=== PATIENT | male | born 1940 | race Caucasian/White ===

== ENCOUNTER 2016-12-06 14:00 | Emergency (ER) | payer OTHER, MEDICARE ==
[~2016-12-06] VITALS: Ht 175.3 cm; Wt 94.3 kg
[~2016-12-06 14:00] MED LIST: CIPRO 500MG TA500 MG PO; CITALOPRAM20 MG PO; CYCLOBENZAPRINE5 M1 PO; FENOFIBRATE130 MG PO; HYDROCODON-ACETAMINO; LISINOPRIL10 MG PO; NORVASC 5MG TAB5 MG PO; PRAVASTATIN40 MG PO; PREVACID SOLUTA15 MG PO; VESICARE 10MG10 MG PO
[2016-12-06 14:46] LABS: ABSOLUTE BASOPHIL COUNT 0.1 /CUMM (0.0-0.2); ABSOLUTE EOSINOPHIL COUNT 0.1 /CUMM (0.0-0.7); ABSOLUTE GRANULOCYTE CT 6.6 /CUMM (1.4-6.5); ABSOLUTE LYMPH COUNT 1.2 /CUMM (1.2-3.4); ABSOLUTE MONOCYTE COUNT 1.2 /CUMM (0.10-0.60); BASOPHIL % 0.6 % (0.0-2.0); EOSINOPHIL % 0.8 % (0-5); GRANULOCYTE % 72.4 % (42.2-75.2); HEMATOCRIT 43.6 % (42-52); MEAN CORPUSCULAR HGB 30.5 PG (27.0-31.0); MEAN CORPUSCULAR HGB CONC 34.2 G/DL (33.0-37.0); MEAN PLATELET VOLUME 6.2 FL (7.4-10.4); PLATELET COUNT 298 /CUMM (130-400); RBC DISTRIBUTION WIDTH 13.4 % (11.5-14.5); WHITE BLOOD CELL COUNT 9.2 /CUMM (4.8-10.8)
--- NOTE | 2016-12-06 16:25 | ED GENERAL ADULT ---
History of Present Illness General Chief Complaint: Dyspnea (COPD, CHF, Other) Stated Complaint: DIFF BREATHING Source: patient, family Exam Limitations: no limitations Vital Signs & Intake/Output Vital Signs & Intake/Output Vital Signs Date Time Temp Pulse Resp B/P Pulse O2 O2 Flow FiO2 Ox Delivery Rate 12/06 1832 98.9 80 16 134/70 98 Room Air Room Air 12/06 1706 100.6 86 18 132/68 97 Room Air 12/06 1645 94 12/06 1625 96 Room Air Room Air 12/06 1411 98.6 96 18 150/75 95 Room Air ED Intake and Output 12/07 0000 12/06 1200 Intake Total Output Total Balance Patient 208 lb Weight Allergies Coded Allergies: moxifloxacin (From AVELOX) (ITCHY, RASH, SWEATING 12/06/16) Reconcile Medications Amlodipine (Norvasc 5MG Tab) 5 MG TABLET 1 TAB PO DAILY HEART HEALTH ( Reported) Amoxicillin/Clavulanate Potass (Amox-Clav 875-125 MG Tablet) 875 MG-125 MG TABLET 1 TAB PO BID ANTIBIOTIC (Reported) Atorvastatin Calcium (Lipitor) 80 MG TABLET 1 TAB PO DAILY CHOLESTEROL ( Reported) Benzonatate 200 MG CAPSULE 1 CAP PO TID PRN COUGH Cyclobenzaprine HCl 5 MG TABLET 1 TAB PO DAILY MUSCLE RELAXER (Reported) FENOFIBRATE,MICRONIZED (Fenofibrate) 130 MG CAPSULE 1 CAP PO DAILY HEART HEALTH (Reported) Folic Acid 1 MG TABLET 1 TAB PO DAILY SUPPLEMENT (Reported) Gabapentin (Unknown Strength) CAPSULE (Unknown Dose) UNKNOWN (Reported) Guaifenesin/Codeine Phosphate (Cheratussin AC Syrup) 100 MG-10 MG/5 ML LIQUID 5 ML PO Q6P PRN COUGH (Reported) Hydrocodone/Acetaminophen (Hydrocodon-Acetaminophn 10-325) 10 MG-325 MG TABLET 1 TAB PO 4XDP PRN PAIN (Reported) Lansoprazole (Prevacid) 30 MG TAB.RAP.DR 1 TAB PO DAILY GI (Reported) Lisinopril 10 MG TABLET 1 TAB PO DAILY HTN (Reported) Prednisone 10 MG TABLET 0 PO DAILY BREATHING START WITH 6 TABS PO DAILY ON DAY 1 AND DECREASE BY 10 MG A DAY X 6 DAYS Solifenacin Succinate (Vesicare) 10 MG TABLET 1 TAB PO DAILY OVERACTIVE BLADDER (Reported) Vilazodone Hydrochloride (Viibryd) 20 MG TABLET 1 TAB PO DAILY MENTAL HEALTH (Reported) Triage Note: PT STATES HE IS SOB AND COUGHING AND CHOKING "PICKING YELLOW/BROWN THICK SPUTUM". PT IS CURRENTLY TAKING AUGMENTIN THAT HE STARTED LAST TUESDAY. Triage Nurses Notes Reviewed? yes HPI: Patient is a 75 year old male presents complaining of cough, sputum production, wheezing, sinus infection. Patient reports symptoms x 1-1.[address] Baca on Tuesday and was placed on Augmentin. Patient has been taking the Augmentin but feels like his symptoms are worsening. Wheezing has been increasing, especially at night. Frontal headache and pressure sensation that that is currently moderate to severe. Patient reports associated subjective fevers and right sided chest pain. Patient did not received an influenza vaccination within the past 1 year. (LLUVIA BARNARD) Past History Travel History Traveled to [place] past 21 day No Medical History Any Pertinent Medical History? see below for history Cardiovascular: AFIB, hypertension, hyperlipidemia Respiratory: COPD Gastrointestinal: achalasia History of MRSA: No History of VRE: No History of CDIFF: No Pneumonia Vaccine: 09/08/09 Influenza Vaccine: 08/25/13 Surgical History Surgical History: non-contributory Psychosocial History Who do you live with Spouse Services at Home None What is your primary language Belgian Tobacco Use: Quit <30 days ago (quit on 11/21/16) ETOH Use: denies use Illicit Drug Use: denies illicit drug use Family History Hx Contributory? No (LLUVIA BARNARD) Review of Systems Review of Systems Constitutional: Denies: chills, fever. EENTM: Reports: nasal congestion. Respiratory: Reports: cough, short of breath, sputum production, wheezing. Cardiovascular: Reports: chest pain (right sided chest pain). GI: Denies: abdominal pain, nausea, vomiting. Musculoskeletal: Reports: no symptoms. Skin: Reports: no symptoms. Neurological/Psychological: Reports: headache. Hematologic/Endocrine: Reports: no symptoms. Immunologic/Allergic: Reports: no symptoms. (LLUVIA BARNARD) Physical Exam Physical Exam General Appearance: alert, awake Head: bilateral frontal and maxillary sinus tenderness Eyes: Bilateral: normal appearance, PERRL, EOMI. Ears, Nose, Throat: normal pharynx, normal ENT inspection, hearing grossly normal Neck: normal inspection, supple, full range of motion Respiratory: minimal congestion left lung base Cardiovascular: regular rate/rhythm (no appreciable murmur) Gastrointestinal: soft, non-tender Back: normal inspection, normal range of motion Extremities: normal inspection, normal capillary refill, normal range of motion, no edema Neurologic/Psych: no motor/sensory deficits, awake, alert, oriented x 3, normal mood/affect Skin: intact, normal color, warm/dry Lymphatic: no anterior cervical jeremiah Core Measures ACS in differential dx? No CVA/TIA Diagnosis: No Severe Sepsis Present: No Septic Shock Present: No (ANSELMO MALAVE,LLUVIA) Progress Differential Diagnoses I considered the following diagnoses in my evaluation of the patient: Influenza, pneumonia, bronchitis, sinusitis, sepsis Plan of Care: Orders Procedure Date/time Status RAPID VIRAL INFLUENZA A 12/06 1630 Complete VIRAL CULTURE 12/06 1630 Active TROPONIN LEVEL 12/06 1411 Complete COMPREHENSIVE METABOLIC PANEL 12/06 1411 Complete CBC WITHOUT DIFFERENTIAL 12/06 1411 Complete EKG 12/06 1402 Active Laboratory Tests 12/06/16 1630: Virus Culture Pending 12/06/16 1439: Anion Gap 11, Estimated GFR > 60, BUN/Creatinine Ratio 18.2, Glucose 133 H, Calcium 9.5, Total Bilirubin 0.5, AST 48, ALT 31, Alkaline Phosphatase 54, Troponin I 0.01, Total Protein 7.2, Albumin 4.4, Globulin 2.8, Albumin/Globulin Ratio 1.6, CBC w Diff NO MAN DIFF REQ, RBC 4.90, MCV 89.0, MCH 30.5, RDW 13.4, MPV 6.2 L, Gran % 72.4, Lymphocytes % 12.6 L, Monocytes % 13.6 H, Eosinophils % 0.8, Basophils % 0.6, Absolute Granulocytes 6.6 H, Absolute Lymphocytes 1.2, Absolute Monocytes 1.2 H, Absolute Eosinophils 0.1, Absolute Basophils 0.1, PUBS MCHC 34.[address] Madrigal. Results of labs and chest x-ray discussed with patient and his . Patient reports feeling improved after nebulizer treatment. Patient nontoxic appearing, tolerating oral intake. Patient is outside the 48-hour window to initiate Tamiflu. This was discussed with patient and his . Appears stable for discharge, instructed to return immediately if breathing worsens, unable stay hydrated, or worsening of symptoms. And to follow-up with his primary care provider within one week for further evaluation. (LLUVIA BARNARD) Diagnostic Imaging: Viewed by Me: Radiology Read. Discussed w/RAD: Radiology Read. Initial ED EKG: Normal sinus rhythm 95 bpm, normal axis normal intervals, change in t wave morphology in v3 compared to previous ekg Rhythm Strip: normal sinus rhythm (LLUVIA BARNARD) Departure Departure Time of Disposition: 1803 Disposition: HOME OR SELF CARE Condition: Stable Clinical Impression Primary Impression: Influenza A Secondary Impressions: Sinusitis Referrals: GM BACA MD (PCP/Family) Additional Instructions: Drink fluids and rest. Follow-up with your primary care doctor within one week for further evaluation. Use your albuterol inhaler every 4 hours as needed for wheezing. Return to the emergency department if unable to stay hydrated, breathing worsening, or worsening symptoms. Departure Forms: Customer Survey General Discharge Information Prescriptions: Current Visit Scripts Prednisone 0 PO DAILY #21 TAB START WITH 6 TABS PO DAILY ON DAY 1 AND DECREASE BY 10 MG A DAY X 6 DAYS Benzonatate 1 CAP PO TID PRN COUGH #30 CAP (LLUVIA BARNARD) PA/DATA CONTROL CLERK SUPERVISOR Co-Sign Statement Statement: ED Attending supervision documentation- [X] I saw and evaluated the patient. I have also reviewed all the pertinent lab results and diagnostic results. I agree with the findings and the plan of care as documented in the PA's/DATA CONTROL CLERK SUPERVISOR's documentation. [X] I have reviewed the ED Record and agree with the PA's/DATA CONTROL CLERK SUPERVISOR's documentation. [] Additions or exceptions (if any) to the PAs/DATA CONTROL CLERK SUPERVISOR's note and plan are summarized below: [] (TIFFANY MOODY,MAT) Critical Care Note Critical Care Note Critical Care Time: non-applicable (LLUVIA BARNARD)
[2016-12-06] MEDS ORDERED: LIPITOR80 M1 PO (16:38)
[2016-12-06] MEDS ORDERED: FOLIC ACID1 M1 PO (16:38)
[2016-12-06] MEDS ORDERED: VIIBRYD20 M1 PO (16:39)
[2016-12-06] MEDS ORDERED: PREVACID30 M2 PO (16:39)
[2016-12-06] MEDS ORDERED: CYCLOBENZAPRINE5 M2 PO (16:40)
[2016-12-06] MEDS ORDERED: HYDROCODON-ACE1 EAC1 PO (16:41)
[2016-12-06] MEDS ORDERED: AMOX-CLAV 875-1 EACH PO (16:41)
[2016-12-06] MEDS ORDERED: GABAPENTIN300 M2 (16:44)
[2016-12-06] MEDS ORDERED: CHERATUSSIN AC118 ML PO (16:45)
--- NOTE | 2016-12-06 17:46 | RADIOLOGY REPORT ---
EXAMINATION: XR CHEST CLINICAL INFORMATION: Coughing. Sputum production. Dyspnea. COMPARISON: Chest x-ray 09/08/2014 TECHNIQUE: PA and lateral views of the chest were obtained. FINDINGS: Lungs are clear. No pulmonary vascular congestion. No infiltrate or pleural effusion. The heart size is normal. The cardiac and mediastinal contours are normal. There are multilevel degenerative changes of dorsal spine. IMPRESSION: Unremarkable examination.
[2016-12-06] MEDS ORDERED: BENZONATATE200 M1 PO (18:05)
[2016-12-06] MEDS ORDERED: PREDNISONE10 M2 PO (18:05)
[2016-12-06 18:32] VITALS: BP 134/70
== END 2016-12-06 18:32 ==
LOC: ERH 14:00
PROVIDERS: Emergency Medicine
DX: J10.1 Influenza due to other identified influenza virus with other respiratory manifestations (principal); J32.9 Chronic sinusitis, unspecified; Z87.891 Personal history of nicotine dependence
CPT/HCPCS: 1263; 87804; 87804-59; 93005; 93010

== ENCOUNTER 2018-01-12 15:16 | Inpatient (IN) | payer OTHER ==
[~2018-01-12] VITALS: Ht 175.3 cm; Wt 91.6 kg
[~2018-01-12 15:16] MED LIST changes: +AMOX-CLAV 875-1 EACH PO; +AZITHROMYCIN250 M1 PO; +BENZONATATE200 M1 PO; +CARDIZEM CD180 M1 PO; +CHERATUSSIN AC118 ML PO; +CRESTOR40 M2 PO; +CYCLOBENZAPRINE10 M1 PO; +DILTIAZEM 24HR180 MG PO; +FENOFIBRATE130 M1 PO; -FENOFIBRATE130 MG PO; +FENOFIBRATE134 M1 PO; +FOLIC ACID1 M1 PO; +GABAPENTIN300 M2; +HYDROCODON-ACE1 EAC1 PO; +HYDROCODON-ACE1 EAC4 PO; +KEFLEX500 M1 PO; +LIPITOR80 M1 PO; +LISINOPRIL10 M1 PO; -LISINOPRIL10 MG PO; +METFORMIN HCL500 M3 PO; -NORVASC 5MG TAB5 MG PO; +NORVASC5 M1 PO; +PREDNISONE10 M2 PO; +PREVACID30 M1 PO; +PREVACID30 M2 PO; +PRINIVIL10 M1 PO; +SPIRIVA18 MCG INH; +SYMBICORT 16010.2 GM INH; +SYMBICORT 80-10.2 GM PO; -VESICARE 10MG10 MG PO; +VESICARE10 MG PO; +VIIBRYD10 M1 PO; +VIIBRYD20 M1 PO
[2018-01-12 16:20] LABS: ABSOLUTE BASOPHIL COUNT 0.1 /CUMM (0.0-0.2); ABSOLUTE EOSINOPHIL COUNT 0.1 /CUMM (0.0-0.7); ABSOLUTE GRANULOCYTE CT 11.4 /CUMM (1.4-6.5); ABSOLUTE LYMPH COUNT 2.4 /CUMM (1.2-3.4); BASOPHIL % 0.6 % (0.0-2.0); EOSINOPHIL % 0.3 % (0-5); GRANULOCYTE % 76.2 % (42.2-75.2); HEMATOCRIT 42.6 % (42-52); MEAN CORPUSCULAR HGB 28.5 PG (27.0-31.0); MEAN CORPUSCULAR HGB CONC 32.6 G/DL (33.0-37.0); MEAN CORPUSCULAR VOLUME 87.4 FL (80.0-94.0); PLATELET COUNT 408 /CUMM (130-400); RBC DISTRIBUTION WIDTH 13.2 % (11.5-14.5); RED BLOOD CELL CT 4.88 /CUMM (4.70-6.10); WHITE BLOOD CELL COUNT 14.9 /CUMM (4.8-10.8)
--- NOTE | 2018-01-12 17:49 | RADIOLOGY REPORT ---
EXAMINATION: XR CHEST CLINICAL INFORMATION: Cough COMPARISON: 12/10/2017 TECHNIQUE: 2 views of the chest were obtained. FINDINGS: No focal consolidation, pulmonary edema, or pleural effusion. Stable cardiomediastinal silhouette. IMPRESSION: No acute cardiopulmonary findings.
--- NOTE | 2018-01-12 20:44 | ED DYSPNEA/ASTHMA COMPLAINT ---
History of Present Illness General Chief Complaint: General Adult Stated Complaint: "DR DELFINO HERRING" Source: patient, family Exam Limitations: no limitations Vital Signs & Intake/Output Vital Signs & Intake/Output Vital Signs Date Time Temp Pulse Resp B/P B/P Pulse O2 O2 Flow FiO2 Mean Ox Delivery Rate 01/12 2220 97.4 63 16 111/57 92 Room Air 01/12 2043 98 Room Air 01/12 2039 97.4 73 22 108/57 97 Room Air 01/12 1546 98.0 86 20 110/64 97 Room Air Room Air ED Intake and Output 01/13 0000 01/12 1200 Intake Total Output Total Balance Patient 202 lb Weight Weight Reported by Patient Measurement Method Allergies Coded Allergies: moxifloxacin (From AVELOX) (ITCHY, RASH, SWEATING 01/12/18) Reconcile Medications Amlodipine Besylate (Norvasc) 5 MG TABLET 1 TAB PO DAILY HEART (Reported) Azithromycin 250 MG TABLET 1 TAB PO DAILY INFECTION . Budesonide/Formoterol Fumarate (Symbicort 80-4.5 Mcg Inhaler) 80 MCG-4.5 MCG/ ACTUATION HFA.AER.AD (Unknown Dose) PO BID COPD (Reported) Budesonide/Formoterol Fumarate (Symbicort 160-4.5 Mcg Inhaler) 160 MCG-4.5 MCG/ ACTUATION HFA.AER.AD (Unknown Dose) INH BID COPID (Reported) Cephalexin (Keflex) 500 MG CAPSULE 1 CAP PO BID INFECTION . Cyclobenzaprine HCl 10 MG TABLET 1 TAB PO DAILY MUSCLE SPASMS (Reported) Diltiazem HCl (Diltiazem 24HR ER) 180 MG CAP.ER.24H 1 CAP PO DAILY HEART ( Reported) Diltiazem HCl (Cardizem Cd) 180 MG CAP.ER.24H 180 MG PO DAILY AFIB (Reported) Fenofibrate,Micronized (Fenofibrate) 130 MG CAPSULE 1 CAP PO DAILY TRIGLYCERIDES (Reported) Fenofibrate,Micronized (Fenofibrate) 134 MG CAPSULE 130 MG PO DAIALY CHOLESTEROL (Reported) Hydrocodone/Acetaminophen (Hydrocodon-Acetaminophn 10-325) 10 MG-325 MG TABLET 1 TAB PO 4XDP PRN PAIN (Reported) Hydrocodone/Acetaminophen (Hydrocodon-Acetaminophn 10-300) 10 MG-300 MG TABLET 10-325 MG PO 4 TIMES/DAY CHRONIC DISC DISEASE (Reported) Lansoprazole (Prevacid) 30 MG TAB.RAP.DR 1 TAB PO DAILY GI (Reported) Lansoprazole (Prevacid) 30 MG CAPSULE.DR 30 MG PO DIALY ACID REFLUX (Reported ) Lisinopril (Prinivil) 10 MG TABLET 1 TAB PO DAILY HTN (Reported) Lisinopril 10 MG TABLET 10 MG PO DAILY HTN (Reported) Metformin HCl 500 MG TABLET 500 MG PO BID DIABETES (Reported) Metformin HCl 500 MG TABLET 1 TAB PO BID DIABETES . Prednisone 10 MG TABLET 1 TAB PO SEE ADMIN CRITERIA lung infection Please take 3 tabs om 07/21/17-07/22/17 Please take 2 tabs 07/23/17-07/24/17 Please take 1 tab 07/25/17-07/26/17 Then stop. Rosuvastatin Calcium (Crestor) 40 MG TABLET 1 TAB PO DAILY CHOLESTEROL ( Reported) Rosuvastatin Calcium (Crestor) 40 MG TABLET 40 MG PO DIALY CHOLESTEROL ( Reported) Solifenacin Succinate (Vesicare) 10 MG TABLET 1 TAB PO DAILY BLADDER HEALTH ( Reported) Solifenacin Succinate (Vesicare) 10 MG TABLET 10 MG PO DIALY PROSTATE ( Reported) Tiotropium [place] (Spiriva) 18 MCG CAP.W.DEV (Unknown Dose) INH DIALY COPD ( Reported) Vilazodone Hydrochloride (Viibryd) 20 MG TABLET 1 TAB PO DAILY MENTAL HEALTH (Reported) Vilazodone Hydrochloride (Viibryd) 10 MG TABLET 20 MG PO DIALY ANTI DEPRESSANT (Reported) Triage Note: PT TO ED FOR C/C OF SOB X 3 DAYS. +PRODUCTIVE YELLOW COUGH. WORSENING SOB WITH AMBULATION. PT SENT TO ED BY DR. YANCEY TO R/O PNEUMONIA. Triage Nurses Notes Reviewed? yes Onset: Gradual Duration: day(s): Timing: recent history Severity: moderate HPI: 77yo male with hx of a fib, COPD, DM, HTN presents to ED sent in by PCP for evaluation of possible PNA. Patient complaining of shortness of breath and cough productive of yellow sputum for the past 3 days. Patient reports that dyspnea is worse with exertion. Patient states that he has had dyspnea on exertion in the past however his saturation was never low enough to qualify for home oxygen. Patient reports chest pain associated with his cough. No chest pain at rest. Patient states that today at his doctor's office it was noted he had mild swelling to his ankles, he has never noticed this in the past. Patient denies fevers, chills, nausea, vomiting, diarrhea, abdominal pain. (Deb Lugo) Past History Travel History Traveled to [place] past 21 day No Medical History Any Pertinent Medical History? 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 No (Deb Lugo) Review of Systems Review of Systems Constitutional: Reports: no symptoms. EENTM: Reports: no symptoms. Respiratory: Reports: see HPI. Cardiovascular: Reports: see HPI. GI: Reports: no symptoms. Genitourinary: Reports: no symptoms. Musculoskeletal: Reports: see HPI. Skin: Reports: no symptoms. Neurological/Psychological: Reports: no symptoms. Hematologic/Endocrine: Reports: no symptoms. Immunologic/Allergic: Reports: no symptoms. All Other Systems: Reviewed and Negative (Deb Lugo) Physical Exam Physical Exam General Appearance: well developed/nourished, no apparent distress, alert, awake Head: atraumatic, normal appearance Eyes: Bilateral: normal appearance. Ears, Nose, Throat: hearing grossly normal Neck: normal inspection, supple, full range of motion Respiratory: mild inspiratory wheezes right posterior lung evangelista Cardiovascular: regular rate/rhythm Peripheral Pulses: 2+ radial (R), 2+ radial (L), 2+ dorsalis pedis (R), 2+ dorsalis pedis (L) Gastrointestinal: soft, no organomegaly, mild periumbilical tenderness Extremities: normal range of motion, mild nonpitting edema bilateral ankles Neurologic/Psych: awake, alert, oriented x 3 Skin: intact, normal color, warm/dry Core Measures ACS in differential dx? Yes CVA/TIA Diagnosis No Sepsis Present: No Sepsis Focused Exam Completed? No (Lacey MALAVE,Deb Barth) Progress Differential Diagnosis: asthma, AMI, bronchitis, CHF, COPD, musculoskeletal pain , pulmonary embolism, pneumonia, unstable angina Plan of Care: Orders Procedure Date/time Status Regular Diet 01/13 B Active Patient Data 01/12 2340 Active OXYGEN SETUP (GEN) 01/12 2255 Active Saline Lock 01/[address] in observation 01/12 2255 Active Vital Signs 01/12 2255 Active Activity/Ambulation 01/12 2255 Active Code Status 01/12 2255 Active Add-on Test (ER Only) 01/12 2053 Active EKG 01/12 2030 Active B-TYPE NATRIURETIC PEP (BNP) 01/12 161 Complete RAPID VIRAL INFLUENZA A 01/12 1549 Complete TROPONIN LEVEL 01/12 1549 Complete COMPREHENSIVE METABOLIC PANEL 01/12 154 Complete CBC WITHOUT DIFFERENTIAL 01/12 1549 Complete Laboratory Tests 01/12/18 1612: Anion Gap 10, Estimated GFR > 60, BUN/Creatinine Ratio 20.9, Glucose 139 H, Calcium 10.2, Total Bilirubin 0.5, AST 25, ALT 23, Alkaline Phosphatase 50, Troponin I < 0.01, Gql-B-Rkzkpyfztct Pept 305 H, Total Protein 6.7, Albumin 4.1 , Globulin 2.6, Albumin/Globulin Ratio 1.6, CBC w Diff NO MAN DIFF REQ, RBC 4.88 , MCV 87.4, MCH 28.5, MCHC 32.6 L, RDW 13.2, MPV 6.0 L, Gran % 76.2 H, Lymphocytes % 16.3 L, Monocytes % 6.6, Eosinophils % 0.3, Basophils % 0.6, Absolute Granulocytes 11.4 H, Absolute Lymphocytes 2.4, Absolute Monocytes 1.0 H, Absolute Eosinophils 0.1, Absolute Basophils 0.1 Microbiology 01/12 1550 NASOPHARYN: Influenza Virus A & B Rapid Smear - COMP This patient has COPD exacerbation. Chest x-ray without acute abnormality. Patient relates leukocytosis and mild hyperkalemia without EKG changes. Patient 's oxygen saturation is stable on room air. Patient ambulated with saturation 93-94%. Patient does not feel comfortable going home, reports significant dyspnea. The patient was discussed with showcase maker, patient may return to his baseline in one to 2 days following IV steroids and antibiotics. This patient with pulmonology consult while here for observation. Discussed this patient with Dr. Mccoy regarding general medicine observation for COPD exacerbation. Diagnostic Imaging: Viewed by Me: Radiology Read. Discussed w/RAD: Radiology Read. CXR Impression: PATIENT: CARLITOS EVANS PRESENT AGE : 77 PATIENT ACCOUNT NO: [id number] : 42 LOCATION: [facility] ORDERING PHYSICIAN: Harvinder Chand DO (TBS) SERVICE DATE: 01/12/18 EXAM TYPE: RAD - XRY-CHEST XRAY, TWO VIEWS EXAMINATION: XR CHEST CLINICAL INFORMATION: Cough COMPARISON: 12/10/2017 TECHNIQUE: 2 views of the chest were obtained. FINDINGS: No focal consolidation, pulmonary edema, or pleural effusion. Stable cardiomediastinal silhouette. IMPRESSION: No acute cardiopulmonary findings. DICTATED BY: Ron Monreal MD DATE/TIME DICTATED:01/12/181743 SUSTAINABILITY ANALYST:RAFAL DATE/TIME TRANSCRIBED:01/12/181743 CONFIDENTIAL, DO NOT COPY WITHOUT APPROPRIATE AUTHORIZATION. <Electronically signed in Other Vendor System> SIGNED BY: Ron Monreal MD 01/12/181748 Initial ED EKG: sinus rhythm @70bpm Prior EKG: unchanged (12/10/17) (Deb Lugo) Departure Departure Disposition: STILL A PATIENT Condition: Stable Clinical Impression Primary Impression: COPD exacerbation Referrals: Brady Watson MD (PCP/Family) Departure Forms: Customer Survey General Discharge Information Observation Note [facility]: [facility] Phys[facility] Advisor Notified: HARVINDER CHAND DO Place Patient In: Non-ED OBS Care Area Rationale for Observation: My rational for observation is as follows [COPD exacerbation with leukocytosis requiring IV steroids, IV azithromycin, pulmonology consult, possible respiratory therapy treatments, premature discharge could be medically unsafe.]. (Deb Lugo) PA/PRIMER INSERTING MACHINE ADJUSTER Co-Sign Statement Statement: ED Attending supervision documentation- x I saw and evaluated the patient. I have also reviewed all the pertinent lab results and diagnostic results. I agree with the findings and the plan of care as documented in the PA's/PRIMER INSERTING MACHINE ADJUSTER's documentation. COPD exacerbation with weakness, desaturation with ambulation [] I have reviewed the ED Record and agree with the PA's/PRIMER INSERTING MACHINE ADJUSTER's documentation. [] Additions or exceptions (if any) to the PAs/PRIMER INSERTING MACHINE ADJUSTER's note and plan are summarized below: [] (Diogo MOODY,Ld) Critical Care Note Critical Care Note Critical Care Time: non-applicable (Lacey MALAVE,Deb Barth)
--- NOTE | 2018-01-13 03:40 | History & Physical ---
Mehdi Arriaga 01/13/18 0339: General Information and HPI MD Statement: I have seen and personally examined CARLITOS EVANS and documented this H&P. The patient is a 77 year old M who presented with a patient stated chief complaint of [SOB]. Source of Information: patient, old records Exam Limitations: no limitations History of Present Illness: This is a 77 year-old man who was known to be in his usual state of health until a few days ago. He has a PMH of DJD, COPD( not on home oxygen), HLD, Afib ( remote history dx 1998, not on any AC), RODRICK ( non compliant CPAP ), DM TYPE 2, BPH, hypertension, chronic back pain, achalasia, dysphagia. Presented to the emergency department with a chief complain off shortness of breath, productive cough of yellow sputum for the past 3-4 days that is associated with some chills and night sweats. Patient stated that Patient states that he has had dyspnea on exertion in the past however his saturation was never low enough to qualify for home oxygen. Patient reports chest pain secondary to his cough. Patient stated that due to this difficulty in breathing and a cough he cannot get enough sleep in the past couple days, he you usually sleeps with his bed slightly raised and to try to catch up his breath that is associated with expiratory wheezing. Patient also reports sore throat, and he stated that he was admitted as primary care doctor yesterday was noted he had mild swelling to his ankles, he has never noticed this in the past. Currently patient denies any chest pain, heart racing , fever, abdominal pain, nausea, vomiting, diarrhea, hematuria, dysuria, headaches, change in vision or hearing. In the ED patient was giving 125 mg of IV Solu-Medrol, IV azithromycin chest x- ray did not show any acute cardiopulmonary finding. Patient informed her oxygen saturation more than 92%. Patient stated that he had some esophageal procedure done to help him with his dysphagia and difficulty swallowing at her hospital. He still complaining some difficulty with a solid food. Patient had CT angiogram of the chest abdomen and pelvis on November 2016 due to concern off aortic dissection that showed diffuse emphysema with a new pneumonitis in the right upper lobe. Last time patient was admitted to [facility] was in June 2017 due to pneumonia. 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 Cardiovascular: Reports: see HPI. Respiratory: Reports: see HPI. GI: Reports: see HPI. Genitourinary: Reports: see HPI. Exam & Diagnostic Data Last 24 Hrs of Vital Signs/I&O Vital Signs Date Time Temp Pulse Resp B/P B/P Pulse O2 O2 Flow FiO2 Mean Ox Delivery Rate 01/13 0119 98.6 71 18 98/55 93 01/13 0022 97.6 72 18 117/55 93 Room Air 01/12 2220 97.4 63 16 111/57 92 Room Air 01/12 2043 98 Room Air 01/12 2039 97.4 73 22 108/57 97 Room Air 01/12 1546 98.0 86 20 110/64 97 Room Air Room Air Intake & Output 01/13 0800 01/13 0000 01/12 1600 Intake Total Output Total Balance Patient 202 lb Weight Weight Reported by Patient Measurement Method Physical Exam General Appearance Alert, Oriented X3, Cooperative, Mild Distress Skin Temp/Moisture Exam: Warm/Dry HEENT Atraumatic, PERRLA, EOMI Neck Supple Cardiovascular Regular Rate, Normal S1, Normal S2 Lungs Normal Air Movement, decrease air entry bibasilar, mild expiratory wheezing Abdomen Normal Bowel Sounds, Soft, No Tenderness Extremities trace bilateral edema Last 24 Hrs of Labs/Mandeep: Laboratory Tests 01/12/18 1612: Anion Gap 10, Estimated GFR > 60, BUN/Creatinine Ratio 20.9, Glucose 139 H, Calcium 10.2, Total Bilirubin 0.5, AST 25, ALT 23, Alkaline Phosphatase 50, Troponin I < 0.01, Spq-L-Shuhrxasnbb Pept 305 H, Total Protein 6.7, Albumin 4.1 , Globulin 2.6, Albumin/Globulin Ratio 1.6, CBC w Diff NO MAN DIFF REQ, RBC 4.88 , MCV 87.4, MCH 28.5, MCHC 32.6 L, RDW 13.2, MPV 6.0 L, Gran % 76.2 H, Lymphocytes % 16.3 L, Monocytes % 6.6, Eosinophils % 0.3, Basophils % 0.6, Absolute Granulocytes 11.4 H, Absolute Lymphocytes 2.4, Absolute Monocytes 1.0 H, Absolute Eosinophils 0.1, Absolute Basophils 0.1 Microbiology 01/13 231 URINE ROUT: Legionella Antigen - COLB 01/13 231 URINE ROUT: Streptococcus pneumoniae Antigen (M - COLB 01/13 231 LOWER RESP: Respiratory Culture - COLB 01/13 231 LOWER RESP: Gram Stain - COLB 01/12 1550 NASOPHARYN: Influenza Virus A & B Rapid Smear - COMP Diagnostic Data EKG Results Normal sinus rhythm, heart rate 70, QTC 423, no ST segment changes. CXR Results EXAMINATION: XR CHEST CLINICAL INFORMATION: Cough COMPARISON: 12/10/2017 TECHNIQUE: 2 views of the chest were obtained. FINDINGS: No focal consolidation, pulmonary edema, or pleural effusion. Stable cardiomediastinal silhouette. IMPRESSION: No acute cardiopulmonary findings. Assessment/Plan Assessment: This is a 77 year-old man who was known to be in his usual state of health until a few days ago. He has a PMH of DJD, COPD( not on home oxygen), HLD, Afib ( remote history dx 1998, not on any AC), RODRICK ( non compliant CPAP ), DM TYPE 2, BPH, hypertension, chronic back pain, achalasia, dysphagia. Presented to the emergency department with a chief complain off shortness of breath, productive cough of yellow sputum for the past 3-4 days that is associated with some chills and night sweats. Problem list: -COPD exacerbation -Difficulty swallowing -Generalized weakness -Hyperkalemia/dehydration -Borderline blood pressure Plan: -Admit patient to general medicine floor -Vitals every shift -IV Solu-Medrol 40 mg every 8 hour -Continue IV azithromycin -TRC nebs as needed, Mucinex -Gentle IV fluid hydration of normal saline at 75 mL per hour for 1 bag -Sputum culture, strep and Legionella urine antigen -Pulmonary consultation in a.m. -Swallowing eval in a.m. -Physical therapy consultation in a.m. -Accu-Chek, carbohydrate consistent diet, insulin sliding scale -We will continue the patient Cardizem due to the history of atrial fibrillation , we'll hold off the lisinopril, amlodipine be restarted in a.m. if blood pressure improved. -Please confirm the patient home medications. -Pain pathway -DVT prophylaxis: lovenox -Full code As Ranked By This Provider Problem List: 1. COPD exacerbation Core Measures/Misc (08/07) Acute Coronary Syndrome ACS Diagnosis: No Congestive Heart Failure Congestive Heart Failure Diagnosis No Cerebrovascular Accident CVA/TIA Diagnosis: No VTE (View Protocol) VTE Risk Factors Acute Medical Illness No Mechanical VTE Prophylaxis d/t N/A MechProphylax Ordered No VTE Pharm Prophylaxis d/t NA PharmProphylax ordered Sepsis (View protocol) Sepsis Present: No Felton MOODY, [facility] 01/13/18 0722: General Information and HPI Allergies/Medications Home Med list Amlodipine Besylate (Norvasc) 5 MG TABLET 1 TAB PO DAILY HEART (Reported) Azithromycin 250 MG TABLET 1 DP PO AD COPD Start this med on 01/15/18 Be sure to finish this medicine Budesonide/Formoterol Fumarate (Symbicort 160-4.5 Mcg Inhaler) 160 MCG-4.5 MCG/ ACTUATION HFA.AER.AD (Unknown Dose) INH BID COPID (Reported) Cyclobenzaprine HCl 10 MG TABLET 1 TAB PO DAILY MUSCLE SPASMS (Reported) Diltiazem HCl (Diltiazem 24HR ER) 180 MG CAP.ER.24H 1 CAP PO DAILY HEART ( Reported) Fenofibrate,Micronized (Fenofibrate) 130 MG CAPSULE 1 CAP PO DAILY TRIGLYCERIDES (Reported) Hydrocodone/Acetaminophen (Hydrocodon-Acetaminophn 10-325) 10 MG-325 MG TABLET 1 TAB PO 4XDP PRN PAIN (Reported) Lansoprazole (Prevacid) 30 MG CAPSULE.DR 30 MG PO DIALY ACID REFLUX (Reported ) Lisinopril 10 MG TABLET 10 MG PO DAILY HTN (Reported) Metformin HCl 500 MG TABLET 500 MG PO BID DIABETES (Reported) Prednisone 10 MG TABLET 0 PO TAPER COPD DATES TABS/DAY 01/15-01/17 4 01/18-01/20 3 01/21-01/23 2 01/24-01/26 1 THEN STOP Rosuvastatin Calcium (Crestor) 40 MG TABLET 40 MG PO DIALY CHOLESTEROL ( Reported) Tiotropium [place] (Spiriva) 18 MCG CAP.W.DEV (Unknown Dose) INH DIALY COPD ( Reported) Vilazodone Hydrochloride (Viibryd) 20 MG TABLET 1 TAB PO DAILY MENTAL HEALTH (Reported) Attending MD Review Statement Attending Statement Attending MD Statement: examined this patient, discuss w/resident/PA/FLATWORK WASHER, agreed w/resident/PA/FLATWORK WASHER, reviewed images, amended to note Attending Assessment/Plan: 77 yo M with h/o COPD, paroxysmal Afib not on AC due to rectal bleeding, chronic back pain from degenerative disc disease, T2DM, HTN, achalasia/ dysphagia, last admitted for COPD/pneumonia (Jun 2017), is here for c/o exertional dyspnea, cough productive of yellow phlegm for the past 3-4 days. He is unable to sleep at night due to difficulty catching his breath. C/o cold sweats and pleuritic chest pain. He reports sore throat and h/o dysphagia for which he follows GI at [facility] and underwent EGD for ?dilatation for achalasia. Vitals stable, no hypoxia. Exam: dry mucous membranes, Chest b/l reduced air entry with expiratory wheeze, patient able to speak in full sentences, not using accessory muscles. Labs WBC 14.9, Plt 408, Na 135, K 5.5, BUN 23, glucose 139, trop neg. CXR: no acute findings. EKG: sinus rhythm. Echo (2011): EF > 55%. Assessment and plan: 1. COPD exacerbation 2. Weakness, physical deconditioning 3. Esophageal dysphagia/ achalasia with no current evidence of pneumonia. His last CT (Nov 2017) was suggestive of pneumonitis. 4. Hyperkalemia 5. Transient hypotension 6. Chronic back pain - 23 hour observation on general medicine - TR nebs - Sputum cultures - IV solumedrol and azithro for 5 days - Pulm consult (Dr. Avila) - Gentle hydration - Trend renal functions - PT eval - Swallow eval given h/o dysphagia - Diabetes management - Resume flexeril and vicodin for back arriaga - Hold lisinopril until K improves - Hold amlodipine and resume once BP improves - Resume diltiazem DVT ppx Lovenox. Full code. Observation Initial Note - I have personally examined CARLITOS EVANS on 01/13/18 at 0722. The disposition of CARLITOS EVANS is uncertain at this time and before a determination can be made, he requires a period of observation for the following reasons [COPD exacerbation, physical deconditioning]
--- NOTE | 2018-01-13 09:45 | PN-Observation ---
Tiana MOODYPanda 01/13/18 0945: Observation Note Observation Note _ I have personally examined CARLITOS EVANS. him disposition is uncertain at this time. Before a determination can be made, he requires continued observation for the following reasons: * Pulse oximetry * Pulmonology consult * Intravenous Steroids * Nebulizer treatments * Antibiotics Assessment/Plan Medical Assessment: 77 year old man with multiple medical problems significant for COPD not on home oxygen, atrial fibrillation no on anticoagulation, and achalasia with dysphagia s/p balloon dilation brought in by ambulance for evaluation Patient is saturating well without supplemental oxygen while on intravenous steroids. He appears tired, but otherwise well and in no acute respiratory distress. Patient is to have physical therapy evaluation for his weakness and deconditioning. 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 He remains in observation pending these studies. He is an anticipated discharge to home tomorrow with an oral steroid taper. Problem List -COPD exacerbation -Weakness -Achalasia/Dysphagia -Hyperkalemia -Hypotension -Chronic back pain -Hypertension -Hyperlipidemia -Atrial Fibrillation, no on Anticoagulation -BPH Plan -General Medicine observation -Accuchecks TIDAC with Novolog SSI -TRC with nebs PRN -NS @ 75 mL/hr -Solumedrol 40 mg IV Q8H -Azithromycin 500 mg IV Daily, five total day course -Guaifenesin 600 mg PO BID -Hold lisinopril -Hold amlodipine, restart as tolerated -Continue symbicort, spiriva for COPD -Continue home meds: atorvastatin, cardizem, fenofibrate, omeprazole -PT evaluation -Follow up cultures & sensitivites -Pain control with acetaminophen, vicodin -Diabetic diet -DVT PPx with lovenox -FULL CODE Problem List: 1. COPD exacerbation Subjective Follow-up For: COPD exacerbation dysphagia Subjective: Patient seen and examined. He is seen sitting upright in bed resting comfortably breathing without supplemental oxygen. He appears to be in no acute distress. He admits to cough more when eating or drinking recently and feels food "gets stuck " in his throat. He feels his breathing is mildly improved today, but not back to baseline. He denies any fever, chills, or chest pain. Review of Systems Constitutional: Reports: see HPI. Objective Last 24 Hrs of Vital Signs/I&O Vital Signs Date Time Temp Pulse Resp B/P B/P Pulse O2 O2 Flow FiO2 Mean Ox Delivery Rate 01/13 1122 Room Air 01/13 0844 97.5 78 18 128/62 93 Room Air 01/13 0642 97.7 84 18 116/79 93 01/13 0119 98.6 71 18 98/55 93 01/13 0022 97.6 72 18 117/55 93 Room Air 01/12 2220 97.4 63 16 111/57 92 Room Air 01/12 2043 98 Room Air 01/12 2039 97.4 73 22 108/57 97 Room Air 01/12 1546 98.0 86 20 110/64 97 Room Air Room Air Intake & Output 01/13 1600 01/13 0800 01/13 0000 Intake Total Output Total Balance Patient 91.626 kg Weight Physical Exam General Appearance: Alert, Oriented X3, Cooperative, No Acute Distress Other Physical Findings: GEN: well developed, overweight, elderly man in no acute distress HEENT: NCAT, PERRL, EOMI, anicteric sclera, MMM NECK: Supple, no JVD, trachea midline, no accessory respiratory muscle use CARD: Normal S1/S2 w/o m/g/r; RRR PULM: Diminished airflow in all lung evangelista without crackles or wheezing ABD: Soft, NT, ND, BS+ NEURO: Awake and alert, CN II-XII grossly intact, strength 5/5 x4, speech/ sensation/coordination intact, gait no assessed EXT: normal pulses, no cyanosis or edema Current Medications: Current Medications Sig/Efe Start time Last Medication Dose Route Stop Time Status Admin Acetaminophen 650 MG Q6P PRN 01/13 0245 AC PO Albuterol Sulfate 3 ML BID 01/13 2200 AC 01/13 INH 1130 Atorvastatin Calcium 80 MG 1700 01/13 1700 AC PO Azithromycin 500 MG Q24H 01/14 0000 AC Dextrose/Water 250 ML IV Azithromycin 500 MG ONCE ONE 01/12 2315 DC 01/13 Dextrose/Water 250 ML IV 01/13 0014 0020 Budesonide/ 2 PUF BID 01/13 1000 AC 01/13 Formoterol Fumarate INH 1033 Diltiazem HCl 180 MG DAILY 01/13 1000 AC 01/13 PO 1033 Enoxaparin Sodium 40 MG DAILY 01/13 1000 AC 01/13 SC 1033 Fenofibrate 145 MG DAILY 01/13 1000 AC 01/13 PO 1033 Guaifenesin 600 MG Q12 01/13 1000 AC 01/13 PO 1033 Heparin Sodium 5,000 UNIT Q8 01/13 0600 CAN (Porcine) SC Hydrocodone Bitart/ 1 TAB Q6P PRN 01/13 0245 AC Acetaminophen PO Insulin Aspart 0 TIDAC 01/13 0800 AC 01/13 SC 1146 Methylprednisolone 0 .STK-MED ONE 01/13 0806 DC .ROUTE Methylprednisolone 40 MG Q8 01/13 0600 AC 01/13 IV 0810 Methylprednisolone 0 .STK-MED ONE 01/13 0013 DC .ROUTE Methylprednisolone 125 MG ONCE ONE 01/12 2315 DC 01/13 IV 01/12 2316 0020 Omeprazole 40 MG DAILY AC 01/13 0700 AC PO Omeprazole 0 .STK-MED ONE 01/13 0644 DC PO Oxycodone/ 1 TAB Q8P PRN 01/13 0245 AC Acetaminophen PO Sodium Chloride 1,000 ML .[id number] 01/13 0230 AC 01/13 IV 0244 Tiotropium [place] 1 PUF DAILY 01/13 1000 AC 01/13 INH 1033 Last 24 Hrs of Labs/Mics: Laboratory Tests 01/12/18 1612: Anion Gap 10, Estimated GFR > 60, BUN/Creatinine Ratio 20.9, Glucose 139 H, Calcium 10.2, Total Bilirubin 0.5, AST 25, ALT 23, Alkaline Phosphatase 50, Troponin I < 0.01, Zaa-L-Mmblwuhsfiu Pept 305 H, Total Protein 6.7, Albumin 4.1 , Globulin 2.6, Albumin/Globulin Ratio 1.6, CBC w Diff NO MAN DIFF REQ, RBC 4.88 , MCV 87.4, MCH 28.5, MCHC 32.6 L, RDW 13.2, MPV 6.0 L, Gran % 76.2 H, Lymphocytes % 16.3 L, Monocytes % 6.6, Eosinophils % 0.3, Basophils % 0.6, Absolute Granulocytes 11.4 H, Absolute Lymphocytes 2.4, Absolute Monocytes 1.0 H, Absolute Eosinophils 0.1, Absolute Basophils 0.1 Microbiology 01/13 231 URINE ROUT: Legionella Antigen - COLB 01/13 231 URINE ROUT: Streptococcus pneumoniae Antigen (M - COLB 01/13 231 LOWER RESP: Respiratory Culture - COLB 01/13 023 LOWER RESP: Gram Stain - COLB 01/12 1550 NASOPHARYN: Influenza Virus A & B Rapid Smear - LORENZO Jon MD,Salma 01/13/18 1225: Observation Note Observation Note _ I have personally examined CARLITOS EVANS. him disposition is uncertain at this time. Before a determination can be made, he requires continued observation for the following reasons. Patient seen and examined, feeling better but not back to baseline. Still has some shortness of breath. Vital Signs Date Time Temp Pulse Resp B/P B/P Pulse O2 O2 Flow FiO2 Mean Ox Delivery Rate 01/13 1122 Room Air 01/13 0844 97.5 78 18 128/62 93 Room Air 01/13 0642 97.7 84 18 116/79 93 01/13 0119 98.6 71 18 98/55 93 01/13 0022 97.6 72 18 117/55 93 Room Air 01/12 2220 97.4 63 16 111/57 92 Room Air 01/12 2043 98 Room Air 01/12 2039 97.4 73 22 108/57 97 Room Air 01/12 1546 98.0 86 20 110/64 97 Room Air Room Air on exam; aox3, nad. cv; s1,s2, rrr resp; mild scattered wheeze abd; soft, nt, bs+ ext; no edema. Laboratory Tests 01/12 161 Chemistry Sodium (137 - 145 mmol/L) 135 L Potassium (3.5 - 5.1 mmol/L) 5.5 H Chloride (98 - 107 mmol/L) 99 Carbon Dioxide (22 - 30 mmol/L) 26 Anion Gap (5 - 16) 10 BUN (9 - 20 mg/dL) 23 H Creatinine (0.7 - 1.2 mg/dL) 1.1 Estimated GFR (>60 ml/min) > 60 BUN/Creatinine Ratio (7 - 25 %) 20.9 Glucose (65 - 99 mg/dL) 139 H Calcium (8.4 - 10.2 mg/dL) 10.2 Total Bilirubin (0.2 - 1.3 mg/dL) 0.5 AST (17 - 59 U/L) 25 ALT (21 - 72 U/L) 23 Alkaline Phosphatase (< 127 U/L) 50 Troponin I (<0.11 ng/ml) < 0.01 Zhf-C-Osyqhpqxrsf Pept (<125 pg/mL) 305 H Total Protein (6.3 - 8.2 g/dL) 6.7 Albumin (3.5 - 5.0 g/dL) 4.1 Globulin (1.9 - 4.2 gm/dL) 2.6 Albumin/Globulin Ratio (1.1 - 2.2 %) 1.6 Hematology CBC w Diff NO MAN DIFF REQ WBC (4.8 - 10.8 /CUMM) 14.9 H RBC (4.70 - 6.10 /CUMM) 4.88 Hgb (14.0 - 18.0 G/DL) 13.9 L Hct (42 - 52 %) 42.6 MCV (80.0 - 94.0 FL) 87.4 MCH (27.0 - 31.0 PG) 28.5 MCHC (33.0 - 37.0 G/DL) 32.6 L RDW (11.5 - 14.5 %) 13.2 Plt Count (130 - 400 /CUMM) 408 H MPV (7.4 - 10.4 FL) 6.0 L Gran % (42.2 - 75.2 %) 76.2 H Lymphocytes % (20.5 - 51.1 %) 16.3 L Monocytes % (1.7 - 9.3 %) 6.6 Eosinophils % (0 - 5 %) 0.3 Basophils % (0.0 - 2.0 %) 0.6 Absolute Granulocytes (1.4 - 6.5 /CUMM) 11.4 H Absolute Lymphocytes (1.2 - 3.4 /CUMM) 2.4 Absolute Monocytes (0.10 - 0.60 /CUMM) 1.0 H Absolute Eosinophils (0.0 - 0.7 /CUMM) 0.1 Absolute Basophils (0.0 - 0.2 /CUMM) 0.1 A/P; 77 y/o M with pmh sig for DJD, COPD( not on home oxygen), HLD, Afib ( remote history dx 1998, not on any AC), RODRICK ( non compliant CPAP ), DM TYPE 2, BPH, hypertension, chronic back pain, achalasia, dysphagia is placed on general medicine observation with acute COPD exacerbation and some physical deconditioning. Will continue IV steroids today and then likely switch to oral steroids tomorrow. Continue azithromycin for a total of 5 days. Continue TRC nebs. DVT prophylaxis: Lovenox Not back to baseline yet. Patient needs some ambulation and PT eval if unstable with ambulation and we should check ambulatory O2 sat. Possible discharge tomorrow.
[2018-01-13] MEDS ORDERED: PREDNISONE10 M2 PO (13:01)
[2018-01-13] MEDS ORDERED: AZITHROMYCIN250 M1 PO (13:01)
--- NOTE | 2018-01-13 13:03 | Patient Discharge Instructions ---
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 Take prednisone as directed. Be sure to finish these medications. Acute Coronary Syndrome Inclusion Criteria At DC or during hospital stay patient has or had the following: ACS DIAGNOSIS No Discharge Core Measures Meds if any: Prescribed or Continued at Discharge Meds if any: NOT Prescribed or Continued at Discharge Congestive Heart Failure Inclusion Criteria At DC or during hospital stay patient has or had the following: CHF DIAGNOSIS No Discharge Core Measures Meds if any: Prescribed or Continued at Discharge Meds if any: NOT Prescribed or Continued at Discharge Cerebrovascular accident Inclusion Criteria At DC or during hospital stay patient has or had the following: CVA/TIA Diagnosis No Discharge Core Measures Meds if any: Prescribed or Continued at Discharge Meds if any: NOT Prescribed or Continued at Discharge Venous thromboembolism Inclusion Criteria VTE Diagnosis No VTE Type NONE VTE Confirmed by (Test) NONE Discharge Core Measures - Per Current guidelines, there needs to be overlap - treatment for the first 5 days of Warfarin therapy. - If discharged on Warfarin prior to 5 days of - overlap therapy, the patient will need to be - assessed for post discharge needs including - *Post discharge parental anticoagulation - *Warfarin and/or parental anticoagulation education - *Follow up date to check INR post discharge At least 5 days overlap therapy as Inpatient No Meds if any: Prescribed or Continued at Discharge Note: Overlap Therapy is Warfarin and Anticoagulant Meds if any: NOT Prescribed or Continued at Discharge
[2018-01-13 13:19] LABS: ABSOLUTE BASOPHIL COUNT 0.1 /CUMM (0.0-0.2); ABSOLUTE EOSINOPHIL COUNT 0 /CUMM (0.0-0.7); ABSOLUTE GRANULOCYTE CT 11.7 /CUMM (1.4-6.5); ABSOLUTE LYMPH COUNT 0.8 /CUMM (1.2-3.4); ABSOLUTE MONOCYTE COUNT 0.1 /CUMM (0.10-0.60); BASOPHIL % 0.8 % (0.0-2.0); EOSINOPHIL % 0 % (0-5); HEMATOCRIT 38.7 % (42-52); MEAN CORPUSCULAR HGB CONC 33.7 G/DL (33.0-37.0); MEAN CORPUSCULAR VOLUME 85.9 FL (80.0-94.0); MEAN PLATELET VOLUME 6.1 FL (7.4-10.4); PLATELET COUNT 397 /CUMM (130-400); RBC DISTRIBUTION WIDTH 13.1 % (11.5-14.5); RED BLOOD CELL CT 4.51 /CUMM (4.70-6.10); WHITE BLOOD CELL COUNT 12.7 /CUMM (4.8-10.8)
[2018-01-13 13:31] LABS: GRANULOCYTE % 92.6 % (42.2-75.2)
[2018-01-13 22:53] VITALS: BP 138/60
--- NOTE | 2018-01-14 04:54 | PN-Observation ---
Avirl MOODY,[facility] 01/14/18 0453: Observation Note Observation Note _ I have personally examined CARLITOS ARECHIGA. him disposition is uncertain at this time. Before a determination can be made, he requires continued observation for the following reasons patient needs to be continued for intravenous steroids , pulse ox, nebulizer treatments and pulmonology consultation. Assessment/Plan Medical Assessment: 77 year old man with multiple medical problems significant for COPD not on home oxygen, atrial fibrillation no on anticoagulation, and achalasia with dysphagia s/p balloon dilation brought in by ambulance for evaluation Patient passed his swallow evaluation and can tolerate a diet of regular/thin liquids with recommendation to follow up with his automobile damage appraiser. He remains in observation pending these studies. He is an anticipated discharge to home today with an oral steroid taper. Problem List -COPD exacerbation -Weakness -Achalasia/Dysphagia -Hyperkalemia -Hypotension -Chronic back pain -Hypertension -Hyperlipidemia -Atrial Fibrillation, no on Anticoagulation -BPH Plan -General Medicine observation -Accuchecks TIDAC with Novolog SSI -TRC with nebs PRN -Solumedrol 40 mg IV Q8H--> Consider Q12 -Azithromycin 500 mg IV Daily, five total day course, May transition to PO antibiotics -Guaifenesin 600 mg PO BID -Restart Lisinopril -Restart Amlodipine. -Continue symbicort, spiriva for COPD -Continue home meds: atorvastatin, cardizem, fenofibrate, omeprazole -Follow up cultures & sensitivites -Pain control with acetaminophen, vicodin -Diabetic diet -DVT PPx with lovenox -FULL CODE Problem List: 1. COPD 2. COPD exacerbation Subjective Follow-up For: -COPD exacerbation -Weakness -Achalasia/Dysphagia -Hyperkalemia -Hypotension -Chronic back pain -Hypertension -Hyperlipidemia -Atrial Fibrillation, no on Anticoagulation -BPH Subjective: Mr Arechiga was seen and examined this morning. He is resting comfortably in bed. He was awake this morning remarkably early. He does state that his breathing has drastically improved. He is currently endorsing no dyspnea or dyspnea on exertion. He doed not endorse any wheezing. He has been tolerating by mouth intake well. He denies any fever, chills, nausea, vomiting. Review of Systems Constitutional: Reports: see HPI. Denies: chills, diaphoresis, fever, malaise, weakness. Objective Last 24 Hrs of Vital Signs/I&O Vital Signs Date Time Temp Pulse Resp B/P B/P Pulse O2 O2 Flow FiO2 Mean Ox Delivery Rate 01/14 0000 97 Room Air 01/13 2253 97.7 88 20 138/60 95 Room Air 01/13 1919 98.4 92 18 138/62 95 Room Air 01/13 1457 98.0 88 16 143/64 94 Room Air 01/13 1410 98.0 81 20 130/70 95 Room Air 01/13 1122 Room Air 01/13 0844 97.5 78 18 128/62 93 Room Air 01/13 0642 97.7 84 18 116/79 93 Intake & Output 01/14 0800 01/14 0000 01/13 1600 Intake Total 605 Output Total Balance 605 Intake, IV 125 Intake, Oral 480 Physical Exam General Appearance: Alert, Oriented X3 Lymphatic: Cervical nl Cardiovascular: Regular Rate, Normal S1, Normal S2 Lungs: Clear to Auscultation Abdomen: Normal Bowel Sounds, Soft, No Tenderness Neurological: Normal Speech, Strength at 5/5 X4 Ext Extremities: No Edema Current Medications: Current Medications Sig/Efe Start time Last Medication Dose Route Stop Time Status Admin Acetaminophen 650 MG Q6P PRN 01/13 0245 AC PO Albuterol Sulfate 3 ML BID 01/13 2200 AC 01/13 INH 1130 Amlodipine Besylate 5 MG DAILY 01/14 1000 AC PO Atorvastatin Calcium 80 MG 1700 01/13 1700 AC 01/13 PO 1856 Azithromycin 500 MG Q24H 01/14 0000 AC 01/13 Dextrose/Water 250 ML IV 2255 Budesonide/ 2 PUF BID 01/13 1000 AC 01/14 Formoterol Fumarate INH 0040 Cyclobenzaprine HCl 10 MG DAILY 01/14 0430 AC 01/14 PO 0516 Diltiazem HCl 180 MG DAILY 01/13 1000 AC 01/13 PO 1033 Enoxaparin Sodium 40 MG DAILY 01/13 1000 AC 01/13 SC 1033 Fenofibrate 145 MG DAILY 01/13 1000 AC 01/13 PO 1033 Guaifenesin 600 MG Q12 01/13 1000 AC 01/13 PO 2255 Hydrocodone Bitart/ 1 TAB Q6P PRN 01/13 0245 AC 01/14 Acetaminophen PO 0330 Insulin Aspart 0 TIDAC 01/13 0800 AC 01/13 SC 1823 Methylprednisolone 0 .STK-MED ONE 01/13 1419 DC .ROUTE Methylprednisolone 0 .STK-MED ONE 01/13 0806 DC .ROUTE Methylprednisolone 40 MG Q8 01/13 0600 AC 01/14 IV 0516 Omeprazole 40 MG DAILY AC 01/13 0700 AC PO Omeprazole 0 .STK-MED ONE 01/13 0644 DC PO Oxycodone/ 1 TAB Q8P PRN 01/13 0245 AC Acetaminophen PO Sodium Chloride 1,000 ML .[id number] 01/13 0230 DC 01/14 IV 0517 Tiotropium [place] 1 PUF DAILY 01/13 1000 AC 01/13 INH 1033 Last 24 Hrs of Labs/Mics: Laboratory Tests 01/13/18 1309: Anion Gap 15, Estimated GFR > 60, BUN/Creatinine Ratio 27.3 H, CBC w Diff NO MAN DIFF REQ, RBC 4.51 L, MCV 85.9, MCH 29.0, MCHC 33.7, RDW 13.1, MPV 6.1 L, Gran % 92.6 H, Lymphocytes % 6.1 L, Monocytes % 0.5 L, Eosinophils % 0, Basophils % 0.8, Absolute Granulocytes 11.7 H, Absolute Lymphocytes 0.8 L, Absolute Monocytes 0.1, Absolute Eosinophils 0, Absolute Basophils 0.1 Microbiology 01/13 2300 URINE ROUT: Legionella Antigen - COMP 01/13 2300 URINE ROUT: Streptococcus pneumoniae Antigen (M - COMP Melodie MOODY,Adi 01/14/18 1718: Observation Note Observation Note _ A/P; 77 y/o M with pmh sig for DJD, COPD( not on home oxygen), HLD, Afib ( remote history dx 1998, not on any AC), RODRICK ( non compliant CPAP ), DM TYPE 2, BPH, hypertension, chronic back pain, achalasia, dysphagia is placed on general medicine observation with acute COPD exacerbation. Patient is doing better overall this morning. Patient wishes to be seen by Dr. Avila. Will be seen in the morning. Very minimal wheezing on examination. Will taper down on Solu-Medrol. Continue azithromycin for a total of 5 days. Continue TRC nebs. DVT prophylaxis: Lovenox Not back to baseline yet. Patient needs some ambulation and PT eval if unstable with ambulation and we should check ambulatory O2 sat. Possible discharge tomorrow
[2018-01-14 07:29] VITALS: BP 160/72
[2018-01-14 09:28] LABS: ABSOLUTE BASOPHIL COUNT 0 /CUMM (0.0-0.2); ABSOLUTE EOSINOPHIL COUNT 0 /CUMM (0.0-0.7); ABSOLUTE GRANULOCYTE CT 14.2 /CUMM (1.4-6.5); ABSOLUTE LYMPH COUNT 1.2 /CUMM (1.2-3.4); ABSOLUTE MONOCYTE COUNT 0.4 /CUMM (0.10-0.60); BASOPHIL % 0 % (0.0-2.0); EOSINOPHIL % 0 % (0-5); GRANULOCYTE % 89.9 % (42.2-75.2); HEMATOCRIT 36.8 % (42-52); MEAN CORPUSCULAR HGB 28.9 PG (27.0-31.0); MEAN CORPUSCULAR HGB CONC 33.8 G/DL (33.0-37.0); MEAN CORPUSCULAR VOLUME 85.4 FL (80.0-94.0); MEAN PLATELET VOLUME 6.3 FL (7.4-10.4); PLATELET COUNT 416 /CUMM (130-400); RBC DISTRIBUTION WIDTH 13.6 % (11.5-14.5); WHITE BLOOD CELL COUNT 15.8 /CUMM (4.8-10.8)
[2018-01-14 14:50] VITALS: BP 100/40
[2018-01-14 23:28] VITALS: BP 130/68
[2018-01-15 07:01] VITALS: BP 108/58
--- NOTE | 2018-01-15 08:12 | PN-Observation ---
Observation Note Observation Note _ I have personally examined CARLITOS EVANS. him disposition is uncertain at this time. Before a determination can be made, he requires continued observation for the following reasons [COPD exacerbation]. Assessment/Plan Medical Assessment: 77 year old man with multiple medical problems significant for COPD not on home oxygen, atrial fibrillation no on anticoagulation, and achalasia with dysphagia s/p balloon dilation brought in by ambulance for evaluation Patient passed his swallow evaluation and can tolerate a diet of regular/thin liquids with recommendation to follow up with his international broadcast music librarian. He remains in observation pending these studies. He is an anticipated discharge to home today with an oral steroid taper. Problem List -COPD exacerbation -Weakness -Achalasia/Dysphagia -Hyperkalemia -Hypotension -Chronic back pain -Hypertension -Hyperlipidemia -Atrial Fibrillation, no on Anticoagulation -BPH -sore thoroat Plan - we will give Chloraseptic lozenges -Accuchecks TIDAC with Novolog SSI -we will ask pulm to see the patient before discharge -TRC with nebs PRN -Solumedrol 40 mg IV we roxy change to PO today -Azithromycin 500 mg IV Daily, transition to PO antibiotics for 5 days -Guaifenesin 600 mg PO BID -on Lisinopril and Amlodipine. -Continue symbicort, spiriva for COPD -Continue home meds: atorvastatin, cardizem, fenofibrate, omeprazole -Follow up cultures & sensitivites -Pain control with acetaminophen, vicodin -Diabetic diet -DVT PPx with lovenox -FULL CODE Problem List: 1. COPD Subjective Follow-up For: COPD exacerbation Subjective: I have seen and examined the patient. Patient complains of sore throat due to most likely GERD and achalasia. Breathing is much better. If patient clinical status and O2 saturation on ambulation is stable he can get discharged today Review of Systems Constitutional: Reports: see HPI. Objective Last 24 Hrs of Vital Signs/I&O Vital Signs Date Time Temp Pulse Resp B/P B/P Pulse O2 O2 Flow FiO2 Mean Ox Delivery Rate 01/15 0859 80 20 128/68 95 Room Air 01/15 0809 95 Room Air 01/15 0701 97.8 68 18 108/58 95 Room Air 01/15 0000 92 Room Air 01/14 2328 97.4 86 20 130/68 92 Room Air 01/14 1850 93 Room Air 01/14 1450 97.5 79 20 100/40 91 Room Air 01/14 1214 76 128/60 01/14 1124 94 Room Air 01/14 1038 80 150/86 Intake & Output 01/15 1600 01/15 0800 01/15 0000 Intake Total 210 810 Output Total 900 Balance 210 -90 Intake, IV 10 10 Intake, Oral 200 800 Number 0 Bowel Movements Output, Urine 900 Physical Exam General Appearance: Alert, Oriented X3, Cooperative, No Acute Distress Cardiovascular: Regular Rate, Normal S1, Normal S2 Lungs: Clear to Auscultation, Normal Air Movement Abdomen: Normal Bowel Sounds, Soft, No Tenderness Extremities: No Clubbing, No Cyanosis
[2018-01-15 08:19] LABS: ABSOLUTE BASOPHIL COUNT 0 /CUMM (0.0-0.2); ABSOLUTE EOSINOPHIL COUNT 0 /CUMM (0.0-0.7); ABSOLUTE GRANULOCYTE CT 12.1 /CUMM (1.4-6.5); ABSOLUTE LYMPH COUNT 1.2 /CUMM (1.2-3.4); ABSOLUTE MONOCYTE COUNT 0.8 /CUMM (0.10-0.60); BASOPHIL % 0 % (0.0-2.0); EOSINOPHIL % 0 % (0-5); GRANULOCYTE % 86.2 % (42.2-75.2); HEMATOCRIT 37.1 % (42-52); MEAN CORPUSCULAR HGB 28.9 PG (27.0-31.0); MEAN CORPUSCULAR HGB CONC 33.3 G/DL (33.0-37.0); MEAN CORPUSCULAR VOLUME 86.7 FL (80.0-94.0); MEAN PLATELET VOLUME 6.4 FL (7.4-10.4); PLATELET COUNT 428 /CUMM (130-400); RBC DISTRIBUTION WIDTH 13.7 % (11.5-14.5); RED BLOOD CELL CT 4.28 /CUMM (4.70-6.10); WHITE BLOOD CELL COUNT 14.1 /CUMM (4.8-10.8)
[2018-01-15 08:59] VITALS: BP 128/68
[2018-01-15] MEDS ORDERED: AZITHROMYCIN250 M1 PO (10:54)
[2018-01-15] MEDS ORDERED: PREDNISONE10 M2 PO (10:54)
[2018-01-15 11:25] VITALS: BP 128/80
--- NOTE | 2018-01-15 12:48 | Cons- Pulmonary ---
General Information and HPI Consulting Request Date of Consult: 01/15/18 Requested By: Medical team Reason for Consult: COPD Exac Source of Information: patient Exam Limitations: no limitations History of Present Illness: 76 year old man. Hx of a.fib, copd, diverticulosis/itis with sigmoid resection, htn. Patient presented with fatigue and dyspnea. Brownish sputum, coughing spells. PMD recently tx the patient for a sinus infection with antibiotics and prednisone. +chills, no fevers, fatigue, no diarrhea or constipation. No sick contacts or travel hx. Quit smoking last year. Afebrile, lowest o2 sat 91% on room air. CXR without acute abnormalities. Mild leukocytosis. Conversational dyspnea, per some confusion. No obvious sick contacts or travel hx. No n/v/d/c. No cp. Allergies/Medications Allergies: Coded Allergies: moxifloxacin (From AVELOX) (ITCHY, RASH, SWEATING 01/12/18) Home Med List: Amlodipine Besylate (Norvasc) 5 MG TABLET 1 TAB PO DAILY HEART (Reported) Azithromycin 250 MG TABLET 1 DP PO AD COPD Start this med on 01/16/18 Be sure to finish this medicine Budesonide/Formoterol Fumarate (Symbicort 160-4.5 Mcg Inhaler) 160 MCG-4.5 MCG/ ACTUATION HFA.AER.AD (Unknown Dose) INH BID COPID (Reported) Cyclobenzaprine HCl 10 MG TABLET 1 TAB PO DAILY MUSCLE SPASMS (Reported) Diltiazem HCl (Diltiazem 24HR ER) 180 MG CAP.ER.24H 1 CAP PO DAILY HEART ( Reported) Fenofibrate,Micronized (Fenofibrate) 130 MG CAPSULE 1 CAP PO DAILY TRIGLYCERIDES (Reported) Hydrocodone/Acetaminophen (Hydrocodon-Acetaminophn 10-325) 10 MG-325 MG TABLET 1 TAB PO 4XDP PRN PAIN (Reported) Lansoprazole (Prevacid) 30 MG CAPSULE.DR 30 MG PO DIALY ACID REFLUX (Reported ) Lisinopril 10 MG TABLET 10 MG PO DAILY HTN (Reported) Metformin HCl 500 MG TABLET 500 MG PO BID DIABETES (Reported) Prednisone 10 MG TABLET 0 PO TAPER COPD DATES TABS/DAY 01/16-01/18 4 3-33 3 3-01/24 2 01/25-01/27 1 THEN STOP Rosuvastatin Calcium (Crestor) 40 MG TABLET 40 MG PO DIALY CHOLESTEROL ( Reported) Tiotropium [place] (Spiriva) 18 MCG CAP.W.DEV 1 PUF INH DIALY COPD (Reported) Vilazodone Hydrochloride (Viibryd) 20 MG TABLET 1 TAB PO DAILY MENTAL HEALTH (Reported) Current Medications: Current Medications Sig/Efe Start time Last Medication Dose Route Stop Time Status Admin Acetaminophen 650 MG Q6P PRN 01/13 0245 AC PO Albuterol Sulfate 3 ML BID 01/13 2200 AC 01/15 INH 1038 Amlodipine Besylate 5 MG DAILY 01/14 1000 AC 01/15 PO 0900 Atorvastatin Calcium 80 MG 1700 01/13 1700 AC 01/14 PO 1619 Azithromycin 250 MG DAILY 01/15 1100 AC PO Azithromycin 500 MG Q24H 01/14 0000 DC 01/14 Dextrose/Water 250 ML IV 2351 Benzocaine/Menthol 1 MARY Q2P PRN 01/15 1015 AC PO Budesonide/ 2 PUF BID 01/13 1000 AC 01/15 Formoterol Fumarate INH 0900 Cyclobenzaprine HCl 10 MG DAILY 01/14 0430 AC 01/15 PO 0859 Diltiazem HCl 180 MG DAILY 01/13 1000 AC 01/15 PO 0900 Enoxaparin Sodium 40 MG DAILY 01/13 1000 AC 01/15 SC 0900 Fenofibrate 145 MG DAILY 01/13 1000 AC 01/15 PO 0900 Guaifenesin 600 MG Q12 01/13 1000 AC 01/15 PO 0859 Hydrocodone Bitart/ 2 TAB Q6P PRN 01/14 1030 AC 01/15 Acetaminophen PO 0900 Insulin Aspart 0 TIDAC 01/13 0800 AC 01/15 SC 0859 Lisinopril 10 MG DAILY 01/14 1000 AC 01/15 PO 0900 Melatonin 5 MG AT BEDTIME 01/15 2200 AC PO Methylprednisolone 40 MG Q12H 01/15 2200 AC IV Methylprednisolone 40 MG Q12 01/14 2200 DC IV Methylprednisolone 40 MG Q12H 01/14 1800 DC 01/15 IV 0606 Methylprednisolone 40 MG Q8 01/13 0600 DC 01/14 IV 0516 Omeprazole 40 MG DAILY AC 01/13 0700 AC 01/15 PO 0605 Oxycodone/ 1 TAB Q8P PRN 01/13 0245 AC Acetaminophen PO Tiotropium [place] 1 PUF DAILY 01/13 1000 AC 01/15 INH 0900 Review of Systems Comments 18 point review of systems was performed and reviewed. Please see pertinent positives and pertinent negatives in the HPI. Otherwise ROS is negative. Past History Travel History Traveled to [place] past 21 day No Medical History Cardiovascular: AFIB, hypertension, hyperlipidemia Respiratory: COPD Gastrointestinal: achalasia Hepatic: NONE Renal: NONE Musculoskeletal: degenerative disk disease Psychiatric: NONE Endocrine: diabetes Blood Disorders: NONE Cancer(s): NONE MASK INSPECTOR/Reproductive: NONE Surgical History Surgical History: colon resection Family History Relations & Conditions If Any: Relation not specified for: *No pertinent family history Psychosocial History Services at Home: None Smoking Status: Unknown If Ever Smoked ETOH Use: denies use Illicit Drug Use: denies illicit drug use Exam & Diagnostic Data Last 24 Hrs of Vital Signs/I&O Vital Signs Date Time Temp Pulse Resp B/P B/P Pulse O2 O2 Flow FiO2 Mean Ox Delivery Rate 01/15 1125 97.9 90 22 128/80 94 Room Air 01/15 1041 93 Room Air Room Air 01/15 0859 80 20 128/68 95 Room Air 01/15 0809 95 Room Air 01/15 0701 97.8 68 18 108/58 95 Room Air 01/15 0000 92 Room Air 01/14 2328 97.4 86 20 130/68 92 Room Air 01/14 1850 93 Room Air 01/14 1450 97.5 79 20 100/40 91 Room Air Intake & Output 01/15 1600 01/15 0800 01/15 0000 Intake Total 210 810 Output Total 900 Balance 210 -90 Intake, IV 10 10 Intake, Oral 200 800 Number 0 Bowel Movements Output, Urine 900 Physical Exam Other Physical Findings: Generally - Awake, alert, mild distress Head and neck - normocephalic, atraumatic, EOMI grossly intact Cardiovascular - S1, S2 Lungs - prolonged end expiratory phase, diminished bs Abdomen - Bowel sounds positive, soft, non-tender Extremities - without edema Last 48 Hrs of Labs/Mandeep: Laboratory Tests 01/15/18 1140: pH 7.49 H, pCO2 27 L, pO2 70 L, HCO3 20 L, ABG O2 Sat (Measured) 94.0 L, P- 50 (Temp Corrected) YES, Carboxyhemoglobin 0.5 L, O2 Concentration % RA, Temperature 97.9, O2 Delivery Method RA, Phlebotomy Draw Site RIGHT RADIAL 01/15/18 0625: Anion Gap 14, Estimated GFR > 60, BUN/Creatinine Ratio 37.0 H, CBC w Diff NO MAN DIFF REQ, RBC 4.28 L, MCV 86.7, MCH 28.9, MCHC 33.3, RDW 13.7, MPV 6.4 L, Gran % 86.2 H, Lymphocytes % 8.3 L, Monocytes % 5.5, Eosinophils % 0, Basophils % 0, Absolute Granulocytes 12.1 H, Absolute Lymphocytes 1.2, Absolute Monocytes 0.8 H, Absolute Eosinophils 0, Absolute Basophils 0 01/14/18 0750: Anion Gap 13, Estimated GFR > 60, BUN/Creatinine Ratio 28.2 H, Magnesium 2.1, CBC w Diff NO MAN DIFF REQ, RBC 4.30 L, MCV 85.4, MCH 28.9, MCHC 33.8, RDW 13.6 , MPV 6.3 L, Gran % 89.9 H, Lymphocytes % 7.5 L, Monocytes % 2.6, Eosinophils % 0, Basophils % 0, Absolute Granulocytes 14.2 H, Absolute Lymphocytes 1.2, Absolute Monocytes 0.4, Absolute Eosinophils 0, Absolute Basophils 0 01/13/18 1309: Anion Gap 15, Estimated GFR > 60, BUN/Creatinine Ratio 27.3 H, CBC w Diff NO MAN DIFF REQ, RBC 4.51 L, MCV 85.9, MCH 29.0, MCHC 33.7, RDW 13.1, MPV 6.1 L, Gran % 92.6 H, Lymphocytes % 6.1 L, Monocytes % 0.5 L, Eosinophils % 0, Basophils % 0.8, Absolute Granulocytes 11.7 H, Absolute Lymphocytes 0.8 L, Absolute Monocytes 0.1, Absolute Eosinophils 0, Absolute Basophils 0.1 Microbiology 01/13 2300 URINE ROUT: Legionella Antigen - COMP 01/13 2300 URINE ROUT: Streptococcus pneumoniae Antigen (M - COMP Assessment/Plan Impression/Plan: Impressoin 76 year old man. Hx of a.fib, copd, diverticulosis/itis with sigmoid resection, htn. Patient presented with fatigue and dyspnea. Brownish sputum, coughing spells. PMD recently tx the patient for a sinus infection with antibiotics and prednisone. +chills, no fevers, fatigue, no diarrhea or constipation. No sick contacts or travel hx. Quit smoking last year. Afebrile, lowest o2 sat 91% on room air. CXR without acute abnormalities. Mild leukocytosis. Conversational dyspnea, per some confusion. No obvious sick contacts or travel hx. No n/v/d/c. No cp. * acute excarbation of COPD Plan -obtain abg -trc/nebs -solumedrol 40mg iv q12h -cont inhalers -consider outpt sleep test which will be d/w pt -zpak for 5 days -given hx of achalasia - aspiration precautions DVT prophylaxis at all times Consult Acknowledgment - Thank you for your consult request.
--- NOTE | 2018-01-15 15:25 | PN- Att Addend ---
Attending Addendum Attending Brief Note A/P; 77 y/o M with pmh sig for DJD, COPD( not on home oxygen), HLD, Afib ( remote history dx 1998, not on any AC), RODRICK ( non compliant CPAP ), DM TYPE 2, BPH, hypertension, chronic back pain, achalasia, dysphagia is placed on general medicine observation with acute COPD exacerbation. Patient is doing better overall this morning. Patient appears minimally confused, which is acknowledged by the . Possibly related to narcotics, although he does take this at home. Seen by Dr. Avila in the morning. Very minimal wheezing on examination. Will continue with Solu-Medrol Q 12hrly. Vital signs are stable. Due to minimal confusion, obtained an arterial blood gas which does not show evidence of hypercapnia, although does have some evidence of hypoxia. Continue azithromycin for a total of 5 days. Continue TRC nebs. DVT prophylaxis: Lovenox Not back to baseline yet. Patient needs ambulation and PT eval if unstable with ambulation and we should check ambulatory O2 sat. Possible discharge in 1- 2 days.
[2018-01-15 15:31] VITALS: BP 126/62
[2018-01-15 22:35] VITALS: BP 118/62
[2018-01-16 07:04] VITALS: BP 116/64
--- NOTE | 2018-01-16 07:31 | PN- Housestaff ---
Panda Montiel MD 01/16/18 0730: Subjective Follow-up For: COPD Exacerbation Weakness Subjective: Patient seen and examined. He is seen standing upright in his room walking around. He appears to be in no acute distress. He admits that his breathing is much improved but not back to baseline. He feels that he is still wheezing. He states that he feels tired but otherwise denies any new issues. Review of Systems Constitutional: Reports: see HPI. Objective Last 24 Hrs of Vital Signs/I&O Vital Signs Date Time Temp Pulse Resp B/P B/P Pulse O2 O2 Flow FiO2 Mean Ox Delivery Rate 01/16 1037 98 Room Air 01/16 0920 74 136/72 01/16 0920 75 136/72 01/16 0704 97.5 65 20 116/64 93 01/16 0000 92 Room Air 01/15 2235 97.8 76 20 118/62 92 Room Air 01/15 1930 94 Room Air 01/15 1531 97.9 83 20 126/62 94 Room Air 01/15 1253 95 Room Air Intake & Output 01/16 1600 01/16 0800 01/16 0000 Intake Total 240 1021 Output Total 900 Balance 240 121 Intake, IV 21 Intake, Oral 240 1000 Number 0 Bowel Movements Output, Urine 900 Physical Exam General Appearance: Alert, Oriented X3, Cooperative, No Acute Distress Other Physical Findings: GEN: well developed, overweight, elderly man in no acute distress HEENT: NCAT, PERRL, EOMI, anicteric sclera, MMM NECK: Supple, no JVD, trachea midline, no accessory respiratory muscle use CARD: Normal S1/S2 w/o m/g/r; RRR PULM: Diminished airflow in all lung evangelista without crackles or wheezing ABD: Soft, NT, ND, BS+ NEURO: Awake and alert, CN II-XII grossly intact, strength 5/5 x4, speech/ sensation/coordination intact, gait no assessed EXT: normal pulses, no cyanosis or edema Current Medications: Current Medications Sig/Efe Start time Last Medication Dose Route Stop Time Status Admin Acetaminophen 650 MG Q6P PRN 01/13 0245 AC PO Albuterol Sulfate 3 ML BID 01/13 2200 AC 01/16 INH 1031 Amlodipine Besylate 5 MG DAILY 01/14 1000 AC 01/16 PO 0920 Atorvastatin Calcium 80 MG 1700 01/13 1700 AC 01/15 PO 1652 Azithromycin 250 MG DAILY 01/15 1100 AC 01/16 PO 0920 Benzocaine/Menthol 1 MARY Q2P PRN 01/15 1015 AC PO Budesonide/ 2 PUF BID 01/13 1000 AC 01/16 Formoterol Fumarate INH 0921 Cyclobenzaprine HCl 10 MG DAILY 01/14 0430 AC 01/16 PO 0920 Diltiazem HCl 180 MG DAILY 01/13 1000 AC 01/16 PO 0920 Enoxaparin Sodium 40 MG DAILY 01/13 1000 AC 01/16 SC 0920 Fenofibrate 145 MG DAILY 01/13 1000 AC 01/16 PO 0920 Guaifenesin 600 MG Q12 01/13 1000 AC 01/16 PO 0920 Hydrocodone Bitart/ 2 TAB Q6P PRN 01/14 1030 AC 01/16 Acetaminophen PO 0925 Insulin Aspart 0 TIDAC 01/13 0800 AC 01/16 SC 0816 Lisinopril 10 MG DAILY 01/14 1000 AC 01/16 PO 0920 Melatonin 5 MG AT BEDTIME 01/15 2200 AC 01/15 PO 2100 Methylprednisolone 40 MG Q12H 01/15 2200 AC 01/16 IV 0920 Omeprazole 40 MG DAILY AC 01/13 0700 AC 01/16 PO 0528 Oxycodone/ 1 TAB Q8P PRN 01/13 0245 AC Acetaminophen PO Tiotropium [place] 1 PUF DAILY 01/13 1000 AC 01/16 INH 0921 Last 24 Hrs of Lab/Mandeep Results Last 24 Hrs of Labs/Mics: Laboratory Tests 01/16/18 0759: Anion Gap 14, Estimated GFR > 60, BUN/Creatinine Ratio 36.4 H, CBC w Diff NO MAN DIFF REQ, RBC 4.67 L, MCV 86.5, MCH 28.8, MCHC 33.3, RDW 13.8, MPV 6.4 L, Gran % 84.1 H, Lymphocytes % 9.6 L, Monocytes % 6.2, Eosinophils % 0, Basophils % 0.1, Absolute Granulocytes 11.0 H, Absolute Lymphocytes 1.3, Absolute Monocytes 0.8 H, Absolute Eosinophils 0, Absolute Basophils 0 Microbiology 01/15 1930 LOWER RESP: Respiratory Culture - RES 01/15 1930 LOWER RESP: Gram Stain - RES Assessment/Plan Assessment: 77 year old man with multiple medical problems significant for COPD not on home oxygen, atrial fibrillation no on anticoagulation, and achalasia with dysphagia s/p balloon dilation brought in by ambulance for evaluation Patient is saturating well on room air but admits to mild shortness of breath. On exam he is still diffusely wheezing. He is continued on solumedrol 40 mg every 12 hours. He is to be transitioned to oral steroids tomorrow and is anticipated to be discharged. Azithromycin day 4/. Problem List -COPD exacerbation, on solumedrol -Weakness -Achalasia/Dysphagia -Hyperkalemia -Hypotension -Chronic back pain -Hypertension -Hyperlipidemia -Atrial Fibrillation, no on Anticoagulation -BPH Plan -General Medicine -Accuchecks TIDAC with Novolog SSI -TRC with nebs PRN -Solumedrol 40 mg IV Q12H -Azithromycin 250 mg PO Daily, five total day course -Guaifenesin 600 mg PO BID -Continue symbicort, spiriva for COPD -Continue home meds: atorvastatin, cardizem, fenofibrate, omeprazole, amlodipine , lisinopril -Follow up cultures & sensitivites -Pain control with acetaminophen, vicodin -Diabetic diet -DVT PPx with lovenox -FULL CODE Problem List: 1. COPD Pain Ratin Pain Location: None Pain Goal: Remain pain free Pain Plan: See assessment Tomorrow's Labs & Rationales: None Salma Jon MD 01/16/18 1216: Attending MD Review Statement Attending Statement Attending MD Statement: examined this patient, discuss w/resident/PA/MESSENGER OFFICE, agreed w/resident/PA/MESSENGER OFFICE, reviewed EMR data (avail), discussed with nursing, discussed with case mgmt, reviewed images, amended to note Attending Assessment/Plan: Patient seen and examined, feeling better than before but still short of breath. Not requiring any O2. Vital Signs Date Time Temp Pulse Resp B/P B/P Pulse O2 O2 Flow FiO2 Mean Ox Delivery Rate 01/16 1037 98 Room Air 01/16 0920 74 136/72 01/16 0920 75 136/72 01/16 0704 97.5 65 20 116/64 93 01/16 0000 92 Room Air 01/15 2235 97.8 76 20 118/62 92 Room Air 01/15 1930 94 Room Air 01/15 1531 97.9 83 20 126/62 94 Room Air 01/15 1253 95 Room Air on exam; aox3, nad. cv; s1,s2, rrr resp; + exp wheeze. abd; soft, nt, bs+ ext; no edema Laboratory Tests 01/16 0759 Chemistry Sodium (137 - 145 mmol/L) 135 L Potassium (3.5 - 5.1 mmol/L) 4.8 Chloride (98 - 107 mmol/L) 100 Carbon Dioxide (22 - 30 mmol/L) 21 L Anion Gap (5 - 16) 14 BUN (9 - 20 mg/dL) 40 H Creatinine (0.7 - 1.2 mg/dL) 1.1 Estimated GFR (>60 ml/min) > 60 BUN/Creatinine Ratio (7 - 25 %) 36.4 H Hematology CBC w Diff NO MAN DIFF REQ WBC (4.8 - 10.8 /CUMM) 13.1 H RBC (4.70 - 6.10 /CUMM) 4.67 L Hgb (14.0 - 18.0 G/DL) 13.4 L Hct (42 - 52 %) 40.3 L MCV (80.0 - 94.0 FL) 86.5 MCH (27.0 - 31.0 PG) 28.8 MCHC (33.0 - 37.0 G/DL) 33.3 RDW (11.5 - 14.5 %) 13.8 Plt Count (130 - 400 /CUMM) 529 H MPV (7.4 - 10.4 FL) 6.4 L Gran % (42.2 - 75.2 %) 84.1 H Lymphocytes % (20.5 - 51.1 %) 9.6 L Monocytes % (1.7 - 9.3 %) 6.2 Eosinophils % (0 - 5 %) 0 Basophils % (0.0 - 2.0 %) 0.1 Absolute Granulocytes (1.4 - 6.5 /CUMM) 11.0 H Absolute Lymphocytes (1.2 - 3.4 /CUMM) 1.3 Absolute Monocytes (0.10 - 0.60 /CUMM) 0.8 H Absolute Eosinophils (0.0 - 0.7 /CUMM) 0 Absolute Basophils (0.0 - 0.2 /CUMM) 0 A/P; 77 y/o M with pmh sig for DJD, COPD( not on home oxygen), HLD, Afib ( remote history dx 1998, not on any AC), RODRICK ( non compliant CPAP ), DM TYPE 2, BPH, hypertension, chronic back pain, achalasia, dysphagia is admitted with acute COPD exacerbation and some physical deconditioning. Will continue IV steroids today and then likely switch to oral steroids tomorrow. Continue azithromycin for a total of 5 days. Continue TRC nebs. DVT prophylaxis: Lovenox. Encourage ambulation. Possible DC in am.
[2018-01-16] MEDS ORDERED: AZITHROMYCIN250 M1 PO (08:04)
[2018-01-16] MEDS ORDERED: PREDNISONE10 M2 PO (08:04)
[2018-01-16 09:00] LABS: ABSOLUTE BASOPHIL COUNT 0 /CUMM (0.0-0.2); ABSOLUTE EOSINOPHIL COUNT 0 /CUMM (0.0-0.7); ABSOLUTE LYMPH COUNT 1.3 /CUMM (1.2-3.4); ABSOLUTE MONOCYTE COUNT 0.8 /CUMM (0.10-0.60); BASOPHIL % 0.1 % (0.0-2.0); EOSINOPHIL % 0 % (0-5); HEMATOCRIT 40.3 % (42-52); MEAN CORPUSCULAR HGB 28.8 PG (27.0-31.0); MEAN CORPUSCULAR HGB CONC 33.3 G/DL (33.0-37.0); MEAN CORPUSCULAR VOLUME 86.5 FL (80.0-94.0); MEAN PLATELET VOLUME 6.4 FL (7.4-10.4); PLATELET COUNT 529 /CUMM (130-400); RBC DISTRIBUTION WIDTH 13.8 % (11.5-14.5); RED BLOOD CELL CT 4.67 /CUMM (4.70-6.10); WHITE BLOOD CELL COUNT 13.1 /CUMM (4.8-10.8)
[2018-01-16] MEDS ORDERED: PROVENTIL HFA6.7 GM INH (09:37)
[2018-01-16 10:02] LABS: GRANULOCYTE % 84.1 % (42.2-75.2)
--- NOTE | 2018-01-16 12:10 | PN- Pulmonary ---
Subjective HPI/Critical Care Issues: Patient seen and examined this morning. He appears to be improved. He still has however significant conversational and exertional dyspnea but returning to baseline slowly. Objective Current Medications: Current Medications Sig/Efe Start time Last Medication Dose Route Stop Time Status Admin Acetaminophen 650 MG Q6P PRN 01/13 0245 AC PO Albuterol Sulfate 3 ML BID 01/13 2200 AC 01/16 INH 1031 Amlodipine Besylate 5 MG DAILY 01/14 1000 AC 01/16 PO 0920 Atorvastatin Calcium 80 MG 1700 01/13 1700 AC 01/15 PO 1652 Azithromycin 250 MG DAILY 01/15 1100 AC 01/16 PO 0920 Benzocaine/Menthol 1 MARY Q2P PRN 01/15 1015 AC PO Budesonide/ 2 PUF BID 01/13 1000 AC 01/16 Formoterol Fumarate INH 0921 Cyclobenzaprine HCl 10 MG DAILY 01/14 0430 AC 01/16 PO 0920 Diltiazem HCl 180 MG DAILY 01/13 1000 AC 01/16 PO 0920 Enoxaparin Sodium 40 MG DAILY 01/13 1000 AC 01/16 SC 0920 Fenofibrate 145 MG DAILY 01/13 1000 AC 01/16 PO 0920 Guaifenesin 600 MG Q12 01/13 1000 AC 01/16 PO 0920 Hydrocodone Bitart/ 2 TAB Q6P PRN 01/14 1030 AC 01/16 Acetaminophen PO 0925 Insulin Aspart 0 TIDAC 01/13 0800 AC 01/16 SC 0816 Lisinopril 10 MG DAILY 01/14 1000 AC 01/16 PO 0920 Melatonin 5 MG AT BEDTIME 01/15 2200 AC 01/15 PO 2100 Methylprednisolone 40 MG Q12H 01/15 2200 AC 01/16 IV 0920 Omeprazole 40 MG DAILY AC 01/13 0700 AC 01/16 PO 0528 Oxycodone/ 1 TAB Q8P PRN 01/13 0245 AC Acetaminophen PO Tiotropium [place] 1 PUF DAILY 01/13 1000 AC 01/16 INH 0921 Vital Signs & I&O Last 24 Hrs of Vitals and I&O: Vital Signs Date Time Temp Pulse Resp B/P B/P Pulse O2 O2 Flow FiO2 Mean Ox Delivery Rate 01/16 1037 98 Room Air 01/16 0920 74 136/72 01/16 0920 75 136/72 01/16 0704 97.5 65 20 116/64 93 01/16 0000 92 Room Air 01/15 2235 97.8 76 20 118/62 92 Room Air 01/15 1930 94 Room Air 01/15 1531 97.9 83 20 126/62 94 Room Air 01/15 1253 95 Room Air Intake & Output 01/16 1600 01/16 0800 01/16 0000 Intake Total 240 1021 Output Total 900 Balance 240 121 Intake, IV 21 Intake, Oral 240 1000 Number 0 Bowel Movements Output, Urine 900 Exam Other Physical Findings: Generally - Awake, alert, mild distress Head and neck - normocephalic, atraumatic, EOMI grossly intact Cardiovascular - S1, S2 Lungs - prolonged end expiratory phase, diminished bs Abdomen - Bowel sounds positive, soft, non-tender Extremities - without edema Results Last 24 Hrs of Lab Results: Laboratory Tests 01/16/18 0759: Anion Gap 14, Estimated GFR > 60, BUN/Creatinine Ratio 36.4 H, CBC w Diff NO MAN DIFF REQ, RBC 4.67 L, MCV 86.5, MCH 28.8, MCHC 33.3, RDW 13.8, MPV 6.4 L, Gran % 84.1 H, Lymphocytes % 9.6 L, Monocytes % 6.2, Eosinophils % 0, Basophils % 0.1, Absolute Granulocytes 11.0 H, Absolute Lymphocytes 1.3, Absolute Monocytes 0.8 H, Absolute Eosinophils 0, Absolute Basophils 0 Impression/Plan Impression/Plan Impression/Plan: Impressoin 76 year old man * acute excarbation of COPD Plan -obtain abg -trc/nebs -solumedrol 40mg iv q12h today, reduce to po prednisone tomorrow with anticipation of discharge (60mg) -cont inhalers -consider outpt sleep test which will be d/w pt -zpak for 5 days -given hx of achalasia - aspiration precautions DVT prophylaxis at all times
[2018-01-16 15:01] VITALS: BP 136/60
[2018-01-16 22:37] VITALS: BP 126/60
[2018-01-17 06:24] VITALS: BP 134/60
--- NOTE | 2018-01-17 07:11 | PN- Housestaff ---
Panda Montiel MD 01/17/18 0710: Subjective Follow-up For: OPD Exacerbation Weakness Subjective: Patient seen and examined. He is seen sitting upright in bed resting comfortably breathing room air. He appears to be in no acute distress. He reports feeling and and has no new complaints. He is eager to be discharged to home today. Review of Systems Constitutional: Reports: see HPI. Objective Last 24 Hrs of Vital Signs/I&O Vital Signs Date Time Temp Pulse Resp B/P B/P Pulse O2 O2 Flow FiO2 Mean Ox Delivery Rate 01/17 0808 96 Room Air 01/17 0624 97.8 66 20 134/60 93 Room Air 01/17 0000 Room Air 01/16 2237 97.4 88 18 126/60 93 01/16 1836 93 Room Air Room Air 01/16 1501 98.5 83 20 136/60 96 Room Air 01/16 1037 98 Room Air Intake & Output 01/17 1600 01/17 0800 01/17 0000 Intake Total 240 480 Output Total Balance 240 480 Intake, Oral 240 480 Patient 91.626 kg Weight Physical Exam General Appearance: Alert, Oriented X3, Cooperative, No Acute Distress Other Physical Findings: GEN: well developed, overweight, elderly man in no acute distress HEENT: NCAT, PERRL, EOMI, anicteric sclera, MMM NECK: Supple, no JVD, trachea midline, no accessory respiratory muscle use CARD: Normal S1/S2 w/o m/g/r; RRR PULM: Clear to auscultation bilaterally ABD: Soft, NT, ND, BS+ NEURO: Awake and alert, CN II-XII grossly intact, strength 5/5 x4, speech/ sensation/coordination intact, gait no assessed EXT: normal pulses, no cyanosis or edema Current Medications: Current Medications Sig/Efe Start time Last Medication Dose Route Stop Time Status Admin Acetaminophen 650 MG Q6P PRN 01/13 0245 AC PO Albuterol Sulfate 3 ML BID 01/13 2200 AC 01/16 INH 1836 Amlodipine Besylate 5 MG DAILY 01/14 1000 AC 01/17 PO 0839 Atorvastatin Calcium 80 MG 1700 01/13 1700 AC 01/16 PO 1629 Azithromycin 250 MG DAILY 01/15 1100 AC 01/17 PO 0839 Benzocaine/Menthol 1 MARY Q2P PRN 01/15 1015 AC PO Budesonide/ 2 PUF BID 01/13 1000 AC 01/17 Formoterol Fumarate INH 0840 Cyclobenzaprine HCl 10 MG DAILY 01/14 0430 AC 01/17 PO 0839 Diltiazem HCl 180 MG DAILY 01/13 1000 AC 01/17 PO 0839 Enoxaparin Sodium 40 MG DAILY 01/13 1000 AC 01/17 SC 0839 Fenofibrate 145 MG DAILY 01/13 1000 AC 01/17 PO 0840 Guaifenesin 600 MG Q12 01/13 1000 AC 01/17 PO 0839 Hydrocodone Bitart/ 2 TAB Q6P PRN 01/14 1030 AC 01/17 Acetaminophen PO 0521 Insulin Aspart 0 TIDAC 01/13 0800 AC 01/17 SC 0838 Lisinopril 10 MG DAILY 01/14 1000 AC 01/17 PO 0839 Melatonin 5 MG AT BEDTIME 01/15 2200 AC 01/16 PO 2201 Methylprednisolone 40 MG Q12H 01/15 2200 DC 01/16 IV 01/17 0000 2201 Omeprazole 40 MG DAILY AC 01/13 0700 AC 01/17 PO 0521 Oxycodone/ 1 TAB Q8P PRN 01/13 0245 AC Acetaminophen PO Prednisone 60 MG DAILY 01/17 1000 AC 01/17 PO 0839 Tiotropium [place] 1 PUF DAILY 01/13 1000 AC 01/17 INH 0840 Assessment/Plan Assessment: 77 year old man with multiple medical problems significant for COPD not on home oxygen, atrial fibrillation no on anticoagulation, and achalasia with dysphagia s/p balloon dilation brought in by ambulance for evaluation shortness of breath and productive cough found to clinically have a COPD exacerbation for which he was placed in observation on the general medicine floor. Patient continues to saturate well on room air without any respiratory distress. Lungs are clear bilaterally. He is started on oral prednisone today and is to finish his last dose of azithromycin. He is discharged to home with an oral steroid taper and instruction to follow up with his health care attorney after discharge. Problem List -COPD exacerbation, on prednisone -Weakness -Achalasia/Dysphagia -Hyperkalemia -Hypotension -Chronic back pain -Hypertension -Hyperlipidemia -Atrial Fibrillation, no on Anticoagulation -BPH Plan -General Medicine -Accuchecks TIDAC with Novolog SSI -TRC with nebs PRN -Solumedrol changed to Prednisone 60 mg PO daily -Azithromycin 250 mg PO Daily, day #5/5 -Guaifenesin 600 mg PO BID -Continue symbicort, spiriva for COPD -Continue home meds: atorvastatin, cardizem, fenofibrate, omeprazole, amlodipine , lisinopril -Follow up cultures & sensitivites -Pain control with acetaminophen, vicodin -Diabetic diet -DVT PPx with lovenox -FULL CODE Problem List: 1. COPD exacerbation Pain Ratin Pain Location: None Pain Goal: Pain 4 or less Pain Plan: see assessment Tomorrow's Labs & Rationales: None Salma Jon MD 01/17/18 1228: Attending MD Review Statement Attending Statement Attending MD Statement: examined this patient, discuss w/resident/PA/LEAD MANUFACTURING ENGINEERING TECH, agreed w/resident/PA/LEAD MANUFACTURING ENGINEERING TECH, reviewed EMR data (avail), discussed with nursing, discussed with case mgmt, reviewed images, amended to note Attending Assessment/Plan: Patient seen and examined, overall doing well. Offers no complaints. Breathing has improved and patient not requiring any oxygen. He has been switched on oral prednisone. Seen by pulmonology. Medically stable for discharge home today. Patient will follow-up with his PCP, health care attorney and COPD clinic.
[2018-01-17] MEDS ORDERED: PREDNISONE10 M2 PO ×2 (07:15→11:51)
--- NOTE | 2018-01-17 11:40 | PN- Pulmonary ---
Subjective HPI/Critical Care Issues: Patient seen and examined this morning. He appears to be ready for discharge. Objective Current Medications: Current Medications Sig/Efe Start time Last Medication Dose Route Stop Time Status Admin Acetaminophen 650 MG Q6P PRN 01/13 0245 AC PO Albuterol Sulfate 3 ML BID 01/13 2200 AC 01/17 INH 1047 Amlodipine Besylate 5 MG DAILY 01/14 1000 AC 01/17 PO 0839 Atorvastatin Calcium 80 MG 1700 01/13 1700 AC 01/16 PO 1629 Azithromycin 250 MG DAILY 01/15 1100 AC 01/17 PO 0839 Benzocaine/Menthol 1 MARY Q2P PRN 01/15 1015 AC PO Budesonide/ 2 PUF BID 01/13 1000 AC 01/17 Formoterol Fumarate INH 0840 Cyclobenzaprine HCl 10 MG DAILY 01/14 0430 AC 01/17 PO 0839 Diltiazem HCl 180 MG DAILY 01/13 1000 AC 01/17 PO 0839 Enoxaparin Sodium 40 MG DAILY 01/13 1000 AC 01/17 SC 0839 Fenofibrate 145 MG DAILY 01/13 1000 AC 01/17 PO 0840 Guaifenesin 600 MG Q12 01/13 1000 AC 01/17 PO 0839 Hydrocodone Bitart/ 2 TAB Q6P PRN 01/14 1030 AC 01/17 Acetaminophen PO 0521 Insulin Aspart 0 TIDAC 01/13 0800 AC 01/17 SC 0838 Lisinopril 10 MG DAILY 01/14 1000 AC 01/17 PO 0839 Melatonin 5 MG AT BEDTIME 01/15 2200 AC 01/16 PO 2201 Methylprednisolone 40 MG Q12H 01/15 2200 DC 01/16 IV 01/17 0000 2201 Omeprazole 40 MG DAILY AC 01/13 0700 AC 01/17 PO 0521 Oxycodone/ 1 TAB Q8P PRN 01/13 0245 AC Acetaminophen PO Prednisone 60 MG DAILY 01/17 1000 AC 01/17 PO 0839 Tiotropium [place] 1 PUF DAILY 01/13 1000 AC 01/17 INH 0840 Vital Signs & I&O Last 24 Hrs of Vitals and I&O: Vital Signs Date Time Temp Pulse Resp B/P B/P Pulse O2 O2 Flow FiO2 Mean Ox Delivery Rate 01/17 1050 95 Room Air Room Air 01/17 0808 96 Room Air 01/17 0624 97.8 66 20 134/60 93 Room Air 01/17 0000 Room Air 01/16 2237 97.4 88 18 126/60 93 01/16 1836 93 Room Air Room Air 01/16 1501 98.5 83 20 136/60 96 Room Air Intake & Output 01/17 1600 01/17 0800 01/17 0000 Intake Total 240 480 Output Total Balance 240 480 Intake, Oral 240 480 Patient 202 lb Weight Exam Other Physical Findings: Generally - Awake, alert, mild distress Head and neck - normocephalic, atraumatic, EOMI grossly intact Cardiovascular - S1, S2 Lungs - prolonged end expiratory phase, diminished bs Abdomen - Bowel sounds positive, soft, non-tender Extremities - without edema Impression/Plan Impression/Plan Impression/Plan: Impressoin 76 year old man * acute excarbation of COPD Plan -trc/nebs -prednisone taper 10mg every 3 days, ready for dc -cont inhalers -consider outpt sleep test which will be d/w pt -zpak for 5 days -given hx of achalasia - aspiration precautions DVT prophylaxis at all times
[2018-01-17] MEDS ORDERED: PROVENTIL HFA6.7 GM INH (11:51)
--- NOTE | 2018-01-17 15:23 | Discharge Summary ---
Visit Information Visit Dates Admission Date: 01/15/18 Hospital Course Course Attending Physician: Salma Jon MD Primary Care Physician: Brady Watson MD Consulting Request: Consulting Specialty: Pulmonary Disease Hospital Course: 77 year old man with past medical histoyr Allergies: Coded Allergies: moxifloxacin (From AVELOX) (ITCHY, RASH, SWEATING 01/12/18) Discharge Instructions Medications at Discharge Discharge Medications: Continue taking these medications: Fenofibrate,Micronized (Fenofibrate) 130 MG CAPSULE 1 Capsule ORAL DAILY Comments: Last Taken: 01/17/18 Time: 0900 AM Amlodipine Besylate (Norvasc) 5 MG TABLET 1 Tablet ORAL DAILY Comments: Last Taken: 01/17/18 Time: 0900AM Vilazodone Hydrochloride (Viibryd) 20 MG TABLET 1 Tablet ORAL DAILY Comments: NOT GIVEN IN HOSPITAL Cyclobenzaprine HCl (Cyclobenzaprine HCl) 10 MG TABLET 1 Tablet ORAL DAILY Comments: Last Taken: 01/17/18 Time: 0900AM Hydrocodone/Acetaminophen (Hydrocodon-Acetaminophn 10-325) 10 MG-325 MG TABLET 1 Tablet ORAL 4 times daily as needed as needed for PAIN Comments: Last Taken: 01/17/18 Time: 0530AM Diltiazem HCl (Diltiazem 24HR ER) 180 MG CAP.ER.24H 1 Capsule ORAL DAILY Qty = 60 Comments: Last Taken: 01/17/18 Time: 0900AM Lansoprazole (Prevacid) 30 MG CAPSULE.DR 30 Milligram ORAL DIALY Comments: NOT GIVEN IN HOSPITAL Lisinopril (Lisinopril) 10 MG TABLET 10 Milligram ORAL DAILY Comments: Last Taken: 01/17/18 Time: 0900AM Rosuvastatin Calcium (Crestor) 40 MG TABLET 40 Milligram ORAL DIALY Comments: NOT GIVEN IN HOSPITAL Metformin HCl (Metformin HCl) 500 MG TABLET 500 Milligram ORAL TWICE DAILY Comments: NOT GIVEN Tiotropium [place] (Spiriva) 18 MCG CAP.W.DEV 1 Puff Inhale through mouth DIALY Comments: Last Taken: 01/17/18 Time: 0900AM Budesonide/Formoterol Fumarate (Symbicort 160-4.5 Mcg Inhaler) 160 MCG-4.5 MCG/ ACTUATION HFA.AER.AD 2 PUFF Inhale through mouth TWICE DAILY Comments: Last Taken: 01/17/18 Time: 0900AM Start taking the following new medications: Prednisone (Prednisone) 10 MG TABLET 0 ORAL TAPER Qty = 47 No Refills Instructions: DATES: TABS/DAY 01/18-01/19 6 01/20-01/22 5 01/23-01/25 4 01/26-01/28 3 01/29-01/31 2 02/01-02/03 1 THEN STOP Comments: 60MG PO GIVEN 01/17/18 @0900AM Albuterol Sulfate (Proventil Hfa) 90 MCG HFA.AER.AD 2 Puff Inhale through mouth Every 4 hours as needed for SOB Qty = 1 No Refills Instructions: TAKE DIRECTED Comments: NOT GIVEN IN HOSPITAL
== END 2018-01-17 12:28 | DRG 192 ==
LOC: ERH 15:16 → ERHI 22:55 → ENRESERV 01-13 17:52 → ENTRNSPT 01-13 19:41 → EDTRNSPT 01-13 19:53 → EDTRNSPTSTS 01-13 19:53 → 2NB 01-13 20:01 → CMPTRNSPT 01-13 20:15 → 2NB 01-15 12:53
PROVIDERS: Emergency Medicine; Internal Medicine; Internal Medicine Hematology & Oncology; Internal Medicine Interventional Cardiology; Student in an Organized Health Care Education/Training Program
DX: J44.1 Chronic obstructive pulmonary disease with (acute) exacerbation (principal); I95.89 Other hypotension; E11.8 Type 2 diabetes mellitus with unspecified complications; E87.5 Hyperkalemia; I48.0 Paroxysmal atrial fibrillation; K22.0 Achalasia of cardia; R13.10 Dysphagia, unspecified; Z79.84 Long term (current) use of oral hypoglycemic drugs; I10 Essential (primary) hypertension; M19.90 Unspecified osteoarthritis, unspecified site; E78.5 Hyperlipidemia, unspecified; G47.33 Obstructive sleep apnea (adult) (pediatric); Z91.19 Patient's noncompliance with other medical treatment and regimen; N40.0 Benign prostatic hyperplasia without lower urinary tract symptoms; M54.9 Dorsalgia, unspecified; Z88.1 Allergy status to other antibiotic agents; Z90.49 Acquired absence of other specified parts of digestive tract; K57.90 Diverticulosis of intestine, part unspecified, without perforation or abscess without bleeding
CPT/HCPCS: 2NBSP; 36415; 36592; 71046; 82436; 87070; 87449; 87450; 87804; 87804-59; 92610-GN; 93005; 93010; 96365; 96375; G8996-GN; G8997-GN; J0456; J1644; J1650; J2920; J2930; J3490; J7060

== ENCOUNTER 2018-02-24 15:42 | Emergency (ER) | payer OTHER ==
[~2018-02-24] VITALS: Ht 175.3 cm; Wt 94.8 kg
[~2018-02-24 15:42] MED LIST changes: +PROVENTIL HFA6.7 GM INH
--- NOTE | 2018-02-24 15:55 | ED DYSPNEA/ASTHMA COMPLAINT ---
History of Present Illness General Chief Complaint: Dyspnea (COPD, CHF, Other) Stated Complaint: BIBA WITH SOB Source: patient Exam Limitations: no limitations Vital Signs & Intake/Output Vital Signs & Intake/Output Vital Signs Date Time Temp Pulse Resp B/P B/P Pulse O2 O2 Flow FiO2 Mean Ox Delivery Rate 02/24 1933 70 18 131/62 99 Nasal 2.0L Cannula 02/24 1727 97.8 79 18 128/59 99 Nasal 2.0L Cannula 02/24 1619 86 18 98 Nasal 2.0L Cannula 02/24 1606 100 Room Air 02/24 1558 98.0 82 24 125/56 100 Room Air Allergies Coded Allergies: moxifloxacin (From AVELOX) (ITCHY, RASH, SWEATING 01/12/18) Reconcile Medications Albuterol Sulfate (Proventil Hfa) 90 MCG HFA.AER.AD 2 PUF INH Q4 PRN SOB TAKE DIRECTED Amlodipine Besylate (Norvasc) 5 MG TABLET 1 TAB PO DAILY HEART (Reported) Apixaban (Eliquis) 5 MG TABLET 1 TAB PO BID AFIB (Reported) Azithromycin 250 MG TABLET 1 DP PO AD copd 2 the first day followed by 1 for days 2-5 Budesonide/Formoterol Fumarate (Symbicort 160-4.5 Mcg Inhaler) 160 MCG-4.5 MCG/ ACTUATION HFA.AER.AD 2 PUFF INH BID COPID (Reported) Cyclobenzaprine HCl 10 MG TABLET 1 TAB PO DAILY MUSCLE SPASMS (Reported) Diltiazem HCl (Diltiazem 24HR ER) 180 MG CAP.ER.24H 1 CAP PO DAILY HEART ( Reported) Fenofibrate,Micronized (Fenofibrate) 130 MG CAPSULE 1 CAP PO DAILY TRIGLYCERIDES (Reported) Furosemide 20 MG TABLET 1 TAB PO DAILY FLUID RETENTION (Reported) Hydrocodone/Acetaminophen (Hydrocodon-Acetaminophn 10-325) 10 MG-325 MG TABLET 1 TAB PO 4XDP PRN PAIN (Reported) Lansoprazole (Prevacid) 30 MG CAPSULE.DR 30 MG PO DIALY ACID REFLUX (Reported ) Lisinopril 10 MG TABLET 10 MG PO DAILY HTN (Reported) Metformin HCl 500 MG TABLET 500 MG PO BID DIABETES (Reported) Prednisone 50 MG TABLET 1 TAB PO DAILY copd Prednisone 10 MG TABLET 0 PO TAPER COPD DATES: TABS/DAY 01/18-01/19 6 3/2-3/ 5 3/-01/25 4 01/26-01/28 3 01/29-01/31 2 02/01-02/03 1 THEN STOP Roflumilast (Daliresp) 500 MCG TABLET 1 TAB PO DAILY U (Reported) Rosuvastatin Calcium (Crestor) 40 MG TABLET 40 MG PO DIALY CHOLESTEROL ( Reported) Tiotropium [place] (Spiriva) 18 MCG CAP.W.DEV 1 PUF INH DIALY COPD (Reported) Vilazodone Hydrochloride (Viibryd) 20 MG TABLET 1 TAB PO DAILY MENTAL HEALTH (Reported) Triage Nurses Notes Reviewed? yes Onset: Abrupt Duration: day(s): (1), changing over time, continues in ED Timing: recent history Severity: moderate, severe Activities at Onset: activity Prior Episodes/Possible Cause: frequent episodes Modifying Factors: Improves With: rest. Associated Symptoms: anxiety, cough HPI: 77-year-old male past medical history of a fib, COPD, htn presents for evaluation of shortness of breath. Patient states symptoms started today when he woke up. He reports shortness of breath that is worse on exertion and improves with rest. No chest pain hemoptysis. He states that it feels similar to previous COPD exacerbations. He's been using inhalers at home with minimal improvement. He is on a prednisone taper currently. No lower extremity edema. He was hospitalized here last month for similar symptoms. No nausea vomiting diarrhea. No back pain. He is able to walk without difficulty. (Gamaliel Goodwin) Past History Travel History Traveled to [place] past 21 day No Medical History Any Pertinent Medical History? see below for history Neurological: NONE Cardiovascular: AFIB, hypertension, hyperlipidemia Respiratory: COPD Gastrointestinal: achalasia Hepatic: NONE Renal: NONE Musculoskeletal: degenerative disk disease Psychiatric: NONE Endocrine: diabetes Blood Disorders: NONE Cancer(s): NONE REGISTRY NP/Reproductive: NONE History of MRSA: No History of VRE: No History of CDIFF: No Influenza Vaccine: 12/05/17 Surgical History Surgical History: colon resection Psychosocial History Who do you live with Spouse Services at Home None What is your primary language Irish Family History Family History, If Any: Relation not specified for: *No pertinent family history Hx Contributory? No (Gamaliel Goodwin) Review of Systems Review of Systems Constitutional: Reports: no symptoms. EENTM: Reports: no symptoms. Respiratory: Reports: see HPI, cough, short of breath, wheezing. Cardiovascular: Reports: no symptoms. GI: Reports: no symptoms. Genitourinary: Reports: no symptoms. Musculoskeletal: Reports: no symptoms. Skin: Reports: no symptoms. Neurological/Psychological: Reports: no symptoms. Hematologic/Endocrine: Reports: no symptoms. Immunologic/Allergic: Reports: no symptoms. All Other Systems: Reviewed and Negative (Gamaliel Goodwin) Physical Exam Physical Exam General Appearance: well developed/nourished, alert, awake, anxious, mild distress Head: atraumatic, normal appearance Eyes: Bilateral: normal appearance, PERRL, EOMI. Ears, Nose, Throat: normal pharynx, normal ENT inspection, hearing grossly normal Neck: normal inspection, supple, full range of motion, no jvd Respiratory: chest non-tender, no respiratory distress, quiet respiration, decreased breath sounds Cardiovascular: regular rate/rhythm, normal peripheral pulses Peripheral Pulses: 2+ radial (R), 2+ radial (L) Gastrointestinal: soft, non-tender Extremities: normal inspection, normal capillary refill, normal range of motion, no edema Neurologic/Psych: no motor/sensory deficits, awake, alert, oriented x 3, normal gait, normal mood/affect Skin: intact, normal color, warm/dry Lymphatic: no anterior cervical jeremiah Core Measures ACS in differential dx? No CVA/TIA Diagnosis No Sepsis Present: No Sepsis Focused Exam Completed? No (Gamaliel Goodwin) Progress Differential Diagnosis: asthma, AMI, bronchitis, CHF, COPD, musculoskeletal pain , pulmonary embolism, pneumonia, pneumothorax, rib fracture, unstable angina Plan of Care: Orders Procedure Date/time Status TROPONIN LEVEL 02/24 2015 Complete EKG 02/24 2015 Active LACTIC ACID 02/24 1855 Complete LACTIC ACID 02/24 1555 Complete URINALYSIS 02/24 1554 Complete TROPONIN LEVEL 02/24 1554 Complete MAGNESIUM 02/24 1554 Complete D-DIMER 02/24 1554 Complete COMPREHENSIVE METABOLIC PANEL 02/24 1554 Complete CBC WITHOUT DIFFERENTIAL 02/24 1554 Complete B-TYPE NATRIURETIC PEP (BNP) 02/24 1554 Complete EKG 02/24 1543 Active Laboratory Tests 02/24/18 2020: Troponin I < 0.01 02/24/18 1936: Urinalysis HEAVY H, Urine Color YEL, Urine Clarity CLDY H, Urine pH 8.0, Ur Specific [place] 1.010, Urine Protein NEG, Urine Ketones NEG, Urine Nitrite NEG, Urine Bilirubin NEG, Urine Urobilinogen 0.2, Ur Leukocyte Esterase NEG, Ur Microscopic SEDIMENT EXAMINED, Urine RBC RARE, Urine WBC RARE, Ur Epithelial Cells RARE, Granular Casts RARE H, Urine Hemoglobin NEG, Urine Glucose 250 H 02/24/18 1930: Lactic Acid 1.3 02/24/18 1600: Lactic Acid 4.6 H 02/24/18 1600: Anion Gap 14, Estimated GFR > 60, BUN/Creatinine Ratio 33.3 H, Glucose 195 H, Calcium 10.0, Magnesium 1.5 L, Total Bilirubin 0.6, AST 32, ALT 27, Alkaline Phosphatase 38, Troponin I < 0.01, [id number]-M-Oajyflgegdg Pept 114, Total Protein 6.6 , Albumin 4.0, Globulin 2.6, Albumin/Globulin Ratio 1.5, D-Dimer High Sensitivty < 200, CBC w Diff MAN DIFF ORDERED, RBC 4.95, MCV 87.4, MCH 28.7, MCHC 32.9 L, RDW 15.4 H, MPV 6.2 L, Gran % 85.3 H, Lymphocytes % 10.5 L, Monocytes % 3.8, Eosinophils % 0.2, Basophils % 0.2, Absolute Granulocytes 14.9 H, Segmented Neutrophils 81 H, Band Neutrophils 3, Absolute Lymphocytes 1.8, Lymphocytes 11 L, Monocytes 4, Absolute Monocytes 0.7 H, Absolute Eosinophils 0, Basophils 1, Absolute Basophils 0, Platelet Estimate VERIFIED BY SMEAR, Normocytic RBCs VERIFIED, Normochromic RBCs VERIFIED, Fld Total RBCs Counted 100 Patient seen and evaluated. He presented with shortness of breath that started today feels a previous COPD exacerbations. On initial evaluation his vital signs are stable however patient does appear tachypnic using accessory muscles. No hypoxia or cyanosis. Patient denies chest pain. He received a DuoNeb in route with some improvement. He is currently on 10 mg prednisone. We'll check basic labs chest x-ray and EKG. Basic blood work is within normal limits other than a white blood cell count of 17.5 and elevated lactic acid. Patient was given fluids. A CTA of the chest, pelvis was obtained for further evaluation. CTA does not show any acute findings. There is no signs of infection on exam. Patient is afebrile urine is clean no pneumonia or intra-abdominal infection. Repeat EKG troponin and lactic acid negative and unchanged EKG. Patient was ablated in the emergency department has steady gait he did not desaturate. He states he is feeling better. His lungs remained clear but slightly diminished. No chest pain. Patient was instructed to rest and continue inhalers. Prednisone will be increased. Follow-up with primary care doctor and pulmonology. Discussed return precautions case discussed with Maria Alejandra he agrees. Diagnostic Imaging: Viewed by Me: Radiology Read, CT Scan. Discussed w/RAD: Radiology Read, CT Scan. Radiology Impression: PATIENT: CARLITOS EVANS PRESENT AGE: 77 PATIENT ACCOUNT NO: [id number] : 42 LOCATION: [facility] ORDERING PHYSICIAN: Gamaliel MALAVE SERVICE DATE: 02/24/18 EXAM TYPE: CAT - CT ABD & PELVIS ANGIOGRAM; CTA CHEST-AORTIC DISSECTION STUDY PERFORMED: CTA OF THE CHEST, ABDOMEN AND PELVIS WITH AND WITHOUT CONTRAST CLINICAL INFORMATION: Shortness of breath. Abdominal pain and distention. DESCRIPTION: Initial noncontrast CT of the chest was performed. Contrast timing was performed at the level of the distal descending thoracic aorta. Subsequently, arterial phase multidetector volumetric imaging was performed through the chest, abdomen and pelvis following the administration of 95 mL Optiray 320 intravenous contrast. No contrast reaction reported Sagittal and coronal reformatted images were obtained on the technologist workstation. Three-dimensional MIP reformatted imaging was performed and reviewed. Total exam dose-length product 1598 mGy-cm COMPARISON: 12/10/2017 FINDINGS: Vascular: 1. 3 cusped aortic valve. Normal origins of the main coronary arteries which are calcified. The ascending thoracic aorta is normal in course and caliber without dissection. 2. The aortic arch is normal in course and caliber without dissection. Normal 3 vessel branching configuration. 3. The descending thoracic aorta is normal in course and caliber without dissection. Mild atherosclerotic calcifications. 4. The abdominal aorta is normal in course and caliber without dissection. Moderate atherosclerotic calcifications. The visualized iliac and femoral vasculature also demonstrates no evidence of dissection with atherosclerotic calcification. 5. 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 The superior mesenteric artery origin is widely patent. The inferior mesenteric artery origin is widely patent. Single bilateral renal arteries are patent. 6. No evidence of central pulmonary embolism. Nonvascular: CHEST: The central airways are patent. There is moderate centrilobular and paraseptal emphysema dependent atelectasis bilaterally. No dense consolidation. No pneumothorax or pleural effusion. The heart is of normal size. No pericardial effusion. There is no mediastinal, hilar or axillary lymphadenopathy. There are no chest wall masses. There is wall thickening of the esophagus noted. ABDOMEN AND PELVIS: LIVER, GALLBLADDER, AND BILIARY TREE: The liver is normal in size, shape, and attenuation. No focal hepatic lesion or biliary ductal dilatation is present. The gallbladder is unremarkable with no evidence of radiopaque gallstones, gallbladder wall thickening, or obvious pericholecystic inflammatory changes. PANCREAS: Mild fatty infiltration of the pancreatic parenchyma with no focal abnormality. SPLEEN: Unremarkable. ADRENAL GLANDS: Unremarkable. KIDNEYS AND URETERS: The kidneys are normal in size, shape, and attenuation. No hydronephrosis, hydroureter, or calculi seen. Bilateral perinephric stranding. Right renal cysts are noted. BLADDER: Unremarkable. GASTROINTESTINAL TRACT: Small hiatal hernia. The stomach is decompressed with no gross abnormality. The small bowel is normal in caliber without obstruction. No colonic wall thickening or inflammatory change. Normal appendix. Distal colonic anastomosis noted. No free air or free fluid. ABDOMINAL WALL: Small umbilical hernia containing a portion of small bowel which is not obstructed. LYMPH NODES: Normal. PELVIC VISCERA: The prostate is mildly enlarged measuring 5.2 cm transverse. The seminal vesicles are unremarkable. OSSEOUS STRUCTURES: No acute or suspicious osseous abnormality. Degenerative changes throughout the spine. Degenerative changes of both hips. IMPRESSION: 1. No evidence of aortic dissection. A few secretory calcifications with mild stenosis at the origin of the celiac axis, similar to prior. 2. Moderate emphysema. 3. Wall thickening of the esophagus. Correlate for esophagitis. Small hiatal hernia also present. DICTATED BY: Tracie MOODY,Fredi DATE/TIME DICTATED:02/24/181925 SIDE HEMMER:RAFAL DATE/TIME TRANSCRIBED:02/24/181925 CXR Impression: PATIENT: CARLITOS EVANS PRESENT AGE : 77 PATIENT ACCOUNT NO: [id number] : 42 LOCATION: [facility] ORDERING PHYSICIAN: Gamaliel MALAVE SERVICE DATE: 02/24/18 EXAM TYPE: RAD - XRY- PORTABLE CHEST XRAY EXAMINATION: XR PORTABLE CHEST CLINICAL INFORMATION: Shortness of breath COMPARISON: 01/12/2018 TECHNIQUE: Portable frontal view of the chest was obtained. FINDINGS: The lungs are clear with no focal consolidation. No evidence of pneumothorax, pulmonary edema, or pleural effusions. The cardiomediastinal silhouette is unremarkable. No acute osseous findings. IMPRESSION: No acute cardiopulmonary findings. DICTATED BY: Amarjit Hunter MD DATE/TIME DICTATED:02/24/181705 SIDE HEMMER:RAFAL DATE/TIME TRANSCRIBED:02/24/181705 CONFIDENTIAL, DO NOT COPY WITHOUT APPROPRIATE AUTHORIZATION. Initial ED EKG: normal sinus rhythm, no ST T wave changes Repeat EKG: unchanged (Gamaliel Goodwin) Departure Departure Disposition: HOME OR SELF CARE Condition: Stable Clinical Impression Primary Impression: COPD exacerbation Referrals: Margarita MOODY,Eduardo Watson MD,Brady Espinoza (PCP/Family) Additional Instructions: Take prednisone and Zithromax as directed for full course. Continue to use inhalers as directed. Make a follow-up with Dr. Avila for this coming week. Monitor symptoms return with any concerns. Departure Forms: Customer Survey General Discharge Information Prescriptions: Current Visit Scripts Prednisone 1 TAB PO DAILY #5 TAB Azithromycin 1 DP PO AD #6 TAB 2 the first day followed by 1 for days 2-5 (Gamaliel Goodwin) PA/PULP MIXER Co-Sign Statement Statement: ED Attending supervision documentation- [] I saw and evaluated the patient. I have also reviewed all the pertinent lab results and diagnostic results. I agree with the findings and the plan of care as documented in the PA's/PULP MIXER's documentation. [x] I have reviewed the ED Record and agree with the PA's/PULP MIXER's documentation. [] Additions or exceptions (if any) to the PAs/PULP MIXER's note and plan are summarized below: [] (Maria Alejandra MOODY,Sergio Marroquin) Critical Care Note Critical Care Note Critical Care Time: non-applicable (Gamaliel Goodwin)
[2018-02-24] MEDS ORDERED: FUROSEMIDE20 M1 PO (16:23)
[2018-02-24 16:26] LABS: ABSOLUTE BASOPHIL COUNT 0 /CUMM (0.0-0.2); ABSOLUTE EOSINOPHIL COUNT 0 /CUMM (0.0-0.7); ABSOLUTE GRANULOCYTE CT 14.9 /CUMM (1.4-6.5); ABSOLUTE LYMPH COUNT 1.8 /CUMM (1.2-3.4); ABSOLUTE MONOCYTE COUNT 0.7 /CUMM (0.10-0.60); BASOPHIL % 0.2 % (0.0-2.0); EOSINOPHIL % 0.2 % (0-5); HEMATOCRIT 43.2 % (42-52); MEAN CORPUSCULAR HGB 28.7 PG (27.0-31.0); MEAN CORPUSCULAR HGB CONC 32.9 G/DL (33.0-37.0); MEAN CORPUSCULAR VOLUME 87.4 FL (80.0-94.0); MEAN PLATELET VOLUME 6.2 FL (7.4-10.4); PLATELET COUNT 339 /CUMM (130-400); RBC DISTRIBUTION WIDTH 15.4 % (11.5-14.5); RED BLOOD CELL CT 4.95 /CUMM (4.70-6.10); WHITE BLOOD CELL COUNT 17.5 /CUMM (4.8-10.8)
[2018-02-24] MEDS ORDERED: ELIQUIS5 M1 PO (16:26)
[2018-02-24] MEDS ORDERED: DALIRESP500 MC1 PO (16:26)
[2018-02-24 16:27] LABS: GRANULOCYTE % 85.3 % (42.2-75.2)
--- NOTE | 2018-02-24 17:10 | RADIOLOGY REPORT ---
EXAMINATION: XR PORTABLE CHEST CLINICAL INFORMATION: Shortness of breath COMPARISON: 01/12/2018 TECHNIQUE: Portable frontal view of the chest was obtained. FINDINGS: The lungs are clear with no focal consolidation. No evidence of pneumothorax, pulmonary edema, or pleural effusions. The cardiomediastinal silhouette is unremarkable. No acute osseous findings. IMPRESSION: No acute cardiopulmonary findings.
--- NOTE | 2018-02-24 19:40 | CT SCAN REPORT ---
STUDY PERFORMED: CTA OF THE CHEST, ABDOMEN AND PELVIS WITH AND WITHOUT CONTRAST CLINICAL INFORMATION: Shortness of breath. Abdominal pain and distention. DESCRIPTION: Initial noncontrast CT of the chest was performed. Contrast timing was performed at the level of the distal descending thoracic aorta. Subsequently, arterial phase multidetector volumetric imaging was performed through the chest, abdomen and pelvis following the administration of 95 mL Optiray 320 intravenous contrast. No contrast reaction reported Sagittal and coronal reformatted images were obtained on the technologist workstation. Three-dimensional MIP reformatted imaging was performed and reviewed. Total exam dose-length product 1598 mGy-cm COMPARISON: 12/10/2017 FINDINGS: Vascular: 1. 3 cusped aortic valve. Normal origins of the main coronary arteries which are calcified. The ascending thoracic aorta is normal in course and caliber without dissection. 2. The aortic arch is normal in course and caliber without dissection. Normal 3 vessel branching configuration. 3. The descending thoracic aorta is normal in course and caliber without dissection. Mild atherosclerotic calcifications. 4. The abdominal aorta is normal in course and caliber without dissection. Moderate atherosclerotic calcifications. The visualized iliac and femoral vasculature also demonstrates no evidence of dissection with atherosclerotic calcification. 5. 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 The superior mesenteric artery origin is widely patent. The inferior mesenteric artery origin is widely patent. Single bilateral renal arteries are patent. 6. No evidence of central pulmonary embolism. Nonvascular: CHEST: The central airways are patent. There is moderate centrilobular and paraseptal emphysema dependent atelectasis bilaterally. No dense consolidation. No pneumothorax or pleural effusion. The heart is of normal size. No pericardial effusion. There is no mediastinal, hilar or axillary lymphadenopathy. There are no chest wall masses. There is wall thickening of the esophagus noted. ABDOMEN AND PELVIS: LIVER, GALLBLADDER, AND BILIARY TREE: The liver is normal in size, shape, and attenuation. No focal hepatic lesion or biliary ductal dilatation is present. The gallbladder is unremarkable with no evidence of radiopaque gallstones, gallbladder wall thickening, or obvious pericholecystic inflammatory changes. PANCREAS: Mild fatty infiltration of the pancreatic parenchyma with no focal abnormality. SPLEEN: Unremarkable. ADRENAL GLANDS: Unremarkable. KIDNEYS AND URETERS: The kidneys are normal in size, shape, and attenuation. No hydronephrosis, hydroureter, or calculi seen. Bilateral perinephric stranding. Right renal cysts are noted. BLADDER: Unremarkable. GASTROINTESTINAL TRACT: Small hiatal hernia. The stomach is decompressed with no gross abnormality. The small bowel is normal in caliber without obstruction. No colonic wall thickening or inflammatory change. Normal appendix. Distal colonic anastomosis noted. No free air or free fluid. ABDOMINAL WALL: Small umbilical hernia containing a portion of small bowel which is not obstructed. LYMPH NODES: Normal. PELVIC VISCERA: The prostate is mildly enlarged measuring 5.2 cm transverse. The seminal vesicles are unremarkable. OSSEOUS STRUCTURES: No acute or suspicious osseous abnormality. Degenerative changes throughout the spine. Degenerative changes of both hips. IMPRESSION: 1. No evidence of aortic dissection. A few secretory calcifications with mild stenosis at the origin of the celiac axis, similar to prior. 2. Moderate emphysema. 3. Wall thickening of the esophagus. Correlate for esophagitis. Small hiatal hernia also present.
[2018-02-24 21:30] VITALS: BP 138/70
[2018-02-24] MEDS ORDERED: AZITHROMYCIN250 M1 PO (22:02)
[2018-02-24] MEDS ORDERED: PREDNISONE50 M1 PO (22:02)
== END 2018-02-24 22:13 ==
LOC: ERH 15:42
PROVIDERS: Physician Assistant Medical
DX: J44.1 Chronic obstructive pulmonary disease with (acute) exacerbation (principal)
CPT/HCPCS: 71045; 74174; 81001; 93005; 93010

== ENCOUNTER 2018-03-27 10:51 | Inpatient (IN) | payer OTHER ==
[~2018-03-27] VITALS: Ht 175.3 cm; Wt 98.6 kg
[~2018-03-27 10:51] MED LIST changes: +DALIRESP500 MC1 PO; +ELIQUIS5 M1 PO; +FUROSEMIDE20 M1 PO; +PREDNISONE50 M1 PO
[2018-03-27 14:48] LABS: ABSOLUTE BASOPHIL COUNT 0.1 /CUMM (0.0-0.2); ABSOLUTE EOSINOPHIL COUNT 0 /CUMM (0.0-0.7); ABSOLUTE GRANULOCYTE CT 14.2 /CUMM (1.4-6.5); ABSOLUTE LYMPH COUNT 1.6 /CUMM (1.2-3.4); BASOPHIL % 0.4 % (0.0-2.0); EOSINOPHIL % 0.2 % (0-5); GRANULOCYTE % 84.3 % (42.2-75.2); HEMATOCRIT 42.2 % (42-52); MEAN CORPUSCULAR HGB 29.1 PG (27.0-31.0); MEAN CORPUSCULAR HGB CONC 33.2 G/DL (33.0-37.0); MEAN CORPUSCULAR VOLUME 87.8 FL (80.0-94.0); MEAN PLATELET VOLUME 6.1 FL (7.4-10.4); PLATELET COUNT 359 /CUMM (130-400); RBC DISTRIBUTION WIDTH 16.3 % (11.5-14.5); WHITE BLOOD CELL COUNT 16.8 /CUMM (4.8-10.8)
--- NOTE | 2018-03-27 16:19 | ED DYSPNEA/ASTHMA COMPLAINT ---
History of Present Illness General Chief Complaint: General Adult Stated Complaint: SENT IN BY MD STEPHENSON FOR SOB/CHEST TIGHTNESS Source: patient Exam Limitations: no limitations Vital Signs & Intake/Output Vital Signs & Intake/Output Vital Signs Date Time Temp Pulse Resp B/P B/P Pulse O2 O2 Flow FiO2 Mean Ox Delivery Rate 03/27 2209 97.6 83 20 120/54 94 Nasal 2.0L Cannula 03/27 2055 Nasal 2.0L Cannula 03/27 2041 97.9 87 17 144/61 96 Nasal 2.0L Cannula 03/27 2025 92 Room Air 03/27 2009 97 03/27 1938 97.9 77 18 108/58 96 Room Air 03/27 1720 98 03/27 1437 98.3 91 18 111/68 94 Room Air 03/27 1106 97.8 88 18 123/68 95 Room Air Allergies Coded Allergies: moxifloxacin (From AVELOX) (ITCHY, RASH, SWEATING 01/12/18) Triage Note: 77 YO MALE SENT TO TRIAGE FOR DR CORONA OFFICE FOR EVAL OF SOB. PT DENIES CHEST PAIN AT THIS TIME. EKG COMPLETED ON ARRIVAL AND SHOWN TO . Triage Nurses Notes Reviewed? yes Onset: Gradual Duration: getting worse Timing: recent history Severity: moderate HPI: Patient is a 77-year-old male with a past medical history of COPD non home O2 ATRIAL fibrillation on ELIQUIS, obstructive sleep apnea noncompliant with CPAP, hyperlipidemia who presents emergency room for concerns of a three-day four-day history of shortness of breath dyspnea on exertion and nonproductive cough Patient is on 10 mg of prednisone Patient has no relief with home nebulizers Denies any arm pain jaw pain nausea vomiting hemoptysis Patient is complaining of chills and tactile fevers (Myles Tilley) Reconcile Medications Albuterol Sulfate (Proventil Hfa) 90 MCG HFA.AER.AD 2 PUF INH Q4 PRN SOB TAKE DIRECTED Amlodipine Besylate (Norvasc) 5 MG TABLET 1 TAB PO DAILY HEART (Reported) Apixaban (Eliquis) 5 MG TABLET 1 TAB PO BID AFIB (Reported) Azithromycin 250 MG TABLET 1 DP PO AD copd 2 the first day followed by 1 for days 2-5 Budesonide/Formoterol Fumarate (Symbicort 160-4.5 Mcg Inhaler) 160 MCG-4.5 MCG/ ACTUATION HFA.AER.AD 2 PUFF INH BID COPID (Reported) Cyclobenzaprine HCl 10 MG TABLET 1 TAB PO DAILY MUSCLE SPASMS (Reported) Diltiazem HCl (Diltiazem 24HR ER) 180 MG CAP.ER.24H 1 CAP PO DAILY HEART ( Reported) Fenofibrate,Micronized (Fenofibrate) 130 MG CAPSULE 1 CAP PO DAILY TRIGLYCERIDES (Reported) Finasteride 5 MG TABLET 1 TAB PO DAILY PROSTRATE (Reported) Furosemide 20 MG TABLET 1 TAB PO DAILY FLUID RETENTION (Reported) Hydrocodone/Acetaminophen (Hydrocodon-Acetaminophn 10-325) 10 MG-325 MG TABLET 1 TAB PO 4XDP PRN PAIN (Reported) Lansoprazole (Prevacid) 30 MG CAPSULE.DR 30 MG PO DIALY ACID REFLUX (Reported ) Lisinopril 10 MG TABLET 10 MG PO DAILY HTN (Reported) Metformin HCl 500 MG TABLET 500 MG PO BID DIABETES (Reported) Prednisone 50 MG TABLET 1 TAB PO DAILY copd Prednisone 10 MG TABLET 0 PO TAPER COPD DATES: TABS/DAY 01/18-01/19 6 01/20-01/22 5 01/23-01/25 4 01/26-01/28 3 01/29-01/31 2 02/01-02/03 1 THEN STOP Roflumilast (Daliresp) 500 MCG TABLET 1 TAB PO DAILY U (Reported) Rosuvastatin Calcium (Crestor) 40 MG TABLET 40 MG PO DIALY CHOLESTEROL ( Reported) Tiotropium Hollis (Spiriva) 18 MCG CAP.W.DEV 1 PUF INH DIALY COPD (Reported) Vilazodone Hydrochloride (Viibryd) 20 MG TABLET 1 TAB PO DAILY MENTAL HEALTH (Reported) (Bairon MOODY,Kyler Marte) Past History Travel History Traveled to [place] past 21 day No Medical History Any Pertinent Medical History? see below for history Neurological: NONE Cardiovascular: AFIB, hypertension, hyperlipidemia Respiratory: COPD Gastrointestinal: achalasia Hepatic: NONE Renal: NONE Musculoskeletal: degenerative disk disease Psychiatric: NONE Endocrine: diabetes Blood Disorders: NONE Cancer(s): NONE EVALUATION MANAGER/Reproductive: NONE History of MRSA: No History of VRE: No History of CDIFF: No Surgical History Surgical History: colon resection Psychosocial History Who do you live with Spouse Services at Home None What is your primary language Luxembourgish Tobacco Use: Never used Family History Family History, If Any: Relation not specified for: *No pertinent family history Hx Contributory? No (Myles iTlley) Review of Systems Review of Systems Constitutional: Reports: see HPI. EENTM: Reports: no symptoms. Respiratory: Reports: see HPI, cough, short of breath. Cardiovascular: Reports: no symptoms. GI: Reports: no symptoms. Genitourinary: Reports: no symptoms. Musculoskeletal: Reports: no symptoms. Skin: Reports: no symptoms. Neurological/Psychological: Reports: no symptoms. Hematologic/Endocrine: Reports: no symptoms. Immunologic/Allergic: Reports: no symptoms. All Other Systems: Reviewed and Negative (Myles Tilley) Physical Exam Physical Exam General Appearance: no apparent distress, alert, comfortable Head: atraumatic Eyes: Bilateral: normal appearance. Ears, Nose, Throat: normal pharynx, hearing grossly normal Respiratory: chest non-tender, no respiratory distress, wheezing Cardiovascular: regular rate/rhythm Peripheral Pulses: 2+ radial (R) Gastrointestinal: normal bowel sounds, soft Extremities: trace lower extremity pitting edema Neurologic/Psych: no motor/sensory deficits Skin: intact, normal color Lymphatic: no anterior cervical jeremiah Core Measures ACS in differential dx? Yes CVA/TIA Diagnosis No Sepsis Present: No Sepsis Focused Exam Completed? No (Myles Tilley) Progress Differential Diagnosis: asthma, AMI, bronchitis, costochondritis, CHF, COPD, musculoskeletal pain, pericarditis, pulmonary embolism, pneumonia, pneumothorax, unstable angina Plan of Care: Orders Procedure Date/time Status Heart Healthy Diet 03/28 B Active Weight 03/27 2054 Active Vital Signs 03/27 2054 Active Teach/Educate 03/27 2054 Active Pain Treatment and Response 03/27 2054 Active Nutritional Intake, Monitor 03/27 2054 Active Isolation 03/27 2054 Active Intake & Output 03/27 2054 Active Patient Care Conference 03/27 2054 Active Activity/Ambulation 03/27 2054 Active Pathway - chart 03/27 2033 Active House Staff 03/27 2033 Active Patient Data 03/27 2033 Active Code Status 03/27 2033 Active ED Holding Orders 03/27 1930 Active Admit to inpatient 03/27 1930 Active Vital Signs 03/27 1930 Active Code Status 03/27 1930 Complete Add-on Test (ER Only) 03/27 165 Active Patient Data 03/27 1644 Active Intake & Output 03/27 1636 Active Add-on Test (ER Only) 03/27 1619 Active TROPONIN LEVEL 03/27 1619 Complete EKG 03/27 1619 Active MIXED VENOUS BLOOD GAS (GEN) 03/27 1547 Active D-DIMER 03/27 1437 Complete B-TYPE NATRIURETIC PEP (BNP) 03/27 1437 Complete TROPONIN LEVEL 03/27 1111 Complete COMPREHENSIVE METABOLIC PANEL 03/27 1111 Complete CBC WITHOUT DIFFERENTIAL 03/27 1111 Complete EKG 03/27 1052 Active VTE Mechanical Prophylaxis 03/27 UNK Active Current Medications Sig/Efe Start time Last Medication Dose Stop Time Status Admin Atorvastatin Calcium 40 MG 1700 03/28 1700 AC (Lipitor) Budesonide/ 2 PUF BID 03/28 900 AC Formoterol Fumarate (Symbicort) Cyclobenzaprine HCl 10 MG DAILY 03/28 900 AC (Flexeril 10MG Tab) Diltiazem HCl 180 MG DAILY 03/28 900 AC (Cardizem CD) Fenofibrate 145 MG DAILY 03/28 900 AC (Tricor) Furosemide 20 MG DAILY 03/28 900 AC (Lasix) Lisinopril 10 MG DAILY 03/28 900 AC (Prinivil) Albuterol Sulfate 2 PUF Q4 PRN 03/27 220 AC (Ventolin) Oxycodone/ 1 TAB Q4P PRN 03/27 220 AC Acetaminophen (Percocet) Tiotropium Hollis 1 PUF DAILY 03/27 220 AC (Spiriva) Apixaban 5 MG BID 03/27 2146 AC (Eliquis) Acetaminophen 325 MG Q6P PRN 03/27 2045 AC (Tylenol) Laboratory Tests 03/27/18 1628: Troponin I < 0.01 03/27/18 1619: D-Dimer High Sensitivty Cancelled 03/27/18 1437: Anion Gap 13, Estimated GFR > 60, BUN/Creatinine Ratio 21.1, Glucose 211 H, Calcium 9.8, Total Bilirubin 0.8, AST 20, ALT 25, Alkaline Phosphatase 53, Troponin I < 0.01, Ail-A-Vtgpfpjecbn Pept 171 H, Total Protein 6.6, Albumin 4.1 , Globulin 2.5, Albumin/Globulin Ratio 1.6, D-Dimer High Sensitivty < 200, CBC w Diff MAN DIFF ORDERED, RBC 4.80, MCV 87.8, MCH 29.1, MCHC 33.2, RDW 16.3 H, MPV 6.1 L, Gran % 84.3 H, Lymphocytes % 9.3 L, Monocytes % 5.8, Eosinophils % 0.2 , Basophils % 0.4, Absolute Granulocytes 14.2 H, Segmented Neutrophils 80 H, Absolute Lymphocytes 1.6, Lymphocytes 15 L, Monocytes 5, Absolute Monocytes 1.0 H, Absolute Eosinophils 0, Absolute Basophils 0.1, Platelet Estimate VERIFIED BY SMEAR, Normocytic RBCs VERIFIED, Normochromic RBCs VERIFIED Patient upon initial presentation was speaking in clear sentences no respiratory distress patient does have bilateral auditory wheezing and decreased aeration. Patient was given nebulizer treatment and IV steroids with mild improvement of symptoms however upon ambulation patient noted to have worsening symptoms of shortness of breath however oxygen saturation 95%. Initial troponin and d-dimer were unremarkable as well as EKG and chest x-ray. Patient does state that he does not feel comfortable to return home due to his presentation of symptoms and feeling minimally improved Diagnostic Imaging: Viewed by Me: Radiology Read. Radiology Impression: no acute abnormality Initial ED EKG: normal p-waves, normal QRS complex, normal sinus rhythm, 89 BPM, NSR Prior EKG: unchanged Comments: PATIENT: CARLITOS EVANS PRESENT AGE: 77 PATIENT ACCOUNT NO: [id number] : 42 LOCATION: [facility] ORDERING PHYSICIAN: Shae MALAVE SERVICE DATE: 03/27/182777 EXAM TYPE: RAD - XRY-CHEST XRAY, TWO VIEWS EXAMINATION: XR CHEST CLINICAL INFORMATION: Shortness of breath and chest tightness. COMPARISON: 02/24/2018 chest x-ray and chest CT. TECHNIQUE: 2 views of the chest were obtained. FINDINGS: The cardiomediastinal silhouette is normal. The lungs are clear. The right hemithorax remains slightly smaller in caliber than the left, unchanged. No consolidation, pulmonary edema, pleural effusion, pneumothorax. Mild biapical pleural-parenchymal scarring is visualized. There are multilevel degenerative changes of the spine. Anterior cervical discectomy and fusion hardware is partially visualized. No acute osseous abnormality. IMPRESSION: Stable appearance of the chest relative to 02/24/2018. No acute abnormality is evident. DICTATED BY: Edward Wharton MD DATE/TIME DICTATED:03/27/181636 MUD JACK NOZZLE WORKER:RAFAL DATE/TIME TRANSCRIBED:03/27/181636 (Myles Tilley) Departure Departure Disposition: STILL A PATIENT Condition: Stable Clinical Impression Primary Impression: COPD exacerbation Referrals: Walter MOODY,Brady Espinoza (PCP/Family) Departure Forms: Customer Survey General Discharge Information Admission Note Spoke With: Fran Truong MD Documentation of Exam: Documentation of any treatments & extenuating circumstances including Concerns Regarding Discharge (functional status, medication knowledge or non-compliance, living conditions, etc.) that warrant an admission rather than observation: [ Patient requires IV steroids, antibiotics, repeat nebulizer treatments pulmonary consultation case management consultation repeat labs] (Myles Tilley) PA/HEAD OF HOUSEKEEPING Co-Sign Statement Statement: ED Attending supervision documentation- [X] I saw and evaluated the patient. I have also reviewed all the pertinent lab results and diagnostic results. I agree with the findings and the plan of care as documented in the PA's/HEAD OF HOUSEKEEPING's documentation. [X] I have reviewed the ED Record and agree with the PA's/HEAD OF HOUSEKEEPING's documentation. [] Additions or exceptions (if any) to the PAs/HEAD OF HOUSEKEEPING's note and plan are summarized below: [PT TO BE ADMITTED FOR COPD EXACERBATION, NEBS, IV STEROIDS, PULM CONSULTATION.] (Bairon MOODY,Kyler Marte) Critical Care Note Critical Care Note Critical Care Time: non-applicable (Myles Tilley)
--- NOTE | 2018-03-27 16:45 | RADIOLOGY REPORT ---
EXAMINATION: XR CHEST CLINICAL INFORMATION: Shortness of breath and chest tightness. COMPARISON: 02/24/2018 chest x-ray and chest CT. TECHNIQUE: 2 views of the chest were obtained. FINDINGS: The cardiomediastinal silhouette is normal. The lungs are clear. The right hemithorax remains slightly smaller in caliber than the left, unchanged. No consolidation, pulmonary edema, pleural effusion, pneumothorax. Mild biapical pleural-parenchymal scarring is visualized. There are multilevel degenerative changes of the spine. Anterior cervical discectomy and fusion hardware is partially visualized. No acute osseous abnormality. IMPRESSION: Stable appearance of the chest relative to 02/24/2018. No acute abnormality is evident.
--- NOTE | 2018-03-27 19:48 | History & Physical ---
FahadCathryn 03/27/181945: General Information and HPI MD Statement: I have seen and personally examined CARLITOS ARECHIGA and documented this H&P. The patient is a 77 year old M who presented with a patient stated chief complaint of [SOB]. Source of Information: patient, old records Exam Limitations: no limitations History of Present Illness: Mr. Arechiga is a 77yo M w/ PMH of COPD not on home oxygen but on 10 mg chronic prednisone, RODRICK noncompliant with CPAP, A. fib on Eliquis currently rate controlled, diabetes, hypertension, hyperlipidemia, degenerative disc disease presented to ER with S OB with nonproductive cough 3-4 days. He was last admitted to [place] in 11/2017 with COPD exacerbation and was sent home on chronic prednisone and was managed by [facility]/Dr. Avila, that he was last seen in Dr. Avila's office about 3 weeks ago, and adjusted his prednisone to 10mg daily, with zithromax prescribed. Patient never got home oxygen arranged because he was not eligible based on his O2 sats. 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 Patient was diagnosed with diastolic CHF from 2011 (last EF 55%) and was managed by Dr. Pinedo on Lasix 20mg daily. He sleeps in an incliner bed with one pillow and leg elevation, however he was not on CPAP for his RODRICK as the CPAP made him confused. Otherwise, he had been compliant with his medications. During our clinical interaction, patient endorsed some right-sided chest pain/ tightness from last night, but denied fever/night sweat/cough/SOB/Chest Pain/ Palpitation/exercise intolerance/Abdominal pain/bowel movement/urinary abnormality, or other skin/musculoskeletal/neurological disorders/mood change/ insomnia/dietary/appetite change. -Smoking: quitted 2 yrs ago, former 2-3PPD -Alcohol: quitted 3.5 yrs ago -Rec Drugs: remote use, no recent use Allergies/Medications Allergies: Coded Allergies: moxifloxacin (From AVELOX) (ITCHY, RASH, SWEATING 01/12/18) Home Med list Albuterol Sulfate (Proventil Hfa) 90 MCG HFA.AER.AD 2 PUF INH Q4 PRN SOB TAKE DIRECTED Amlodipine Besylate (Norvasc) 5 MG TABLET 1 TAB PO DAILY HEART (Reported) Apixaban (Eliquis) 5 MG TABLET 1 TAB PO BID AFIB (Reported) Azithromycin 250 MG TABLET 1 DP PO AD copd 2 the first day followed by 1 for days 2-5 Budesonide/Formoterol Fumarate (Symbicort 160-4.5 Mcg Inhaler) 160 MCG-4.5 MCG/ ACTUATION HFA.AER.AD 2 PUFF INH BID COPID (Reported) Cyclobenzaprine HCl 10 MG TABLET 1 TAB PO DAILY MUSCLE SPASMS (Reported) Diltiazem HCl (Diltiazem 24HR ER) 180 MG CAP.ER.24H 1 CAP PO DAILY HEART ( Reported) Fenofibrate,Micronized (Fenofibrate) 130 MG CAPSULE 1 CAP PO DAILY TRIGLYCERIDES (Reported) Finasteride 5 MG TABLET 1 TAB PO DAILY PROSTRATE (Reported) Furosemide 20 MG TABLET 1 TAB PO DAILY FLUID RETENTION (Reported) Hydrocodone/Acetaminophen (Hydrocodon-Acetaminophn 10-325) 10 MG-325 MG TABLET 1 TAB PO 4XDP PRN PAIN (Reported) Lansoprazole (Prevacid) 30 MG CAPSULE.DR 30 MG PO DIALY ACID REFLUX (Reported ) Lisinopril 10 MG TABLET 10 MG PO DAILY HTN (Reported) Metformin HCl 500 MG TABLET 500 MG PO BID DIABETES (Reported) Prednisone 50 MG TABLET 1 TAB PO DAILY copd Prednisone 10 MG TABLET 0 PO TAPER COPD DATES: TABS/DAY 01/18-01/19 6 01/20-01/22 5 01/23-01/25 4 01/26-01/28 3 01/29-01/31 2 02/01-02/03 1 THEN STOP Roflumilast (Daliresp) 500 MCG TABLET 1 TAB PO DAILY U (Reported) Rosuvastatin Calcium (Crestor) 40 MG TABLET 40 MG PO DIALY CHOLESTEROL ( Reported) Tiotropium Russell (Spiriva) 18 MCG CAP.W.DEV 1 PUF INH DIALY COPD (Reported) Vilazodone Hydrochloride (Viibryd) 20 MG TABLET 1 TAB PO DAILY MENTAL HEALTH (Reported) Past History Travel History Traveled to [place] past 21 day No Medical History Neurological: NONE Cardiovascular: AFIB, hypertension, hyperlipidemia Respiratory: COPD Gastrointestinal: achalasia Hepatic: NONE Renal: NONE Musculoskeletal: degenerative disk disease Psychiatric: NONE Endocrine: diabetes Blood Disorders: NONE Cancer(s): NONE 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 Exam & Diagnostic Data Last 24 Hrs of Vital Signs/I&O Vital Signs Date Time Temp Pulse Resp B/P B/P Pulse O2 O2 Flow FiO2 Mean Ox Delivery Rate 03/27 2209 97.6 83 20 120/54 94 Nasal 2.0L Cannula 03/27 2055 Nasal 2.0L Cannula 03/27 2041 97.9 87 17 144/61 96 Nasal 2.0L Cannula 03/27 2025 92 Room Air 03/27 2009 97 03/27 1938 97.9 77 18 108/58 96 Room Air 03/27 1720 98 03/27 1437 98.3 91 18 111/68 94 Room Air 03/27 1106 97.8 88 18 123/68 95 Room Air Intake & Output 03/27 1600 03/27 0800 03/27 0000 Intake Total Output Total Balance Patient 98.43 kg Weight Weight Reported by Patient Measurement Method Physical Exam General Appearance Alert, Oriented X3, Cooperative, No Acute Distress Skin No Rashes, No Breakdown, No Significant Lesion Skin Temp/Moisture Exam: Warm/Dry Sepsis Skin Exam (color): Normal for Ethnicity HEENT Atraumatic, PERRLA Neck Supple, No JVD Cardiovascular Regular Rate Lungs Normal Air Movement, bilateral wheezing Abdomen Soft, No Hepatospenomegaly, No Masses, Left inguinal tenderness on palpation Neurological Normal Speech Extremities Normal Pulses, trace edema BLE Last 24 Hrs of Labs/Mandeep: Laboratory Tests 03/27/18 1628: Troponin I < 0.01 03/27/18 1619: D-Dimer High Sensitivty Cancelled 03/27/18 1437: Anion Gap 13, Estimated GFR > 60, BUN/Creatinine Ratio 21.1, Glucose 211 H, Calcium 9.8, Total Bilirubin 0.8, AST 20, ALT 25, Alkaline Phosphatase 53, Troponin I < 0.01, [id number] Pept 171 H, Total Protein 6.6, Albumin 4.1 , Globulin 2.5, Albumin/Globulin Ratio 1.6, D-Dimer High Sensitivty < 200, CBC w Diff MAN DIFF ORDERED, RBC 4.80, MCV 87.8, MCH 29.1, MCHC 33.2, RDW 16.3 H, MPV 6.1 L, Gran % 84.3 H, Lymphocytes % 9.3 L, Monocytes % 5.8, Eosinophils % 0.2 , Basophils % 0.4, Absolute Granulocytes 14.2 H, Segmented Neutrophils 80 H, Absolute Lymphocytes 1.6, Lymphocytes 15 L, Monocytes 5, Absolute Monocytes 1.0 H, Absolute Eosinophils 0, Absolute Basophils 0.1, Platelet Estimate VERIFIED BY SMEAR, Normocytic RBCs VERIFIED, Normochromic RBCs VERIFIED Assessment/Plan Assessment: On admission, Vitals: Stable afebrile, pulse 91, BP 111/68, 94% on room air -CBC: Leukocytosis 16.8, otherwise unremarkable, d-dimer negative -BMP: NA 142, glucose 211, proBNP 171 baseline 114, otherwise unremarkable -CXR: Stable appearance of the chest relative to 02/24/2018. No acute abnormality is evident. -Last echo in 2011 >55% EF, now needs recliner bed with 1 pillow + feet elevation at night to sleep. not on CPAP. -Interventions in ER: Nebulizer, IV bolus, supplemental 1251, azithromycin. Problem list & Assessment: Patient presented with septic clinical picture of COPD extubation, however likely stable CHF with last known ejection fraction greater than 55% currently compliant to use of Lasix 20 mg daily. Per physical examination/CXR, patient had no acute extubation of pulmonary congestion at this point, and we will treat for COPD exacerbation. Patient's past medical history as below have been stable and will continue on the home medication treatment. #COPD exacerbation #CHF, stable w/ last known EF >55% #PMH of RODRICK noncompliant with CPAP, A. fib on Eliquis currently rate controlled, diabetes, hypertension, hyperlipidemia, degenerative disc disease Hospital Course: - Admit to general medicine DVT prophylaxis Eliquis + ALPS Heart Healthy Diet FUll Code As Ranked By This Provider Problem List: 1. COPD exacerbation 2. Chest pain Core Measures/Misc (08/07) Acute Coronary Syndrome ACS Diagnosis: No Congestive Heart Failure Congestive Heart Failure Diagnosis No Cerebrovascular Accident CVA/TIA Diagnosis: No VTE (View Protocol) VTE Risk Factors Age>40 No Mechanical VTE Prophylaxis d/t N/A MechProphylax Ordered No VTE Pharm Prophylaxis d/t NA PharmProphylax ordered Sepsis (View protocol) Sepsis Present: No Osvaldo Boyce 03/27/18 2326: Resident Review Statement Resident Statement: examined this patient, discussed with collector of internal revenue Other Findings: Patient is a 77-year-old male with past medical history of COPD(never qualified for home oxygen), RODRICK noncompliant with CPAP, A. fib on Eliquis, diabetes, hypertension, hyperlipidemia, degenerative disc disease presented to the ED with a chief complaint of worsening shortness of breath and nonproductive cough for the past few days. Patient reports that he has been having shortness of breath with some productive whitish sputum for the past 1 month. His symptoms got really bad last night that he found himself gasping for air in the middle of the night. He called Dr. Avila(his company controller) who recommended coming to the hospital for evaluation. He has been having shortness of breath for the past 1 month and has been on 2 courses of antibiotic and prednisone. He has RODRICK but is noncompliant with the CPAP. He admits to having some atypical chest pain on in the center of his chest worsening with inspiration and coughing. He denies any palpitations, nausea, vomiting, urinary or bowel symptoms, no recent sick contacts or travel history. He is an ex-smoker quit 2 years ago, smoked 2-3 PPD. Quit alcohol 3.5 years ago, denies drug use.He has never been to a pulmonary rehabilitation in the past. Vitals at admission temperature 97.8, pulse 88, respiration 18, blood pressure 123/68, saturating 95% on room air Labs significant for a white count of 16.8(patient has been on steroids), no left shift, sodium 132, troponin 0.01, proBNP 171, d-dimer less than 200. Chest x-ray showed no acute anomaly EKG: A. fib, no acute changes Physical exam General: Awake, alert, oriented, mild distress HEENT: PERRLA, EOMI, 2 L nasal cannula Chest: Bilateral expiratory wheezes, rhonchi CVS: Irregularly irregular heart rate, no murmurs Abdomen: Mild tenderness in the left inguinal region. Extremities trace pedal edema: Assessment Acute hypoxic respiratory failure secondary to COPD exacerbation RODRICK, noncompliant with sleep Leukocytosis on steroids A. fib on Eliquis currently rate controlled Hyponatremia Diabetes Hypertension Heart failure with preserved ejection fraction Plan * Admit to [facility] * Vitals per protocol * Maintain oxygen saturation above 92% * TRC nebs [id number] * Solu-Medrol 40 mg every 8 hours * Azithromycin IV daily for anti-inflammatory effects * Blood and sputum cultures * 3 times a day Accu-Cheks, insulin sliding scale * Pulmonology consult in a.m. with Dr. Avila * Nocturnal CPAP * Continue all other home medications * Check BEP in a.m. for hypernatremia * DVT prophylaxis Eliquis * Full code Fran Truong 03/28/18 0449: Attending MD Review Statement Attending Statement Attending MD Statement: examined this patient, discuss w/resident/PA/HOME THEATER EXPERIENCE EXPERT, agreed w/resident/PA/HOME THEATER EXPERIENCE EXPERT, reviewed EMR data (avail), reviewed images, amended to note Attending Assessment/Plan: CC: Shortness of breath PMH: COPD, A. fib, DM, HTN, achalasia /dysphagia, RODRICK, questionable history of heart failure Patient came to ER for acute worsening of shortness of breath since yesterday associated with productive cough with yellowish-green sputum, associated chills, no fever, endorses chest tightness. He denies any pedal edema, chest pain, palpitations or sick contacts. He was unable to sleep whole night yesterday so he came to ER. Since last 1 week he has been noticing dyspnea on exertion which progressively worsened. Patient was treated with antibiotics 2 times in the month of February, most recently on March 14, 500 mg azithromycin every alternate day and he is currently on that medication. Even with this treatment he was not getting better so patient's called company controller who suggested to go to ER. Vitals: Temperature 97.8, pulse 88, RR 18, blood pressure 123/68, saturating 95% on 2 L nasal cannula On exam: A O 3, cooperative, no acute distress, neck supple, JVD normal, no lymphadenopathy, mucosa moist, no focal neurological deficit, no dependent edema , no obvious skin rashes or inflammation CVS: S1-S2, RRR. RS: Decreased air entry bilaterally but no obvious crackles or wheezing noted. Abdomen: Soft, NT, ND, bowel sounds present. CXR: Stable appearance of the chest relative to 02/24/2018. No acute abnormality is evident. Assessment and plan 77-year-old male with multiple comorbidities as mentioned above presented in ER for acute worsening of shortness of breath and cough with yellowish sputum production since yesterday, could not sleep overnight, mild chest tightness but no chest pain or palpitation denies any fever but he had chills. Over last 1 week he noticed progressive dyspnea on exertion. He appears to have mild COPD exacerbation, a component of RODRICK cannot be denied, patient is noncompliant with CPAP secondary to mask fitting problem. Seasonal allergies could also be precipitating his bronchospasms. ProBNP 171, d-dimer less than 200 ruling out heart failure or pulmonary embolism. Chest x-ray does not show any pneumonia. Patient has leukocytosis probably secondary to chronic steroid use, no fever. + COPD exacerbation + History of A. fib, DM, HTN, achalasia /dysphagia, RODRICK, questionable history of heart failure - Admit to general medicine - Try to wean off oxygen - IV methylprednisolone 40 mg every 12 hours - IV azithromycin 500 mg daily - TRC nebulization with albuterol and ipratropium scheduled and when necessary - Mucinex scheduled twice a day - Continue rest of the home medications, change metformin to sliding scale insulin, continue 20 mg Lasix by mouth daily - Adequate pain control - DVT prophylaxis: Continue Eliquis - Nighttime CPAP - Pulmonology consult: Upon patient's request
[2018-03-27] MEDS ORDERED: FINASTERIDE5 M1 PO (21:51)
[2018-03-27 22:09] VITALS: BP 120/54
--- NOTE | 2018-03-28 04:51 | Admission Certification ---
Admission Certification Certification Statement - As attending physician, I certify that at the time of - admission, based on clinical presentation, severity of - symptoms, need for further diagnostic testing and - therapeutic interventions, and risk of adverse outcomes - without in-hospital treatment, in my clinical assessment, - this patient requires an acute hospital stay for a minimum - of two nights or longer. I have also considered psychsocial - factors such as support system, advanced age, financial - issues, cognitive issues, and failed out-patient treatments, - past re-admission history, safety of patient, and lack of - compliance as applicable. Specific rationale supporting this admission is: COPD exacerbation
[2018-03-28 06:17] VITALS: BP 100/64
--- NOTE | 2018-03-28 07:44 | PN- Housestaff ---
Ramiro MOODY,Hetal 03/28/18 0743: Subjective Follow-up For: #COPD exacerbation #CHF, stable w/ last known EF >55% #PMH of RODRICK noncompliant with CPAP, A. fib on Eliquis currently rate controlled, diabetes, hypertension, hyperlipidemia, degenerative disc disease Subjective: Patient seen and examined this morning. He states that he feels better. Patient vitals are stable but he is requiring 2L of oxygen. Of note patient was switched to room air successfully later in the day. Patient notes he still has a dry cough. Notes no chest pain. Continues to have mild wheezing. Review of Systems Constitutional: Reports: no symptoms. EENTM: Reports: no symptoms. Cardiovascular: Reports: no symptoms. Respiratory: Reports: cough, short of breath, wheezing. Gastrointestinal: Reports: no symptoms. Genitourinary: Reports: no symptoms. Musculoskeletal: Reports: no symptoms. Skin: Reports: no symptoms. Neurological/Psychological: Reports: no symptoms. Objective Last 24 Hrs of Vital Signs/I&O Vital Signs Date Time Temp Pulse Resp B/P B/P Pulse O2 O2 Flow FiO2 Mean Ox Delivery Rate 03/28 1607 96 Room Air 03/28 1551 Room Air 03/28 1351 97.8 62 20 118/80 97 Room Air 03/28 1114 18 97 Nasal 2.0L Cannula 03/28 0814 100/64 /08 0617 98.5 80 20 100/64 95 Nasal 2.0L Cannula / 0000 Nasal 2.0L Cannula 03/27 2209 97.6 83 20 120/54 94 Nasal 2.0L Cannula Intake & Output 03/28 1600 /08 0800 05/08 0000 Intake Total 400 480 500 Output Total 300 Balance 400 480 200 Intake, Oral 400 480 500 Output, Urine 300 Patient 218 lb Weight Weight Reported by Patient Measurement Method Physical Exam General Appearance: Alert, Oriented X3, Cooperative, No Acute Distress Skin: No Rashes HEENT: Atraumatic, PERRLA Cardiovascular: Normal S1, Normal S2 Lungs: mild wheezing throughout. no crackles appreciated. Abdomen: Normal Bowel Sounds, Soft Neurological: Normal Speech Current Medications: Current Medications Sig/Efe Start time Last Medication Dose Route Stop Time Status Admin Acetaminophen 325 MG Q6P PRN 03/27 2045 AC PO Albuterol Sulfate 2 PUF Q4 PRN 03/27 2200 AC INH Apixaban 5 MG BID 03/27 2146 AC 03/28 PO 2032 Atorvastatin Calcium 40 MG 1700 03/28 1700 AC 03/28 PO 1609 Azithromycin 250 MG MoWeFr 03/29 1000 AC PO Azithromycin 500 MG DAILY 03/28 900 DC 03/28 Sodium Chloride 250 ML IV 0814 Budesonide/ 2 PUF BID 03/28 09 AC 03/28 Formoterol Fumarate INH 203 Calcium Carbonate 500 MG DAILY 03/28 2045 AC 03/28 PO 205 Cyclobenzaprine HCl 10 MG DAILY 03/28 900 DC PO Cyclobenzaprine HCl 10 MG TID 03/28 900 AC 03/28 PO 203 Diltiazem HCl 180 MG DAILY 03/28 900 AC 03/28 PO 0814 Fenofibrate 145 MG DAILY 03/28 900 AC 03/28 PO 0814 Furosemide 20 MG DAILY 03/28 900 AC 03/28 PO 0814 Guaifenesin 600 MG Q12 03/28 900 AC 03/28 PO 203 Hydrocodone Bitart/ 1 TAB Q6P PRN 03/27 2315 AC 03/28 Acetaminophen PO 1844 Insulin Aspart 0 AT BEDTIME 03/28 2100 AC 03/28 SC 2047 Insulin Aspart 0 TIDAC 03/28 800 AC 03/28 SC 1642 Lisinopril 10 MG DAILY 03/28 900 AC 03/28 PO 0814 Melatonin 3 MG AT BEDTIME 03/28 2100 AC 03/28 PO 2054 Methylprednisolone 40 MG Q8H 03/28 1700 AC 03/28 IV 1609 Methylprednisolone 40 MG Q12 03/28 900 DC IV Methylprednisolone 40 MG Q8 03/28 06 DC 03/28 IV 0531 Oxycodone/ 1 TAB Q4P PRN 03/27 2200 DC 03/27 Acetaminophen PO 2310 Patient Medication 1 ED ONE ONE 03/28 1815 DC 03/28 Teaching ED 03/28 1816 1837 Tiotropium Victor 1 PUF DAILY 03/27 2200 AC 03/28 INH 0809 Last 24 Hrs of Lab/Mandeep Results Last 24 Hrs of Labs/Mics: Laboratory Tests 03/28/18 0630: Anion Gap 13, Estimated GFR > 60, BUN/Creatinine Ratio 30.0 H, CBC w Diff NO MAN DIFF REQ, RBC 4.60 L, MCV 87.2, MCH 29.4, MCHC 33.7, RDW 16.0 H, MPV 6.3 L, Gran % 90.3 H, Lymphocytes % 8.0 L, Monocytes % 1.7, Eosinophils % 0, Basophils % 0, Absolute Granulocytes 11.4 H, Absolute Lymphocytes 1.0 L, Absolute Monocytes 0.2, Absolute Eosinophils 0, Absolute Basophils 0 Microbiology 03/28 130 BLOOD: Blood Culture - RECD 03/28 130 BLOOD: Blood Culture - RECD Assessment/Plan Assessment: Patient is a 77yo M w/ PMH of COPD not on home oxygen but on 10 mg chronic prednisone, RODRICK noncompliant with CPAP, A. fib on Eliquis currently rate controlled, diabetes, hypertension, hyperlipidemia, degenerative disc disease presented to ER with SOB with nonproductive cough 3-4 days. He was last admitted to [place] in 11/2017 with COPD exacerbation and was sent home on chronic prednisone and was managed by wellness clinic/Dr. Avila, last seen in Dr. Avila's office about 3 weeks ago, who adjusted his prednisone to 10mg daily , with zithromax prescribed. Patient reportedly never got home oxygen arranged because he was not eligible based on his O2 sats. However, over the previous months, he was still have on/off difficulty breathing and over the past week it had been getting worse and he felt R sided chest pain/tightness along with the SOB. Patient was diagnosed with diastolic CHF in 2011 (last EF 55%) and was managed by Dr. Pinedo on Lasix 20mg daily. He sleeps in an incliner bed with one pillow and leg elevation, however he was not on CPAP for his RODRICK as the CPAP made him "confused". Patient compliant with all other meds. Patient states he quit smoking 2 yrs ago, former 2-3PPD. On admission, vitals afebrile, pulse 91, BP 111/68, 94% on room air, leukocytosis 16.8, otherwise unremarkable, d-dimer negative, BMP: NA 142, glucose 211, proBNP 171 baseline 114, otherwise unremarkable. CXR: Stable appearance of the chest relative to 02/24/2018. No acute abnormality is evident. In the ER: Nebulizer, IV bolus, supplemental 125 1, azithromycin. Plan #Respiratory distress, wheezing, dry cough likely secondary to COPD exacerbation -CHF, stable w/ last known EF >55%, patient compliant with lasix -Offer supplemental O2 and nebs -Appreciate pulmonary recs, change solumedrol to 40mg iv q8h -Obtain CPAP for patient's RODRICK -Change long time zithromax to 250mg MWF -Patient has history of achalasia, aspiration precautions -As per Dr. Avila obtain most recent echo #PMH of RODRICK noncompliant with CPAP, A. fib on Eliquis currently rate controlled, diabetes, hypertension, hyperlipidemia, degenerative disc disease -Continue home medications DVT prophylaxis Eliquis + ALPS Heart Healthy Diet FUll Code Problem List: 1. COPD exacerbation Pain Ratin Pain Location: na Pain Goal: Remain pain free Pain Plan: as needed Tomorrow's Labs & Rationales: cbc bep Mando MOODY,Syeda 03/28/18 6115: Attending MD Review Statement Attending Statement Attending MD Statement: examined this patient, discuss w/resident/PA/MIDDLE STITCHER, agreed w/resident/PA/MIDDLE STITCHER, discussed with family, reviewed EMR data (avail), discussed with nursing, discussed with case mgmt, amended to note Attending Assessment/Plan: Patient seen and examined. Reports feeling better. Now maintaing godd saturation on room air. Pulmonary consult appreciated. Will follow up with his second vp hr assessment and monitor response to treatment.
[2018-03-28 09:02] LABS: ABSOLUTE BASOPHIL COUNT 0 /CUMM (0.0-0.2); ABSOLUTE EOSINOPHIL COUNT 0 /CUMM (0.0-0.7); ABSOLUTE GRANULOCYTE CT 11.4 /CUMM (1.4-6.5); ABSOLUTE MONOCYTE COUNT 0.2 /CUMM (0.10-0.60); BASOPHIL % 0 % (0.0-2.0); EOSINOPHIL % 0 % (0-5); GRANULOCYTE % 90.3 % (42.2-75.2); HEMATOCRIT 40.1 % (42-52); MEAN CORPUSCULAR HGB 29.4 PG (27.0-31.0); MEAN CORPUSCULAR HGB CONC 33.7 G/DL (33.0-37.0); MEAN CORPUSCULAR VOLUME 87.2 FL (80.0-94.0); MEAN PLATELET VOLUME 6.3 FL (7.4-10.4); PLATELET COUNT 388 /CUMM (130-400)
[2018-03-28 10:26] LABS: WHITE BLOOD CELL COUNT 12.6 /CUMM (4.8-10.8)
[2018-03-28 13:51] VITALS: BP 118/80
--- NOTE | 2018-03-28 16:53 | Cons- Pulmonary ---
General Information and HPI Consulting Request Date of Consult: 03/28/18 Requested By: Dr. Gilmore Reason for Consult: COPD exacerbation Source of Information: patient Exam Limitations: no limitations History of Present Illness: 76 year old man. Consultation for COPD exacerbation. Called the office 03/27 that he was going to ER for dyspnea. Has a.fib, COPD (not on O2), diverticuluar disease with hx of sigmoid resection, ht. Dyspnea on exertion and rest, cough that is mostly dry. Has been recently trialed on daliresp without relief. Started on Zithromax MWF for anti-inflammatory effects, wellness clinic visits and prednisone at baseline. No n/v/d/c. No CP, no travel hx, no sick contacts. Afebrile, some relief with IV solumedrol. Follows with Dr. Pinedo. No records of recent ECHO that was performed. CXR without infiltrates. Allergies/Medications Allergies: Coded Allergies: moxifloxacin (From AVELOX) (ITCHY, RASH, SWEATING 01/12/18) Home Med List: Albuterol Sulfate (Proventil Hfa) 90 MCG HFA.AER.AD 2 PUF INH Q4 PRN SOB TAKE DIRECTED Amlodipine Besylate (Norvasc) 5 MG TABLET 1 TAB PO DAILY HEART (Reported) Apixaban (Eliquis) 5 MG TABLET 1 TAB PO BID AFIB (Reported) Azithromycin 250 MG TABLET 1 DP PO AD copd 2 the first day followed by 1 for days 2-5 Budesonide/Formoterol Fumarate (Symbicort 160-4.5 Mcg Inhaler) 160 MCG-4.5 MCG/ ACTUATION HFA.AER.AD 2 PUFF INH BID COPID (Reported) Cyclobenzaprine HCl 10 MG TABLET 1 TAB PO DAILY MUSCLE SPASMS (Reported) Diltiazem HCl (Diltiazem 24HR ER) 180 MG CAP.ER.24H 1 CAP PO DAILY HEART ( Reported) Fenofibrate,Micronized (Fenofibrate) 130 MG CAPSULE 1 CAP PO DAILY TRIGLYCERIDES (Reported) Finasteride 5 MG TABLET 1 TAB PO DAILY PROSTRATE (Reported) Furosemide 20 MG TABLET 1 TAB PO DAILY FLUID RETENTION (Reported) Hydrocodone/Acetaminophen (Hydrocodon-Acetaminophn 10-325) 10 MG-325 MG TABLET 1 TAB PO 4XDP PRN PAIN (Reported) Lansoprazole (Prevacid) 30 MG CAPSULE.DR 30 MG PO DIALY ACID REFLUX (Reported ) Lisinopril 10 MG TABLET 10 MG PO DAILY HTN (Reported) Metformin HCl 500 MG TABLET 500 MG PO BID DIABETES (Reported) Prednisone 50 MG TABLET 1 TAB PO DAILY copd Prednisone 10 MG TABLET 0 PO TAPER COPD DATES: TABS/DAY 01/18-01/19 6 3/2-3/4 5 3-01/25 4 01/26-01/28 3 01/29-01/31 2 02/01-02/03 1 THEN STOP Roflumilast (Daliresp) 500 MCG TABLET 1 TAB PO DAILY U (Reported) Rosuvastatin Calcium (Crestor) 40 MG TABLET 40 MG PO DIALY CHOLESTEROL ( Reported) Tiotropium [place] (Spiriva) 18 MCG CAP.W.DEV 1 PUF INH DIALY COPD (Reported) Vilazodone Hydrochloride (Viibryd) 20 MG TABLET 1 TAB PO DAILY MENTAL HEALTH (Reported) Current Medications: Current Medications Sig/Efe Start time Last Medication Dose Route Stop Time Status Admin Acetaminophen 325 MG Q6P PRN 03/27 2045 AC PO Albuterol Sulfate 2 PUF Q4 PRN 03/27 2200 AC INH Albuterol Sulfate 3 ML ONCE ONE 03/27 1900 DC 03/27 INH 03/27 1901 1914 Albuterol Sulfate 3 ML ONCE ONE 03/27 1700 DC 03/27 INH 03/27 1701 1711 Apixaban 5 MG BID 03/27 2146 AC 03/28 PO 0814 Atorvastatin Calcium 40 MG 1700 03/28 1700 AC 03/28 PO 1609 Azithromycin 250 MG MoWeFr 03/29 1000 AC PO Azithromycin 500 MG DAILY 03/28 900 DC 03/28 Sodium Chloride 250 ML IV 0814 Azithromycin 500 MG ONCE ONE 03/27 1715 DC 03/27 Sodium Chloride 250 ML IV 03/27 1814 1731 Budesonide/ 2 PUF BID 03/28 900 AC 03/28 Formoterol Fumarate INH 0809 Cyclobenzaprine HCl 10 MG DAILY 03/28 900 DC PO Cyclobenzaprine HCl 10 MG TID 03/28 900 AC 03/28 PO 1337 Diltiazem HCl 180 MG DAILY 03/28 900 AC 03/28 PO 0814 Fenofibrate 145 MG DAILY 03/28 900 AC 03/28 PO 0814 Furosemide 20 MG DAILY 03/28 900 AC 03/28 PO 0814 Guaifenesin 600 MG Q12 03/28 0900 AC 03/28 PO 0814 Hydrocodone Bitart/ 1 TAB Q6P PRN 03/27 2315 AC 03/28 Acetaminophen PO 1243 Insulin Aspart 0 AT BEDTIME 03/28 2100 AC SC Insulin Aspart 0 TIDAC 03/28 08 AC 03/28 SC 1642 Ipratropium [place] 2.5 ML ONCE ONE 03/27 1700 DC 03/27 INH 03/27 1701 1711 Lisinopril 10 MG DAILY 03/28 900 AC 03/28 PO 0814 Methylprednisolone 40 MG Q8H 03/28 1700 AC 03/28 IV 1609 Methylprednisolone 40 MG Q12 03/28 900 DC IV Methylprednisolone 40 MG Q8 03/28 600 DC 03/28 IV 0531 Methylprednisolone 0 .STK-MED ONE 03/27 1712 DC .ROUTE Methylprednisolone 125 MG ONCE ONE 03/27 1700 DC 03/27 IV 03/27 1701 1709 Oxycodone/ 1 TAB Q4P PRN 03/27 220 DC 03/27 Acetaminophen PO 2310 Tiotropium [place] 1 PUF DAILY 03/27 2200 AC 03/28 INH 0809 Review of Systems Comments 18 point review of systems was performed and reviewed. Please see pertinent positives and pertinent negatives in the HPI. Otherwise ROS is negative. 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 Home Services at Home: None Smoking Status: Former Smoker Exam & Diagnostic Data Last 24 Hrs of Vital Signs/I&O Vital Signs Date Time Temp Pulse Resp B/P B/P Pulse O2 O2 Flow FiO2 Mean Ox Delivery Rate 03/28 1607 96 Room Air 03/28 1551 Room Air 03/28 1351 97.8 62 20 118/80 97 Room Air 03/28 1114 18 97 Nasal 2.0L Cannula 03/28 0814 100/64 03/28 0617 98.5 80 20 100/64 95 Nasal 2.0L Cannula 03/28 0000 Nasal 2.0L Cannula 03/27 2209 97.6 83 20 120/54 94 Nasal 2.0L Cannula 03/27 2055 Nasal 2.0L Cannula 03/27 2041 97.9 87 17 144/61 96 Nasal 2.0L Cannula 03/27 2025 92 Room Air 03/27 2009 97 03/27 1938 97.9 77 18 108/58 96 Room Air 03/27 1720 98 Intake & Output 03/28 1600 03/28 0800 03/28 0000 Intake Total 400 480 500 Output Total 300 Balance 400 480 200 Intake, Oral 400 480 500 Output, Urine 300 Patient 218 lb Weight Weight Reported by Patient Measurement Method Physical Exam Other Physical Findings: Generally - Awake, alert, mild distress Head and neck - normocephalic, atraumatic, EOMI grossly intact Cardiovascular - S1, S2 Lungs - prolonged end expiratory phase, diminished bs Abdomen - Bowel sounds positive, soft, non-tender Extremities - without edema Last 48 Hrs of Labs/Mandeep: Laboratory Tests 03/28/18 0630: Anion Gap 13, Estimated GFR > 60, BUN/Creatinine Ratio 30.0 H, CBC w Diff NO MAN DIFF REQ, RBC 4.60 L, MCV 87.2, MCH 29.4, MCHC 33.7, RDW 16.0 H, MPV 6.3 L, Gran % 90.3 H, Lymphocytes % 8.0 L, Monocytes % 1.7, Eosinophils % 0, Basophils % 0, Absolute Granulocytes 11.4 H, Absolute Lymphocytes 1.0 L, Absolute Monocytes 0.2, Absolute Eosinophils 0, Absolute Basophils 0 03/27/18 1628: Troponin I < 0.01 03/27/18 1619: D-Dimer High Sensitivty Cancelled 03/27/18 1437: Anion Gap 13, Estimated GFR > 60, BUN/Creatinine Ratio 21.1, Glucose 211 H, Calcium 9.8, Total Bilirubin 0.8, AST 20, ALT 25, Alkaline Phosphatase 53, Troponin I < 0.01, [id number] Pept 171 H, Total Protein 6.6, Albumin 4.1 , Globulin 2.5, Albumin/Globulin Ratio 1.6, D-Dimer High Sensitivty < 200, CBC w Diff MAN DIFF ORDERED, RBC 4.80, MCV 87.8, MCH 29.1, MCHC 33.2, RDW 16.3 H, MPV 6.1 L, Gran % 84.3 H, Lymphocytes % 9.3 L, Monocytes % 5.8, Eosinophils % 0.2 , Basophils % 0.4, Absolute Granulocytes 14.2 H, Segmented Neutrophils 80 H, Absolute Lymphocytes 1.6, Lymphocytes 15 L, Monocytes 5, Absolute Monocytes 1.0 H, Absolute Eosinophils 0, Absolute Basophils 0.1, Platelet Estimate VERIFIED BY SMEAR, Normocytic RBCs VERIFIED, Normochromic RBCs VERIFIED Assessment/Plan Impression/Plan: Impression 77 year old man * acute excarbation of COPD Plan -change solumedrol to 40mg iv q8h -awaiting to arrange CPAP equipment for dx of RODRICK -trc/nebs -cont inhalers -zithromax change to PO 250mg MWF -given hx of achalasia - aspiration precautions -please obtain latest ECHO from Dr. Pinedo and consider a cardiac consultation DVT prophylaxis at all times Dr. Velasquez will be covering me as of tomorrow Consult Acknowledgment - Thank you for your consult request.
[2018-03-28 21:58] VITALS: BP 124/60
[2018-03-29 06:00] VITALS: BP 120/54
--- NOTE | 2018-03-29 07:36 | PN- Housestaff ---
Ramiro MOODY,Hetal 03/29/18 0735: Subjective Follow-up For: #COPD exacerbation #CHF, stable w/ last known EF >55% #PMH of RODRICK noncompliant with CPAP, A. fib on Eliquis currently rate controlled, diabetes, hypertension, hyperlipidemia, degenerative disc disease Subjective: Patient seen and examined. He states that he is breathing better. He has been walking around the floors. good o2 sat on room air today. of note patient BG levels running high overnight and into today up to 462. Review of Systems Constitutional: Reports: no symptoms. Cardiovascular: Reports: edema. Respiratory: Reports: no symptoms. Gastrointestinal: Reports: no symptoms. Genitourinary: Reports: no symptoms. Musculoskeletal: Reports: no symptoms. Objective Last 24 Hrs of Vital Signs/I&O Vital Signs Date Time Temp Pulse Resp B/P B/P Pulse O2 O2 Flow FiO2 Mean Ox Delivery Rate 03/29 1600 Room Air 03/29 1528 97.9 88 20 136/74 94 03/29 0805 81 120/58 03/29 0800 Room Air 03/29 0600 97.7 81 20 120/54 92 Room Air / 0000 94 Room Air 03/28 2158 98.4 84 20 124/60 93 Intake & Output 03/29 1600 03/29 0800 03/29 0000 Intake Total 600 600 800 Output Total 300 Balance 600 300 800 Intake, Oral 600 600 800 Output, Urine 300 Physical Exam General Appearance: Alert, Oriented X3, Cooperative, No Acute Distress Skin Temp/Moisture Exam: Warm/Dry Sepsis Skin Exam (color): Normal for Ethnicity Cardiovascular: Regular Rate, Normal S1, Normal S2, No Murmurs Lungs: Clear to Auscultation, Normal Air Movement Abdomen: Normal Bowel Sounds, Soft, No Tenderness Extremities: No Clubbing, No Cyanosis, 1+ non pitting edema bilaterally Vascular: Normal Pulses, Pulses Symmetrical Current Medications: Current Medications Sig/Efe Start time Last Medication Dose Route Stop Time Status Admin Acetaminophen 325 MG Q6P PRN 03/27 2045 AC PO Albuterol Sulfate 2 PUF Q4 PRN 03/27 2200 AC INH Apixaban 5 MG BID 03/27 2146 AC 03/29 PO 0805 Atorvastatin Calcium 40 MG 1700 03/28 1700 AC 03/28 PO 1609 Azithromycin 250 MG MoWeFr 05/09 1000 AC 03/29 PO 0903 Budesonide/ 2 PUF BID 03/28 900 AC 03/29 Formoterol Fumarate INH 0804 Calcium Carbonate 500 MG DAILY 03/28 2045 AC 03/29 PO 0903 Cyclobenzaprine HCl 10 MG TID 03/28 900 AC 03/29 PO 1410 Diltiazem HCl 180 MG DAILY 03/28 900 AC 03/29 PO 0805 Fenofibrate 145 MG DAILY 03/28 900 AC 03/29 PO 0805 Furosemide 20 MG DAILY 03/28 900 AC 03/29 PO 0805 Guaifenesin 600 MG Q12 03/28 900 AC 03/29 PO 0805 Hydrocodone Bitart/ 1 TAB Q6P PRN 03/27 2315 AC 03/29 Acetaminophen PO 1413 Insulin Aspart 0 TIDAC 03/29 1200 AC 03/29 SC 1202 Insulin Aspart 12 UNITS ONCE ONE 03/29 1030 DC 03/29 SC 03/29 1031 1024 Insulin Aspart 0 AT BEDTIME 03/28 2100 AC 03/28 SC 2047 Insulin Aspart 0 TIDAC 03/28 0800 DC 03/29 SC 0806 Insulin Detemir 8 UNITS BID 03/29 2100 AC SC Insulin Detemir 5 UNITS BID 03/29 0900 DC 03/29 SC 0915 Lisinopril 10 MG DAILY 03/28 900 AC 03/29 PO 0805 Melatonin 3 MG AT BEDTIME 03/28 2100 AC 03/28 PO 2054 Melatonin 5 MG .STK-MED ONE 03/28 2045 DC PO 03/28 204 Methylprednisolone 40 MG Q8H 03/28 1700 AC 03/29 IV 0805 Patient Medication 1 ED ONE ONE 03/28 1815 DC 03/28 Teaching ED 03/28 1816 1837 Tiotropium [place] 1 PUF DAILY 03/27 2200 AC 03/29 INH 0804 Assessment/Plan Assessment: Patient is a 77yo M w/ PMH of COPD not on home oxygen but on 10 mg chronic prednisone, RODRICK noncompliant with CPAP, A. fib on Eliquis currently rate controlled, diabetes, hypertension, hyperlipidemia, degenerative disc disease presented to ER with SOB with nonproductive cough 3-4 days. He was last admitted to [facility] in 11/2017 with COPD exacerbation and was sent home on chronic prednisone and was managed by wellness clinic/Dr. Avila, last seen in Dr. Avila's office about 3 weeks ago, who adjusted his prednisone to 10mg daily , with zithromax prescribed. Patient reportedly never got home oxygen arranged because he was not eligible based on his O2 sats. However, over the previous months, he was still have on/off difficulty breathing and over the past week it had been getting worse and he felt R sided chest pain/tightness along with the SOB. Patient was diagnosed with diastolic CHF in 2012 (last EF 55%) and was managed by Dr. Pinedo on Lasix 20mg daily. He sleeps in an incliner bed with one pillow and leg elevation, however he was not on CPAP for his RODRICK as the CPAP made him "confused". Patient compliant with all other meds. Patient states he quit smoking 2 yrs ago, former 2-3PPD. On admission, vitals afebrile, pulse 91, BP 111/68, 94% on room air, leukocytosis 16.8, otherwise unremarkable, d-dimer negative, BMP: NA 142, glucose 211, proBNP 171 baseline 114, otherwise unremarkable. CXR: Stable appearance of the chest relative to 02/24/2018. No acute abnormality is evident. In the ER: Nebulizer, IV bolus, supplemental 125 1, azithromycin. Plan #Respiratory distress, wheezing, dry cough likely secondary to COPD exacerbation -CHF, stable w/ last known EF >55%, patient compliant with lasix -Offer supplemental O2 and nebs -Appreciate pulmonary recs, continue solumedrol to 40mg iv q8h -Obtain CPAP for patient's RODRICK, patient will see his office inspector Dr. Avila for follow-up in this -Change long time zithromax to 250mg MWF -Patient has history of achalasia, aspiration precautions -As per Dr. Avila obtain most recent echo was obtained which was normal with an ejection fraction of 69% and no change since previous echo in 2011. #Uncontrolled blood sugar levels: Today patient's blood sugar levels have peaked at 462 even after the addition of medium sliding scale glucose. We increased coverage to high dose insulin and started him on 5 units of Levemir twice a day but it only decreased his blood sugar to low 400s. He gave an extra 12 units and that only decreased it to high 300s. -We have increased Levemir to 8 units twice a day -Endocrinology consult tomorrow -Hemoglobin A1c is 8.9 and patient is on only metformin at home. #PMH of RODRICK noncompliant with CPAP, A. fib on Eliquis currently rate controlled, diabetes, hypertension, hyperlipidemia, degenerative disc disease -Continue home medications DVT prophylaxis Eliquis + ALPS Heart Healthy Diet FUll Code Problem List: 1. COPD exacerbation Pain Ratin Pain Location: na Pain Goal: Remain pain free Pain Plan: na Tomorrow's Labs & Rationales: tao Gilmore MD,Syeda 03/29/18 1221: Attending MD Review Statement Attending Statement Attending MD Statement: examined this patient, discuss w/resident/PA/OUTSIDE CUTTER HAND, agreed w/resident/PA/OUTSIDE CUTTER HAND, reviewed EMR data (avail), discussed with nursing, discussed with case mgmt, amended to note Attending Assessment/Plan: Patient seen and examined. No new complaints this morning. Reports feeling better. Continues to maintain saturation on room air. On examination, he has adequate air-entry bilaterally with no significant rhonchi. Will continue bronchodilator therapy and taper down his steroid therapy mtoday. Anticipate discharge in am if he continues to improve. Repeat CBC and Chem in am if there is a change in his clinical status.
--- NOTE | 2018-03-29 08:25 | PN- Pulmonary ---
Subjective HPI/Critical Care Issues: Patient shortness of breath appears improved and is comfortable on room air Objective Current Medications: Current Medications Sig/Efe Start time Last Medication Dose Route Stop Time Status Admin Acetaminophen 325 MG Q6P PRN 03/27 2045 AC PO Albuterol Sulfate 2 PUF Q4 PRN 03/27 2200 AC INH Apixaban 5 MG BID 03/27 2146 AC 03/29 PO 0805 Atorvastatin Calcium 40 MG 1700 03/28 1700 AC 03/28 PO 1609 Azithromycin 250 MG MoWeFr 03/29 1000 AC PO Azithromycin 500 MG DAILY 03/28 900 DC 03/28 Sodium Chloride 250 ML IV 0814 Budesonide/ 2 PUF BID 03/28 900 AC 03/29 Formoterol Fumarate INH 0804 Calcium Carbonate 500 MG DAILY 03/28 2045 AC 03/28 PO 205 Cyclobenzaprine HCl 10 MG TID 03/28 900 AC 03/29 PO 0805 Diltiazem HCl 180 MG DAILY 03/28 900 AC 03/29 PO 0805 Fenofibrate 145 MG DAILY 03/28 900 AC 03/29 PO 0805 Furosemide 20 MG DAILY 03/28 900 AC 03/29 PO 0805 Guaifenesin 600 MG Q12 03/28 900 AC 03/29 PO 0805 Hydrocodone Bitart/ 1 TAB Q6P PRN 03/27 2315 AC 03/29 Acetaminophen PO 0702 Insulin Aspart 0 AT BEDTIME 03/28 2100 AC 03/28 SC 204 Insulin Aspart 0 TIDAC 03/28 800 AC 03/29 SC 0806 Lisinopril 10 MG DAILY 03/28 900 AC 03/29 PO 0805 Melatonin 3 MG AT BEDTIME 03/28 2100 AC 03/28 PO 205 Melatonin 5 MG .STK-MED ONE 03/28 2045 DC PO 03/28 2046 Methylprednisolone 40 MG Q8H 03/28 1700 AC 03/29 IV 0805 Methylprednisolone 40 MG Q12 03/28 900 DC IV Patient Medication 1 ED ONE ONE 03/28 1815 DC 03/28 Teaching ED 03/28 1816 1837 Tiotropium [place] 1 PUF DAILY 03/27 2200 AC 03/29 INH 0804 Vital Signs & I&O Last 24 Hrs of Vitals and I&O: Vital Signs Date Time Temp Pulse Resp B/P B/P Pulse O2 O2 Flow FiO2 Mean Ox Delivery Rate 03/29 805 81 120/58 03/29 0600 97.7 81 20 120/54 92 Room Air 03/29 0000 94 Room Air 03/28 2158 98.4 84 20 124/60 93 03/28 1607 96 Room Air 03/28 1551 Room Air 03/28 1351 97.8 62 20 118/80 97 Room Air 03/28 1114 18 97 Nasal 2.0L Cannula Intake & Output 03/29 1600 03/29 0800 03/29 0000 Intake Total 600 800 Output Total 300 Balance 300 800 Intake, Oral 600 800 Output, Urine 300 Her oxygen saturation 92% exam of his chest shows somewhat diminished breath sounds there are no wheezes or crackles cardiac exam shows a regular S1 and S2 without murmurs Impression/Plan Impression/Plan Impression/Plan: 77-year-old gentleman with COPD admitted with exacerbation shortness of breath appears improved Recommendations: Continue IV Solu-Medrol. Assess oxygen saturation with ambulation. Follow-up on recommendations by Dr. Avila regarding cardiology evaluation and CPAP
--- NOTE | 2018-03-29 12:56 | Cons- Cardiology ---
General Information and HPI Consulting Request Date of Consult: 03/29/18 Requested By: Mando MOODY,Syeda Reason for Consult: Worsening exertional dyspnea/edema Source of Information: patient, old records Exam Limitations: no limitations History of Present Illness: The patient is a 77-year-old male who is followed by Dr. 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 His past medical history is markable for COPD, not on supplemental oxygen at home. Obstructive sleep apnea, atrial fibrillation on anticoagulant therapy, diabetes, hypertension, hyperlipidemia, etc. The patient reports that he has had a cardiac evaluation with Dr. Pinedo including a nuclear stress test and echocardiogram within the last several months due to the fact that he was being considered for hernia repair surgery. The patient is now admitted to the hospital with worsening exertional dyspnea despite reported bleeding reasonable oxygen saturations. His prednisone was recently increased by Dr. Avila as an outpatient. The patient notes that he is only able to walk less than 50 feet without becoming significantly dyspneic. He denies any significant exertional chest pressure, however, he does note random episodes of chest discomfort. Allergies/Medications Allergies: Coded Allergies: moxifloxacin (From AVELOX) (ITCHY, RASH, SWEATING 01/12/18) Home Med List: Albuterol Sulfate (Proventil Hfa) 90 MCG HFA.AER.AD 2 PUF INH Q4 PRN SOB TAKE DIRECTED Amlodipine Besylate (Norvasc) 5 MG TABLET 1 TAB PO DAILY HEART (Reported) Apixaban (Eliquis) 5 MG TABLET 1 TAB PO BID AFIB (Reported) Azithromycin 250 MG TABLET 1 DP PO AD copd 2 the first day followed by 1 for days 2-5 Budesonide/Formoterol Fumarate (Symbicort 160-4.5 Mcg Inhaler) 160 MCG-4.5 MCG/ ACTUATION HFA.AER.AD 2 PUFF INH BID COPID (Reported) Cyclobenzaprine HCl 10 MG TABLET 1 TAB PO DAILY MUSCLE SPASMS (Reported) Diltiazem HCl (Diltiazem 24HR ER) 180 MG CAP.ER.24H 1 CAP PO DAILY HEART ( Reported) Fenofibrate,Micronized (Fenofibrate) 130 MG CAPSULE 1 CAP PO DAILY TRIGLYCERIDES (Reported) Finasteride 5 MG TABLET 1 TAB PO DAILY PROSTRATE (Reported) Furosemide 20 MG TABLET 1 TAB PO DAILY FLUID RETENTION (Reported) Hydrocodone/Acetaminophen (Hydrocodon-Acetaminophn 10-325) 10 MG-325 MG TABLET 1 TAB PO 4XDP PRN PAIN (Reported) Lansoprazole (Prevacid) 30 MG CAPSULE.DR 30 MG PO DIALY ACID REFLUX (Reported ) Lisinopril 10 MG TABLET 10 MG PO DAILY HTN (Reported) Metformin HCl 500 MG TABLET 500 MG PO BID DIABETES (Reported) Prednisone 50 MG TABLET 1 TAB PO DAILY copd Prednisone 10 MG TABLET 0 PO TAPER COPD DATES: TABS/DAY 01/18-01/19 6 01/20-01/22 5 01/23-01/25 4 01/26-01/28 3 01/29-01/31 2 02/01-02/03 1 THEN STOP Roflumilast (Daliresp) 500 MCG TABLET 1 TAB PO DAILY U (Reported) Rosuvastatin Calcium (Crestor) 40 MG TABLET 40 MG PO DIALY CHOLESTEROL ( Reported) Tiotropium [place] (Spiriva) 18 MCG CAP.W.DEV 1 PUF INH DIALY COPD (Reported) Vilazodone Hydrochloride (Viibryd) 20 MG TABLET 1 TAB PO DAILY MENTAL HEALTH (Reported) Current Medications: Current Medications Sig/Efe Start time Last Medication Dose Route Stop Time Status Admin Acetaminophen 325 MG Q6P PRN 03/27 2045 AC PO Albuterol Sulfate 2 PUF Q4 PRN 03/27 2200 AC INH Apixaban 5 MG BID 03/27 2146 AC 03/29 PO 0805 Atorvastatin Calcium 40 MG 1700 03/28 1700 AC 03/28 PO 1609 Azithromycin 250 MG MoWeFr 03/29 1000 AC 03/29 PO 0903 Budesonide/ 2 PUF BID 03/28 900 AC 03/29 Formoterol Fumarate INH 0804 Calcium Carbonate 500 MG DAILY 03/28 2045 AC 03/29 PO 0903 Cyclobenzaprine HCl 10 MG TID 03/28 900 AC 03/29 PO 0805 Diltiazem HCl 180 MG DAILY 03/28 900 AC 03/29 PO 0805 Fenofibrate 145 MG DAILY 03/28 900 AC 03/29 PO 0805 Furosemide 20 MG DAILY 03/28 900 AC 03/29 PO 0805 Guaifenesin 600 MG Q12 03/28 900 AC 03/29 PO 0805 Hydrocodone Bitart/ 1 TAB Q6P PRN 03/27 2315 AC 03/29 Acetaminophen PO 0702 Insulin Aspart 0 TIDAC 03/29 1200 AC 03/29 SC 1202 Insulin Aspart 12 UNITS ONCE ONE 03/29 1030 DC 03/29 SC 03/29 1031 1024 Insulin Aspart 0 AT BEDTIME 03/28 2100 AC 03/28 SC 2047 Insulin Aspart 0 TIDAC 03/28 0800 DC 03/29 SC 0806 Insulin Detemir 5 UNITS BID 03/29 900 AC 03/29 SC 0915 Lisinopril 10 MG DAILY 03/28 09 AC 03/29 PO 0805 Melatonin 3 MG AT BEDTIME 03/28 2100 AC 03/28 PO 205 Melatonin 5 MG .STK-MED ONE 03/28 2045 DC PO 03/28 204 Methylprednisolone 40 MG Q8H 03/28 1700 AC 03/29 IV 0805 Patient Medication 1 ED ONE ONE 03/28 1815 DC 03/28 Teaching ED 03/28 1816 1837 Tiotropium [place] 1 PUF DAILY 03/27 2200 AC 03/29 INH 0804 Past History Travel History Traveled to [place] past 21 day No Medical History Blood Transfusion Hx: No Neurological: NONE EENT: NONE Cardiovascular: AFIB, hypertension, hyperlipidemia Respiratory: COPD Gastrointestinal: achalasia Hepatic: NONE Renal: NONE Musculoskeletal: degenerative disk disease Psychiatric: NONE Endocrine: diabetes Blood Disorders: NONE Cancer(s): NONE 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 Home Services at Home: None Smoking Status: Former Smoker Exam & Diagnostic Data Vital Signs and I&O Vital Signs Date Time Temp Pulse Resp B/P B/P Pulse O2 O2 Flow FiO2 Mean Ox Delivery Rate 03/29 805 81 120/58 03/29 08 Room Air 03/29 06 97.7 81 20 120/54 92 Room Air 03/29 0000 94 Room Air 03/28 2158 98.4 84 20 124/60 93 03/28 1607 96 Room Air 03/28 1551 Room Air 03/28 1351 97.8 62 20 118/80 97 Room Air Intake & Output 03/29 1600 03/29 0800 / 0000 03/28 1600 03/28 0800 03/28 0000 Intake Total 600 800 400 480 500 Output Total 300 300 Balance 300 800 400 480 200 Intake, Oral 600 800 400 480 500 Output, Urine 300 300 Patient 218 lb Weight Weight Reported by Patient Measurement Method Physical Exam: General Appearance: well developed, elderly, white male, alert, awake, oriented Head: normal HEENT: Normal Neck: supple, JVP normal, carotid upstrokes normal bilaterally, no masses or thyromegaly Respiratory: chest non-tender, bilateral rhonchi with decreased breath Cardiovascular: regular rate/rhythm, normal S1, S2, 1/6 systolic murmur Abdomen: normal bowel sounds, soft, non-tender Extremities: normal inspection, trace to 1+ lower extremity edema Vascular: Pulses are 2+ and equal bilaterally Neurologic: Grossly normal/nonfocal Labs/Mandeep Results: Laboratory Tests 03/28 03/28 03/27 0630 0628 1628 Chemistry Sodium (137 - 145 mmol/L) 133 L Potassium (3.5 - 5.1 mmol/L) 4.7 Chloride (98 - 107 mmol/L) 96 L Carbon Dioxide (22 - 30 mmol/L) 24 Anion Gap (5 - 16) 13 BUN (9 - 20 mg/dL) 24 H Creatinine (0.7 - 1.2 mg/dL) 0.8 Estimated GFR (>60 ml/min) > 60 BUN/Creatinine Ratio (7 - 25 %) 30.0 H Hemoglobin A1c (4.2 - 5.8 %) 8.9 H Troponin I (<0.11 ng/ml) < 0.01 Hematology CBC w Diff NO MAN DIFF REQ WBC (4.8 - 10.8 /CUMM) 12.6 H RBC (4.70 - 6.10 /CUMM) 4.60 L Hgb (14.0 - 18.0 G/DL) 13.5 L Hct (42 - 52 %) 40.1 L MCV (80.0 - 94.0 FL) 87.2 MCH (27.0 - 31.0 PG) 29.4 MCHC (33.0 - 37.0 G/DL) 33.7 RDW (11.5 - 14.5 %) 16.0 H Plt Count (130 - 400 /CUMM) 388 MPV (7.4 - 10.4 FL) 6.3 L Gran % (42.2 - 75.2 %) 90.3 H Lymphocytes % (20.5 - 51.1 %) 8.0 L Monocytes % (1.7 - 9.3 %) 1.7 Eosinophils % (0 - 5 %) 0 Basophils % (0.0 - 2.0 %) 0 Absolute Granulocytes (1.4 - 6.5 /CUMM) 11.4 H Absolute Lymphocytes (1.2 - 3.4 /CUMM) 1.0 L Absolute Monocytes (0.10 - 0.60 /CUMM) 0.2 Absolute Eosinophils (0.0 - 0.7 /CUMM) 0 Absolute Basophils (0.0 - 0.2 /CUMM) 0 03/27 03/27 1619 1437 Chemistry Sodium (137 - 145 mmol/L) 132 L Potassium (3.5 - 5.1 mmol/L) 4.8 Chloride (98 - 107 mmol/L) 96 L Carbon Dioxide (22 - 30 mmol/L) 24 Anion Gap (5 - 16) 13 BUN (9 - 20 mg/dL) 19 Creatinine (0.7 - 1.2 mg/dL) 0.9 Estimated GFR (>60 ml/min) > 60 BUN/Creatinine Ratio (7 - 25 %) 21.1 Glucose (65 - 99 mg/dL) 211 H Calcium (8.4 - 10.2 mg/dL) 9.8 Total Bilirubin (0.2 - 1.3 mg/dL) 0.8 AST (17 - 59 U/L) 20 ALT (21 - 72 U/L) 25 Alkaline Phosphatase (< 127 U/L) 53 Troponin I (<0.11 ng/ml) < 0.01 [id number] Pept (<125 pg/mL) 171 H Total Protein (6.3 - 8.2 g/dL) 6.6 Albumin (3.5 - 5.0 g/dL) 4.1 Globulin (1.9 - 4.2 gm/dL) 2.5 Albumin/Globulin Ratio (1.1 - 2.2 %) 1.6 Coagulation D-Dimer High Sensitivty (0 - 243 ng/ml) Cancelled < 200 Hematology CBC w Diff MAN DIFF ORDERED WBC (4.8 - 10.8 /CUMM) 16.8 H RBC (4.70 - 6.10 /CUMM) 4.80 Hgb (14.0 - 18.0 G/DL) 14.0 Hct (42 - 52 %) 42.2 MCV (80.0 - 94.0 FL) 87.8 MCH (27.0 - 31.0 PG) 29.1 MCHC (33.0 - 37.0 G/DL) 33.2 RDW (11.5 - 14.5 %) 16.3 H Plt Count (130 - 400 /CUMM) 359 MPV (7.4 - 10.4 FL) 6.1 L Gran % (42.2 - 75.2 %) 84.3 H Lymphocytes % (20.5 - 51.1 %) 9.3 L Monocytes % (1.7 - 9.3 %) 5.8 Eosinophils % (0 - 5 %) 0.2 Basophils % (0.0 - 2.0 %) 0.4 Absolute Granulocytes (1.4 - 6.5 /CUMM) 14.2 H Segmented Neutrophils (42.2 - 75.2 %) 80 H Absolute Lymphocytes (1.2 - 3.4 /CUMM) 1.6 Lymphocytes (20.5 - 51.1 %) 15 L Monocytes (1.7 - 9.3 %) 5 Absolute Monocytes (0.10 - 0.60 /CUMM) 1.0 H Absolute Eosinophils (0.0 - 0.7 /CUMM) 0 Absolute Basophils (0.0 - 0.2 /CUMM) 0.1 Platelet Estimate (ADEQUATE) VERIFIED BY SMEAR Normocytic RBCs VERIFIED Normochromic RBCs VERIFIED Assessment/Plan Assessment/Plan Assessment: 1. Worsening exertional shortness of breath, possible COPD exacerbation 2. Chronic HFpEF 3. Obstructive sleep apnea, noncompliant with CPAP 4. History of atrial fibrillation on Eliquis 5. Hypertension 6. Hyper lipidemia 7. Diabetes-hyperglycemia aggravated by steroid use Recommendations: -Continue current medication regimen for now -Continue as per pulmonary -I will try to obtain copies of last nuclear stress test and echocardiogram from Dr. Pinedo's office later today. -Further plans after the above Consult Acknowledgment - Thank you for your consult request.
[2018-03-29 15:28] VITALS: BP 136/74
--- NOTE | 2018-03-29 17:42 | Cons- Endocrinology ---
General Information and HPI Consulting Request Date of Consult: 03/29/18 Requested By: medical team Reason for Consult: Uncontrolled diabetes Source of Information: patient, old records Exam Limitations: no limitations History of Present Illness: This 77-year-old male states he was told he had diabetes a few months ago and was started on metformin by his primary care doctor who is Dr. Lao. Has a past history of COPD and atrial fibrillation as well as obstructive sleep apnea. He is also been treated for hypertension and hyperlipidemia. The patient was admitted to the hospital because of shortness of breath. He has been placed on high-dose steroid therapy and is on methylprednisolone 40 mg every 8 hours. He feels somewhat improved but his blood sugars have become very high. Fingerstick blood sugars today were 416 before breakfast for 386 before lunch and 249 before dinner. He is presently on 8 units of Levemir twice a day along along with sliding scale NovoLog. Allergies/Medications Allergies: Coded Allergies: moxifloxacin (From AVELOX) (ITCHY, RASH, SWEATING 01/12/18) Home Med List: Albuterol Sulfate (Proventil Hfa) 90 MCG HFA.AER.AD 2 PUF INH Q4 PRN SOB TAKE DIRECTED Amlodipine Besylate (Norvasc) 5 MG TABLET 1 TAB PO DAILY HEART (Reported) Apixaban (Eliquis) 5 MG TABLET 1 TAB PO BID AFIB (Reported) Azithromycin 250 MG TABLET 1 DP PO AD copd 2 the first day followed by 1 for days 2-5 Budesonide/Formoterol Fumarate (Symbicort 160-4.5 Mcg Inhaler) 160 MCG-4.5 MCG/ ACTUATION HFA.AER.AD 2 PUFF INH BID COPID (Reported) Cyclobenzaprine HCl 10 MG TABLET 1 TAB PO DAILY MUSCLE SPASMS (Reported) Diltiazem HCl (Diltiazem 24HR ER) 180 MG CAP.ER.24H 1 CAP PO DAILY HEART ( Reported) Fenofibrate,Micronized (Fenofibrate) 130 MG CAPSULE 1 CAP PO DAILY TRIGLYCERIDES (Reported) Finasteride 5 MG TABLET 1 TAB PO DAILY PROSTRATE (Reported) Furosemide 20 MG TABLET 1 TAB PO DAILY FLUID RETENTION (Reported) Hydrocodone/Acetaminophen (Hydrocodon-Acetaminophn 10-325) 10 MG-325 MG TABLET 1 TAB PO 4XDP PRN PAIN (Reported) Lansoprazole (Prevacid) 30 MG CAPSULE.DR 30 MG PO DIALY ACID REFLUX (Reported ) Lisinopril 10 MG TABLET 10 MG PO DAILY HTN (Reported) Metformin HCl 500 MG TABLET 500 MG PO BID DIABETES (Reported) Prednisone 50 MG TABLET 1 TAB PO DAILY copd Prednisone 10 MG TABLET 0 PO TAPER COPD DATES: TABS/DAY 01/18-01/19 6 3/2-3/4 5 3-01/25 4 01/26-01/28 3 01/29-01/31 2 02/01-02/03 1 THEN STOP Roflumilast (Daliresp) 500 MCG TABLET 1 TAB PO DAILY U (Reported) Rosuvastatin Calcium (Crestor) 40 MG TABLET 40 MG PO DIALY CHOLESTEROL ( Reported) Tiotropium [place] (Spiriva) 18 MCG CAP.W.DEV 1 PUF INH DIALY COPD (Reported) Vilazodone Hydrochloride (Viibryd) 20 MG TABLET 1 TAB PO DAILY MENTAL HEALTH (Reported) Review of Systems Review of Systems Constitutional: Denies: chills, fever. Cardiovascular: Denies: chest pain. Respiratory: Reports: cough, short of breath. GI: Denies: nausea, vomiting. Skin: Reports: no symptoms. 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 Home Services at Home: None Smoking Status: Former Smoker Exam & Diagnostic Data Last 24 Hrs of Vital Signs/I&O Vital Signs Date Time Temp Pulse Resp B/P B/P Pulse O2 O2 Flow FiO2 Mean Ox Delivery Rate 03/29 1600 Room Air 03/29 1528 97.9 88 20 136/74 94 03/29 0805 81 120/58 03/29 0800 Room Air 03/29 0600 97.7 81 20 120/54 92 Room Air 03/29 0000 94 Room Air 03/28 2158 98.4 84 20 124/60 93 Intake & Output 03/29 08 05 0000 Intake Total 600 600 800 Output Total 300 Balance 600 300 800 Intake, Oral 600 600 800 Output, Urine 300 Vital Signs Date Time Temp Pulse Resp B/P B/P Pulse O2 O2 Flow FiO2 Mean Ox Delivery Rate 03/29 1600 Room Air 03/29 1528 97.9 88 20 136/74 94 03/29 0805 81 120/58 03/29 0800 Room Air 03/29 06 97.7 81 20 120/54 92 Room Air 03/29 0000 94 Room Air 03/28 2158 98.4 84 20 124/60 93 Intake & Output 03/29 0800 05 0000 Intake Total 600 600 800 Output Total 300 Balance 600 300 800 Intake, Oral 600 600 800 Output, Urine 300 Physical Exam General Appearance: alert, awake, comfortable Head: normal appearance Eyes: Bilateral: normal appearance. Neck: normal inspection Respiratory: decreased breath sounds Cardiovascular: regular rate/rhythm Gastrointestinal: normal bowel sounds Extremities: normal inspection Labs/Mandeep Results: Laboratory Tests 03/28 03/28 0630 0628 Chemistry Sodium (137 - 145 mmol/L) 133 L Potassium (3.5 - 5.1 mmol/L) 4.7 Chloride (98 - 107 mmol/L) 96 L Carbon Dioxide (22 - 30 mmol/L) 24 Anion Gap (5 - 16) 13 BUN (9 - 20 mg/dL) 24 H Creatinine (0.7 - 1.2 mg/dL) 0.8 Estimated GFR (>60 ml/min) > 60 BUN/Creatinine Ratio (7 - 25 %) 30.0 H Hemoglobin A1c (4.2 - 5.8 %) 8.9 H Hematology CBC w Diff NO MAN DIFF REQ WBC (4.8 - 10.8 /CUMM) 12.6 H RBC (4.70 - 6.10 /CUMM) 4.60 L Hgb (14.0 - 18.0 G/DL) 13.5 L Hct (42 - 52 %) 40.1 L MCV (80.0 - 94.0 FL) 87.2 MCH (27.0 - 31.0 PG) 29.4 MCHC (33.0 - 37.0 G/DL) 33.7 RDW (11.5 - 14.5 %) 16.0 H Plt Count (130 - 400 /CUMM) 388 MPV (7.4 - 10.4 FL) 6.3 L Gran % (42.2 - 75.2 %) 90.3 H Lymphocytes % (20.5 - 51.1 %) 8.0 L Monocytes % (1.7 - 9.3 %) 1.7 Eosinophils % (0 - 5 %) 0 Basophils % (0.0 - 2.0 %) 0 Absolute Granulocytes (1.4 - 6.5 /CUMM) 11.4 H Absolute Lymphocytes (1.2 - 3.4 /CUMM) 1.0 L Absolute Monocytes (0.10 - 0.60 /CUMM) 0.2 Absolute Eosinophils (0.0 - 0.7 /CUMM) 0 Absolute Basophils (0.0 - 0.2 /CUMM) 0 Assessment/Plan Assessment/Plan This 77-year-old male has a previous history of diabetes. He has been placed on high-dose steroid therapy and his blood sugars have become markedly elevated. He has been placed on an insulin regimen including 8 of Levemir twice a day along with sliding scale NovoLog. His sugar before dinner tonight came down to 249. Other sugars have been as high as over 400. I would recommend increasing Levemir to 10 units twice a day. We should also adjust his sliding scale NovoLog before meals. Sliding scale NovoLog before meals should be 80-150 give 6 units NovoLog, 151-200 give 8 units NovoLog, 201- 250 give 10 units NovoLog, 251-300 give 12 units NovoLog, 301-350 give 14 units NovoLog, 351-400 give 16 units NovoLog. A separate bedtime sliding scale NovoLog should be written. Sliding scale NovoLog at bedtime should be less than 250 give no insulin, 251-300 give 2 units NovoLog, 301-350 give 3 units NovoLog, 351-400 give 4 units NovoLog. If the patient's prednisone is tapered we will need to readjust his insulin regimen. The patient should be on vitamin D3 1000 units daily to help counteract the effects of the prednisone on his bones. Eventually should also have a bone density study done. Consult Acknowledgment - Thank you for your consult request.
[2018-03-29 22:49] VITALS: BP 130/54
[2018-03-30 06:20] VITALS: BP 124/68
--- NOTE | 2018-03-30 07:38 | PN- Pulmonary ---
Subjective HPI/Critical Care Issues: Patient still has minor shortness of breath on exertion but is comfortable on room air Objective Current Medications: Current Medications Sig/Efe Start time Last Medication Dose Route Stop Time Status Admin Acetaminophen 325 MG Q6P PRN 03/27 204 AC PO Albuterol Sulfate 2 PUF Q4 PRN 03/27 2200 AC INH Apixaban 5 MG BID 03/27 2146 AC 03/29 PO 2021 Atorvastatin Calcium 40 MG 1700 03/28 1700 AC 03/29 PO 1646 Azithromycin 250 MG MoWeFr 03/29 1000 AC 03/29 PO 0903 Budesonide/ 2 PUF BID 03/28 900 AC 03/29 Formoterol Fumarate INH 2020 Calcium Carbonate 500 MG DAILY 03/28 204 AC 03/29 PO 0903 Cholecalciferol 1,000 IU DAILY 03/29 1803 AC 03/29 PO 2020 Cyclobenzaprine HCl 10 MG TID 03/28 900 AC 03/29 PO 2020 Diltiazem HCl 180 MG DAILY 03/28 900 AC 03/29 PO 0805 Fenofibrate 145 MG DAILY 03/28 900 AC 03/29 PO 0805 Furosemide 20 MG DAILY 03/28 900 AC 03/29 PO 0805 Guaifenesin 600 MG Q12 03/28 900 AC 03/29 PO 2020 Hydrocodone Bitart/ 1 TAB Q6P PRN 03/27 2315 AC 03/30 Acetaminophen PO 0141 Insulin Aspart 0 AT BEDTIME 03/29 2100 AC 03/29 [place] 2027 Insulin Aspart 0 TIDAC 03/29 1800 AC SC Insulin Aspart 0 TIDAC 03/29 1800 DC SC Insulin Aspart 0 TIDAC 03/29 1200 DC 03/29 SC 1646 Insulin Aspart 12 UNITS ONCE ONE 03/29 1030 DC 03/29 SC 03/29 1031 1024 Insulin Aspart 0 AT BEDTIME 03/28 2100 DC 03/28 [place] 204 Insulin Aspart 0 TIDAC 03/28 0800 DC 03/29 SC 0806 Insulin Detemir 8 UNITS BID 03/29 2100 DC SC Insulin Detemir 10 UNITS BID 03/29 2100 AC 03/29 SC 202 Insulin Detemir 5 UNITS BID 03/29 0900 DC 03/29 SC 0915 Lisinopril 10 MG DAILY 03/28 900 AC 03/29 PO 0805 Magnesium Hydroxide 30 ML ONE ONE 03/29 2230 DC 03/29 PO 03/29 2231 2230 Melatonin 3 MG AT BEDTIME 03/28 2100 AC 03/29 PO 2020 Methylprednisolone 40 MG Q8H 03/28 1700 AC 03/30 IV 0049 Tiotropium [place] 1 PUF DAILY 03/27 2200 AC 03/29 INH 0804 Vital Signs & I&O Last 24 Hrs of Vitals and I&O: Vital Signs Date Time Temp Pulse Resp B/P B/P Pulse O2 O2 Flow FiO2 Mean Ox Delivery Rate 03/30 620 97.9 64 20 124/68 95 Room Air 03/30 0000 Room Air 03/29 2249 97.8 76 20 130/54 94 Room Air 03/29 1600 Room Air 03/29 1528 97.9 88 20 136/74 94 03/29 0805 81 120/58 03/29 0800 Room Air Intake & Output 03/30 0800 03/30 0000 03/29 1600 Intake Total 900 600 Output Total Balance 900 600 Intake, Oral 900 600 Murmur oxygen saturation 95% exam of his chest shows diminished breath sounds there are no wheezes cardiac exam shows a regular S1 and S2 without murmurs Impression/Plan Impression/Plan Impression/Plan: 77-year-old with COPD admitted with exacerbation slowly improving. Recommendations: DC IV Solu-Medrol begin oral prednisone. Encouraged adherence with nasal CPAP for sleep apnea. Follow-up with Dr. Avila post discharge
[2018-03-30 07:53] LABS: ABSOLUTE BASOPHIL COUNT 0 /CUMM (0.0-0.2); ABSOLUTE EOSINOPHIL COUNT 0 /CUMM (0.0-0.7); ABSOLUTE GRANULOCYTE CT 14.7 /CUMM (1.4-6.5); ABSOLUTE LYMPH COUNT 0.8 /CUMM (1.2-3.4); ABSOLUTE MONOCYTE COUNT 0.5 /CUMM (0.10-0.60); BASOPHIL % 0 % (0.0-2.0); EOSINOPHIL % 0 % (0-5); GRANULOCYTE % 92.2 % (42.2-75.2); HEMATOCRIT 35.9 % (42-52); MEAN CORPUSCULAR HGB 29.4 PG (27.0-31.0); MEAN CORPUSCULAR HGB CONC 33.6 G/DL (33.0-37.0); MEAN CORPUSCULAR VOLUME 87.5 FL (80.0-94.0); MEAN PLATELET VOLUME 6.1 FL (7.4-10.4); PLATELET COUNT 367 /CUMM (130-400); RBC DISTRIBUTION WIDTH 16.4 % (11.5-14.5)
--- NOTE | 2018-03-30 08:16 | Patient Discharge Instructions ---
Discharge Instructions General Discharge Information You were seen/treated for: copd diabetes Special Instructions: 1. please follow up with your pcp in one week 2. please follow up with pigs feet finisher in one week Margarita 3. please follow up with wound treatment rn in 1-2 weeks Florentin 4. follow up with your Survey Workers Supervisor at [facility] for the achalasia 5. follow up with die inspector for diabetes Diet Continue normal diet: No (continue chopped diet) Recommended Diet: Low Fat Additional DIET Information: CHOPPED DIET Activity Full Activity/No Limits: Yes Acute Coronary Syndrome Inclusion Criteria At DC or during hospital stay patient has or had the following: ACS DIAGNOSIS No Discharge Core Measures Meds if any: Prescribed or Continued at Discharge Meds if any: NOT Prescribed or Continued at Discharge Congestive Heart Failure Inclusion Criteria At DC or during hospital stay patient has or had the following: CHF DIAGNOSIS No Discharge Core Measures Meds if any: Prescribed or Continued at Discharge Meds if any: NOT Prescribed or Continued at Discharge Cerebrovascular accident Inclusion Criteria At DC or during hospital stay patient has or had the following: CVA/TIA Diagnosis No Discharge Core Measures Meds if any: Prescribed or Continued at Discharge Meds if any: NOT Prescribed or Continued at Discharge Venous thromboembolism Inclusion Criteria VTE Diagnosis No VTE Type NONE VTE Confirmed by (Test) NONE Discharge Core Measures - Per Current guidelines, there needs to be overlap - treatment for the first 5 days of Warfarin therapy. - If discharged on Warfarin prior to 5 days of - overlap therapy, the patient will need to be - assessed for post discharge needs including - *Post discharge parental anticoagulation - *Warfarin and/or parental anticoagulation education - *Follow up date to check INR post discharge At least 5 days overlap therapy as Inpatient No Meds if any: Prescribed or Continued at Discharge Note: Overlap Therapy is Warfarin and Anticoagulant Meds if any: NOT Prescribed or Continued at Discharge
--- NOTE | 2018-03-30 08:30 | PN- Diabetes ---
Assessment/Plan Diabetes Assessment: Patient feels okay. His sugars still high this morning at 285. His insulin was changed late last night so that we are just going to be able to observe today the effects of the changes in his insulin regimen. Plan: Suggest continue the present insulin. Hopefully we will be able to begin to taper his steroids today which will also help with better control of his blood sugars. Continue to check his sugar 4 times a day before each meal and bedtime. Subjective Subjective: Still somewhat short of breath when eating Review of Systems Constitutional: Denies: chills, fever. Cardiovascular: Denies: chest pain. Gastrointestinal: Denies: nausea, vomiting. Skin: Reports: no symptoms. Objective Last 24 Hrs of Vital Signs/I&O Vital Signs Date Time Temp Pulse Resp B/P B/P Pulse O2 O2 Flow FiO2 Mean Ox Delivery Rate 03/30 620 97.9 64 20 124/68 95 Room Air 05/ 0000 Room Air 03/29 2249 97.8 76 20 130/54 94 Room Air 03/29 1600 Room Air 03/29 1528 97.9 88 20 136/74 94 Intake & Output 03/30 1600 03/30 800 05 0000 Intake Total 60 900 Output Total Balance 60 900 Intake, Oral 60 900 Vital Signs Date Time Temp Pulse Resp B/P B/P Pulse O2 O2 Flow FiO2 Mean Ox Delivery Rate 03/30 620 97.9 64 20 124/68 95 Room Air 05/ 0000 Room Air 03/29 2249 97.8 76 20 130/54 94 Room Air 03/29 1600 Room Air 03/29 1528 97.9 88 20 136/74 94 Intake & Output 03/30 05 0000 Intake Total 60 900 Output Total Balance 60 900 Intake, Oral 60 900 Physical Exam General Appearance: alert, awake, comfortable Head: normal appearance Neck: normal inspection Respiratory: decreased breath sounds Cardiovascular: regular rate/rhythm Extremities: normal inspection Current Medications: Current Medications Sig/Efe Start time Last Medication Dose Route Stop Time Status Admin Acetaminophen 325 MG Q6P PRN 03/27 2045 AC PO Albuterol Sulfate 2 PUF Q4 PRN 03/27 2200 AC INH Apixaban 5 MG BID 03/27 2146 AC 03/30 PO 0826 Atorvastatin Calcium 40 MG 1700 03/28 1700 AC 03/29 PO 1646 Azithromycin 250 MG MoWeFr 03/29 1000 AC 03/29 PO 0903 Budesonide/ 2 PUF BID 03/28 900 AC 03/30 Formoterol Fumarate INH 0824 Calcium Carbonate 500 MG DAILY 03/28 2045 AC 03/30 PO 0825 Cholecalciferol 1,000 IU DAILY 03/29 1803 AC 03/30 PO 0825 Cyclobenzaprine HCl 10 MG TID 03/28 900 AC 03/30 PO 0825 Diltiazem HCl 180 MG DAILY 03/28 900 AC 03/30 PO 0826 Fenofibrate 145 MG DAILY 03/28 900 AC 03/30 PO 0826 Furosemide 20 MG DAILY 03/28 900 AC 03/30 PO 0825 Guaifenesin 600 MG Q12 03/28 900 AC 03/30 PO 0825 Hydrocodone Bitart/ 1 TAB Q6P PRN 03/27 2315 AC 03/30 Acetaminophen PO 0141 Insulin Aspart 0 AT BEDTIME 03/29 2100 AC 03/29 NM 202 Insulin Aspart 0 TIDAC 03/29 1800 AC 03/30 SC 0821 Insulin Aspart 0 TIDAC 03/29 1800 DC NM Insulin Aspart 0 TIDAC 03/29 1200 DC 03/29 NM 1646 Insulin Aspart 12 UNITS ONCE ONE 03/29 1030 DC 03/29 NM 03/29 1031 1024 Insulin Aspart 0 AT BEDTIME 03/28 2100 DC 03/28 NM 204 Insulin Aspart 0 TIDAC 03/28 0800 NC 03/29 NM 0806 Insulin Detemir 8 UNITS BID 03/29 2100 DC NM Insulin Detemir 10 UNITS BID 03/29 2100 AC 03/30 NM 0822 Insulin Detemir 5 UNITS BID 03/29 0900 NC 03/29 NM 0915 Lisinopril 10 MG DAILY 03/28 900 03/30 PO 0825 Magnesium Hydroxide 30 ML ONE ONE 03/29 2230 DC 03/29 PO 03/29 223 2230 Melatonin 3 MG AT BEDTIME 03/28 2100 AC 03/29 PO 202 Methylprednisolone 40 MG Q8H 03/28 1700 AC 03/30 IV 0825 Tiotropium [place] 1 PUF DAILY 03/27 2200 AC 03/30 INH 0824 Current Medications Sig/Efe Start time Last Medication Dose Route Stop Time Status Admin Acetaminophen 325 MG Q6P PRN 03/27 2045 AC PO Albuterol Sulfate 2 PUF Q4 PRN 03/27 2200 AC INH Apixaban 5 MG BID 03/27 2146 AC 03/30 PO 0826 Atorvastatin Calcium 40 MG 1700 03/28 1700 AC 03/29 PO 1646 Azithromycin 250 MG MoWeFr 03/29 1000 AC 03/29 PO 0903 Budesonide/ 2 PUF BID 03/28 0900 AC 05 Formoterol Fumarate INH 0824 Calcium Carbonate 500 MG DAILY 03/28 2045 AC 03/30 PO 0825 Cholecalciferol 1,000 IU DAILY 03/29 1803 AC 03/30 PO 0825 Cyclobenzaprine HCl 10 MG TID 03/28 900 AC 03/30 PO 0825 Diltiazem HCl 180 MG DAILY 03/28 900 AC 03/30 PO 0826 Fenofibrate 145 MG DAILY 03/28 900 AC 03/30 PO 0826 Furosemide 20 MG DAILY 03/28 900 AC 03/30 PO 0825 Guaifenesin 600 MG Q12 03/28 900 AC 03/30 PO 0825 Hydrocodone Bitart/ 1 TAB Q6P PRN 03/27 2315 AC 03/30 Acetaminophen PO 0141 Insulin Aspart 0 AT BEDTIME 03/29 2100 AC 03/29 SC 2028 Insulin Aspart 0 TIDAC 03/29 1800 AC 03/30 SC 0821 Insulin Aspart 0 TIDAC 03/29 1800 DC SC Insulin Aspart 0 TIDAC 03/29 1200 DC 03/29 SC 1646 Insulin Aspart 12 UNITS ONCE ONE 03/29 1030 DC 03/29 SC 03/29 1031 1024 Insulin Aspart 0 AT BEDTIME 03/28 2100 DC 03/28 NM 2047 Insulin Aspart 0 TIDAC 03/28 0800 DC 03/29 SC 0806 Insulin Detemir 8 UNITS BID 03/29 2100 DC SC Insulin Detemir 10 UNITS BID 03/29 2100 AC 03/30 SC 0822 Insulin Detemir 5 UNITS BID 03/29 0900 DC 03/29 SC 0915 Lisinopril 10 MG DAILY 03/28 900 AC 03/30 PO 0825 Magnesium Hydroxide 30 ML ONE ONE 03/29 2230 DC 05 PO 03/29 2231 2230 Melatonin 3 MG AT BEDTIME 0508 2100 AC 03/29 PO 2021 Methylprednisolone 40 MG Q8H 0508 1700 AC 05 IV 0825 Tiotropium [place] 1 PUF DAILY 03/27 2200 AC 03/30 INH 0824 Findings Pertinent Lab/Mandeep Results: Laboratory Tests 03/30 0645 Chemistry Sodium Pending Potassium Pending Chloride Pending Carbon Dioxide Pending Anion Gap Pending BUN Pending Creatinine Pending BUN/Creatinine Ratio Pending Hematology CBC w Diff Pending WBC Pending RBC Pending Hgb Pending Hct Pending MCV Pending MCH Pending MCHC Pending RDW Pending Plt Count Pending MPV Pending Gran % Pending Lymphocytes % Pending Monocytes % Pending Eosinophils % Pending Basophils % Pending Absolute Granulocytes Pending Absolute Lymphocytes Pending Absolute Monocytes Pending Absolute Eosinophils Pending Absolute Basophils Pending
--- NOTE | 2018-03-30 10:12 | PN- Housestaff ---
Ramiro MOODY,Hetal 03/30/18 1012: Subjective Follow-up For: #COPD exacerbation #CHF, stable w/ last known EF >55% #PMH of RODRICK noncompliant with CPAP, A. fib on Eliquis currently rate controlled, diabetes, hypertension, hyperlipidemia, degenerative disc disease Complaints: no complaints Subjective: Patient seen and examined. He states that his breathing is better today. He denies any chest pain. He states that he is constipated and has not had a bowel movement since Tuesday. Patient continues to have a mild productive cough. He is eating and moving about his room. Patient's blood sugars have continued to run high albeit less high than yesterday. Review of Systems Constitutional: Reports: no symptoms. EENTM: Reports: no symptoms. Cardiovascular: Reports: no symptoms. Respiratory: Reports: cough. Gastrointestinal: Reports: constipation. Genitourinary: Reports: no symptoms. Musculoskeletal: Reports: no symptoms. Skin: Reports: no symptoms. Neurological/Psychological: Reports: no symptoms. Hematologic/Endocrine: Reports: no symptoms. Objective Last 24 Hrs of Vital Signs/I&O Vital Signs Date Time Temp Pulse Resp B/P B/P Pulse O2 O2 Flow FiO2 Mean Ox Delivery Rate 03/30 1406 97.6 68 20 120/60 96 Room Air 03/30 0825 64 124/68 03/30 0620 97.9 64 20 124/68 95 Room Air 03/30 0000 Room Air 03/29 2249 97.8 76 20 130/54 94 Room Air 03/29 1600 Room Air Intake & Output 03/30 1600 03/30 0800 03/30 0000 Intake Total 480 60 900 Output Total Balance 480 60 900 Intake, Oral 480 60 900 Physical Exam General Appearance: Alert, Oriented X3, Cooperative, No Acute Distress Skin: No Rashes, No Breakdown, No Significant Lesion Skin Temp/Moisture Exam: Warm/Dry Sepsis Skin Exam (color): Normal for Ethnicity HEENT: Atraumatic, EOMI, Mucous Membr. moist/pink Cardiovascular: Regular Rate, Normal S1, Normal S2, No Murmurs Lungs: Clear to Auscultation, Normal Air Movement Abdomen: Normal Bowel Sounds, Soft, No Tenderness Neurological: Normal Speech Extremities: No Clubbing, No Cyanosis, No Edema Current Medications: Current Medications Sig/Efe Start time Last Medication Dose Route Stop Time Status Admin Acetaminophen 325 MG Q6P PRN 03/27 204 AC PO Albuterol Sulfate 2 PUF Q4 PRN 03/27 2200 AC INH Apixaban 5 MG BID 03/27 2146 AC 03/30 PO 0826 Atorvastatin Calcium 40 MG 1700 03/28 1700 AC 03/29 PO 1646 Azithromycin 250 MG MoWeFr 03/29 1000 AC 03/29 PO 0903 Budesonide/ 2 PUF BID 03/28 0900 AC 03/30 Formoterol Fumarate INH 0824 Calcium Carbonate 500 MG DAILY 03/28 204 AC 03/30 PO 0825 Cholecalciferol 1,000 IU DAILY 03/29 1803 AC 03/30 PO 0825 Cyclobenzaprine HCl 10 MG TID 03/28 900 AC 03/30 PO 1328 Diltiazem HCl 180 MG DAILY 03/28 900 AC 03/30 PO 0826 Fenofibrate 145 MG DAILY 03/28 900 AC 03/30 PO 0826 Furosemide 20 MG DAILY 03/28 900 AC 03/30 PO 0825 Guaifenesin 600 MG Q12 03/28 900 AC 03/30 PO 0825 Hydrocodone Bitart/ 1 TAB Q6P PRN 03/27 2315 AC 03/30 Acetaminophen PO 1511 Insulin Aspart 0 AT BEDTIME 03/29 2100 AC 03/29 SC 2028 Insulin Aspart 0 TIDAC 03/29 1800 AC 03/30 SC 1204 Insulin Aspart 0 TIDAC 03/29 1800 DC SC Insulin Aspart 0 TIDAC 03/29 1200 DC 03/29 SC 1646 Insulin Aspart 0 AT BEDTIME 08 2100 DC 08 SC 2047 Insulin Detemir 8 UNITS BID 03/29 2100 DC SC Insulin Detemir 10 UNITS BID 03/29 2100 AC 03/30 SC 0822 Lansoprazole 30 MG BID 03/30 1415 AC 03/30 PO 1505 Lisinopril 10 MG DAILY 03/28 900 AC 03/30 PO 0825 Magnesium Hydroxide 30 ML ONE ONE 03/29 2230 DC 03/29 PO 03/29 223 2230 Melatonin 3 MG AT BEDTIME 03/28 2100 AC 03/29 PO 202 Methylprednisolone 40 MG Q8H 08 1700 DC 05/10 IV 0825 Polyethylene Glycol 17 GM DAILY 03/30 1433 AC 03/30 PO 1506 Prednisone 40 MG DAILY 03/31 900 CAN PO Prednisone 40 MG DAILY 05/11 0900 AC PO Senna/Docusate Sodium 1 TAB BID PRN 03/30 1445 AC PO Tiotropium [place] 1 PUF DAILY 03/27 2200 AC 03/30 INH 0824 Last 24 Hrs of Lab/Mandeep Results Last 24 Hrs of Labs/Mics: Laboratory Tests 03/30/18 0645: Anion Gap 11, Estimated GFR > 60, BUN/Creatinine Ratio 50.0 H, CBC w Diff NO MAN DIFF REQ, RBC 4.10 L, MCV 87.5, MCH 29.4, MCHC 33.6, RDW 16.4 H, MPV 6.1 L, Gran % 92.2 H, Lymphocytes % 4.8 L, Monocytes % 3.0, Eosinophils % 0, Basophils % 0, Absolute Granulocytes 14.7 H, Absolute Lymphocytes 0.8 L, Absolute Monocytes 0.5, Absolute Eosinophils 0, Absolute Basophils 0 Assessment/Plan Assessment: Patient is a 77yo M w/ PMH of COPD not on home oxygen but on 10 mg chronic prednisone, RODRICK noncompliant with CPAP, A. fib on Eliquis currently rate controlled, diabetes, hypertension, hyperlipidemia, degenerative disc disease presented to ER with SOB with nonproductive cough 3-4 days. He was last admitted to [facility] [place] in 11/2017 with COPD exacerbation and was sent home on chronic prednisone and was managed by [facility]/Dr. Avila, last seen in Dr. Avila's office about 3 weeks ago, who adjusted his prednisone to 10mg daily , with zithromax prescribed. Patient reportedly never got home oxygen arranged because he was not eligible based on his O2 sats. However, over the previous months, he was still have on/off difficulty breathing and over the past week it had been getting worse and he felt R sided chest pain/tightness along with the SOB. Patient was diagnosed with diastolic CHF in 2011 (last EF 55%) and was managed by Dr. Pinedo on Lasix 20mg daily. He sleeps in an incliner bed with one pillow and leg elevation, however he was not on CPAP for his RODRICK as the CPAP made him "confused". Patient compliant with all other meds. Patient states he quit smoking 2 yrs ago, former 2-3PPD. On admission, vitals afebrile, pulse 91, BP 111/68, 94% on room air, leukocytosis 16.8, otherwise unremarkable, d-dimer negative, BMP: NA 142, glucose 211, proBNP 171 baseline 114, otherwise unremarkable. CXR: Stable appearance of the chest relative to 02/24/2018. No acute abnormality is evident. In the ER: Nebulizer, IV bolus, supplemental 125 1, azithromycin. Plan #Respiratory distress, wheezing, dry cough likely secondary to COPD exacerbation -CHF, stable w/ last known EF >55%, patient compliant with lasix -Offer supplemental O2 and nebs -Appreciate pulmonary recs, start prednisone three day taper starting at 40mg tomorrow -Obtain CPAP for patient's RODRICK, patient will see his clearance diver Dr. Avila for follow-up in this -Change long time zithromax to 250mg MWF -Patient has history of achalasia, aspiration precautions -As per Dr. Avila obtain most recent echo was obtained which was normal with an ejection fraction of 69% and no change since previous echo in 2011. #Uncontrolled blood sugar levels: Yesterday patient's blood sugar levels have peaked at 462 even after the addition of medium sliding scale glucose. We increased coverage to high dose insulin and started him on 5 units of Levemir twice a day but it only decreased his blood sugar to low 400s. He gave an extra 12 units and that only decreased it to high 300s. Today blood sugar is 285 this morning. -We have increased Levemir to 10 units twice a day as per endocrinology consult -Hemoglobin A1c is 8.9 and patient is on only metformin at home. -New sliding scale and bedtime scale added #Constipation: no bowel movement in 4 days -Started bowel regimen #PMH of RODRICK noncompliant with CPAP, A. fib on Eliquis currently rate controlled, diabetes, hypertension, hyperlipidemia, degenerative disc disease -Continue home medications DVT prophylaxis Eliquis + ALPS Heart Healthy Diet FUll Code Problem List: 1. COPD exacerbation 2. Diabetes Pain Ratin Pain Location: na Pain Goal: Remain pain free Pain Plan: na Tomorrow's Labs & Rationales: cbc bep Mando MOODY,Syeda 03/30/18 1107: Attending Review Statement Attending Statement Attending MD Statement: examined this patient, discuss w/resident/PA/P[facility], agreed w/resident/PA/P[facility]NER, reviewed EMR data (avail), discussed with nursing, discussed with case mgmt, amended to note Attending Assessment/Plan: Patient seen and examined. Resting comfortably not in any acute distress. No issues overnight reported by nursing staff. Alert oriented 3. Ambulating freely. Not requiring oxygen supplementation. On examination he has adequate entry bilaterally with mild diffuse rhonchi. Blood glucose levels remain elevated. Glucose levels are ranging in the 300s last night and high 200s this morning. Endocrinology follow-up appreciated. Plan: -Discontinue intravenous steroids. He has received 2 doses so far today. Begin patient on oral prednisone starting tomorrow. -Follow recommendations of the endocrinology service. -His hemoglobin A1c is 8.1. At the time of discharge we will reevaluate his home diabetes regimen with endocrinology service prior to discharge. He will be discharged home once we have improved control of his glucose levels. -Repeat CBC and serum chemistry in a.m. if there is a change in his clinical status. His leukocytosis is likely secondary to steroid use. He has no clinical evidence of an infection.
[2018-03-30 14:06] VITALS: BP 120/60
--- NOTE | 2018-03-30 15:43 | PN- Cardiology ---
Subjective Subjective: The patient is slightly better today. He ambulated to the kitchen at and back without major issues. He remains concerned about his overall status. He notes that he has not been able to eat well since he has not been able to take his home Prevacid preparation. Objective Vital Signs and I&Os Vital Signs Date Time Temp Pulse Resp B/P B/P Pulse O2 O2 Flow FiO2 Mean Ox Delivery Rate 03/30 1406 97.6 68 20 120/60 96 Room Air 03/30 0825 64 124/68 03/30 0620 97.9 64 20 124/68 95 Room Air 03/30 0000 Room Air 03/29 2249 97.8 76 20 130/54 94 Room Air 03/29 1600 Room Air Intake & Output 03/30 0000 03/29 1600 03/29 0000 Intake Total 480 60 900 600 600 800 Output Total 300 Balance 480 60 900 600 300 800 Intake, Oral 480 60 900 600 600 800 Output, Urine 300 Current Medications: Current Medications Sig/Efe Start time Last Medication Dose Route Stop Time Status Admin Acetaminophen 325 MG Q6P PRN 03/27 2045 AC PO Albuterol Sulfate 2 PUF Q4 PRN 03/27 2200 AC INH Apixaban 5 MG BID 03/27 2146 AC 03/30 PO 0826 Atorvastatin Calcium 40 MG 1700 03/28 1700 AC 03/29 PO 1646 Azithromycin 250 MG MoWeFr 03/29 1000 AC 03/29 PO 0903 Budesonide/ 2 PUF BID 03/28 900 AC 03/30 Formoterol Fumarate INH 0824 Calcium Carbonate 500 MG DAILY 03/28 2045 AC 03/30 PO 0825 Cholecalciferol 1,000 IU DAILY 03/29 1803 AC 03/30 PO 0825 Cyclobenzaprine HCl 10 MG TID 03/28 900 AC 03/30 PO 1328 Diltiazem HCl 180 MG DAILY 03/28 900 AC 03/30 PO 0826 Fenofibrate 145 MG DAILY 03/28 900 AC 03/30 PO 0826 Furosemide 20 MG DAILY 03/28 900 AC 03/30 PO 0825 Guaifenesin 600 MG Q12 03/28 900 AC 03/30 PO 0825 Hydrocodone Bitart/ 1 TAB Q6P PRN 03/27 2315 AC 03/30 Acetaminophen PO 1511 Insulin Aspart 0 AT BEDTIME 03/29 2100 AC 03/29 SC 2027 Insulin Aspart 0 TIDAC 03/29 1800 AC 03/30 SC 1204 Insulin Aspart 0 TIDAC 03/29 1800 DC SC Insulin Aspart 0 TIDAC 03/29 1200 DC 03/29 SC 1646 Insulin Aspart 0 AT BEDTIME 03/28 2100 DC 03/28 SC 2047 Insulin Detemir 8 UNITS BID 03/29 2100 DC SC Insulin Detemir 10 UNITS BID 03/29 2100 AC 03/30 SC 0822 Lansoprazole 30 MG BID 03/30 1415 AC 03/30 PO 1505 Lisinopril 10 MG DAILY 03/28 09 AC 03/30 PO 0825 Magnesium Hydroxide 30 ML ONE ONE 03/29 2230 DC 03/29 PO 03/29 2231 223 Melatonin 3 MG AT BEDTIME 03/28 2100 AC 03/29 PO 2020 Methylprednisolone 40 MG Q8H 03/28 1700 DC 03/30 IV 0825 Polyethylene Glycol 17 GM DAILY 03/30 1433 AC 03/30 PO 1506 Prednisone 40 MG DAILY 03/31 900 CAN PO Prednisone 40 MG DAILY 03/31 900 AC PO Senna/Docusate Sodium 1 TAB BID PRN 03/30 1445 AC PO Tiotropium [place] 1 PUF DAILY 03/27 220 AC 03/30 INH 0824 Results Last 48 Hrs of Labs/Mics: Laboratory Tests 03/30/18 0645: Anion Gap 11, Estimated GFR > 60, BUN/Creatinine Ratio 50.0 H, CBC w Diff NO MAN DIFF REQ, RBC 4.10 L, MCV 87.5, MCH 29.4, MCHC 33.6, RDW 16.4 H, MPV 6.1 L, Gran % 92.2 H, Lymphocytes % 4.8 L, Monocytes % 3.0, Eosinophils % 0, Basophils % 0, Absolute Granulocytes 14.7 H, Absolute Lymphocytes 0.8 L, Absolute Monocytes 0.5, Absolute Eosinophils 0, Absolute Basophils 0 Assessment/Plan Assessment/Plan Assessment: 1. Worsening exertional shortness of breath, possible COPD exacerbation 2. Chronic HFpEF 3. Obstructive sleep apnea, noncompliant with CPAP 4. History of atrial fibrillation on Eliquis 5. Hypertension 6. Hyper lipidemia 7. Diabetes-hyperglycemia aggravated by steroid use Recommendations: -Continue current medication regimen for now -Continue as per pulmonary -The patient's last echocardiogram from Dr. Pinedo's office performed on 01/18 showed normal left ventricular function with no significant valvular disease and no significant pulmonary hypertension. -Please see if the patient can start his home Prevacid preparation. Continue telemetry? No
[2018-03-30 22:30] VITALS: BP 124/62
[2018-03-31 06:45] VITALS: BP 128/70
--- NOTE | 2018-03-31 07:57 | PN- Pulmonary ---
Subjective HPI/Critical Care Issues: Shortness of breath is improved patient is ambulating on room air Objective Current Medications: Current Medications Sig/Efe Start time Last Medication Dose Route Stop Time Status Admin Acetaminophen 325 MG Q6P PRN 03/27 204 AC PO Albuterol Sulfate 2 PUF Q4 PRN 03/27 2200 AC INH Apixaban 5 MG BID 03/27 2146 AC 03/30 PO 2055 Atorvastatin Calcium 40 MG 1700 03/28 1700 AC 03/30 PO 1627 Azithromycin 250 MG MoWeFr 03/29 1000 AC 03/29 PO 0903 Budesonide/ 2 PUF BID 03/28 09 AC 03/30 Formoterol Fumarate INH 205 Calcium Carbonate 500 MG DAILY 03/28 204 AC 03/30 PO 0825 Cholecalciferol 1,000 IU DAILY 03/29 1803 AC 03/30 PO 0825 Cyclobenzaprine HCl 10 MG TID 03/28 900 AC 03/30 PO 2055 Diltiazem HCl 180 MG DAILY 03/28 900 AC 03/30 PO 0826 Fenofibrate 145 MG DAILY 03/28 900 AC 03/30 PO 0826 Furosemide 20 MG DAILY 03/28 09 AC 03/30 PO 0825 Guaifenesin 600 MG Q12 03/28 09 AC 03/30 PO 205 Hydrocodone Bitart/ 1 TAB Q6P PRN 03/27 2315 AC 03/31 [place]amin[place] PO 0320 Insulin Aspart 0 AT BEDTIME 03/29 2100 AC 03/30 SC 2056 Insulin Aspart 0 TIDAC 03/29 1800 AC 03/30 SC 1700 Insulin Detemir 10 UNITS BID 03/29 2100 AC 03/30 SC 2055 Lansoprazole 30 MG BID 03/30 1415 AC 03/30 PO 2055 Lisinopril 10 MG DAILY 03/28 900 AC 03/30 PO 0825 Melatonin 3 MG AT BEDTIME 03/28 2100 AC 03/30 PO 205 Methylprednisolone 40 MG Q8H 03/28 1700 DC 03/30 IV 0825 Patient Medication 1 ED ONE ONE 03/30 1645 DC 03/30 Teaching ED 03/30 [id number] Polyethylene Glycol 17 GM DAILY 03/30 1433 AC 03/30 PO 1506 Prednisone 40 MG DAILY 03/31 09 CAN PO Prednisone 40 MG DAILY 03/31 09 AC PO Senna/Docusate Sodium 1 TAB BID PRN 03/30 1445 AC PO Tiotropium [place] 1 PUF DAILY 03/27 2200 AC 03/30 INH 0824 Vital Signs & I&O Last 24 Hrs of Vitals and I&O: Vital Signs Date Time Temp Pulse Resp B/P B/P Pulse O2 O2 Flow FiO2 Mean Ox Delivery Rate 03/31 0645 97.9 80 18 128/70 98 Room Air 03/31 0000 Room Air 03/30 2230 97.8 78 18 124/62 97 Room Air 03/30 1406 97.6 68 20 120/60 96 Room Air 03/30 0825 64 124/68 03/30 0800 Room Air Intake & Output 03/31 0800 03/31 0000 03/30 1600 Intake Total 480 480 Output Total Balance 480 480 Intake, Oral 480 480 Number 0 Bowel Movements Impression/Plan Impression/Plan Impression/Plan: 77-year-old gentleman admitted with exacerbation of COPD he is clinically improved ambulating on room air Recommendations: DC IV Solu-Medrol begin oral prednisone. Encouraged adherence with nasal CPAP for sleep apnea. Follow-up with Dr. Avila post discharge patient appears stable for discharge from pulmonary standpoint once constipation has been addressed
--- NOTE | 2018-03-31 08:09 | PN- Diabetes ---
Assessment/Plan Diabetes Assessment: The patient feels somewhat better this morning. However he is still short of breath when he lies down and complains of trouble breathing. The patient's prednisone has been changed to 40 mg once a day in the morning. His fingerstick blood sugar this morning is 174. Plan: Suggest that we should try to taper the patient's insulin. I would reduce the Levemir to 10 units once a day in the morning. For now I would also adjust the patient's sliding scale NovoLog before meals. Sliding scale NovoLog before meals should be 80-150 give 4 units NovoLog, 151- 200 give 6 units NovoLog, 201-250 give 8 units NovoLog, 251-300 give 10 units NovoLog, 301-350 give 12 units NovoLog, 351-400 give 14 units NovoLog. Bedtime sliding scale NovoLog should stay the same. Patient should stay in the hospital while we adjust his insulin further. He has never taken insulin before. Subjective Subjective: Still feel short of breath Review of Systems Constitutional: Denies: chills, fever. Cardiovascular: Denies: chest pain. Respiratory: Reports: cough, short of breath. Gastrointestinal: Denies: nausea, vomiting. Skin: Reports: no symptoms. Objective Last 24 Hrs of Vital Signs/I&O Vital Signs Date Time Temp Pulse Resp B/P B/P Pulse O2 O2 Flow FiO2 Mean Ox Delivery Rate 03/31 0645 97.9 80 18 128/70 98 Room Air 03/31 0000 Room Air 03/30 2230 97.8 78 18 124/62 97 Room Air 03/30 1406 97.6 68 20 120/60 96 Room Air 03/30 0825 64 124/68 Intake & Output 03/31 1600 03/31 0800 03/31 0000 Intake Total 480 Output Total Balance 480 Intake, Oral 480 Number 0 Bowel Movements Vital Signs Date Time Temp Pulse Resp B/P B/P Pulse O2 O2 Flow FiO2 Mean Ox Delivery Rate 03/31 0645 97.9 80 18 128/70 98 Room Air 03/31 0000 Room Air 03/30 2230 97.8 78 18 124/62 97 Room Air 03/30 1406 97.6 68 20 120/60 96 Room Air 03/30 0825 64 124/68 Intake & Output 03/31 1600 03/31 0800 05 0000 Intake Total 480 Output Total Balance 480 Intake, Oral 480 Number 0 Bowel Movements Physical Exam General Appearance: alert, awake Head: normal appearance Neck: normal inspection Respiratory: decreased breath sounds Abdomen: normal bowel sounds, soft Extremities: normal inspection Current Medications: Current Medications Sig/Efe Start time Last Medication Dose Route Stop Time Status Admin Acetaminophen 325 MG Q6P PRN 03/27 204 AC PO Albuterol Sulfate 2 PUF Q4 PRN 03/27 2200 AC INH Apixaban 5 MG BID 03/27 2146 AC 03/30 PO 2055 Atorvastatin Calcium 40 MG 1700 03/28 1700 AC 03/30 PO 1627 Azithromycin 250 MG MoWeFr 03/29 1000 AC 03/29 PO 0903 Budesonide/ 2 PUF BID 03/28 09 AC 03/30 Formoterol Fumarate INH 2055 Calcium Carbonate 500 MG DAILY 03/28 2045 AC 03/30 PO 0825 Cholecalciferol 1,000 IU DAILY 03/29 1803 AC 03/30 PO 0825 Cyclobenzaprine HCl 10 MG TID 03/28 900 AC 03/30 PO 2055 Diltiazem HCl 180 MG DAILY 03/28 900 AC 03/30 PO 0826 Fenofibrate 145 MG DAILY 03/28 900 AC 03/30 PO 0826 Furosemide 20 MG DAILY 03/28 09 AC 03/30 PO 0825 Guaifenesin 600 MG Q12 03/28 900 AC 03/30 PO 2055 Hydrocodone Bitart/ 1 TAB Q6P PRN 03/27 2315 AC 03/31 Acetaminophen PO 0320 Insulin Aspart 0 AT BEDTIME 03/29 2100 AC 03/30 SC 2056 Insulin Aspart 0 TIDAC 03/29 1800 AC 03/30 SC 170 Insulin Detemir 10 UNITS BID 03/29 2100 AC 03/30 SC 2055 Lansoprazole 30 MG BID 03/30 1415 AC 03/30 PO 2055 Lisinopril 10 MG DAILY 03/28 09 AC 03/30 PO 0825 Melatonin 3 MG AT BEDTIME 03/28 2100 AC 03/30 PO 2055 Methylprednisolone 40 MG Q8H 03/28 1700 DC 05 IV 0825 Patient Medication 1 ED ONE ONE 03/30 1645 DC 03/30 Teaching ED 03/30 164 2057 Polyethylene Glycol 17 GM DAILY 03/30 1433 AC 03/30 PO 1506 Prednisone 40 MG DAILY 03/31 0900 CAN PO Prednisone 40 MG DAILY 03/31 0900 AC PO Senna/Docusate Sodium 1 TAB BID PRN 03/30 1445 AC PO Tiotropium [place] 1 PUF DAILY 03/27 2200 AC 03/30 INH 0824 Findings Pertinent Lab/Mandeep Results: Laboratory Tests 03/31 0715 Chemistry Sodium Pending Potassium Pending Chloride Pending Carbon Dioxide Pending Anion Gap Pending BUN Pending Creatinine Pending BUN/Creatinine Ratio Pending Hematology CBC w Diff Pending WBC Pending RBC Pending Hgb Pending Hct Pending MCV Pending MCH Pending MCHC Pending RDW Pending Plt Count Pending MPV Pending
[2018-03-31 08:53] LABS: ABSOLUTE EOSINOPHIL COUNT 0 /CUMM (0.0-0.7); RED BLOOD CELL CT 4.88 /CUMM (4.70-6.10)
[2018-03-31 09:05] LABS: ABSOLUTE BASOPHIL COUNT 0.1 /CUMM (0.0-0.2); ABSOLUTE GRANULOCYTE CT 13.7 /CUMM (1.4-6.5); ABSOLUTE LYMPH COUNT 2.4 /CUMM (1.2-3.4); ABSOLUTE MONOCYTE COUNT 1.1 /CUMM (0.10-0.60); BASOPHIL % 0.3 % (0.0-2.0); EOSINOPHIL % 0.1 % (0-5); GRANULOCYTE % 79.2 % (42.2-75.2); MEAN CORPUSCULAR HGB 28.9 PG (27.0-31.0); MEAN CORPUSCULAR HGB CONC 32.5 G/DL (33.0-37.0); MEAN CORPUSCULAR VOLUME 88.8 FL (80.0-94.0); MEAN PLATELET VOLUME 6.1 FL (7.4-10.4); PLATELET COUNT 457 /CUMM (130-400); RBC DISTRIBUTION WIDTH 16.4 % (11.5-14.5); WHITE BLOOD CELL COUNT 17.3 /CUMM (4.8-10.8)
[2018-03-31 09:08] LABS: HEMATOCRIT 43.3 % (42-52)
--- NOTE | 2018-03-31 10:35 | PN- Housestaff ---
Ramiro MOODY,Hetal 03/31/18 1035: Subjective Follow-up For: #COPD exacerbation #CHF, stable w/ last known EF >55% #aflutter - patient had been rate controlled entire admission before episode of chest tightness on inspiration #PMH of RODRICK noncompliant with CPAP,diabetes, hypertension, hyperlipidemia, degenerative disc disease Subjective: Patient states this morning that his breathing is "ok", good saturations. We spoke a little more about what brought him in and he elaborated on his shortness of breath as episodic and talking a bit about anxiety. However, for the first time in this admission, the patient had an episode of chest tightness this afternoon. Patient had been stable to be discharged from a pulmonary standpoint and had been started on PO prednisone, clinically he looked much better. The reason we were keeping him today was that his sugars were not controlled overnight. We did EKG and trop. Trop negative but EKG showed aflutter for the first time in this admission. We ordered breathing treatment and decided to start patient on CPAP since we had instructed him to start that on discharge. Patient denied any chest pain or palpitations during the episode, lung and heart exam normal. Satting 96% at the time of chest tightness episode, 90 heart rate. Review of Systems Constitutional: Reports: no symptoms. EENTM: Reports: no symptoms. Cardiovascular: Reports: see HPI. Respiratory: Reports: short of breath. Gastrointestinal: Reports: no symptoms. Genitourinary: Reports: no symptoms. Musculoskeletal: Reports: no symptoms. Skin: Reports: no symptoms. Neurological/Psychological: Reports: anxiety. Hematologic/Endocrine: Reports: no symptoms. Objective Last 24 Hrs of Vital Signs/I&O Vital Signs Date Time Temp Pulse Resp B/P B/P Pulse O2 O2 Flow FiO2 Mean Ox Delivery Rate 04/01 0000 97 Room Air 03/31 2148 98.0 70 20 104/60 97 03/31 1933 96 Room Air 03/31 1600 96 Room Air 03/31 1539 Room Air Room Air 03/31 1335 96.0 95 20 100/70 96 Room Air 03/31 0812 80 120/70 03/31 0800 Room Air 03/31 0645 97.9 80 18 128/70 98 Room Air Intake & Output 04/01 0800 04/01 0000 03/31 1600 Intake Total 360 720 Output Total Balance 360 720 Intake, Oral 360 720 Patient 218 lb Weight Physical Exam General Appearance: Alert, Oriented X3, Cooperative, Mild Distress Skin: No Rashes, No Breakdown, No Significant Lesion Skin Temp/Moisture Exam: Warm/Dry Sepsis Skin Exam (color): Normal for Ethnicity HEENT: Atraumatic, EOMI, Mucous Membr. moist/pink Neck: Supple Cardiovascular: Normal S1, Normal S2, No Murmurs Lungs: Clear to Auscultation, Normal Air Movement Abdomen: Normal Bowel Sounds, Soft, No Tenderness, No Hepatospenomegaly, No Masses Neurological: Normal Gait, Normal Speech Extremities: No Clubbing, No Cyanosis, No Edema, Normal Pulses, No Tenderness/ Swelling Vascular: Normal Pulses, Pulses Symmetrical Current Medications: Current Medications Sig/Efe Start time Last Medication Dose Route Stop Time Status Admin Acetaminophen 325 MG Q6P PRN 03/27 2045 AC PO Albuterol Sulfate 3 ML EVERY 4 HRS/AWAKE 03/31 1600 AC 03/31 INH 1930 Albuterol Sulfate 2 PUF Q4 PRN 03/27 2200 AC INH Alprazolam 0.25 MG DAILY 03/31 959 AC 03/31 PO 04/07 0958 1124 Apixaban 5 MG BID 03/27 2146 AC 03/31 PO 211 Atorvastatin Calcium 40 MG 1700 03/28 1700 AC 03/31 PO 1644 Azithromycin 250 MG MoWeFr 03/29 1000 AC 03/31 PO 0913 Budesonide/ 2 PUF BID 03/28 900 AC 03/31 Formoterol Fumarate INH 2111 Calcium Carbonate 500 MG DAILY 03/28 204 AC 03/31 PO 0812 Cholecalciferol 1,000 IU DAILY 03/29 1803 AC 03/31 PO 08 Cyclobenzaprine HCl 10 MG TID 03/28 900 AC 03/31 PO 211 Diltiazem HCl 180 MG DAILY 03/28 900 AC 03/31 PO 08 Fenofibrate 145 MG DAILY 03/28 900 AC 03/31 PO 08 Furosemide 20 MG DAILY 03/28 900 AC 03/31 PO 08 Guaifenesin 600 MG Q12 03/28 900 AC 03/31 PO 211 Hydrocodone Bitart/ 1 TAB Q6P PRN 03/27 2315 AC 03/31 Acetaminophen PO 211 Insulin Aspart 0 AT BEDTIME 03/29 2100 AC 03/31 SC 211 Insulin Aspart 0 TIDAC 03/29 1800 AC 03/31 SC 1644 Insulin Detemir 10 UNITS QAM 04/01 900 AC SC Insulin Detemir 10 UNITS BID 03/29 2100 DC 03/31 SC 08 Lansoprazole 30 MG BID 03/30 1415 AC 03/31 PO 2113 Lisinopril 10 MG DAILY 03/28 0900 AC 03/31 PO 811 Melatonin 5 MG AT BEDTIME 03/31 2100 AC 03/31 PO 2109 Melatonin 3 MG AT BEDTIME 03/28 2100 DC 03/30 PO 2055 Polyethylene Glycol 17 GM DAILY 03/30 1433 AC 03/31 PO 0810 Prednisone 30 MG ONCE ONE 04/01 900 AC PO 04/01 901 Prednisone 40 MG DAILY 03/31 900 DC 03/31 PO 810 Senna/Docusate Sodium 1 TAB BID PRN 03/30 1445 AC PO Tiotropium [place] 1 PUF DAILY 03/27 2200 AC 03/31 INH 0809 Last 24 Hrs of Lab/Mandeep Results Last 24 Hrs of Labs/Mics: Laboratory Tests 03/31/181999: Troponin I 0.02 03/31/18 144: Troponin I 0.03 03/31/18 0715: Anion Gap 13, Estimated GFR > 60, BUN/Creatinine Ratio 52.2 H, CBC w Diff NO MAN DIFF REQ, RBC 4.88, MCV 88.8, MCH 28.9, MCHC 32.5 L, RDW 16.4 H, MPV 6.1 L, Gran % 79.2 H, Lymphocytes % 13.9 L, Monocytes % 6.5, Eosinophils % 0.1, Basophils % 0.3, Absolute Granulocytes 13.7 H, Absolute Lymphocytes 2.4, Absolute Monocytes 1.1 H, Absolute Eosinophils 0, Absolute Basophils 0.1 Assessment/Plan Assessment: Patient is a 77yo M w/ PMH of COPD not on home oxygen but on 10 mg chronic prednisone, RODRICK noncompliant with CPAP, A. fib on Eliquis currently rate controlled, diabetes, hypertension, hyperlipidemia, degenerative disc disease presented to ER with SOB with nonproductive cough 3-4 days. He was last admitted to [facility] in 11/2017 with COPD exacerbation and was sent home on chronic prednisone and was managed by [facility]/Dr. Avila, last seen in Dr. Avila's office about 3 weeks ago, who adjusted his prednisone to 10mg daily , with zithromax prescribed. Patient reportedly never got home oxygen arranged because he was not eligible based on his O2 sats. However, over the previous months, he was still have on/off difficulty breathing and over the past week it had been getting worse and he felt R sided chest pain/tightness along with the SOB. Patient was diagnosed with diastolic CHF in 2012 (last EF 55%) and was managed by Dr. Pinedo on Lasix 20mg daily. He sleeps in an incliner bed with one pillow and leg elevation, however he was not on CPAP for his RODRICK as the CPAP made him "confused". Patient compliant with all other meds. Patient states he quit smoking 2 yrs ago, former 2-3PPD. On admission, vitals afebrile, pulse 91, BP 111/68, 94% on room air, leukocytosis 16.8, otherwise unremarkable, d-dimer negative, BMP: NA 142, glucose 211, proBNP 171 baseline 114, otherwise unremarkable. CXR: Stable appearance of the chest relative to 02/24/2018. No acute abnormality is evident. In the ER: Nebulizer, IV bolus, supplemental 125 1, azithromycin. Plan #Respiratory distress, wheezing, dry cough likely secondary to COPD exacerbation : clinically symptoms have resolved but chest tightness returned today -For chest tightness add another EKG and trop. If EKG shows continued aflutter and patient continues to have chest tightness consider sending to telemetry. As per patient, the last time he knows that he was in afib/flutter was 4 months ago. -CHF, stable w/ last known EF >55%, patient compliant with lasix -Offer supplemental O2 and nebs -Appreciate pulmonary recs, started quick taper today with 40mg prednisone and 30mg tomorrow -As patient is to stay for another day to control his blood glucose levels, we will start CPAP here because of his dyspneic episode. Settings are autopap 4-18 as per respiratory. -Changed long time zithromax to 250mg MWF -Patient has history of achalasia, aspiration precautions -As per Dr. Avila most recent echo was obtained which was normal with an ejection fraction of 69%, no signficant valvular disease, no pulmonary HTN, and no change since previous echo in 2011. -Give patient low dose Xanax .25 mg for anxiety component that may be contributing to shortness of breath and chest tightness. #Uncontrolled blood sugar levels: Patient is currently on high dose insulin sliding scale and Levemir 10 units twice a day as per endocrinology consult. This morning glucose was 174. -As per Dr. Dunbar, in an effort to taper the patient's insulin we will reduce levemir to 10 units once per morning. We will watch what sugars do today for anticipated dc tomorrow. Sliding scale adjustment to qac scale, bedtime scale the same. -Hemoglobin A1c is 8.9 and patient is on only metformin at home. #Constipation: no bowel movement in 4 days -Started bowel regimen #PMH of RODRICK noncompliant with CPAP, A. fib on Eliquis currently rate controlled, diabetes, hypertension, hyperlipidemia, degenerative disc disease -Continue home medications DVT prophylaxis Eliquis + ALPS Heart Healthy Diet FUll Code Problem List: 1. COPD exacerbation 2. Paroxysmal atrial fibrillation 3. Diabetes Pain Ratin Pain Location: na Pain Goal: Remain pain free Pain Plan: na Tomorrow's Labs & Rationales: tao Gilmore MD,Syeda 03/31/18 1048: Attending MD Review Statement Attending Statement Attending MD Statement: examined this patient, discuss w/resident/PA/SENIOR WEB ANALYST, agreed w/resident/PA/SENIOR WEB ANALYST, reviewed EMR data (avail), discussed with nursing, discussed with case mgmt, reviewed images, amended to note Attending Assessment/Plan: Patient seen and examined. Lying in bed. Reports shortness of breath that comes on spontaneously occasionally at rest sometimes with exertion. He feels that oxygen supplementation will help with his shortness of breath however he is not hypoxic and does not require oxygen supplementation. He does admit to similar episodes on occasion in the past. On examination he does not appear to be in any acute respiratory distress. He has adequate entry bilaterally with no added sounds. He has no jugular venous distention. He has no significant peripheral edema. Blood glucose levels are improving. Endocrinology follow-up appreciated. Plan: -Patient will remain in the hospital as we adjust his glucose control further per recommendations of the endocrinology service. Hopefully he will be discharged home on an oral regimen rather than insulin therapy. Please follow- up with endocrinology service today. The patient will be discharged home on insulin therapy we will need to begin insulin teaching in the hospital. -Patient shows no evidence of bronchospasm. He has adequate entry bilaterally with no added rhonchi. Decreased dose of prednisone to 30 mg daily tomorrow. -His reports of sudden onset shortness of breath that will cause at rest or sometimes with exertion appears to be more related to anxiety than worsening of his pulmonary or cardiac pathology. Recommend starting patient on low-dose anxiolytic therapy with Xanax 0.25 mg daily and monitor for improvement. Increase dose of his melatonin at bedtime to help with sleep. -Nursing staff encouraged to mobilize patient as tolerated.-
[2018-03-31 13:35] VITALS: BP 100/70
--- NOTE | 2018-03-31 15:28 | PN- Cardiology ---
Subjective Subjective: Clinically, the patient appears to be more short of breath today. Currently receiving nebulizer treatment Objective Vital Signs and I&Os Vital Signs Date Time Temp Pulse Resp B/P B/P Pulse O2 O2 Flow FiO2 Mean Ox Delivery Rate 03/31 1335 96.0 95 20 100/70 96 Room Air 03/31 0812 80 120/70 03/31 0645 97.9 80 18 128/70 98 Room Air 03/31 0000 Room Air 03/30 2230 97.8 78 18 124/62 97 Room Air Intake & Output 03/31 1600 03/31 0803/31 0000 03/30 1600 03/30 0803/30 0000 Intake Total 480 480 60 900 Output Total Balance 480 480 60 900 Intake, Oral 480 480 60 900 Number 0 Bowel Movements Patient 218 lb Weight Physical Exam: General Appearance: well developed, elderly, white male, alert, awake, oriented Head: normal HEENT: Normal Neck: supple, JVP normal, carotid upstrokes normal bilaterally, no masses or thyromegaly Respiratory: chest non-tender, bilateral rhonchi with decreased breath sounds Cardiovascular: regular rate/rhythm, normal S1, S2, 1/6 systolic murmur Abdomen: normal bowel sounds, soft, non-tender Extremities: normal inspection, trace to 1+ lower extremity edema Vascular: Pulses are 2+ and equal bilaterally Neurologic: Grossly normal/nonfocal Current Medications: Current Medications Sig/Efe Start time Last Medication Dose Route Stop Time Status Admin Acetaminophen 325 MG Q6P PRN 03/27 2045 AC PO Albuterol Sulfate 2 PUF Q4 PRN 03/27 2200 AC INH Alprazolam 0.25 MG DAILY 03/31 959 AC 03/31 PO 04/07 0958 1124 Apixaban 5 MG BID 03/27 2146 AC 03/31 PO 0812 Atorvastatin Calcium 40 MG 1700 03/28 1700 AC 03/30 PO 1627 Azithromycin 250 MG MoWeFr 03/29 1000 AC 03/31 PO 0913 Budesonide/ 2 PUF BID 03/28 09 AC 03/31 Formoterol Fumarate INH 0808 Calcium Carbonate 500 MG DAILY 03/28 204 AC 03/31 PO 0812 Cholecalciferol 1,000 IU DAILY 03/29 1803 AC 03/31 PO 0811 Cyclobenzaprine HCl 10 MG TID 03/28 900 AC 03/31 PO 0812 Diltiazem HCl 180 MG DAILY 03/28 900 AC 03/31 PO 0812 Fenofibrate 145 MG DAILY 03/28 900 AC 03/31 PO 0811 Furosemide 20 MG DAILY 03/28 900 AC 03/31 PO 0812 Guaifenesin 600 MG Q12 03/28 900 AC 03/31 PO 0812 Hydrocodone Bitart/ 1 TAB Q6P PRN 03/27 2315 AC 03/31 Acetaminophen PO 911 Insulin Aspart 0 AT BEDTIME 03/29 2100 AC 03/30 SC 2056 Insulin Aspart 0 TIDAC 03/29 1800 AC 03/31 SC 121 Insulin Detemir 10 UNITS QAM 04/01 900 AC SC Insulin Detemir 10 UNITS BID 03/29 2100 DC 03/31 SC 08 Lansoprazole 30 MG BID 03/30 1415 AC 03/31 PO 08 Lisinopril 10 MG DAILY 03/28 900 AC 03/31 PO 0812 Melatonin 5 MG AT BEDTIME 03/31 2100 AC PO Melatonin 3 MG AT BEDTIME 03/28 2100 DC 03/30 PO 2055 Patient Medication 1 ED ONE ONE 03/30 1645 VT 03/30 Teaching ED 03/30 1646 2057 Polyethylene Glycol 17 GM DAILY 03/30 1433 AC 03/31 PO 0810 Prednisone 40 MG DAILY 03/31 09 AC 03/31 PO 0811 Senna/Docusate Sodium 1 TAB BID PRN 03/30 1445 AC PO Tiotropium [place] 1 PUF DAILY 03/27 2200 AC 03/31 INH 0809 Results Last 48 Hrs of Labs/Mics: Laboratory Tests 03/31/18 0715: Anion Gap 13, Estimated GFR > 60, BUN/Creatinine Ratio 52.2 H, CBC w Diff NO MAN DIFF REQ, RBC 4.88, MCV 88.8, MCH 28.9, MCHC 32.5 L, RDW 16.4 H, MPV 6.1 L, Gran % 79.2 H, Lymphocytes % 13.9 L, Monocytes % 6.5, Eosinophils % 0.1, Basophils % 0.3, Absolute Granulocytes 13.7 H, Absolute Lymphocytes 2.4, Absolute Monocytes 1.1 H, Absolute Eosinophils 0, Absolute Basophils 0.1 03/30/18 0645: Anion Gap 11, Estimated GFR > 60, BUN/Creatinine Ratio 50.0 H, CBC w Diff NO MAN DIFF REQ, RBC 4.10 L, MCV 87.5, MCH 29.4, MCHC 33.6, RDW 16.4 H, MPV 6.1 L, Gran % 92.2 H, Lymphocytes % 4.8 L, Monocytes % 3.0, Eosinophils % 0, Basophils % 0, Absolute Granulocytes 14.7 H, Absolute Lymphocytes 0.8 L, Absolute Monocytes 0.5, Absolute Eosinophils 0, Absolute Basophils 0 Assessment/Plan Assessment/Plan Assessment: 1. Worsening exertional shortness of breath, possible COPD exacerbation 2. Chronic HFpEF 3. Obstructive sleep apnea, noncompliant with CPAP 4. History of atrial fibrillation on Eliquis 5. Hypertension 6. Hyper lipidemia 7. Diabetes-hyperglycemia aggravated by steroid use Recommendations: -Continue current medication regimen for now; apparently the patient has not been receiving nebulizer treatments. They are just being started at the moment. Hopefully the patient will improve further over the next 24 hours. -Continue as per pulmonary -The patient's last echocardiogram from Dr. Pinedo's office performed on 01/18 showed normal left ventricular function with no significant valvular disease and no significant pulmonary hypertension. -Please see if the patient can start his home Prevacid preparation. Continue telemetry? No
[2018-03-31 21:48] VITALS: BP 104/60
[2018-04-01 06:01] VITALS: BP 90/54
--- NOTE | 2018-04-01 07:46 | PN- Housestaff ---
Subjective Follow-up For: #COPD exacerbation #CHF, stable w/ last known EF >55% #aflutter - patient had been rate controlled entire admission before episode of chest tightness on inspiration #PMH of RODRICK noncompliant with CPAP,diabetes, hypertension, hyperlipidemia, degenerative disc disease Subjective: Patient seen and examined. He states that he continues to have some mild chest tightness but denies any active shortness of breath. The patient had 2 EKGs done yesterday both were in A. fib/atrial flutter. The patient has no other concerns or complaints. Review of Systems Constitutional: Reports: no symptoms. EENTM: Reports: no symptoms. Cardiovascular: Reports: see HPI. Respiratory: Reports: see HPI. Gastrointestinal: Reports: no symptoms. Genitourinary: Reports: no symptoms. Musculoskeletal: Reports: no symptoms. Skin: Reports: no symptoms. Neurological/Psychological: Reports: no symptoms, see HPI. Hematologic/Endocrine: Reports: no symptoms. Objective Last 24 Hrs of Vital Signs/I&O Vital Signs Date Time Temp Pulse Resp B/P B/P Pulse O2 O2 Flow FiO2 Mean Ox Delivery Rate 04/01 1002 74 108/50 04/01 0724 95 Room Air 04/01 0601 97.7 70 20 90/54 98 Room Air 04/01 0000 97 Room Air 03/31 2148 98.0 70 20 104/60 97 03/31 1933 96 Room Air 03/31 1600 96 Room Air 03/31 1539 Room Air Room Air 03/31 1335 96.0 95 20 100/70 96 Room Air Intake & Output 04/01 1600 04/01 0800 04/01 0000 Intake Total 480 360 Output Total Balance 480 360 Intake, Oral 480 360 Physical Exam General Appearance: Alert, Oriented X3, Cooperative, No Acute Distress Skin: No Rashes, No Breakdown, No Significant Lesion Skin Temp/Moisture Exam: Warm/Dry Sepsis Skin Exam (color): Normal for Ethnicity HEENT: Atraumatic, EOMI, Mucous Membr. moist/pink Neck: Supple, No JVD Cardiovascular: Normal S1, Normal S2, No Murmurs Lungs: Clear to Auscultation, Normal Air Movement Abdomen: Normal Bowel Sounds, Soft, No Tenderness Neurological: Normal Gait, Normal Speech Extremities: No Cyanosis, No Edema, Normal Pulses Vascular: Normal Pulses, Pulses Symmetrical Sepsis Peripheral Pulse Location: Radial Current Medications: Current Medications Sig/Efe Start time Last Medication Dose Route Stop Time Status Admin Acetaminophen 325 MG Q6P PRN 03/27 2045 AC PO Albuterol Sulfate 3 ML EVERY 4 HRS/AWAKE 03/31 1600 AC 04/01 INH 0724 Albuterol Sulfate 2 PUF Q4 PRN 03/27 2200 AC INH Alprazolam 0.25 MG DAILY 03/31 0959 AC 04/01 PO 04/07 0958 1019 Apixaban 5 MG BID 03/27 2146 AC 04/01 PO 1005 Atorvastatin Calcium 40 MG 1700 03/28 1700 AC 03/31 PO 1644 Azithromycin 250 MG MoWeFr 03/29 1000 AC 03/31 PO 0913 Bisacodyl 10 MG ONCE PRN 04/01 0800 AC 04/01 VT 1009 Budesonide/ 2 PUF BID 03/28 0900 AC 04/01 Formoterol Fumarate INH 1007 Calcium Carbonate 500 MG DAILY 03/28 204 AC 03/31 PO 0812 Cholecalciferol 1,000 IU DAILY 03/29 1803 AC 04/01 PO 1001 Cyclobenzaprine HCl 10 MG TID 03/28 900 AC 04/01 PO 1005 Diltiazem HCl 180 MG DAILY 03/28 0900 AC 04/01 PO 1006 Fenofibrate 145 MG DAILY 03/28 09 AC 04/01 PO 1001 Furosemide 20 MG DAILY 03/28 900 AC 04/01 PO 1005 Guaifenesin 600 MG Q12 03/28 0900 AC 04/01 PO 1003 Hydrocodone Bitart/ 1 TAB Q6P PRN 03/27 2315 AC 04/01 Acetaminophen PO 0514 Insulin Aspart 0 AT BEDTIME 03/29 2100 AC 03/31 SC 211 Insulin Aspart 0 TIDAC 03/29 1800 AC 04/01 SC 0752 Insulin Detemir 10 UNITS QAM 04/01 0900 AC SC Lansoprazole 30 MG BID 03/30 1415 AC 04/01 PO 1003 Lisinopril 10 MG DAILY 03/28 900 AC 04/01 PO 1002 Melatonin 5 MG AT BEDTIME 03/31 2100 AC 03/31 PO 2110 Polyethylene Glycol 17 GM DAILY 03/30 1433 AC 04/01 PO 1004 Prednisone 30 MG ONCE ONE 04/01 900 DC 04/01 PO 04/01 0901 1003 Prednisone 40 MG DAILY 05/11 0900 DC 03/31 PO 0811 Senna/Docusate Sodium 1 TAB BID PRN 03/30 1445 AC PO Tiotropium [place] 1 PUF DAILY 03/27 2200 AC 04/01 INH 1006 Last 24 Hrs of Lab/Mandeep Results Last 24 Hrs of Labs/Mics: Laboratory Tests 03/31/18 2000: Troponin I 0.02 03/31/18 1440: Troponin I 0.03 Assessment/Plan Assessment: Patient is a 77yo M w/ PMH of COPD not on home oxygen but on 10 mg chronic prednisone, RODRICK noncompliant with CPAP, A. fib on Eliquis currently rate controlled, diabetes, hypertension, hyperlipidemia, degenerative disc disease presented to ER with SOB with nonproductive cough 3-4 days. He was last admitted to [facility] in 11/2017 with COPD exacerbation and was sent home on chronic prednisone and was managed by [facility]/Dr. Avila, last seen in Dr. Avila's office about 3 weeks ago, who adjusted his prednisone to 10mg daily , with zithromax prescribed. Patient reportedly never got home oxygen arranged because he was not eligible based on his O2 sats. However, over the previous months, he was still have on/off difficulty breathing and over the past week it had been getting worse and he felt R sided chest pain/tightness along with the SOB. Patient was diagnosed with diastolic CHF in 2011 (last EF 55%) and was managed by Dr. Pinedo on Lasix 20mg daily. He sleeps in an incliner bed with one pillow and leg elevation, however he was not on CPAP for his RODRICK as the CPAP made him "confused". Patient compliant with all other meds. Patient states he quit smoking 2 yrs ago, former 2-3PPD. On admission, vitals afebrile, pulse 91, BP 111/68, 94% on room air, leukocytosis 16.8, otherwise unremarkable, d-dimer negative, BMP: NA 142, glucose 211, proBNP 171 baseline 114, otherwise unremarkable. CXR: Stable appearance of the chest relative to 02/24/2018. No acute abnormality is evident. In the ER: Nebulizer, IV bolus, supplemental 125 1, azithromycin. Plan #Respiratory distress, wheezing, dry cough likely secondary to COPD exacerbation : clinically symptoms have resolved and today chest tightness is minimal -For chest tightness we did another EKG and trop. EKG showed persistent A. fib/ A flutter, if patient has a return of chest tightness consider sending to telemetry. As per patient, the last time he knows that he was in afib/flutter was 4 months ago. The patient is already on Eliquis 5 mg twice daily and Cardizem. -CHF, stable w/ last known EF >55%, patient compliant with lasix -Offer supplemental O2 and nebs -Appreciate pulmonary recs, continue quick taper today with 30mg prednisone today -As patient is to stay for another day to control his blood glucose levels, we started CPAP here because of his dyspneic episode. Settings are autopap 4-18 as per respiratory. -Changed long time zithromax to 250mg MWF -Patient has history of achalasia, aspiration precautions -As per Dr. Avila most recent echo was obtained which was normal with an ejection fraction of 69%, no signficant valvular disease, no pulmonary HTN, and no change since previous echo in 2011. -Give patient low dose Xanax .25 mg for anxiety component that may be contributing to shortness of breath and chest tightness. Patient is as of yet unsure it is helping. #Uncontrolled blood sugar levels: Patient is currently on high dose insulin sliding scale and Levemir 10 units every morning switched from twice daily as per endocrinology consult. This morning glucose was 149. -As per Dr. Dunbar, we will watch what sugars do today for anticipated dc. Sliding scale adjustment to qac scale, bedtime scale the same. -Hemoglobin A1c is 8.9 and patient is on only metformin at home. #Constipation: no bowel movement in 4 days -Started bowel regimen and added Dulcolax suppository as patient still had not gone as of this morning #PMH of RODRICK noncompliant with CPAP, A. fib on Eliquis currently rate controlled, diabetes, hypertension, hyperlipidemia, degenerative disc disease -Continue home medications DVT prophylaxis Eliquis + ALPS Heart Healthy Diet FUll Code Problem List: 1. Diabetes 2. COPD exacerbation Pain Ratin Pain Location: na Pain Goal: Remain pain free Pain Plan: na Tomorrow's Labs & Rationales: na
--- NOTE | 2018-04-01 09:19 | PN- Diabetes ---
Assessment/Plan Diabetes Assessment: Patient feels worse this morning. He is off prednisone completely. He states he is very short of breath. He could not eat much breakfast because he feels that when he eats too much and makes his breathing worse. The patient has a history of atrial fibrillation. Plan: Suggest that if the patient stays off prednisone we can stop his insulin. We could place him on metformin 500 mg twice a day with breakfast and with dinner as well as Januvia 100 mg daily. The patient needs to be reevaluated from the cardiac point of view. He needs an EKG this morning. He could be in atrial fibrillation. Patient needs to be seen again by pulmonary and cardiology. He may need to be moved to telemetry. If steroids are restarted then I would resume his insulin regimen. He could stay on Levemir 10 units once a day in the morning and resume his sliding scale NovoLog before meals with a separate sliding scale at bedtime. Subjective Subjective: Feels worse Review of Systems Constitutional: Denies: chills, fever. Cardiovascular: Denies: chest pain. Respiratory: Reports: cough, short of breath. Gastrointestinal: Denies: abdominal pain. Skin: Reports: no symptoms. Objective Last 24 Hrs of Vital Signs/I&O Vital Signs Date Time Temp Pulse Resp B/P B/P Pulse O2 O2 Flow FiO2 Mean Ox Delivery Rate 04/01 0724 95 Room Air 04/01 0601 97.7 70 20 90/54 98 Room Air 04/01 0000 97 Room Air 03/318 98.0 70 20 104/60 97 03/31 1933 96 Room Air 03/31 1600 96 Room Air 03/31 1539 Room Air Room Air 03/31 1335 96.0 95 20 100/70 96 Room Air Intake & Output 04/01 1600 04/01 0800 04/01 0000 Intake Total 480 360 Output Total Balance 480 360 Intake, Oral 480 360 Vital Signs Date Time Temp Pulse Resp B/P B/P Pulse O2 O2 Flow FiO2 Mean Ox Delivery Rate 04/01 0724 95 Room Air 04/01 0601 97.7 70 20 90/54 98 Room Air 05 0000 97 Room Air 03/31 2148 98.0 70 20 104/60 97 03/31 1933 96 Room Air 03/31 1600 96 Room Air 03/31 1539 Room Air Room Air 05/11 1335 96.0 95 20 100/70 96 Room Air Intake & Output 04/01 1600 04/01 0800 05/ 0000 Intake Total 480 360 Output Total Balance 480 360 Intake, Oral 480 360 Physical Exam General Appearance: alert, awake, moderate distress Head: normal appearance Neck: normal inspection Respiratory: decreased breath sounds, increased respiratory rate Cardiovascular: tachycardia Abdomen: normal bowel sounds Extremities: normal inspection Current Medications: Current Medications Sig/Efe Start time Last Medication Dose Route Stop Time Status Admin Acetaminophen 325 MG Q6P PRN 03/27 2045 AC PO Albuterol Sulfate 3 ML EVERY 4 HRS/AWAKE 03/31 1600 AC 04/01 INH 0724 Albuterol Sulfate 2 PUF Q4 PRN 03/27 2200 AC INH Alprazolam 0.25 MG DAILY 03/31 0959 AC 03/31 PO 04/07 0958 1124 Apixaban 5 MG BID 03/27 2146 AC 03/31 PO 2110 Atorvastatin Calcium 40 MG 1700 03/28 1700 AC 03/31 PO 1644 Azithromycin 250 MG MoWeFr 03/29 1000 AC 03/31 PO 0913 Bisacodyl 10 MG ONCE PRN 04/01 0800 AC SD Budesonide/ 2 PUF BID 03/28 0900 AC 03/31 Formoterol Fumarate INH 2111 Calcium Carbonate 500 MG DAILY 03/28 204 AC 03/31 PO 0812 Cholecalciferol 1,000 IU DAILY 03/29 1803 AC 03/31 PO 0811 Cyclobenzaprine HCl 10 MG TID 03/28 0900 AC 03/31 PO 211 Diltiazem HCl 180 MG DAILY 03/28 09 AC 03/31 PO 0812 Fenofibrate 145 MG DAILY 03/28 900 AC 03/31 PO 0811 Furosemide 20 MG DAILY 03/28 0900 AC 03/31 PO 0812 Guaifenesin 600 MG Q12 03/28 0900 AC 03/31 PO 2110 Hydrocodone Bitart/ 1 TAB Q6P PRN 03/27 2315 AC 04/01 Acetaminophen PO 0514 Insulin Aspart 0 AT BEDTIME 03/29 2100 AC 03/31 SC 211 Insulin Aspart 0 TIDAC 03/29 1800 AC 04/01 SC 0752 Insulin Detemir 10 UNITS QAM 04/01 0900 AC SC Insulin Detemir 10 UNITS BID 03/29 2100 DC 03/31 SC 0813 Lansoprazole 30 MG BID 03/30 1415 AC 03/31 PO 2113 Lisinopril 10 MG DAILY 03/28 900 AC 03/31 PO 811 Melatonin 5 MG AT BEDTIME 03/31 2100 AC 03/31 PO 2109 Melatonin 3 MG AT BEDTIME 03/28 2100 DC 03/30 PO 2055 Polyethylene Glycol 17 GM DAILY 03/30 1433 AC 03/31 PO 0810 Prednisone 30 MG ONCE ONE 04/01 900 DC PO 04/01 09 Prednisone 40 MG DAILY 03/31 900 DC 03/31 PO 08 Senna/Docusate Sodium 1 TAB BID PRN 03/30 1445 AC PO Tiotropium [place] 1 PUF DAILY 03/27 220 AC 03/31 INH 0809 Findings Pertinent Lab/Mandeep Results: Laboratory Tests 03/31 1440 0715 Chemistry Sodium (137 - 145 mmol/L) 136 L Potassium (3.5 - 5.1 mmol/L) 5.1 Chloride (98 - 107 mmol/L) 95 L Carbon Dioxide (22 - 30 mmol/L) 27 Anion Gap (5 - 16) 13 BUN (9 - 20 mg/dL) 47 H Creatinine (0.7 - 1.2 mg/dL) 0.9 Estimated GFR (>60 ml/min) > 60 BUN/Creatinine Ratio (7 - 25 %) 52.2 H Troponin I (<0.11 ng/ml) 0.02 0.03 Hematology CBC w Diff NO MAN DIFF REQ WBC (4.8 - 10.8 /CUMM) 17.3 H RBC (4.70 - 6.10 /CUMM) 4.88 Hgb (14.0 - 18.0 G/DL) 14.1 Hct (42 - 52 %) 43.3 MCV (80.0 - 94.0 FL) 88.8 MCH (27.0 - 31.0 PG) 28.9 MCHC (33.0 - 37.0 G/DL) 32.5 L RDW (11.5 - 14.5 %) 16.4 H Plt Count (130 - 400 /CUMM) 457 H MPV (7.4 - 10.4 FL) 6.1 L Gran % (42.2 - 75.2 %) 79.2 H Lymphocytes % (20.5 - 51.1 %) 13.9 L Monocytes % (1.7 - 9.3 %) 6.5 Eosinophils % (0 - 5 %) 0.1 Basophils % (0.0 - 2.0 %) 0.3 Absolute Granulocytes (1.4 - 6.5 /CUMM) 13.7 H Absolute Lymphocytes (1.2 - 3.4 /CUMM) 2.4 Absolute Monocytes (0.10 - 0.60 /CUMM) 1.1 H Absolute Eosinophils (0.0 - 0.7 /CUMM) 0 Absolute Basophils (0.0 - 0.2 /CUMM) 0.1
--- NOTE | 2018-04-01 09:44 | PN- Att Addend ---
Attending Addendum Attending Brief Note Patient seen and examined. This morning he is sitting up in bed appears uncomfortable. He is reporting difficulty breathing. Symptoms are worse compared to presentation and even yesterday. He reports retrosternal discomfort but denies any overt pain. Yesterday cardiac enzymes were checked and were negative 2. Troponin was 0.03 and 0.02. EKG yesterday shows atrial fibrillation with controlled ventricular response. He continues to maintain saturation on room air. He also reports constipation for several days. He has MiraLAX and Senokot ordered. He has been receiving the MiraLAX however nursing has not administered the Senokot. Vital Signs Date Time Temp Pulse Resp B/P B/P Pulse O2 O2 Flow FiO2 Mean Ox Delivery Rate 04/01 0724 95 Room Air 04/01 0601 97.7 70 20 90/54 98 Room Air 04/01 0000 97 Room Air 03/31 2148 98.0 70 20 104/60 97 03/31 1933 96 Room Air 03/31 1600 96 Room Air 03/31 1539 Room Air Room Air 03/31 1335 96.0 95 20 100/70 96 Room Air General appearance: Well-developed appears uncomfortable HEENT: Anicteric, no pallor, pupils equal and reactive. Neck: Supple with no jugular venous distention. Heart: S1-S2 irregular with no audible murmurs. Not tachycardic Lungs: Adequate and symmetric air entry bilaterally with no added sounds. Abdomen: Mildly distended with normal bowel sounds. Soft, nontender with no palpable masses. Extremities: No pedal edema. No cyanosis. Skin: Intact Laboratory Tests 03/31/18 2000: Troponin I 0.02 03/31/18 1440: Troponin I 0.03 Problems: 1. Dyspnea 2. COPD 3. Chronic heart failure with preserved ejection fraction. 4. Atrial fibrillation with controlled ventricular response on anticoagulation with Eliquis 5. Enm-[id number] diabetes mellitus with steroid-induced hyperglycemia. Plan: -Dyspnea does not appear to be secondary to exacerbation of his COPD. He is not in bronchospasm at present. He has no wheezing or rhonchi on examination. Reportedly echocardiogram done earlier this year showed normal ejection fraction and no significant valvular abnormality. He is not in volume overload at present. There may be a component of anxiety associated with these symptoms. This anxiety may be aggravated by steroid use. -Patient has been receiving his long-acting bronchodilator therapy in the form of Spiriva and Symbicort. He has not been receiving his short acting bronchodilator, albuterol, as he has not had any significant wheezing recently. -Recommend reevaluation by the cardiology and pulmonology service. Obtain chest x-ray. Pulmonary embolism appears less likely given the absence of hypoxia in the presence of his significant dyspnea. He is also on anticoagulation therapy. -Continue Xanax for anxiety. -He was weaned off intravenous steroids. He received 40 mg orally of prednisone yesterday and 30 mg orally of prednisone today. Given his hyperglycemia and anxiety as well as the absence of any evidence of exacerbation of the COPD are present, would recommend holding further steroid therapy. Please follow-up with the pulmonology service if they are in agreement with this plan. -Would recommend more aggressive management of his constipation. Patient should receive a Fleet enema this morning. Will obtain an abdominal x-ray as well to rule out obstruction. -Endocrinology follow-up this morning appreciated. Continue the current insulin regimen for now while he is in the hospital. We will place the patient on the oral regimen recommended at the time of discharge
--- NOTE | 2018-04-01 13:20 | PN- Pulmonary ---
Subjective HPI/Critical Care Issues: Doing about the same On room air Still complains of shortness of breath on exertion Afebrile Objective Current Medications: Current Medications Sig/Efe Start time Last Medication Dose Route Stop Time Status Admin Acetaminophen 325 MG Q6P PRN 03/27 204 AC PO Albuterol Sulfate 3 ML EVERY 4 HRS/AWAKE 03/31 1600 AC 04/01 INH 1137 Albuterol Sulfate 2 PUF Q4 PRN 03/27 2200 AC INH Alprazolam 0.25 MG DAILY 03/31 0959 AC 04/01 PO 04/07 0958 1019 Apixaban 5 MG BID 03/27 2146 AC 04/01 PO 1005 Atorvastatin Calcium 40 MG 1700 03/28 1700 AC 03/31 PO 1644 Azithromycin 250 MG MoWeFr 03/29 1000 AC 03/31 PO 0913 Bisacodyl 10 MG ONCE PRN 04/01 0800 AC 04/01 NV 1009 Budesonide/ 2 PUF BID 03/28 0900 AC 04/01 Formoterol Fumarate INH 1007 Calcium Carbonate 500 MG DAILY 03/28 204 AC 03/31 PO 0812 Cholecalciferol 1,000 IU DAILY 03/29 1803 AC 04/01 PO 1001 Cyclobenzaprine HCl 10 MG TID 03/28 900 AC 04/01 PO 1005 Diltiazem HCl 180 MG DAILY 03/28 900 AC 04/01 PO 1006 Fenofibrate 145 MG DAILY 03/28 0900 AC 04/01 PO 1001 Furosemide 20 MG DAILY 03/28 0900 AC 04/01 PO 1005 Guaifenesin 600 MG Q12 03/28 0900 AC 04/01 PO 1003 Hydrocodone Bitart/ 1 TAB Q6P PRN 03/27 2315 AC 04/01 Acetaminophen PO 1152 Insulin Aspart 0 AT BEDTIME 03/29 2100 AC 03/31 SC 2111 Insulin Aspart 0 TIDAC 03/29 1800 AC 04/01 SC 0752 Insulin Detemir 10 UNITS QAM 04/01 0900 AC SC Lansoprazole 30 MG BID 03/30 1415 AC 04/01 PO 1003 Lisinopril 10 MG DAILY 03/28 09 AC 04/01 PO 1002 Melatonin 5 MG AT BEDTIME 03/31 2100 AC 03/31 PO 2110 Polyethylene Glycol 17 GM DAILY 03/30 1433 AC 04/01 PO 1004 Prednisone 30 MG ONCE ONE 04/01 0900 DC 04/01 PO 04/01 0901 1003 Prednisone 40 MG DAILY 03/31 0900 DC 03/31 PO 0811 Senna/Docusate Sodium 1 TAB BID PRN 03/30 1445 AC PO Sodium Phosphate 1 UNIT ONCE ONE 04/01 1200 DC NV 04/01 1201 Tiotropium [place] 1 PUF DAILY 03/27 2200 AC 04/01 INH 1006 Laboratory Tests 03/31 03/31 03/31 2000 1440 0715 Chemistry Sodium (137 - 145 mmol/L) 136 L Potassium (3.5 - 5.1 mmol/L) 5.1 Chloride (98 - 107 mmol/L) 95 L Carbon Dioxide (22 - 30 mmol/L) 27 Anion Gap (5 - 16) 13 BUN (9 - 20 mg/dL) 47 H Creatinine (0.7 - 1.2 mg/dL) 0.9 Estimated GFR (>60 ml/min) > 60 BUN/Creatinine Ratio (7 - 25 %) 52.2 H Troponin I (<0.11 ng/ml) 0.02 0.03 Hematology CBC w Diff NO MAN DIFF REQ WBC (4.8 - 10.8 /CUMM) 17.3 H RBC (4.70 - 6.10 /CUMM) 4.88 Hgb (14.0 - 18.0 G/DL) 14.1 Hct (42 - 52 %) 43.3 MCV (80.0 - 94.0 FL) 88.8 MCH (27.0 - 31.0 PG) 28.9 MCHC (33.0 - 37.0 G/DL) 32.5 L RDW (11.5 - 14.5 %) 16.4 H Plt Count (130 - 400 /CUMM) 457 H MPV (7.4 - 10.4 FL) 6.1 L Gran % (42.2 - 75.2 %) 79.2 H Lymphocytes % (20.5 - 51.1 %) 13.9 L Monocytes % (1.7 - 9.3 %) 6.5 Eosinophils % (0 - 5 %) 0.1 Basophils % (0.0 - 2.0 %) 0.3 Absolute Granulocytes (1.4 - 6.5 /CUMM) 13.7 H Absolute Lymphocytes (1.2 - 3.4 /CUMM) 2.4 Absolute Monocytes (0.10 - 0.60 /CUMM) 1.1 H Absolute Eosinophils (0.0 - 0.7 /CUMM) 0 Absolute Basophils (0.0 - 0.2 /CUMM) 0.1 Vital Signs & I&O Last 24 Hrs of Vitals and I&O: Vital Signs Date Time Temp Pulse Resp B/P B/P Pulse O2 O2 Flow FiO2 Mean Ox Delivery Rate 04/01 1148 96 Room Air 04/01 1002 74 108/50 04/01 0724 95 Room Air 04/01 0601 97.7 70 20 90/54 98 Room Air 04/01 0000 97 Room Air 03/31 2148 98.0 70 20 104/60 97 03/31 1933 96 Room Air 03/31 1600 96 Room Air 03/31 1539 Room Air Room Air 03/31 1335 96.0 95 20 100/70 96 Room Air Intake & Output 04/01 1600 04/01 0800 04/01 0000 Intake Total 480 360 Output Total Balance 480 360 Intake, Oral 480 360 Impression/Plan Impression/Plan Impression/Plan: SIGNIFICANT DATA CT scan of the chest done in the February reviewed patient has had moderate centrilobular emphysema with bilateral basal atelectasis no consolidation no lung nodules, some peripheral vascular disease noted, wall thickening of the esophagus with small hiatal hernia noted. Full pulmonary function test done on 14 of September showed very mild obstructive small airway disease and reduced diffusion capacity associated with mild resting desaturation Previous echocardiogram done many years ago was normal with no pulmonary hypertension IMPRESSION This is a 77-year-old gentleman with previous history of very mild obstructive lung disease by spirometry and full pulmonary function tests, moderate emphysema noted in the CAT scan, CT evidence suggestive of small airway disease. At this time he does have dyspnea which is much worse than his overall pulmonary function tests etc. No clinical evidence suggestive of significant COPD at this time as he is not wheezing. He probably has significant small airway disease with reduced DLCO etc. and this needs to be treated with bronchodilators, long- term azithromycin. We should minimize systemic steroids. Other issues include Morbid obesity with obstructive sleep apnea Rule out significant pulmonary hypertension. Patient would benefit from an echocardiogram first to see whether he has any pulmonary hypertension On and off cough could be related to BEBA inhibitor this may need to be changed Rule out chronic venous thromboembolism but this seems less likely as he is already on anticoagulation. Probably would require VQ scan in the future to rule out peripheral pruning to rule out chronic venous thrombi embolism. Patient did have previous history suggestive of superficial vein thrombophlebitis in his upper arm may have been related to an IV line. Paroxysmal atrial fibrillation rule out recurrent tachycardia episode He has what appears to be esophagitis with hiatal hernia with previous history suggestive of achalasia which may be causing some of his issues with recurrent regurgitation RECOMMENDATION Continue current therapy Continue his azithromycin Discontinue lisinopril and strange him to losartan Reduce or discontinue systemic corticosteroids Start him on Flovent 2 puffs twice a day Keep his head of bed elevated Proton pump inhibitor Outpatient evaluation for his esophageal issues Would benefit from an echocardiogram to rule out pulmonary hypertension Ambulate and check O2 sat We'll follow
[2018-04-01 14:02] VITALS: BP 112/80
--- NOTE | 2018-04-01 19:11 | RADIOLOGY REPORT ---
EXAMINATION: XR PORTABLE CHEST CLINICAL INFORMATION: COPD. Chest tightness. COMPARISON: Chest radiograph 03/27/2018. TECHNIQUE: Portable frontal view of the chest was obtained. FINDINGS: There is unchanged elevation of the right hemidiaphragm. The lungs are clear without consolidation, edema, or effusion. No pneumothorax. The cardiomediastinal silhouette is normal. There are postoperative findings related to anterior cervical discectomy and fusion of the lower cervical spine. IMPRESSION: No active disease in the chest.
--- NOTE | 2018-04-01 19:12 | RADIOLOGY REPORT ---
EXAMINATION: XR PORTABLE ABDOMEN CLINICAL INFORMATION: Rule out obstruction. COMPARISON: CT of the abdomen and pelvis 01/30/2016. TECHNIQUE: 2 portable supine views of the abdomen. FINDINGS: There is a nonobstructed bowel gas pattern. No disproportionately dilated loops of bowel are seen. There is moderate amount of stool in the right colon. The lung bases are clear. There are degenerative changes in the thoracic spine. IMPRESSION: Nonobstructed bowel gas pattern.
[2018-04-01 22:04] VITALS: BP 100/60
[2018-04-02 06:27] VITALS: BP 104/56
--- NOTE | 2018-04-02 09:24 | PN- Housestaff ---
Subjective Follow-up For: COPD exacerbation Uncontrolled diabetes due to steroids use Subjective: No overnight events. Patient remained afebrile overnight. Seen and examined this morning. He denied any chest pain, nausea, vomiting, abdominal pain, chills, fever and dysuria. Patient having exertional dyspnea that's his baseline. He is on room air and maintaining saturation 98%. He is using CPAP at nighttime. Review of Systems Constitutional: Denies: chills, fever. EENTM: Reports: no symptoms. Cardiovascular: Denies: chest pain, orthopena, palpitations. Respiratory: Reports: short of breath. Denies: cough, sputum production. Gastrointestinal: Denies: abdominal pain, constipation, diarrhea, nausea, vomiting. Genitourinary: Reports: no symptoms. Neurological/Psychological: Reports: no symptoms. Objective Last 24 Hrs of Vital Signs/I&O Vital Signs Date Time Temp Pulse Resp B/P B/P Pulse O2 O2 Flow FiO2 Mean Ox Delivery Rate 04/02 0901 98 Room Air Room Air 04/02 0627 97.7 71 20 104/56 95 Room Air 04/02 0000 Room Air 04/01 2245 90 95 04/01 2204 97.4 90 20 100/60 96 04/01 1642 96 Room Air 04/01 1600 Room Air 04/01 1402 97.8 78 20 112/80 97 Room Air 04/01 1148 96 Room Air Intake & Output 04/02 1600 04/02 0800 04/02 0000 Intake Total 50 290 Output Total Balance 50 290 Intake, IV 10 Intake, Oral 50 280 Number 1 Bowel Movements Physical Exam General Appearance: Alert, Oriented X3, Cooperative Skin Temp/Moisture Exam: Warm/Dry Sepsis Skin Exam (color): Normal for Ethnicity HEENT: Atraumatic, PERRLA, EOMI Neck: Supple Cardiovascular: Normal S1, Normal S2 Lungs: b/l decreased breath sounds Abdomen: Soft, No Tenderness Neurological: Normal Speech, Strength at 5/5 X4 Ext, Normal Tone Extremities: No Edema Assessment/Plan Assessment: 77yo M with PMH of COPD not on home oxygen but on 10 mg chronic prednisone, RODRICK noncompliant with CPAP, A. fib on Eliquis currently rate controlled, diabetes, hypertension, hyperlipidemia, degenerative disc disease presented to ER with SOB with nonproductive cough 3-4 days. He was last admitted to [facility] in 11/2017 with COPD exacerbation and was sent home on chronic prednisone and was managed by wellness clinic/Dr. Avila, last seen in Dr. Avila's office about 3 weeks ago, who adjusted his prednisone to 10mg daily, with zithromax prescribed. We are following the patient following problems: COPD exacerbation: -Patient was weaned off from oxygen right now he is on room air and maintaining saturation 98%. Although patient is complaining of exertional dyspnea but that' s his baseline. -TRC nebulization as needed -He is off the steroids -Continue long-term azithromycin 250 mg on Tuesday -Follow-up pulmonology recommendations. Uncontrolled diabetes: -Probably due to steroid use -Patient was changed to his oral antidiabetic medications. He will continue metformin and sitagliptin -We will follow his blood sugar levels. He is off steroids now hopefully his blood sugar levels will remain under control. Patient may need medication dose adjustment. -Today his fasting blood sugar level is 167. History of hypertension hyperlipidemia: -Continue lisinopril -Continue Lipitor History of A. fib: -Continue Eliquis 5 mg -Continue diltiazem for rate control History of obstructive sleep apnea: -Continue nighttime CPAP DVT prophylaxis: Mechanical and patient is already on Eliquis CODE STATUS: Full code Problem List: 1. COPD exacerbation Pain Ratin Pain Location: none Pain Goal: Remain pain free Pain Plan: pain pathway Tomorrow's Labs & Rationales: none
--- NOTE | 2018-04-02 09:49 | PN- Diabetes ---
Assessment/Plan Diabetes Assessment: The patient feels a little better today. He slept about 4 hours last night. The patient did receive 30 mg of prednisone yesterday and his sugars got high late in the day. Today however he is off prednisone completely. He is being treated with inhalers and Zithromax. His lisinopril was changed to losartan. The patient is now on metformin 500 mg twice a day along with Januvia 100 mg daily. Plan: Suggest now that the patient is off steroids his blood sugars should be easier to control. We will see the effects of the Metformin and sitagliptin today. His medications may need further adjustment depending on today's readings. Subjective Subjective: Feels a little better Review of Systems Constitutional: Denies: chills, fever. Cardiovascular: Denies: chest pain. Respiratory: Reports: cough, short of breath. Gastrointestinal: Denies: abdominal pain, nausea, vomiting. Skin: Reports: no symptoms. Objective Last 24 Hrs of Vital Signs/I&O Vital Signs Date Time Temp Pulse Resp B/P B/P Pulse O2 O2 Flow FiO2 Mean Ox Delivery Rate 04/02 0901 98 Room Air Room Air 04/02 0627 97.7 71 20 104/56 95 Room Air 04/02 0000 Room Air 04/01 2245 90 95 05/ 2204 97.4 90 20 100/60 96 04/01 1642 96 Room Air 04/01 1600 Room Air 04/01 1402 97.8 78 20 112/80 97 Room Air 04/01 1148 96 Room Air 04/01 1002 74 108/50 Intake & Output 04/02 1600 04/02 0800 04/02 0000 Intake Total 50 290 Output Total Balance 50 290 Intake, IV 10 Intake, Oral 50 280 Vital Signs Date Time Temp Pulse Resp B/P B/P Pulse O2 O2 Flow FiO2 Mean Ox Delivery Rate 04/02 0901 98 Room Air Room Air 04/02 0627 97.7 71 20 104/56 95 Room Air 05 0000 Room Air 05 2245 90 95 05/ 2204 97.4 90 20 100/60 96 05/ 1642 96 Room Air 05 1600 Room Air 04/01 1402 97.8 78 20 112/80 97 Room Air 05 1148 96 Room Air 04/01 1002 74 108/50 Intake & Output 04/02 1600 04/02 0800 05 0000 Intake Total 50 290 Output Total Balance 50 290 Intake, IV 10 Intake, Oral 50 280 Physical Exam General Appearance: alert, awake, comfortable Head: normal appearance Neck: normal inspection Respiratory: decreased breath sounds Cardiovascular: regular rate/rhythm Abdomen: normal bowel sounds Extremities: normal inspection Current Medications: Current Medications Sig/Efe Start time Last Medication Dose Route Stop Time Status Admin Acetaminophen 325 MG Q6P PRN 03/27 2045 AC PO Albuterol Sulfate 3 ML EVERY 4 HRS/AWAKE 03/31 1600 AC 04/02 INH 0859 Albuterol Sulfate 2 PUF Q4 PRN 03/27 2200 AC INH Alprazolam 0.25 MG DAILY 03/31 0959 AC 04/02 PO 04/07 0958 0928 Apixaban 5 MG BID 03/27 2146 AC 04/02 PO 0920 Atorvastatin Calcium 40 MG 1700 03/28 1700 AC 04/01 PO 1707 Azithromycin 250 MG MoWeFr 03/29 1000 AC 03/31 PO 0913 Bisacodyl 10 MG ONCE PRN 04/01 0800 AC 04/01 OR 1009 Budesonide/ 2 PUF BID 03/28 0900 DC 04/01 Formoterol Fumarate INH 1007 Calcium Carbonate 500 MG DAILY 03/28 204 AC 03/31 PO 0812 Cholecalciferol 1,000 IU DAILY 03/29 1803 AC 04/02 PO 0920 Cyclobenzaprine HCl 10 MG TID 03/28 0900 AC 04/02 PO 0920 Diltiazem HCl 180 MG DAILY 03/28 0900 AC 04/02 PO 0920 Fenofibrate 145 MG DAILY 03/28 0900 AC 04/02 PO 0920 Fluticasone 2 PUF BID 04/01 1456 AC 04/02 Propionate INH 0921 Furosemide 20 MG DAILY 03/28 09 AC 04/02 PO 0920 Guaifenesin 600 MG Q12 03/28 0900 AC 04/02 PO 0920 Hydrocodone Bitart/ 1 TAB Q6P PRN 03/27 2315 AC 04/02 Acetaminophen PO 0803 Insulin Aspart 0 AT BEDTIME 03/29 2100 DC 03/31 SC 2111 Insulin Aspart 0 TIDAC 03/29 1800 DC 04/01 SC 0752 Insulin Detemir 10 UNITS QAM 04/01 0900 DC SC Lansoprazole 30 MG BID 03/30 1415 AC 05/13 PO 0923 Lisinopril 10 MG DAILY 03/28 0900 DC 04/01 PO 1002 Losartan Potassium 50 MG DAILY 04/02 0900 AC 04/02 PO 0920 Magnesium Citrate 300 ML ONE ONE 04/01 2230 DC 04/02 PO 04/01 2231 0145 Melatonin 5 MG AT BEDTIME 03/31 2100 AC 04/01 PO 2115 Metformin HCl 500 MG 0800,1700 04/01 1700 AC 04/02 PO 0803 Polyethylene Glycol 17 GM DAILY 03/30 1433 AC 04/01 PO 1004 Senna/Docusate Sodium 1 TAB BID PRN 03/30 1445 AC PO Sitagliptin Phosphate 100 MG DAILY 04/02 0900 AC 04/02 PO 0920 Sodium Phosphate 1 UNIT ONCE ONE 04/01 1200 DC OR 04/01 1201 Tiotropium [place] 1 PUF DAILY 03/270 AC 04/02 INH 0923
--- NOTE | 2018-04-02 10:00 | PN- Att Addend ---
Attending Addendum Attending Brief Note Patient seen and examined. Resting comfortably this morning. He does as dyspneic as he was compared to yesterday morning. He however continues to complain of periods of anxiety he follows closely with his cone tender in the outpatient setting and states that he gets frequent referral to the COPD clinic for steroid injections. Reports that at night he awakes gasping for air on occasion. He is noncompliant with his CPAP therapy at night he is stating that he feels like he cannot read when the mask is on. We started him on low-dose Xanax 2 days ago he does not reports noticing any changes with use of this medication. He is very happy that he had a bowel movement earlier on today. With regard to his blood glucose they seem to be better controlled. He still had glucose levels in the 400s last night. He did acknowledge eating [place] ice on different occasions. He reports that this is his habit when he gets an anxiety bout. He also received a dose of prednisone yesterday morning. Vital Signs Date Time Temp Pulse Resp B/P B/P Pulse O2 O2 Flow FiO2 Mean Ox Delivery Rate 04/02 0901 98 Room Air Room Air 04/02 0627 97.7 71 20 104/56 95 Room Air 04/02 0000 Room Air 04/01 2245 90 95 05/ 2204 97.4 90 20 100/60 96 04/01 1642 96 Room Air 04/01 1600 Room Air 04/01 1402 97.8 78 20 112/80 97 Room Air 04/01 1148 96 Room Air 04/01 1002 74 108/50 General appearance: Well-developed and not in any acute distress. HEENT: Anicteric, no pallor, pupils equal and reactive. Neck: Supple with no jugular venous distention. Heart: S1-S2 regular Lungs: Adequate and symmetric air entry bilaterally with no added sounds. Abdomen: Nondistended with normal bowel sounds. Soft, nontender with no palpable masses. Extremities: No pedal edema. No cyanosis. Problems: 1. Dyspnea 2. COPD 3. Chronic heart failure with preserved ejection fraction. 4. Atrial fibrillation with controlled ventricular response on anticoagulation with Eliquis 5. [id number] diabetes mellitus with steroid-induced hyperglycemia. Plan: -Continue bronchodilator therapy. No further systemic steroid therapy for now. -Pulmonology follow-up yesterday acknowledged. Patient has been started on Flovent. -Continue anxiolytic therapy with low-dose benzodiazepine. -Endocrinology recommendations appreciated. He has been started on Januvia and metformin. Levemir has been discontinued. -Mobilize patient. -He remains very reluctant to be discharged home. He would like to follow-up with his regular cone tender Eduardo Avila MD before making the decision to go home.
--- NOTE | 2018-04-02 12:23 | PN- Pulmonary ---
Subjective HPI/Critical Care Issues: Stable no new issues No overnight events. Patient remained afebrile overnight. He denied any chest pain, nausea, vomiting, abdominal pain, chills, fever and dysuria. Patient having exertional dyspnea that's his baseline. He is on room air and maintaining saturation 98%. He is using CPAP at nighttime. Objective Current Medications: Current Medications Sig/Efe Start time Last Medication Dose Route Stop Time Status Admin Acetaminophen 325 MG Q6P PRN 03/27 2045 AC PO Albuterol Sulfate 3 ML EVERY 4 HRS/AWAKE 03/31 1600 AC 04/02 INH 0859 Albuterol Sulfate 2 PUF Q4 PRN 03/27 2200 AC INH Alprazolam 0.25 MG DAILY 03/31 0959 AC 04/02 PO 04/07 0958 0928 Apixaban 5 MG BID 03/27 2146 AC 04/02 PO 0920 Atorvastatin Calcium 40 MG 1700 / 1700 AC 04/01 PO 1707 Azithromycin 250 MG MoWeFr 03/29 1000 AC 03/31 PO 0913 Bisacodyl 10 MG ONCE PRN 04/01 0800 AC 04/01 NV 1009 Budesonide/ 2 PUF BID 03/28 0900 DC 04/01 Formoterol Fumarate INH 1007 Calcium Carbonate 500 MG DAILY 03/28 2045 AC 03/31 PO 0812 Cholecalciferol 1,000 IU DAILY 03/29 1803 AC 04/02 PO 0920 Cyclobenzaprine HCl 10 MG TID 03/28 0900 AC 04/02 PO 0920 Diltiazem HCl 180 MG DAILY 03/28 0900 AC 04/02 PO 0920 Fenofibrate 145 MG DAILY 03/28 0900 AC 04/02 PO 0920 Fluticasone 2 PUF BID 04/01 1456 AC 04/02 Propionate INH 0921 Furosemide 20 MG DAILY 03/28 0900 AC 04/02 PO 0920 Guaifenesin 600 MG Q12 03/28 0900 AC 04/02 PO 0920 Hydrocodone Bitart/ 1 TAB Q6P PRN 03/27 2315 AC 04/02 Acetaminophen PO 0803 Insulin Aspart 0 AT BEDTIME 03/29 2100 DC 03/31 SC 2111 Insulin Aspart 0 TIDAC 03/29 1800 DC 04/01 SC 0752 Insulin Detemir 10 UNITS QAM 04/01 0900 DC SC Lansoprazole 30 MG BID 03/30 1415 AC 04/02 PO 0923 Lisinopril 10 MG DAILY 03/28 0900 DC 04/01 PO 1002 Losartan Potassium 50 MG DAILY 04/02 0900 AC 04/02 PO 0920 Magnesium Citrate 300 ML ONE ONE 04/01 2230 DC 04/02 PO 04/01 2231 0145 Melatonin 5 MG AT BEDTIME 03/31 2100 AC 04/01 PO 2115 Metformin HCl 500 MG 0800,1700 04/01 1700 AC 04/02 PO 0803 Polyethylene Glycol 17 GM DAILY 03/30 1433 AC 04/01 PO 1004 Senna/Docusate Sodium 1 TAB BID PRN 03/30 1445 AC PO Sitagliptin Phosphate 100 MG DAILY 04/02 0900 AC 04/02 PO 0920 Tiotropium [place] 1 PUF DAILY 03/27 2200 AC 04/02 INH 0923 Vital Signs & I&O Last 24 Hrs of Vitals and I&O: Vital Signs Date Time Temp Pulse Resp B/P B/P Pulse O2 O2 Flow FiO2 Mean Ox Delivery Rate 04/02 0901 98 Room Air Room Air 04/02 0627 97.7 71 20 104/56 95 Room Air 04/02 0000 Room Air 04/01 2245 90 95 04/01 2204 97.4 90 20 100/60 96 04/01 1642 96 Room Air 04/01 1600 Room Air 04/01 1402 97.8 78 20 112/80 97 Room Air Intake & Output 04/02 1600 04/02 0800 04/02 0000 Intake Total 50 290 Output Total Balance 50 290 Intake, IV 10 Intake, Oral 50 280 Number 1 Bowel Movements Impression/Plan Impression/Plan Impression/Plan: General Appearance: Alert, Oriented X3, Cooperative Skin Temp/Moisture Exam: Warm/Dry Sepsis Skin Exam (color): Normal for Ethnicity HEENT: Atraumatic, PERRLA, EOMI Neck: Supple Cardiovascular: Normal S1, Normal S2 Lungs: b/l decreased breath sounds Abdomen: Soft, No Tenderness Neurological: Normal Speech, Strength at 5/5 X4 Ext, Normal Tone Extremities: No Edema SIGNIFICANT DATA CT scan of the chest done in the February reviewed patient has had moderate centrilobular emphysema with bilateral basal atelectasis no consolidation no lung nodules, some peripheral vascular disease noted, wall thickening of the esophagus with small hiatal hernia noted. Full pulmonary function test done on 14 of September showed very mild obstructive small airway disease and reduced diffusion capacity associated with mild resting desaturation Previous echocardiogram done many years ago was normal with no pulmonary hypertension IMPRESSION This is a 77-year-old gentleman with previous history of very mild obstructive lung disease by spirometry and full pulmonary function tests, moderate emphysema noted in the CAT scan, CT evidence suggestive of small airway disease. At this time he does have dyspnea which is much worse than his overall pulmonary function tests etc. No clinical evidence suggestive of significant COPD exacerbation at this time as he is not wheezing. He probably has significant small airway disease with reduced DLCO. This needs to be treated with bronchodilators, long-term azithromycin. We should minimize systemic steroids. Other issues include Morbid obesity with obstructive sleep apnea Rule out significant pulmonary hypertension. Patient would benefit from an echocardiogram to see whether he has any sig pulmonary hypertension On and off cough could be related to BEBA inhibitor this this has been changed Rule out chronic venous thromboembolism but this seems less likely as he is already on anticoagulation. Probably would require VQ scan in the future to rule out peripheral pruning to rule out chronic venous thrombi embolism. Patient did have previous history suggestive of superficial vein thrombophlebitis in his upper arm may have been related to an IV line. Paroxysmal atrial fibrillation rule out recurrent tachycardia episode He has what appears to be esophagitis with hiatal hernia with previous history suggestive of achalasia which may be causing some of his issues with recurrent regurgitation RECOMMENDATION Continue current therapy Continue his azithromycin Flovent 2 puffs twice a day Keep his head of bed elevated Proton pump inhibitor Outpatient evaluation for his esophageal issues Would benefit from an echocardiogram to rule out pulmonary hypertension Will follow
[2018-04-02 14:19] VITALS: BP 118/60
[2018-04-02 22:03] VITALS: BP 100/60
[2018-04-03 05:59] VITALS: BP 100/58
--- NOTE | 2018-04-03 07:46 | PN- Housestaff ---
Subjective Follow-up For: #COPD exacerbation #orthostatic hypotension #CHF, stable w/ last known EF >55% #uncontrolled diabetes #aflutter - patient had been rate controlled entire admission before episode of chest tightness on inspiration #PMH of RODRCIK noncompliant with CPAP, hypertension, hyperlipidemia, degenerative disc disease Subjective: Patient continueds to have labored breathing. He is off steroids but is still on nebs and azithro, lasix. He reports he did not use CPAP last night as he finds it to be uncomfortable. The patient's states that he is cognitively slow today. The patient notes that he is dizzy on standing up. Overnight sugars were between 124 and 218. His oxygen is 95% on room air but he was noted to desat to 89% on ambulation. Review of Systems Constitutional: Reports: no symptoms. EENTM: Reports: no symptoms. Cardiovascular: Reports: no symptoms. Respiratory: Reports: short of breath. Gastrointestinal: Reports: no symptoms. Genitourinary: Reports: no symptoms. Musculoskeletal: Reports: no symptoms. Skin: Reports: no symptoms. Neurological/Psychological: Reports: confusion. Objective Last 24 Hrs of Vital Signs/I&O Vital Signs Date Time Temp Pulse Resp B/P B/P Pulse O2 O2 Flow FiO2 Mean Ox Delivery Rate 04/03 1041 82 108/52 04/03 0850 95 Room Air 04/03 0745 100/58 04/03 0559 97.8 69 20 100/58 95 Room Air 04/02 2203 97.9 85 20 100/60 96 04/02 1818 96 Room Air 04/02 1600 96 Room Air 04/02 1419 97.7 90 20 118/60 96 Room Air Intake & Output 04/03 1600 04/03 0800 04/03 0000 Intake Total 400 600 Output Total 351 Balance 400 249 Intake, Oral 400 600 Output, Stool 1 Output, Urine 350 Physical Exam General Appearance: Alert, Oriented X3, Cooperative, No Acute Distress Skin: No Rashes, No Breakdown, No Significant Lesion Skin Temp/Moisture Exam: Warm/Dry HEENT: Atraumatic, PERRLA, EOMI, Mucous Membr. moist/pink Neck: Supple, No JVD Cardiovascular: Normal S1, Normal S2, No Murmurs Lungs: Clear to Auscultation, Normal Air Movement Abdomen: Normal Bowel Sounds, Soft, No Tenderness Neurological: Normal Gait, Normal Speech Extremities: No Clubbing, No Cyanosis, No Edema, Normal Pulses, No Tenderness/ Swelling Vascular: Normal Pulses, Pulses Symmetrical Current Medications: Current Medications Sig/Efe Start time Last Medication Dose Route Stop Time Status Admin Acetaminophen 325 MG Q6P PRN 03/27 2045 AC PO Albuterol Sulfate 3 ML EVERY 4 HRS/AWAKE 03/31 1600 AC 04/03 INH 0851 Albuterol Sulfate 2 PUF Q4 PRN 03/27 2200 AC INH Alprazolam 0.25 MG DAILY 03/31 0959 AC 04/03 PO 04/07 0958 0741 Apixaban 5 MG BID 03/27 2146 AC 04/03 PO 0745 Atorvastatin Calcium 40 MG 1700 03/28 1700 AC 04/02 PO 1648 Azithromycin 250 MG MoWeFr 03/29 1000 AC 04/03 PO 0745 Bisacodyl 10 MG ONCE PRN 04/01 0800 AC 04/01 OR 1009 Calcium Carbonate 500 MG DAILY 03/28 2045 AC 03/31 PO 0812 Cholecalciferol 1,000 IU DAILY 03/29 1803 AC 04/03 PO 0745 Cyclobenzaprine HCl 10 MG TID 03/28 0900 AC 04/03 PO 0745 Diltiazem HCl 180 MG DAILY 03/28 0900 AC 04/03 PO 0745 Fenofibrate 145 MG DAILY 03/28 0900 AC 04/03 PO 0745 Fluticasone 2 PUF BID 04/01 1456 AC 04/03 Propionate INH 0751 Furosemide 20 MG DAILY 03/28 0900 AC 04/03 PO 0745 Guaifenesin 600 MG Q12 03/28 0900 AC 04/03 PO 0745 Hydrocodone Bitart/ 1 TAB Q6P PRN 03/27 2315 AC 04/03 Acetaminophen PO 0741 Lansoprazole 30 MG BID 03/30 1415 AC 04/03 PO 0746 Losartan Potassium 50 MG DAILY 04/02 0900 AC 04/03 PO 0745 Melatonin 5 MG AT BEDTIME 03/31 2100 AC 04/02 PO 2016 Metformin HCl 850 MG 0800,1700 05 1700 AC PO Metformin HCl 500 MG 0800,1700 0512 1700 DC 04/03 PO 0745 Polyethylene Glycol 17 GM DAILY 03/30 1433 AC 04/01 PO 1004 Prednisone 10 MG DAILY 04/03 1027 AC PO Senna/Docusate Sodium 1 TAB BID PRN 03/30 1445 AC PO Sitagliptin Phosphate 100 MG DAILY 04/02 0900 AC 04/03 PO 0745 Sodium Chloride 2 SPRAY Q4P PRN 04/03 1030 AC MICHELLE Tiotropium [place] 1 PUF DAILY 03/27 2200 AC 04/03 INH 0746 Assessment/Plan Assessment: 77yo M with PMH of COPD not on home oxygen but on 10 mg chronic prednisone, RODRICK noncompliant with CPAP, A. fib on Eliquis currently rate controlled, diabetes, hypertension, hyperlipidemia, degenerative disc disease presented to ER with SOB with nonproductive cough 3-4 days. He was last admitted to [facility] in 11/2017 with COPD exacerbation and was sent home on chronic prednisone and was managed by wellness clinic/Dr. Avila, last seen in Dr. Avila's office about 3 weeks ago, who adjusted his prednisone to 10mg daily, with zithromax prescribed. We are following the patient following problems: COPD exacerbation mostly resolved but patient has emphysema/small airway disease : -Patient was weaned off from oxygen right now he is on room air and maintaining saturation 95% however was found to desaturate to 89% on ambulation. Patient has been experiencing exertional dyspnea for most of his admission. Appreciate pulmonary recommendations. -Patient got echocardiogram to assess for pulmonary hypertension yesterday and we are awaiting results. Chronic venous thromboembolism is less likely as patient is on chronic anticoagulation. As per Praneeth Mehta MD patient would probably require VQ scan the future if this continues. -TRC nebulization as needed -We have stressed the importance of the patient uses CPAP at night. He states that his machine that he has at home is more comfortable and vows to use it more regularly. -He is off the steroids but as he is on chronic 10 mg prednisone outpatient, we will restart and continue him on this dose. -Continue long-term azithromycin 250 mg on Tuesday -We have dosed patient a small amount of Xanax 0.25 mg scheduled for anxiety component that may be contributing to his shortness of breath. -Patient also has history of achalasia and GERD that may be contributing to his chest tightness. Continue lansoprazole 30 mg twice a day. -He has an appointment with Dr. Avila on April 11 already for follow-up Dizziness and mild confusion as per : Patient states that sometimes he has this dizziness at home but this is the first time he has complained of a here. -We did orthostatics and patient was found to have blood pressure 122/60 with a heart rate of 75 on lying down, blood pressure 108/52 with a heart rate of 82 on sitting, blood pressure 82/50 and 76/48 on second reading with a heart rate of 92 on standing. -We will consult on this with Kyler Dunbar MD and do an a.m. cortisol level with a BEP now -Patient is on diet and we will encourage fluid intake. Uncontrolled diabetes: Overnight sugars ranged from 124-281. -Probably compounded by steroid use -Patient was changed to his oral antidiabetic medications. He will continue metformin and sitagliptin as per Kyler Dunbar MD, however with an increased dose of metformin from 500 twice a day to 850 twice a day. History of hypertension hyperlipidemia: -We have switched lisinopril to losartan as patient is having chronic cough and BEBA inhibitor could be the cause. -Continue Lipitor History of A. fib: -Continue Eliquis 5 mg -Continue diltiazem for rate control DVT prophylaxis: Mechanical and patient is already on Eliquis CODE STATUS: Full code Problem List: 1. Diabetes 2. COPD exacerbation Pain Ratin Pain Location: na Pain Goal: Remain pain free Pain Plan: na Tomorrow's Labs & Rationales: am cortisol
--- NOTE | 2018-04-03 08:17 | PN- Diabetes ---
Assessment/Plan Diabetes Assessment: The patient feels improved. He actually slept last night. He has some congestion in his chest when he first wakes up in the morning but overall is doing better. He is off steroids. He is on metformin and Januvia. Fingerstick blood sugars yesterday were 167 before breakfast, 244 before lunch, 281 before dinner, and 216 at bedtime. Plan: Suggest increase metformin to 850 mg twice a day and continue Januvia. Continue to monitor the patient's blood sugars. Subjective Subjective: Feels improved Review of Systems Constitutional: Denies: chills, fever. Respiratory: Denies: cough, short of breath. Gastrointestinal: Denies: abdominal pain, nausea, vomiting. Skin: Reports: no symptoms. Objective Last 24 Hrs of Vital Signs/I&O Vital Signs Date Time Temp Pulse Resp B/P B/P Pulse O2 O2 Flow FiO2 Mean Ox Delivery Rate 04/03 0745 100/58 04/03 0559 97.8 69 20 100/58 95 Room Air 04/02 2203 97.9 85 20 100/60 96 04/02 1818 96 Room Air 04/02 1600 96 Room Air 04/02 1419 97.7 90 20 118/60 96 Room Air 04/02 0901 98 Room Air Room Air Intake & Output 04/03 1600 04/03 0800 04/03 0000 Intake Total 400 600 Output Total 351 Balance 400 249 Intake, Oral 400 600 Output, Stool 1 Output, Urine 350 Vital Signs Date Time Temp Pulse Resp B/P B/P Pulse O2 O2 Flow FiO2 Mean Ox Delivery Rate 04/03 0745 100/58 04/03 0559 97.8 69 20 100/58 95 Room Air 04/02 2203 97.9 85 20 100/60 96 04/02 1818 96 Room Air 04/02 1600 96 Room Air 04/02 1419 97.7 90 20 118/60 96 Room Air 04/02 0901 98 Room Air Room Air Intake & Output 04/03 1600 04/03 0800 04/03 0000 Intake Total 400 600 Output Total 351 Balance 400 249 Intake, Oral 400 600 Output, Stool 1 Output, Urine 350 Physical Exam General Appearance: alert, awake, comfortable Head: normal appearance Neck: normal inspection Respiratory: decreased breath sounds Cardiovascular: regular rate/rhythm Abdomen: normal bowel sounds Extremities: normal inspection Current Medications: Current Medications Sig/Efe Start time Last Medication Dose Route Stop Time Status Admin Acetaminophen 325 MG Q6P PRN 03/27 2045 AC PO Albuterol Sulfate 3 ML EVERY 4 HRS/AWAKE 03/31 1600 AC 04/02 INH 1818 Albuterol Sulfate 2 PUF Q4 PRN 03/27 2200 AC INH Alprazolam 0.25 MG DAILY 03/31 0959 AC 04/03 PO 05 0958 0741 Apixaban 5 MG BID 03/27 2146 AC 04/03 PO 0745 Atorvastatin Calcium 40 MG 1700 03/28 1700 AC 04/02 PO 1648 Azithromycin 250 MG MoWeFr 03/29 1000 AC 04/03 PO 0745 Bisacodyl 10 MG ONCE PRN 04/01 0800 AC 04/01 HI 1009 Calcium Carbonate 500 MG DAILY 03/28 2045 AC 03/31 PO 0812 Cholecalciferol 1,000 IU DAILY 03/29 1803 AC 04/03 PO 0745 Cyclobenzaprine HCl 10 MG TID 03/28 09 AC 04/03 PO 0745 Diltiazem HCl 180 MG DAILY 03/28 0900 AC 04/03 PO 0745 Fenofibrate 145 MG DAILY 03/28 0900 AC 04/03 PO 0745 Fluticasone 2 PUF BID 04/01 1456 AC 04/03 Propionate INH 0751 Furosemide 20 MG DAILY 03/28 0900 AC 04/03 PO 0745 Guaifenesin 600 MG Q12 03/28 0900 AC 04/03 PO 0745 Hydrocodone Bitart/ 1 TAB Q6P PRN 03/27 2315 AC 04/03 Acetaminophen PO 0741 Lansoprazole 30 MG BID 03/30 1415 AC 04/03 PO 0746 Losartan Potassium 50 MG DAILY 04/02 0900 AC 04/03 PO 0745 Melatonin 5 MG AT BEDTIME 03/31 2100 AC 04/02 PO 2016 Metformin HCl 500 MG 0800,1700 05 1700 AC 04/03 PO 0745 Polyethylene Glycol 17 GM DAILY 03/30 1433 AC 04/01 PO 1004 Senna/Docusate Sodium 1 TAB BID PRN 03/30 1445 AC PO Sitagliptin Phosphate 100 MG DAILY 04/02 0900 AC 04/03 PO 0745 Tiotropium [place] 1 PUF DAILY 03/27 2200 AC 04/03 INH 0746
--- NOTE | 2018-04-03 08:47 | PN- Pulmonary ---
Subjective HPI/Critical Care Issues: he remains comfortable on room air nonadherent with nasal CPAP last night. Shortness of breath appears improved Objective Current Medications: Current Medications Sig/Efe Start time Last Medication Dose Route Stop Time Status Admin Acetaminophen 325 MG Q6P PRN 03/27 2045 AC PO Albuterol Sulfate 3 ML EVERY 4 HRS/AWAKE 03/31 1600 AC 04/02 INH 1818 Albuterol Sulfate 2 PUF Q4 PRN 03/27 2200 AC INH Alprazolam 0.25 MG DAILY 03/31 0959 AC 04/03 PO 04/07 0958 0741 Apixaban 5 MG BID 03/27 2146 AC 04/03 PO 0745 Atorvastatin Calcium 40 MG 1700 03/28 1700 AC 04/02 PO 1648 Azithromycin 250 MG MoWeFr 03/29 1000 AC 04/03 PO 0745 Bisacodyl 10 MG ONCE PRN 04/01 0800 AC 04/01 [place] 1009 Calcium Carbonate 500 MG DAILY 03/28 2045 AC 03/31 PO 0812 Cholecalciferol 1,000 IU DAILY 03/29 1803 AC 04/03 PO 0745 Cyclobenzaprine HCl 10 MG TID 03/28 0900 AC 04/03 PO 0745 Diltiazem HCl 180 MG DAILY 03/28 0900 AC 04/03 PO 0745 Fenofibrate 145 MG DAILY 03/28 0900 AC 04/03 PO 0745 Fluticasone 2 PUF BID 04/01 1456 AC 04/03 Propionate INH 0751 Furosemide 20 MG DAILY 03/28 0900 AC 04/03 PO 0745 Guaifenesin 600 MG Q12 03/28 0900 AC 04/03 PO 0745 Hydrocodone Bitart/ 1 TAB Q6P PRN 03/27 2315 AC 04/03 Acetaminophen PO 0741 Lansoprazole 30 MG BID 03/30 1415 AC 04/03 PO 0746 Losartan Potassium 50 MG DAILY 04/02 0900 AC 04/03 PO 0745 Melatonin 5 MG AT BEDTIME 03/31 2100 AC 04/02 PO 2016 Metformin HCl 500 MG 0800,1700 04/01 1700 AC 04/03 PO 0745 Polyethylene Glycol 17 GM DAILY 03/30 1433 AC 04/01 PO 1004 Senna/Docusate Sodium 1 TAB BID PRN 03/30 1445 AC PO Sitagliptin Phosphate 100 MG DAILY 04/02 0900 AC 04/03 PO 0745 Tiotropium Shell 1 PUF DAILY 03/27 2200 AC 04/03 INH 0746 Vital Signs & I&O Last 24 Hrs of Vitals and I&O: Vital Signs Date Time Temp Pulse Resp B/P B/P Pulse O2 O2 Flow FiO2 Mean Ox Delivery Rate 04/03 0745 100/58 04/03 0559 97.8 69 20 100/58 95 Room Air 04/02 2203 97.9 85 20 100/60 96 04/02 1818 96 Room Air 04/02 1600 96 Room Air 04/02 1419 97.7 90 20 118/60 96 Room Air 04/02 0901 98 Room Air Room Air Intake & Output 04/03 1600 04/03 0800 04/03 0000 Intake Total 400 600 Output Total 351 Balance 400 249 Intake, Oral 400 600 Output, Stool 1 Output, Urine 350 Room air oxygen saturation 95% exam of his chest shows clear lung evangelista are no wheezes heard cardiac exam shows regular S1 and S2 without murmurs Impression/Plan Impression/Plan Impression/Plan: 77-year-old gentleman COPD poorly adherent with nasal CPAP is clinically improved. Recommendations: Again stressed need for adherence with nasal CPAP. He will follow-up with Dr. Avila regarding mask fitting. Cardiac ultrasound can be scheduled as outpatient
[2018-04-03] MEDS ORDERED: AZITHROMYCIN250 M1 PO (09:47)
[2018-04-03] MEDS ORDERED: LOSARTAN POTASS50 M1 PO (10:04)
[2018-04-03] MEDS ORDERED: METFORMIN HCL850 M1 PO (10:04)
[2018-04-03] MEDS ORDERED: PREDNISONE10 M2 PO (10:04)
[2018-04-03] MEDS ORDERED: JANUVIA100 M1 PO (10:04)
[2018-04-03] MEDS ORDERED: XANAX0.25 M1 PO (10:09)
[2018-04-03 10:41] VITALS: BP 108/52
--- NOTE | 2018-04-03 11:30 | PN- Att Addend ---
Attending Addendum Attending Brief Note Patient seen and examined. Plan of care discussed with the medical team and the patient. Available lab work and radiology test reports were reviewed. Patient has several complaints this morning. He feels intermittently short of breath and complains of nasal congestion. He also continues to have intermittent coughing. He also states that he feels dizzy on getting up from bed. Exam: General: Patient awake alert oriented without any distress; able to complete sentences CVS: S1 plus S2 without any murmur or gallops Chest: Few scattered crepitation without any wheeze. There is no respiratory distress. Abdomen: Soft non-tender, bowel sound present, no guarding or rebound DOOR CLOSER: Awake alert oriented without any focal neuro deficit and follows commands appropriately Extremities: No edema; no clubbing or cyanosis noted Assessment * COPD exacerbation * orthostatic hypotension * CHF, stable w/ last known EF >55% * uncontrolled diabetes * aflutter - patient had been rate controlled entire admission before episode of chest tightness on inspiration * PMH of RODRICK noncompliant with CPAP, * hypertension, * hyperlipidemia, * degenerative disc disease Plan * Agree with endocrinology to increase Glucophage does * Reduce Cozaar dose to 25 mg daily given the patient is feeling lightheaded on getting up and pressure is borderline * Echocardiogram * Increase ambulation * Monitor by mouth intake * Plan for possible discharge tomorrow * Check manual differential given elevated WBC count and monocytosis ? Myeloproliferative disorder
[2018-04-03 13:49] VITALS: BP 112/60
--- NOTE | 2018-04-03 14:03 | PN- Cardiology ---
Subjective Subjective: The patient continues to complain of shortness of breath. No chest pain. No lightheadedness or dizziness. No nausea or vomiting. He was noted to be in atrial flutter on March 31, rate under control Objective Vital Signs and I&Os Vital Signs Date Time Temp Pulse Resp B/P B/P Pulse O2 O2 Flow FiO2 Mean Ox Delivery Rate 04/03 1349 97.7 84 20 112/60 94 Room Air 04/03 1041 82 108/52 04/03 0850 95 Room Air 04/03 0745 100/58 04/03 0559 97.8 69 20 100/58 95 Room Air 04/02 2203 97.9 85 20 100/60 96 04/02 1818 96 Room Air 04/02 1600 96 Room Air 04/02 1419 97.7 90 20 118/60 96 Room Air Intake & Output 04/03 1600 04/03 0800 04/03 0000 04/02 1600 04/02 0800 04/02 0000 Intake Total 400 600 560 50 290 Output Total 351 Balance 400 249 560 50 290 Intake, IV 10 Intake, Oral 400 600 560 50 280 Number 3 Bowel Movements Output, Stool 1 Output, Urine 350 Physical Exam: Gen: The patient is in no acute distress HEENT: Normal nose, ears, and oropharynx. Pupils equal bilaterally. Conjunctiva normal. Neck: Supple with no JVD, no masses, and no thyromegaly Lungs: bilateral rhonci with normal respiratory effort Heart: S1, S2, 1/6 systolic murmur. No peripheral edema, 2+ pulses in the lower extremities bilaterally Abdomen: Soft, nontender, no masses. No hepatomegaly. No splenomegaly Extremities: No clubbing or cyanosis. Normal muscle strength in the upper and lower extremities Skin: Normal skin turgor with no skin ulcers or lesions noted. Current Medications: Current Medications Sig/Efe Start time Last Medication Dose Route Stop Time Status Admin Acetaminophen 325 MG Q6P PRN 03/27 2045 AC PO Albuterol Sulfate 3 ML EVERY 4 HRS/AWAKE 03/31 1600 AC 04/03 INH 1134 Albuterol Sulfate 2 PUF Q4 PRN 03/27 2200 AC INH Alprazolam 0.25 MG DAILY 03/31 0959 AC 04/03 PO 04/07 0958 0741 Apixaban 5 MG BID 03/27 2146 AC 04/03 PO 0745 Atorvastatin Calcium 40 MG 1700 05/08 1700 AC 04/02 PO 1648 Azithromycin 250 MG MoWeFr 03/29 1000 AC 04/03 PO 0745 Bisacodyl 10 MG ONCE PRN 04/01 0800 AC 04/01 [place] 1009 Calcium Carbonate 500 MG DAILY 03/28 2045 AC 03/31 PO 0812 Cholecalciferol 1,000 IU DAILY 03/29 1803 AC 04/03 PO 0745 Cyclobenzaprine HCl 10 MG TID 03/28 09 AC 04/03 PO 0745 Diltiazem HCl 180 MG DAILY 03/28 0900 AC 04/03 PO 0745 Fenofibrate 145 MG DAILY 03/28 0900 AC 04/03 PO 0745 Fluticasone 2 PUF BID 04/01 1456 AC 04/03 Propionate INH 0751 Furosemide 20 MG DAILY 03/28 0900 AC 04/03 PO 0745 Guaifenesin 600 MG Q12 03/28 0900 AC 04/03 PO 0745 Hydrocodone Bitart/ 1 TAB Q6P PRN 03/27 2315 AC 04/03 Acetaminophen PO 0741 Lansoprazole 30 MG BID 03/30 1415 AC 04/03 PO 0746 Losartan Potassium 50 MG DAILY 04/02 0900 AC 04/03 PO 0745 Melatonin 5 MG AT BEDTIME 03/31 2100 AC 04/02 PO 2016 Metformin HCl 850 MG 0800,1700 04/03 1700 AC PO Metformin HCl 500 MG 0800,1700 04/01 1700 DC 04/03 PO 0745 Polyethylene Glycol 17 GM DAILY 03/30 1433 AC 04/01 PO 1004 Prednisone 10 MG DAILY 04/03 1027 AC 04/03 PO 1203 Senna/Docusate Sodium 1 TAB BID PRN 03/30 1445 AC PO Sitagliptin Phosphate 100 MG DAILY 04/02 0900 AC 04/03 PO 0745 Sodium Chloride 2 SPRAY Q4P PRN 04/03 1030 AC MICHELLE Tiotropium [place] 1 PUF DAILY 03/27 2200 AC 04/03 INH 0746 Results Last 48 Hrs of Labs/Mics: Laboratory Tests 04/03/18 1210: Anion Gap 10, Estimated GFR > 60, BUN/Creatinine Ratio 33.6 H Assessment/Plan Assessment/Plan Assessment: 1. Hypertension 2. Nonobstructive CAD 3. History of paroxysmal atrial fibrillation 4. history of TIA 5. New onset atrial flutter, rate under control. Anticoagulated on Eliquis. 6. COPD exacerbation plan: * Echocardiogram pending * Repeat EKG today. if he remains in atrial flutter or atrial fibrillation, would place on telemetry for further monitoring. * If he remains in atrial flutter or atrial fibrillation, would keep NPO after midnight for possible cardioversion Continue telemetry? Not applicable
--- NOTE | 2018-04-03 14:15 | ECHOCARDIOGRAM REPORT ---
CARLITOS EVANS Age: 77 : 1940 Gender: M Exam Date: 04/02/2018 13:10 Exam Location: [place] Ht (in): 69 Wt (lb): 217 BSA: 2.22 BP: 104 / 56 Ordering Physician: Donna Santo MD Referring Physician: Mago Lerma MD Technologist: Katja Costa [facility] Room Number: [id number] Indications: PULMONARY HYPERTENSION Rhythm: likely A-Fib Technical Quality: Technically difficult study FINDINGS Left Ventricle Normal size left ventricle. Normal left ventricular wall thickness. Normal left ventricular ejection fraction visually estimated at > 60%. No obvious regional wall motion abnormalities. Right Ventricle Normal right ventricular size and function. Right Atrium Normal right atrial size. Left Atrium Normal left atrial size. Mitral Valve Mild mitral annular calcification. Trace mitral regurgitation. Aortic Valve No aortic stenosis. Trace aortic regurgitation. Tricuspid Valve Tricuspid valve not well visualized, grossly normal. Trace tricuspid regurgitation. No evidence of pulmonary hypertension. Pulmonic Valve Pulmonic valve not well visualized, grossly normal. Pericardium No pericardial effusion. Great Vessels Normal size aortic root. CONCLUSIONS Normal size left ventricle. Normal left ventricular ejection fraction visually estimated at > 60%. Trace tricuspid regurgitation. No evidence of pulmonary hypertension. Joseph Pinedo M.D. (Electronically Signed) Final Date: 03 Apr 2018 14:14 MEASUREMENTS (Male / Female) Normal Values 2D ECHO LV Diastolic Diameter PLAX 4.1 cm 4.2 - 5.9 / 3.9 - 5.3 cm LV Systolic Diameter PLAX 2.3 cm 2.1 - 4.0 cm LV Fractional Shortening PLAX 43.9 % 25 - 46 % LV Ejection Fraction 2D Teich 75.6 % IVS Diastolic Thickness 1.1 cm LVPW Diastolic Thickness 1.0 cm LV Relative Wall Thickness 0.5 RV Internal Dim ED PLAX 2.4 cm 1.9 - 3.8 cm LVOT Diameter 2.0 cm Aortic Root Diameter 2.5 cm LA Systolic Diameter LX 3.4 cm 3.0 - 4.0 / 2.7 - 3.8 cm Ascending Aorta Diameter 3.5 cm DOPPLER AV Peak Velocity 179.0 cm/s AV Peak Gradient 12.8 mmHg AV Mean Velocity 113.0 cm/s AV Mean Gradient 6.0 mmHg AV Velocity Time Integral 28.5 cm LVOT Peak Velocity 151.0 cm/s LVOT Peak Gradient 9.1 mmHg LVOT Mean Velocity 90.9 cm/s LVOT Mean Gradient 4.0 mmHg LVOT Velocity Time Integral 25.0 cm LVOT Stroke Volume 78.5 cm AV Area Cont Eq vti 2.8 cm AV Area Cont Eq pk 2.7 cm MV Peak Velocity 89.6 cm/s MV Peak Gradient 3.2 mmHg MV Mean Velocity 50.9 cm/s MV Mean Gradient 1.0 mmHg Mitral E Point Velocity 73.5 cm/s Mitral A Point Velocity 69.1 cm/s Mitral E to A Ratio 1.1 MV PHT Velocity 99.1 cm/s MV Deceleration [place] 873.0 cm/s MV Pressure Half Time 34.1 ms MV Area PHT 6.5 cm MV Deceleration Time 158.0 ms TR Peak Velocity 143.0 cm/s TR Peak Gradient 8.2 mmHg Right Atrial Pressure 5.0 mmHg Pulmonary Artery Systolic Pressu 13.2 mmHg Right Ventricular Systolic Press 13.2 mmHg PV Peak Velocity 112.0 cm/s PV Peak Gradient 5.0 mmHg PV Mean Velocity 79.8 cm/s PV Mean Gradient 3.0 mmHg PV Velocity Time Integral 19.8 cm LV E' Lateral Velocity 14.1 cm/s Mitral E to LV E' Lateral Ratio 5.2 LV E' Septal Velocity 11.3 cm/s Mitral E to LV E' Septal Ratio 6.5
[2018-04-03 23:09] VITALS: BP 90/40
[2018-04-04 06:20] VITALS: BP 132/70
--- NOTE | 2018-04-04 07:37 | PN- Housestaff ---
Subjective Follow-up For: #COPD exacerbation #orthostatic hypotension #CHF, stable w/ last known EF >55% #achalasia #uncontrolled diabetes #aflutter - patient had been rate controlled entire admission before episode of chest tightness on inspiration - resolved #PMH of RODRICK noncompliant with CPAP, hypertension, hyperlipidemia, degenerative disc disease Complaints: no complaints Subjective: Patient continues to have chest tightness and complains of feeling like food is stuck right above his stomach. He has a history of achalasia and did have his medial esophagus opened previously. The patient did have a bout of low blood pressure last night to 90/40 at 2310. Other than this is stable and saturating 95% on room air. The patient is experiencing no shortness of breath. The patient's stated that he seemed confused last night and during the morning but on interview with the patient appears appropriate. Review of Systems Constitutional: Reports: no symptoms. EENTM: Reports: no symptoms. Cardiovascular: Reports: no symptoms. Respiratory: Reports: no symptoms. Gastrointestinal: Reports: see HPI. Genitourinary: Reports: no symptoms. Musculoskeletal: Reports: no symptoms. Skin: Reports: no symptoms. Neurological/Psychological: Reports: no symptoms. Objective Last 24 Hrs of Vital Signs/I&O Vital Signs Date Time Temp Pulse Resp B/P B/P Pulse O2 O2 Flow FiO2 Mean Ox Delivery Rate 04/04 0922 132/70 04/04 0838 98 Room Air Room Air 04/04 0620 97.9 87 20 132/70 95 Room Air 04/03 2309 97.8 67 20 90/40 94 Room Air 04/03 2056 94 Room Air 04/03 2055 84 94 04/03 1600 96 04/03 1349 97.7 84 20 112/60 94 Room Air Intake & Output 04/04 1600 04/04 0800 04/04 0000 Intake Total 480 1040 Output Total 250 Balance 480 790 Intake, Oral 480 1040 Output, Urine 250 Patient 217 lb Weight Weight Bed scale Measurement Method Physical Exam General Appearance: Alert, Oriented X3, Cooperative, No Acute Distress Skin: No Rashes, No Breakdown, No Significant Lesion Skin Temp/Moisture Exam: Warm/Dry Sepsis Skin Exam (color): Normal for Ethnicity HEENT: Atraumatic, EOMI, Mucous Membr. moist/pink Cardiovascular: Regular Rate, Normal S1, Normal S2, No Murmurs Lungs: Clear to Auscultation, Normal Air Movement Abdomen: Normal Bowel Sounds, Soft, No Tenderness, No Hepatospenomegaly Neurological: Normal Speech Extremities: No Clubbing, No Cyanosis, No Edema Current Medications: Current Medications Sig/Efe Start time Last Medication Dose Route Stop Time Status Admin Acetaminophen 325 MG Q6P PRN 03/27 2045 AC PO Albuterol Sulfate 3 ML EVERY 4 HRS/AWAKE 03/31 1600 AC 04/04 INH 0835 Albuterol Sulfate 2 PUF Q4 PRN 03/27 2200 AC INH Alprazolam 0.25 MG DAILY 03/31 0959 AC 04/04 PO 04/07 0958 0923 Apixaban 5 MG BID 03/27 2146 AC 04/04 PO 0922 Atorvastatin Calcium 40 MG 1700 03/28 1700 AC 04/03 PO 1709 Azithromycin 250 MG MoWeFr 03/29 1000 AC 04/03 PO 0745 Bisacodyl 10 MG ONCE PRN 04/01 0800 AC 04/01 SD 1009 Calcium Carbonate 500 MG DAILY 03/28 204 AC 04/04 PO 0925 Cholecalciferol 1,000 IU DAILY 03/29 1803 AC 04/04 PO 0924 Cyclobenzaprine HCl 10 MG TID 03/28 09 AC 04/04 PO 0922 Diltiazem HCl 180 MG DAILY 03/28 0900 AC 04/04 PO 0922 Fenofibrate 145 MG DAILY 03/28 0900 AC 04/04 PO 0924 Fluticasone 2 PUF BID 04/01 1456 AC 04/04 Propionate INH 0925 Furosemide 20 MG DAILY 03/28 09 DC 04/04 PO 0923 Guaifenesin 600 MG Q12 03/28 0900 AC 04/04 PO 0924 Hydrocodone Bitart/ 1 TAB Q6P PRN 03/27 2315 AC 04/04 Ac[place]aminophen PO 0832 Lansoprazole 30 MG BID 03/30 1415 AC 04/04 PO 0925 Losartan Potassium 25 MG DAILY 04/04 09 DC 04/04 PO 0922 Losartan Potassium 50 MG DAILY 04/02 0900 DC 04/03 PO 0745 Melatonin 5 MG AT BEDTIME 03/31 2100 AC 04/03 PO 2027 Metformin HCl 850 MG 0800,1700 04/03 1700 AC 04/04 PO 0921 Polyethylene Glycol 17 GM DAILY 03/30 1433 AC 04/01 PO 1004 Prednisone 10 MG DAILY 04/03 1027 DC 04/03 PO 1203 Senna/Docusate Sodium 2 TAB .STK-MED ONE 04/03 2046 DC PO 04/03 2047 Senna/Docusate Sodium 1 TAB .STK-MED ONE 04/03 2042 DC PO 04/03 2043 Senna/Docusate Sodium 1 TAB BID PRN 03/30 1445 AC 04/03 PO 204 Sitagliptin Phosphate 100 MG DAILY 04/02 0900 AC 04/04 PO 0923 Sodium Chloride 2 SPRAY Q4P PRN 04/03 1030 AC MICHELLE Tiotropium [place] 1 PUF DAILY 03/27 2200 AC 04/04 INH 0925 Last 24 Hrs of Lab/Mandeep Results Last 24 Hrs of Labs/Mics: Laboratory Tests 04/04/18 0714: Cortisol AM Sample 3.4 L, CBC w Diff MAN DIFF ORDERED, RBC 4.43 L, MCV 87.5, MCH 30.0, MCHC 34.3, RDW 16.4 H, MPV 6.0 L, Gran % 68.0, Lymphocytes % 25.7, Monocytes % 4.9, Eosinophils % 1.3, Basophils % 0.1, Absolute Granulocytes 12.2 H, Segmented Neutrophils 69, Band Neutrophils 2, Absolute Lymphocytes 4.6 H, Lymphocytes 23, Monocytes 6, Absolute Monocytes 0.9 H, Absolute Eosinophils 0.2 , Absolute Basophils 0, Platelet Estimate ADEQUATE, Poikilocytosis 2+, Anisocytosis 2+ 04/03/18 1210: Anion Gap 10, Estimated GFR > 60, BUN/Creatinine Ratio 33.6 H Assessment/Plan Assessment: 77yo M with PMH of COPD not on home oxygen but on 10 mg chronic prednisone, RODRICK noncompliant with CPAP, A. fib on Eliquis currently rate controlled, diabetes, hypertension, hyperlipidemia, degenerative disc disease presented to ER with SOB with nonproductive cough 3-4 days. He was last admitted [facility] 11/2017 with COPD exacerbation and was sent home on chronic prednisone and was managed by [facility]/Dr. Avila, last seen in Dr. Avila's office about 3 weeks ago, who adjusted his prednisone to 10mg daily, with zithromax prescribed. We are following the patient following problems: COPD exacerbation mostly resolved but patient has emphysema/small airway disease : -Patient was weaned off from oxygen right now he is on room air and maintaining saturation 95% however was found to desaturate to 89% on ambulation. Patient has been experiencing exertional dyspnea for most of his admission. Appreciate pulmonary recommendations. Patient may qualify for oxygen outpatient and we will assess. He is artery on CPAP which she admitted to not using reliably before admission. -Patient got echocardiogram to assess for pulmonary hypertension yesterday and results were negative, no abnormalities and an EF of 60%. Chronic venous thromboembolism is less likely as patient is on chronic anticoagulation. As per Praneeth Mehta MD patient would probably require VQ scan the future if this shortness of breath continues. Patient appears to be better this morning and is saturating 95% on room air -TRC nebulization as needed -We have stressed the importance of the patient uses CPAP at night. He states that his machine that he has at home is more comfortable and vows to use it more regularly. -He is off the steroids at this point. When patient was admitted he was on a tapered dose of 10 mg but as per pulmonary we will take him completely off steroids. -Continue long-term azithromycin 250 mg on Tuesday -We have dosed patient a small amount of Xanax 0.25 mg scheduled for anxiety component that may be contributing to his shortness of breath. -He has an appointment with Dr. Avila on April 11 already for follow-up Achalasia: Is most likely contributing to patient's chest tightness. Patient did have a procedure to open the esophageal lumen at one point but now states that he is having a feeling of food being caught at the gastroesophageal junction. -GI consult -Continue lansoprazole 30 mg twice a day. -Change patient's diet to chopped Dizziness and mild confusion as per : Patient states that sometimes he has this dizziness at home but this is the first time he has complained of a here. Overnight the patient had a low blood pressure down to 90/40. This morning his blood pressure has increased to 132/70. -Hold Lasix -We did orthostatics and patient was found to have blood pressure 122/60 with a heart rate of 75 on lying down, blood pressure 108/52 with a heart rate of 82 on sitting, blood pressure 82/50 and 76/48 on second reading with a heart rate of 92 on standing. -We did speak with Kyler Dunbar MD, client coordinator concerning this and he stated that he would defer any discontinuation of his Lasix to cardio/pulmonary consultants. We did put in at 6 AM cortisol level which was low at 3.4. However, the patient has been on long-term steroids. -Patient is on diet and we will encourage fluid intake. Uncontrolled diabetes: Overnight sugars unchanged. -Probably compounded by steroid use -Patient was changed to his oral antidiabetic medications. He will continue metformin and sitagliptin as per Kyler Dunbar MD, however with an increased dose of metformin from 500 twice a day to 850 twice a day. History of hypertension hyperlipidemia: -We have switched lisinopril to losartan as patient is having chronic cough and BEBA inhibitor could be the cause. Losartan dose was 25 mg but the patient experienced episode of hypotension last night down to 90/46 today we will stop his losartan. -Continue Lipitor History of A. fib: Patient is currently in sinus rhythm. He had a repeat EKG done last night with plans for cardioversion if he continued to be in A. fib. Patient will follow up with musculoskeletal physician outpatient. -Continue Eliquis 5 mg -Continue diltiazem for rate control DVT prophylaxis: Mechanical and patient is already on Eliquis CODE STATUS: Full code Problem List: 1. Diabetes 2. COPD exacerbation 3. Achalasia 4. Afib Pain Ratin Pain Location: na Pain Goal: Remain pain free Pain Plan: na Tomorrow's Labs & Rationales: na
[2018-04-04 08:09] LABS: ABSOLUTE BASOPHIL COUNT 0 /CUMM (0.0-0.2); ABSOLUTE EOSINOPHIL COUNT 0.2 /CUMM (0.0-0.7); ABSOLUTE GRANULOCYTE CT 12.2 /CUMM (1.4-6.5); ABSOLUTE LYMPH COUNT 4.6 /CUMM (1.2-3.4); ABSOLUTE MONOCYTE COUNT 0.9 /CUMM (0.10-0.60); BASOPHIL % 0.1 % (0.0-2.0); EOSINOPHIL % 1.3 % (0-5); HEMATOCRIT 38.7 % (42-52); MEAN CORPUSCULAR HGB CONC 34.3 G/DL (33.0-37.0); MEAN CORPUSCULAR VOLUME 87.5 FL (80.0-94.0); PLATELET COUNT 380 /CUMM (130-400); RBC DISTRIBUTION WIDTH 16.4 % (11.5-14.5); RED BLOOD CELL CT 4.43 /CUMM (4.70-6.10); WHITE BLOOD CELL COUNT 17.9 /CUMM (4.8-10.8)
--- NOTE | 2018-04-04 09:47 | PN- Cardiology ---
Subjective Subjective: Shortness of breath is improving. The patient complains of a sensation of food in his esophagus compressing his breathing. He has a history of esophageal stricture status post dilation 4 years ago. No chest pain. No palpitations. No diaphoresis. EKG was performed yesterday and revealed normal sinus rhythm. Blood pressure was low last night at 90/40 and is normal today Objective Vital Signs and I&Os Vital Signs Date Time Temp Pulse Resp B/P B/P Pulse O2 O2 Flow FiO2 Mean Ox Delivery Rate 04/04 0922 132/70 04/04 0838 98 Room Air Room Air 04/04 0620 97.9 87 20 132/70 95 Room Air 04/03 2309 97.8 67 20 90/40 94 Room Air 04/03 2056 94 Room Air 04/03 2055 84 94 04/03 1600 96 04/03 1349 97.7 84 20 112/60 94 Room Air 04/03 1041 82 108/52 Intake & Output 04/04 1600 04/04 0800 04/04 0000 04/03 1600 04/03 0800 04/03 0000 Intake Total 480 1040 480 400 600 Output Total 250 351 Balance 480 790 480 400 249 Intake, Oral 480 1040 480 400 600 Output, Stool 1 Output, Urine 250 350 Patient 217 lb Weight Weight Bed scale Measurement Method Physical Exam: Gen: The patient is in no acute distress HEENT: Normal nose, ears, and oropharynx. Pupils equal bilaterally. Conjunctiva normal. Neck: Supple with no JVD, no masses, and no thyromegaly Lungs: bilateral rhonci with normal respiratory effort Heart: S1, S2, 1/6 systolic murmur. No peripheral edema, 2+ pulses in the lower extremities bilaterally Abdomen: Soft, nontender, no masses. No hepatomegaly. No splenomegaly Extremities: No clubbing or cyanosis. Normal muscle strength in the upper and lower extremities Skin: Normal skin turgor with no skin ulcers or lesions noted. Current Medications: Current Medications Sig/Efe Start time Last Medication Dose Route Stop Time Status Admin Acetaminophen 325 MG Q6P PRN 03/27 2045 AC PO Albuterol Sulfate 3 ML EVERY 4 HRS/AWAKE 03/31 1600 AC 04/04 INH 0835 Albuterol Sulfate 2 PUF Q4 PRN 03/27 2200 AC INH Alprazolam 0.25 MG DAILY 03/31 959 AC 04/04 PO 04/07 0958 0923 Apixaban 5 MG BID 03/27 2146 AC 04/04 PO 0922 Atorvastatin Calcium 40 MG 1700 08 1700 AC 04/03 PO 1709 Azithromycin 250 MG MoWeFr 03/29 1000 AC 04/03 PO 0745 Bisacodyl 10 MG ONCE PRN 04/01 0800 AC 04/01 [place] 1009 Calcium Carbonate 500 MG DAILY 03/28 2045 AC 04/04 PO 0925 Cholecalciferol 1,000 IU DAILY 03/29 1803 AC 04/04 PO 0924 Cyclobenzaprine HCl 10 MG TID 03/28 0900 AC 04/04 PO 0922 Diltiazem HCl 180 MG DAILY 03/28 0900 AC 04/04 PO 0922 Fenofibrate 145 MG DAILY 03/28 0900 AC 04/04 PO 0924 Fluticasone 2 PUF BID 04/01 1456 AC 04/04 Propionate INH 0925 Furosemide 20 MG DAILY 03/28 0900 AC 04/04 PO 0923 Guaifenesin 600 MG Q12 03/28 0900 AC 04/04 PO 0924 Hydrocodone Bitart/ 1 TAB Q6P PRN 03/27 2315 AC 04/04 Ac[place]amin[place] PO 0832 Lansoprazole 30 MG BID 03/30 1415 AC 04/04 PO 0925 Losartan Potassium 25 MG DAILY 04/04 0900 AC 04/04 PO 0922 Losartan Potassium 50 MG DAILY 04/02 0900 DC 04/03 PO 0745 Melatonin 5 MG AT BEDTIME 03/31 2100 AC 04/03 PO 2027 Metformin HCl 850 MG 0800,1700 05 1700 AC 04/04 PO 0921 Polyethylene Glycol 17 GM DAILY 03/30 1433 AC 04/01 PO 1004 Prednisone 10 MG DAILY 04/03 1027 DC 04/03 PO 1203 Senna/Docusate Sodium 2 TAB .STK-MED ONE 04/03 2046 DC PO 04/03 2047 Senna/Docusate Sodium 1 TAB .STK-MED ONE 04/03 2042 DC PO 04/03 204 Senna/Docusate Sodium 1 TAB BID PRN 03/30 1445 AC 04/03 PO 2044 Sitagliptin Phosphate 100 MG DAILY 04/02 0900 AC 04/04 PO 0923 Sodium Chloride 2 SPRAY Q4P PRN 04/03 1030 AC MICHELLE Tiotropium [place] 1 PUF DAILY 03/27 2200 AC 04/04 INH 0925 Results Last 48 Hrs of Labs/Mics: Laboratory Tests 04/04/18 0714: Cortisol AM Sample 3.4 L, CBC w Diff MAN DIFF ORDERED, WBC Pending, RBC Pending , Hgb Pending, Hct Pending, MCV Pending, MCH Pending, MCHC Pending, RDW Pending, Plt Count Pending, MPV Pending, Gran % Pending, Lymphocytes % Pending, Monocytes % Pending, Eosinophils % Pending, Basophils % Pending, Absolute Granulocytes Pending, Segmented Neutrophils Pending, Absolute Lymphocytes Pending, Absolute Monocytes Pending, Absolute Eosinophils Pending, Absolute Basophils Pending 04/03/18 1210: Anion Gap 10, Estimated GFR > 60, BUN/Creatinine Ratio 33.6 H Recent Imaging Studies: EKG 04/03/18: Normal sinus rhythm Echocardiogram: Normal size left ventricle. Normal left ventricular ejection fraction visually estimated at > 60%. Trace tricuspid regurgitation. No evidence of pulmonary hypertension. Assessment/Plan Assessment/Plan Assessment: 1. Hypertension, with recent hypotension 2. Nonobstructive CAD 3. History of paroxysmal atrial fibrillation 4. history of TIA 5. New onset atrial flutter, rate under control. Anticoagulated on Eliquis. 6. COPD exacerbation Recommendations: * Hold losartan for recent hypotension * Continue Eliquis for anticoagulation * Continue diltiazem for rate control in the event of further atrial flutter or atrial fibrillator Continue telemetry? Not applicable
--- NOTE | 2018-04-04 10:17 | PN- Diabetes ---
Assessment/Plan Diabetes Assessment: Patient has been feeling better. Currently he is on prednisone 10 mg daily, metformin 850 mg twice a day and Januvia 100 mg daily. His FSGs were 124, 119, 220, 148 and 126. Plan: continue the current DM medications. monitor FSGs. will follow. Subjective Subjective: He feels better this morning. Objective Last 24 Hrs of Vital Signs/I&O Vital Signs Date Time Temp Pulse Resp B/P B/P Pulse O2 O2 Flow FiO2 Mean Ox Delivery Rate 04/04 0922 132/70 04/04 0838 98 Room Air Room Air 04/04 0620 97.9 87 20 132/70 95 Room Air 04/03 2309 97.8 67 20 90/40 94 Room Air 04/03 2056 94 Room Air 04/03 2055 84 94 04/03 1600 96 04/03 1349 97.7 84 20 112/60 94 Room Air 04/03 1041 82 108/52 Intake & Output 04/04 1600 04/04 0800 04/04 0000 Intake Total 480 1040 Output Total 250 Balance 480 790 Intake, Oral 480 1040 Output, Urine 250 Patient 217 lb Weight Weight Bed scale Measurement Method Findings Pertinent Lab/Mandeep Results: Laboratory Tests 04/04 04/03 0714 1210 Chemistry Sodium (137 - 145 mmol/L) 135 L Potassium (3.5 - 5.1 mmol/L) 4.3 Chloride (98 - 107 mmol/L) 99 Carbon Dioxide (22 - 30 mmol/L) 26 Anion Gap (5 - 16) 10 BUN (9 - 20 mg/dL) 37 H Creatinine (0.7 - 1.2 mg/dL) 1.1 Estimated GFR (>60 ml/min) > 60 BUN/Creatinine Ratio (7 - 25 %) 33.6 H Cortisol AM Sample (4.46 - 22.7 ug/dL) 3.4 L Hematology CBC w Diff MAN DIFF ORDERED WBC (4.8 - 10.8 /CUMM) 17.9 H RBC (4.70 - 6.10 /CUMM) 4.43 L Hgb (14.0 - 18.0 G/DL) 13.3 L Hct (42 - 52 %) 38.7 L MCV (80.0 - 94.0 FL) 87.5 MCH (27.0 - 31.0 PG) 30.0 MCHC (33.0 - 37.0 G/DL) 34.3 RDW (11.5 - 14.5 %) 16.4 H Plt Count (130 - 400 /CUMM) 380 MPV (7.4 - 10.4 FL) 6.0 L Gran % (42.2 - 75.2 %) 68.0 Lymphocytes % (20.5 - 51.1 %) 25.7 Monocytes % (1.7 - 9.3 %) 4.9 Eosinophils % (0 - 5 %) 1.3 Basophils % (0.0 - 2.0 %) 0.1 Absolute Granulocytes (1.4 - 6.5 /CUMM) 12.2 H Segmented Neutrophils (42.2 - 75.2 %) 69 Band Neutrophils (0.0 - 5.0 %) 2 Absolute Lymphocytes (1.2 - 3.4 /CUMM) 4.6 H Lymphocytes (20.5 - 51.1 %) 23 Monocytes (1.7 - 9.3 %) 6 Absolute Monocytes (0.10 - 0.60 /CUMM) 0.9 H Absolute Eosinophils (0.0 - 0.7 /CUMM) 0.2 Absolute Basophils (0.0 - 0.2 /CUMM) 0 Platelet Estimate (ADEQUATE) ADEQUATE Poikilocytosis 2+ Anisocytosis 2+
--- NOTE | 2018-04-04 11:38 | PN- Att Addend ---
Attending Addendum Attending Brief Note Patient seen and examined. Plan of care discussed with the medical team and the patient. Available lab work and radiology test reports were reviewed. Patient has several complaints this morning. He complains of for sticking in epigastric area which is associated with increased difficulty breathing. He also continues to have intermittent coughing. Patient apparently had esophageal dilation done a [facility] years ago. Exam: General: Patient awake alert oriented without any distress; able to complete sentences CVS: S1 plus S2 without any murmur or gallops Chest: Few scattered crepitation without any wheeze. There is no respiratory distress. Abdomen: Soft non-tender, bowel sound present, no guarding or rebound [employer]: Awake alert oriented without any focal neuro deficit and follows commands appropriately Extremities: No edema; no clubbing or cyanosis noted Assessment * COPD exacerbation * orthostatic hypotension * CHF, stable w/ last known EF >55% * uncontrolled diabetes * aflutter - patient had been rate controlled entire admission before episode of chest tightness on inspiration * PMH of RODRICK noncompliant with CPAP, * hypotension, * hyperlipidemia, * degenerative disc disease * History of dysphagia stricture with recurrent dysphagia Plan * Hold Cozaar and Lasix * Recheck creatinine tomorrow * GI consult for assessment of dysphagia * Increase ambulation * Monitor by mouth intake; encourage oral intake of fluids * Plan for possible discharge tomorrow * continue PPI * Case was discussed with patient's and Dr. Pinedo. Plan currently is to continue Cardizem. No plan for cardioversion since patient currently in normal sinus rhythm. Current Medications Sig/Efe Start time Last Medication Dose Route Stop Time Status Admin Acetaminophen 325 MG Q6P PRN 03/27 2045 AC PO Albuterol Sulfate 3 ML EVERY 4 HRS/AWAKE 03/31 1600 AC 04/04 INH 0835 Albuterol Sulfate 2 PUF Q4 PRN 03/27 2200 AC INH Alprazolam 0.25 MG DAILY 03/31 0959 AC 04/04 PO 04/07 0958 0923 Apixaban 5 MG BID 03/27 2146 AC 04/04 PO 0922 Atorvastatin Calcium 40 MG 1700 03/28 1700 AC 04/03 PO 1709 Azithromycin 250 MG MoWeFr 03/29 1000 AC 04/03 PO 0745 Bisacodyl 10 MG ONCE PRN 04/01 0800 AC 04/01 [place] 1009 Calcium Carbonate 500 MG DAILY 03/28 2045 AC 04/04 PO 0925 Cholecalciferol 1,000 IU DAILY 03/29 1803 AC 04/04 PO 0924 Cyclobenzaprine HCl 10 MG TID 03/28 900 AC 04/04 PO 09 Diltiazem HCl 180 MG DAILY 03/28 900 AC 04/04 PO 09 Fenofibrate 145 MG DAILY 03/28 900 AC 04/04 PO 0924 Fluticasone 2 PUF BID 04/01 1456 AC 04/04 Propionate INH 0925 Furosemide 20 MG DAILY 03/28 900 DC 04/04 PO 0923 Guaifenesin 600 MG Q12 03/28 09 AC 04/04 PO 0924 Hydrocodone Bitart/ 1 TAB Q6P PRN 03/27 2315 AC 04/04 [place] 0832 Lansoprazole 30 MG BID 03/30 1415 AC 04/04 PO 0925 Losartan Potassium 25 MG DAILY 04/04 900 DC 04/04 PO 0922 Losartan Potassium 50 MG DAILY 04/02 09 DC 04/03 PO 0745 Melatonin 5 MG AT BEDTIME 03/31 2100 AC 04/03 PO 2027 Metformin HCl 850 MG 0800,1700 04/03 1700 AC 04/04 PO 0921 Polyethylene Glycol 17 GM DAILY 03/30 1433 AC 04/01 PO 1004 Prednisone 10 MG DAILY 04/03 1027 DC 04/03 PO 1203 Senna/Docusate Sodium 2 TAB .STK-MED ONE 04/03 2046 DC PO 04/03 2047 Senna/Docusate Sodium 1 TAB .STK-MED ONE 04/03 2042 DC PO 04/03 204 Senna/Docusate Sodium 1 TAB BID PRN 03/30 1445 AC 04/03 PO 2044 Sitagliptin Phosphate 100 MG DAILY 04/02 0900 AC 04/04 PO 0923 Sodium Chloride 2 SPRAY Q4P PRN 04/03 1030 AC MICHELLE Tiotropium [place] 1 PUF DAILY 03/27 2200 AC 04/04 INH 0925 Laboratory Tests 04/04/18 0714: Cortisol AM Sample 3.4 L, CBC w Diff MAN DIFF ORDERED, RBC 4.43 L, MCV 87.5, MCH 30.0, MCHC 34.3, RDW 16.4 H, MPV 6.0 L, Gran % 68.0, Lymphocytes % 25.7, Monocytes % 4.9, Eosinophils % 1.3, Basophils % 0.1, Absolute Granulocytes 12.2 H, Segmented Neutrophils 69, Band Neutrophils 2, Absolute Lymphocytes 4.6 H, Lymphocytes 23, Monocytes 6, Absolute Monocytes 0.9 H, Absolute Eosinophils 0.2 , Absolute Basophils 0, Platelet Estimate ADEQUATE, Poikilocytosis 2+, Anisocytosis 2+ 04/03/18 1210: Anion Gap 10, Estimated GFR > 60, BUN/Creatinine Ratio 33.6 H Vital Signs Date Time Temp Pulse Resp B/P B/P Pulse O2 O2 Flow FiO2 Mean Ox Delivery Rate 04/04 0922 132/70 04/04 0838 98 Room Air Room Air 04/04 0620 97.9 87 20 132/70 95 Room Air 04/03 2309 97.8 67 20 90/40 94 Room Air 04/03 2056 94 Room Air 04/03 2055 84 94 04/03 1600 96 04/03 1349 97.7 84 20 112/60 94 Room Air Intake & Output 04/04 1600 04/04 0800 04/04 0000 Intake Total 480 1040 Output Total 250 Balance 480 790 Intake, Oral 480 1040 Output, Urine 250 Patient 217 lb Weight Weight Bed scale Measurement Method
[2018-04-04 13:48] VITALS: BP 100/70
--- NOTE | 2018-04-04 15:59 | Cons- Gastroenterology ---
General Information and HPI Consulting Request Date of Consult: 04/04/18 Requested By: Tomas MOODY,José Miguel Reason for Consult: I was called by the hospitalist service late this a.m. to semi-electively assess patient followed at [facility] for known achalasia, for dysphagia, HD #9. The patient is currently eating a chopped diet. Source of Information: patient, old records Exam Limitations: fair historian; some of records at [facility] History of Present Illness: 77 y/o male, fair historian, clark seen by myself in the office 09/22/16. He has known type III achalasia, & is followed by Dr. Jose Antonio Sheehan, Dr. Alessandra Alvares, Dr. Mercado, & Dr. Anant Gama for this at [facility]. 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 He was treated with steroids, antibiotics (Azithromycin- finished 04/03/18), TRC , nebulizers, & O2. Additionally, he has a history of RODRICK (noncompliant with CPAP), orthostatic hypotension, stable CHF with normal LVEF, uncontrolled diabetes, a fib/flutter ( *on Eliquis 5 mg po BID, last given 9 a.m., 04/04/18, the day of the GI consult )-> NSR, HTN, HLD, DM, obesity, Vit D deficiency,TURP for BPH, DJD, C-spine surgery, & chronic low back pain. He had an episode of chest tightness on inspiration, which resolved. His recent O2 sat RA was 95%. He was previously admitted to [facility] in 11/2017 with a flare of COPD. He also has a hx of known hilar/mediastinal nodes by CT at [facility] ( apparently resolved on 02/24/18: [facility] CTA chest), anxiety, depression, 2010: Bpt cardiac cath reportedly w/o significant obstruction, GERD, diverticulosis coli-> sigmoid colectomy 08/2009 for diverticulitis, hx colon adenoma (LGI issues & colonoscopies f/b Dr. Landa, of [facility]). He has had extensive GI testing in the past: 02/08/12: EGD per Dr. Wallace Coronado- nl duodenum, "gastritis" w/o bxs, nl appearing esophagus with distal esophageal bxs showing benign junctional mucosa, with "focal multi-layered epithelium", negative for dysplasia, per pathologist "could be precursor to Brooks's", but no brooks's seen, nor any dysplasia. 09/08/14-09/12/14: [facility] admit for minor LGI bleed (prob hemorrhoidal), abd pain & ? left-sided colitis-> IVF, IV abx switched to po Cipro/Flagyl x 14d. 09/08/14: CT AP w/o cont- ? colitis long segment of descending colon, mod tics, fatty liver, small non-obst umbilical hernia, enlaarged prostate. 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 chronic compared to 03/10/06: UGI series), witn intact mucosa, no obstruction, no HH or gross reflux, no mass. 11/11/14: Colonoscopy to cecum per Dr. Landa- poor prep, but no gross colitis seen. Random bxs of colon 7 rectum- negative, with removal of small benign TA from proximal right colon, divertics. 01/21/15: *Esophageal manometry at [facility] per Dr. Alessandra Alvares- *acahalasia type III- *pneumatic dilitation vs Heller myotomy advised (*Botox probably would not work as well) 03/11/15: EGD/EUS per Dr. Knight- w/o infilt process or mass (Heller myotomy vs. pneumatic dilitation advised) 04/02/18: Esophageal consult at [facility] with Dr. Mercado 04/09/15: BS at [facility]- narrow distal 1/4 esophagus c/w esoph dysmotility, "not classic for achalasia" 04/09/15: CT chest with IV cont at [facility]- diffuse thick walled esophagus, med & hilar adenopathy, COPD 05/07/15: *Lap Heller myotomy with Milton fundoplication for type III [address]asia per Dr. Anant Gama at [facility]. *When last seen in the office 09/22/16, he was on Prevacid Solutab 30 mg daily, per [facility], for constant reflux. He also had dysphagia/early satiety, pointing to the xiphoid process-> ? if from dysmotility vs. tight fundoplication. His Prevacid Solutabs were increased to 30 mg po BID & he was referred back to [facility] with his complex esophageal history, as neither pneumatic dilitation, EUS, or esophageal manometry were done at [facility]. I had not seen the patient since. 01/18/17: *EGD at [facility] per Dr. Jose Antonio Sheehan with repeat manometry- spasm was noted in distal esophagus. Squamocolumnar junction at 44 cm with patent GEJ. Normal-appearing stomach except for mild narrow nodularity in the gastric body-> bx. Normal-appearing duodenum to the second portion. There was no evidence of gastric outlet obstruction. *Biopsies were obtained from the proximal esophagus & gastric body, although these were not sent to me. * I was never sent the repeat manometry results. *As of 04/04/18, the patient noted chronic intermittent dysphagia to solids, liquids, & pills for years, followed by odynophagia. He pointed to the xiphoid region as to the area of sticking. He occasionally regurgitated undigested food. he was edentulous. He denied any hematemesis, melena, or abdominal pain, aside from when the dysphagia recurred, at which point he had nonexertional right-sided chest pain, radiating to the back. He had chronic mild early satiety. He denied any nausea, vomiting, fevers, chills, shortness of breath, or chest pain, aside from when he had the dysphagia. He denied any hemoptysis. His reflux symptoms were stable on PPI BID, usually on Prevacid Soluutabs 30 mg BID. He stated that he cut his food into small pieces. He denied any head & neck RT, head & neck CA, change in his voice, nasal regurgitation of food or liquids, or definite CVA, although he may have had subclinical CVA in the past ( chronic left gangliocapsular lacunar infarction & background mild small vessel ischemic changes, by 01/04/18: CT head without contrast). He was right handed. He denied any lower GI symptoms, and specifically denied any diarrhea, constipation, obstipation, tenesmus, change in stool caliber, or rectal bleeding. He denied any jaundice, weight loss, or change in appetite. Aside from his mother having had a hiatal hernia, there was no family history of GI disease, GI CA, or inherited liver disease. The patient claimed he stopped cigarette smoking 11/20/16, and also stopped his history of moderate beer intake at that time. He denied any illicit drug use. He had old tattoos. Allergies/Medications Allergies: Coded Allergies: moxifloxacin (From AVELOX) (ITCHY, RASH, SWEATING 01/12/18) Home Med List: Albuterol Sulfate (Proventil Hfa) 90 MCG HFA.AER.AD 2 PUF INH Q4 PRN SOB TAKE DIRECTED Amlodipine Besylate (Norvasc) 5 MG TABLET 1 TAB PO DAILY HEART (Reported) Apixaban (Eliquis) 5 MG TABLET 1 TAB PO BID AFIB (Reported) Azithromycin 250 MG TABLET 1 DP PO AD copd 2 the first day followed by 1 for days 2-5 Budesonide/Formoterol Fumarate (Symbicort 160-4.5 Mcg Inhaler) 160 MCG-4.5 MCG/ ACTUATION HFA.AER.AD 2 PUFF INH BID COPID (Reported) Cyclobenzaprine HCl 10 MG TABLET 1 TAB PO DAILY MUSCLE SPASMS (Reported) Diltiazem HCl (Diltiazem 24HR ER) 180 MG CAP.ER.24H 1 CAP PO DAILY HEART ( Reported) Fenofibrate,Micronized (Fenofibrate) 130 MG CAPSULE 1 CAP PO DAILY TRIGLYCERIDES (Reported) Finasteride 5 MG TABLET 1 TAB PO DAILY PROSTRATE (Reported) Furosemide 20 MG TABLET 1 TAB PO DAILY FLUID RETENTION (Reported) Hydrocodone/Acetaminophen (Hydrocodon-Acetaminophn 10-325) 10 MG-325 MG TABLET 1 TAB PO 4XDP PRN PAIN (Reported) Lansoprazole (Prevacid) 30 MG CAPSULE.DR 30 MG PO DIALY ACID REFLUX (Reported ) Lisinopril 10 MG TABLET 10 MG PO DAILY HTN (Reported) Metformin HCl 500 MG TABLET 500 MG PO BID DIABETES (Reported) Prednisone 50 MG TABLET 1 TAB PO DAILY copd Prednisone 10 MG TABLET 0 PO TAPER COPD DATES: TABS/DAY 01/18-01/19 6 01/20-01/22 5 01/23-01/25 4 01/26-01/28 3 01/29-01/31 2 02/01-02/03 1 THEN STOP Roflumilast (Daliresp) 500 MCG TABLET 1 TAB PO DAILY U (Reported) Rosuvastatin Calcium (Crestor) 40 MG TABLET 40 MG PO DIALY CHOLESTEROL ( Reported) Tiotropium Lemmon (Spiriva) 18 MCG CAP.W.DEV 1 PUF INH DIALY COPD (Reported) Vilazodone Hydrochloride (Viibryd) 20 MG TABLET 1 TAB PO DAILY MENTAL HEALTH (Reported) Current Medications: Current Medications Sig/Efe Start time Last Medication Dose Route Stop Time Status Admin Acetaminophen 325 MG Q6P PRN 03/27 2045 AC PO Albuterol Sulfate 3 ML EVERY 4 HRS/AWAKE 03/31 1600 AC 04/04 INH 1153 Albuterol Sulfate 2 PUF Q4 PRN 03/27 2200 AC INH Alprazolam 0.25 MG DAILY 03/31 0959 AC 04/04 PO 04/07 0958 0923 Apixaban 5 MG BID 03/27 2146 AC 04/04 PO 0922 Atorvastatin Calcium 40 MG 1700 03/28 1700 AC 04/04 PO 1725 Azithromycin 250 MG MoWeFr 03/29 1000 AC 04/03 PO 0745 Bisacodyl 10 MG ONCE PRN 04/01 0800 AC 04/01 CA 1009 Calcium Carbonate 500 MG DAILY 03/28 204 AC 04/04 PO 0925 Cholecalciferol 1,000 IU DAILY 03/29 1803 AC 04/04 PO 0924 Cyclobenzaprine HCl 10 MG TID 03/28 0900 AC 04/04 PO 1453 Diltiazem HCl 180 MG DAILY 03/28 0900 AC 04/04 PO 0922 Fenofibrate 145 MG DAILY 03/28 0900 AC 04/04 PO 0924 Fluticasone 2 PUF BID 04/01 1456 AC 04/04 Propionate INH 0925 Furosemide 20 MG DAILY 03/28 09 DC 04/04 PO 0923 Guaifenesin 600 MG Q12 03/28 0900 AC 04/04 PO 0924 Hydrocodone Bitart/ 1 TAB Q6P PRN 03/27 2315 AC 04/04 Acetaminophen PO 1453 Lansoprazole 30 MG BID 03/30 1415 AC 04/04 PO 0925 Losartan Potassium 25 MG DAILY 04/04 09 DC 04/04 PO 0922 Melatonin 5 MG AT BEDTIME 03/31 2100 AC 04/03 PO 2027 Metformin HCl 850 MG 0800,1700 04/03 1700 AC 04/04 PO 1725 Polyethylene Glycol 17 GM DAILY 03/30 1433 AC 04/01 PO 1004 Prednisone 10 MG DAILY 04/03 1027 DC 04/03 PO 1203 Senna/Docusate Sodium 2 TAB .STK-MED ONE 04/03 2046 DC PO 04/03 2047 Senna/Docusate Sodium 1 TAB .STK-MED ONE 04/03 204 DC PO 04/03 204 Senna/Docusate Sodium 1 TAB BID PRN 03/30 1445 AC 04/03 PO 204 Sitagliptin Phosphate 100 MG DAILY 04/02 0900 AC 04/04 PO 0923 Sodium Chloride 2 SPRAY Q4P PRN 04/03 1030 AC MICHELLE Tiotropium Lemmon 1 PUF DAILY 03/27 2200 AC 04/04 INH 0925 Past History Travel History Traveled to [place] past 21 day No Medical History Blood Transfusion Hx: No Neurological: CVA (subclinical by CT), seizure EENT: NONE Cardiovascular: AFIB, hypertension, hyperlipidemia Respiratory: COPD Gastrointestinal: achalasia- type III Hepatic: NONE Renal: NONE Musculoskeletal: degen joint disease, degenerative disk disease, chronic neck pain, post C- spine fusion Psychiatric: anxiety, depression Endocrine: diabetes, obesity Blood Disorders: NONE Cancer(s): NONE 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 , Age 79; Cause: COPD (chronic obstructive pulmonary disease). FATHER, , Age 96; Cause: Old age. SISTER (Lung Ca/smoker). , Age 58; Cause: COPD (chronic obstructive pulmonary disease). SISTER ([employer]). BROTHER ([employer]). Relation not specified for: *No pertinent family history Psychosocial History Where Do You Live? Home Who Do You Live With? spouse Services at Home: None Primary Language: Cymro Smoking Status: Former Smoker ETOH Use: denies use Illicit Drug Use: denies illicit drug use Living Will? no Power of Steam Box Tender/HCP? no Other Social History: to Aneta. 3 children-( 2 sons & 1 dtr- [employer]- 1 son has drug problems on Methadone, the dtr has renal stones & fibromyalgia. Ex > 100 pk yr cigarettes & ex-mod beer (> 3 beers daily), both D/C 11/20/16. No illicit drugs or IVDA. Old tattoos. Pt was 1 of 4 kids. 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 Functional Ability ADLs Independent: dressing, eating, toileting, bathing. Ambulation: independent IADLs Independent: shopping, housework, finances, food prep, telephone, transportation , medication admin. 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 ECHO Results (as available) Date of last Echo 04/01/18 EF% 60 Review of Systems Review of Systems: Full 14 point ROS otherwise noncontributory, & as above. Review of Systems Constitutional: Denies: chills, diaphoresis, fever, malaise, weakness, unexplained weight loss. EENTM: Denies: blurred vision, double vision, visual changes, eye pain, eye drainage, eye tearing, icterus, ear discharge, ear pain, ear redness, hearing changes, nasal congestion, epistaxis, nasal pain, throat pain, throat swelling, mouth pain, tooth pain. Cardiovascular: Reports: chest pain (only with dysphagia-> right CP). Denies: edema, orthopena, palpitations, peripheral edema, syncope. Respiratory: Reports: cough (resolved). Denies: hemoptysis, orthopnea, short of breath, sputum production, stridor, wheezing. GI: Denies: abdominal pain, bloating, constipation, diarrhea, distention, bowel incontinence, melena, nausea, bloody stool, changes in stool, vomiting, steatorrhea. Genitourinary: Reports: nocturia (rare). Denies: discharge, dysuria, frequency, hematuria, hesitation, pain, urgency. Musculoskeletal: Reports: joint pain (DJD), neck pain (post C3/4/5 fusion). Denies: back pain, gout, joint swelling, muscle pain, muscle stiffness. Skin: Denies: cysts, change in skin color, change in hair/nails, dryness, erythema, jaundice, lesions, lymphangitis, lumps, moles, rash. Neurological/Psychological: Reports: anxiety (mild), depressed (mild). Denies: ataxia, cognitive dysfunction, confusion, dementia, emotional problems, headache, numbness, paresthesia, pre-existing deficit, petit mal seizures, tingling, tremors, tonic- clonic seizures, unable to move lower ext, unable to move upper ext, weakness. Hematologic/Endocrine: Denies: bruising, bleeding, polyuria, polydipsia. Immunologic/Allergic: Denies: splenectomy, HIV/AIDS, lymphadenopathy. All Other Systems: Reviewed and Negative Exam & Diagnostic Data Vital Signs and I&O Vital Signs Date Time Temp Pulse Resp B/P B/P Pulse O2 O2 Flow FiO2 Mean Ox Delivery Rate 04/04 1348 98.0 79 20 100/70 98 Room Air 04/04 0922 132/70 04/04 0838 98 Room Air Room Air 04/04 0620 97.9 87 20 132/70 95 Room Air 04/03 2309 97.8 67 20 90/40 94 Room Air 04/03 2056 94 Room Air 04/03 2055 84 94 04/03 1600 96 Intake & Output 04/04 1600 04/04 0400 04/03 1600 04/03 0400 04/02 1600 04/02 0400 Intake Total 480 1040 880 600 610 290 Output Total 250 351 Balance 480 790 880 249 610 290 Intake, IV 10 Intake, Oral 480 1040 880 600 610 280 Number 3 Bowel Movements Output, Stool 1 Output, Urine 250 350 Patient 217 lb Weight Weight Bed scale Measurement Method Physical Exam: Well-developed, well nourished, slightly obese male, in no apparent distress. Sclera anicteric. Conjunctiva pink. Oropharynx clear. No oral thrush. No apthous ulcers. Edentulous. There is no adenopathy, JVD, or HJR. Full thyroid, without definite nodule. No peripheral stigmata of inflammatory bowel disease or chronic liver disease on exam. No spiders on the anterior chest wall. No gynecomastia. No CVA tenderness. No spine tenderness. Lungs: clear to A&P, with slightly prolonged expiratory phase. No wheezing, rales, egophony, or rhonchi. Heart exam: currently, regular rate rhythm, S1 and S2, without any significant murmur. No CWT. No zoster. Abdominal exam: normal bowel sounds, soft obese belly, nontender, without guarding or rebound. Reducible umbilical hernia. Otherwise, no definite mass. No organomegaly, within the limits of the body habitus. No fluid shift. No pulsatile mass. No epigastric bruit. Digital rectal exam: deferred by patient. Extremities: without C, C, or E. No palpable cords. Mild DJD. Old tattoos. No palmar erythema. No Dupuytren's contractures.Distal pulses 1+ bilaterally. DTRs 1+ bilaterally. Alert and oriented x 3. Right handed. CN II-XII intact. No tremor. No asterixis. Results Pertinent Lab Results: Laboratory Tests 04/04 04/03 0714 1210 Chemistry Sodium (137 - 145 mmol/L) 135 L Potassium (3.5 - 5.1 mmol/L) 4.3 Chloride (98 - 107 mmol/L) 99 Carbon Dioxide (22 - 30 mmol/L) 26 Anion Gap (5 - 16) 10 BUN (9 - 20 mg/dL) 37 H Creatinine (0.7 - 1.2 mg/dL) 1.1 Estimated GFR (>60 ml/min) > 60 BUN/Creatinine Ratio (7 - 25 %) 33.6 H Cortisol AM Sample (4.46 - 22.7 ug/dL) 3.4 L Hematology CBC w Diff MAN DIFF ORDERED WBC (4.8 - 10.8 /CUMM) 17.9 H RBC (4.70 - 6.10 /CUMM) 4.43 L Hgb (14.0 - 18.0 G/DL) 13.3 L Hct (42 - 52 %) 38.7 L MCV (80.0 - 94.0 FL) 87.5 MCH (27.0 - 31.0 PG) 30.0 MCHC (33.0 - 37.0 G/DL) 34.3 RDW (11.5 - 14.5 %) 16.4 H Plt Count (130 - 400 /CUMM) 380 MPV (7.4 - 10.4 FL) 6.0 L Gran % (42.2 - 75.2 %) 68.0 Lymphocytes % (20.5 - 51.1 %) 25.7 Monocytes % (1.7 - 9.3 %) 4.9 Eosinophils % (0 - 5 %) 1.3 Basophils % (0.0 - 2.0 %) 0.1 Absolute Granulocytes (1.4 - 6.5 /CUMM) 12.2 H Segmented Neutrophils (42.2 - 75.2 %) 69 Band Neutrophils (0.0 - 5.0 %) 2 Absolute Lymphocytes (1.2 - 3.4 /CUMM) 4.6 H Lymphocytes (20.5 - 51.1 %) 23 Monocytes (1.7 - 9.3 %) 6 Absolute Monocytes (0.10 - 0.60 /CUMM) 0.9 H Absolute Eosinophils (0.0 - 0.7 /CUMM) 0.2 Absolute Basophils (0.0 - 0.2 /CUMM) 0 Platelet Estimate (ADEQUATE) ADEQUATE Poikilocytosis 2+ Anisocytosis 2+ Imaging/Other Studies: *Numerous EKGs this admission- NSR alternating with afib/flutter. Most recently: 04/03/18: EKG- NSR @ 76, nl axis, nl intervals, mild early transition, biphasic T in L. 03/27/18: XRY-CHEST XRAY, TWO VIEWS- Stable appearance of the chest relative to 02/24/2018. No acute abnormality is evident. 04/01/18: XRY-PORTABLE CHEST XRAY- No active disease in the chest. Unchanged elevation of right hemidiaphragm. Postop changes related to anterior cervical discectomy and fusion of lower cervical spine. 04/01/18: XR PORTABLE ABDOMEN- Nonobstructed bowel gas pattern. Assessment/Plan Assessment/Recommendations: 77 y/o male, fair historianclark seen by myself in the office 09/22/16. He has known type III achalasia, & is followed by Dr. Jose Antonio Sheehan, Dr. Alessandra Alvares, Dr. Mercado, & Dr. Anant Gama for this at [facility]. 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 He was treated with steroids, antibiotics (Azithromycin- finished 04/03/18), TRC , nebulizers, & O2. Additionally, he has a history of RODRICK (noncompliant with CPAP), orthostatic hypotension, stable CHF with normal LVEF, uncontrolled diabetes, a fib/flutter ( *on Eliquis 5 mg po BID, last given 9 a.m., 04/04/18, the day of the GI consult )-> NSR, HTN, HLD, DM, obesity, Vit D deficiency,TURP for BPH, DJD, C-spine surgery, & chronic low back pain. He had an episode of chest tightness on inspiration, which resolved. His recent O2 sat RA was 95%. He was previously admitted [facility] in 11/2017 with a flare of COPD. He also has a hx of known hilar/mediastinal nodes by CT at [facility] ( apparently resolved on 02/24/18: [facility]A chest), anxiety, depression, 2010: Bpt cardiac cath reportedly w/o significant obstruction, GERD, diverticulosis coli-> sigmoid colectomy 08/2009 for diverticulitis, hx colon adenoma (LGI issues & colonoscopies f/b Dr. Landa, of [facility]). He has had extensive GI testing in the past: 02/08/12: EGD per Dr. Wallace Coronado- nl duodenum, "gastritis" w/o bxs, nl appearing esophagus with distal esophageal bxs showing benign junctional mucosa, with "focal multi-layered epithelium", negative for dysplasia, per pathologist "could be precursor to Brooks's", but no brooks's seen, nor any dysplasia. 09/08/14-09/12/14: [facility] admit for minor LGI bleed (prob hemorrhoidal), abd pain & ? left-sided colitis-> IVF, IV abx switched to po Cipro/Flagyl x 14d. 09/08/14: CT AP w/o cont- ? colitis long segment of descending colon, mod tics, fatty liver, small non-obst umbilical hernia, enlaarged prostate. 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 chronic compared to 03/10/06: UGI series), witn intact mucosa, no obstruction, no HH or gross reflux, no mass. 11/11/14: Colonoscopy to cecum per Dr. Landa- poor prep, but no gross colitis seen. Random bxs of colon 7 rectum- negative, with removal of small benign TA from proximal right colon, divertics. 01/21/15: *Esophageal manometry at [facility] per Dr. Alessandra Alvares- *acahalasia type III- *pneumatic dilitation vs Heller myotomy advised (*Botox probably would not work as well) 03/11/15: EGD/EUS per Dr. Knight- w/o infilt process or mass (Heller myotomy vs. pneumatic dilitation advised) 04/02/18: Esophageal consult at [facility] with Dr. Mercado 04/09/15: BS at [facility]- narrow distal 1/4 esophagus c/w esoph dysmotility, "not classic for achalasia" 04/09/15: CT chest with IV cont at [facility]- diffuse thick walled esophagus, med & hilar adenopathy, COPD 05/07/15: *Lap Heller myotomy with Milton fundoplication for type III [address] per Dr. Anant Gama at [facility]. *When last seen in the office 09/22/16, he was on Prevacid Solutab 30 mg daily, per [facility], for constant reflux. He also had dysphagia/early satiety, pointing to the xiphoid process-> ? if from dysmotility vs. tight fundoplication. His Prevacid Solutabs were increased to 30 mg po BID & he was referred back to [facility] with his complex esophageal history, as neither pneumatic dilitation, EUS, or esophageal manometry were done at [facility]. I had not seen the patient since. 01/18/17: *EGD at [facility] per Dr. Jose Antonio Sheehan with repeat manometry- spasm was noted in distal esophagus. Squamocolumnar junction at 44 cm with patent GEJ. Normal-appearing stomach except for mild narrow nodularity in the gastric body-> bx. Normal-appearing duodenum to the second portion. There was no evidence of gastric outlet obstruction. *Biopsies were obtained from the proximal esophagus & gastric body, although these were not sent to me. * I was never sent the repeat manometry results. *As of 04/04/18, the patient noted chronic intermittent dysphagia to solids, liquids, & pills for years, followed by odynophagia. He pointed to the xiphoid region as to the area of sticking. He occasionally regurgitated undigested food. he was edentulous. He denied any hematemesis, melena, or abdominal pain, aside from when the dysphagia recurred, at which point he had nonexertional right-sided chest pain, radiating to the back. He had chronic mild early satiety. He denied any nausea, vomiting, fevers, chills, shortness of breath, or chest pain, aside from when he had the dysphagia. He denied any hemoptysis. His reflux symptoms were stable on PPI BID, usually on Prevacid Soluutabs 30 mg BID. He stated that he cut his food into small pieces. He denied any head & neck RT, head & neck CA, change in his voice, nasal regurgitation of food or liquids, or definite CVA, although he may have had subclinical CVA in the past ( chronic left gangliocapsular lacunar infarction & background mild small vessel ischemic changes, by 01/04/18: CT head without contrast). He was right handed. He denied any lower GI symptoms, and specifically denied any diarrhea, constipation, obstipation, tenesmus, change in stool caliber, or rectal bleeding. He denied any jaundice, weight loss, or change in appetite. Aside from his mother having had a hiatal hernia, there was no family history of GI disease, GI CA, or inherited liver disease. The patient claimed he stopped cigarette smoking 11/20/16, and also stopped his history of moderate beer intake at that time. He denied any illicit drug use. He had old tattoos. *The patient has a history of type III achalasia, with extensive workup at [facility]. He was previously treated with 05/07/15: lap Heller myotomy with Milton fundoplication per Dr. Anant Gama. He is followed by the [facility] espophageal team (Drs. Alessandra Alvares, Jose Antonio Sheehan, & Jess). Previous EUS without infiltrative process or mass to suggest psedoachalasia. The patient had known mediastinal & hilar adenopathy on previous CT of chest (apparently resolved on 02/24/18: [facility] chest), superimposed on COPD & RODRICK (not c/ CPAP). Botox was previously not felt to work well, as per [facility]. 01/18/17: *Last EGD/ manometry at [facility] per Dr. Sheehan- spasms in distal esophagus, squamocolumnar junction at 44 cm with patent GEJ, normal Z line, slight nodularity gastric body , no GOO, otherwise negative to D2. (I never received copies of the proximal esophageal bxs, gastric bxs, or repeat manometry done then. *Apparently, his symptoms were not felt to be due to a tight fundopliaction then, as his GEJ was patent). *The patient currently is on Eliquis, which is on board, last taken this morning. He also just had a flare of his COPD. His complex esophageal history is noted. [facility] did not feel Botox injections would be of any significant utility for his type III achalasia. *Unless he had an acute food impaction (which he clinically did not have, as he was tolerating a chopped diet), as he can sustain himself nutritionally, I would advise outpt follow-up with the [facility] GI esophagus group (Drs. Alvares/Aguila/Jess), in conjunction with his thoracic surgeon, Anant Benavides, for further dx testing, as Chris does not have pneuamatic dilitation, esophageal manometry, or EUS. *I would continue PPI BID (currently on Lansoprazole 30 mg po BID), but with his achalsia, Prevacid Solutabs 30 mg po BID would probably be more efficacious, as they can dissolve & be absorbed easier. Advise antireflux measures and aspiration precautions, along with chopped diet in the upright position. He was told to use his false teeth. Continue to stay off cigarettes & EtOH. Regarding his fatty liver, he should continue his outpatient Vitamin E 800 iu daily for fatty liver, along with risk factor modification, including strict control of body weight, BP, lipids, blood sugar, etc. His umbilical hernia was small and reducible and could be followed clinically. The patient was followed by Dr. Landa, of [facility], for his remote history of "colitis", past hx diverticulitis, and colon adenoma. The patient was told to follow up with his PMD & pulmonary for his extensive COPD, RODRICK, & mediastinal/hilar adenopathy noted on previous CT (apparently resolved on : Chris CTA chest). Follow up with cardiology regarding the intermittent afib/flutter-> NSR (on Eliquis). Otherwise, it would not make sense for the patient to follow up with me at my office, as his esophageal care was exclusively at [facility]. The above was discussed with Dr. Marin this afternoon. Appparently the patient is being D/C tomorrow. *Please call if any further inpatient GI care is needed. Problem List: 1. Dysphagia 2. Achalasia 3. Umbilical hernia 4. Fatty liver 5. Diverticulosis of colon 6. History of adenomatous polyp of colon Copies To: Cordell Alejandro DO,Fred Quintana; Ron MOODY,Derek Marte; Aguila MOODY,Jose Antonio Campbell; Manjinder MOODY, Kyler Quintana; Jess MOODY,Jackelyn; Tomas MOODY,José Miguel; Florentin MOODY,Nicki Segura; David MOODY,Ross ; Natan MOODY,Anant Hitchcock; Giorgio Kc MD,Alessandra Marte; Margarita MOODY,Eduardo; Khris MOODY,Joseph; Walter MOODY,Brady Gustafson. Consult Acknowledgment - Thank you for your consult request.
[2018-04-04 22:32] VITALS: BP 130/70
[2018-04-05 06:20] VITALS: BP 120/68
--- NOTE | 2018-04-05 08:10 | PN- Att Addend ---
Attending Addendum Attending Brief Note Patient seen and examined. Plan of care discussed with the medical team and the patient. Available lab work and radiology test reports were reviewed. He continues to complain of intermittent difficulty breathing. His swallowing is better with a chopped diet. Exam: General: Patient awake alert oriented without any distress; able to complete sentences CVS: S1 plus S2 without any murmur or gallops Chest: Few scattered crepitation without any wheeze. There is no respiratory distress. 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 without any focal neuro deficit and follows commands appropriately Extremities: No edema; no clubbing or cyanosis noted Assessment * COPD exacerbation * orthostatic hypotension * CHF, stable w/ last known EF >55% * uncontrolled diabetes * aflutter - patient had been rate controlled entire admission before episode of chest tightness on inspiration * PMH of RODRICK noncompliant with CPAP, * hypotension, * hyperlipidemia, * degenerative disc disease * History of esophageal stricture with recurrent dysphagia Plan * Discontinue Cozaar * Restart Lasix; constant Cardizem * Plan for discharge home today * continue PPI * Patient to follow with the GI [facility] for esophageal dilation Current Medications Sig/Efe Start time Last Medication Dose Route Stop Time Status Admin Acetaminophen 325 MG Q6P PRN 03/27 2045 AC PO Albuterol Sulfate 3 ML EVERY 4 HRS/AWAKE 03/31 1600 AC 04/04 INH 1153 Albuterol Sulfate 2 PUF Q4 PRN 03/27 2200 AC INH Alprazolam 0.25 MG DAILY 03/31 0959 AC 04/04 PO 04/07 0958 0923 Apixaban 5 MG BID 03/27 2146 AC 04/04 PO 204 Atorvastatin Calcium 40 MG 1700 03/28 1700 AC 04/04 PO 1725 Azithromycin 250 MG MoWeFr 03/29 1000 AC 04/03 PO 0745 Bisacodyl 10 MG ONCE PRN 04/01 0800 AC 04/01 FL 1009 Calcium Carbonate 500 MG DAILY 03/28 204 AC 04/04 PO 0925 Cholecalciferol 1,000 IU DAILY 03/29 1803 AC 04/04 PO 0924 Cyclobenzaprine HCl 10 MG TID 03/28 09 AC 04/04 PO 204 Diltiazem HCl 180 MG DAILY 03/28 09 AC 04/04 PO 0922 Fenofibrate 145 MG DAILY 03/28 0900 AC 04/04 PO 0924 Fluticasone 2 PUF BID 04/01 1456 AC 04/04 Propionate INH 2054 Furosemide 20 MG DAILY 03/28 09 DC 04/04 PO 09 Guaifenesin 600 MG Q12 03/28 0900 AC 04/04 PO 204 Hydrocodone Bitart/ 1 TAB Q6P PRN 03/27 2315 AC 04/05 Acetaminophen PO 0507 Lansoprazole 30 MG BID 03/30 1415 AC 04/04 PO 0925 Losartan Potassium 25 MG DAILY 04/04 09 DC 04/04 PO 0922 Melatonin 5 MG AT BEDTIME 03/31 2100 AC 04/04 PO 204 Metformin HCl 850 MG 0800,1700 04/03 1700 AC 04/04 PO 1725 Polyethylene Glycol 17 GM DAILY 03/30 1433 AC 04/01 PO 1004 Prednisone 10 MG DAILY 04/03 1027 DC 04/03 PO 1203 Senna/Docusate Sodium 1 TAB BID PRN 03/30 1445 AC 04/03 PO 204 Sitagliptin Phosphate 100 MG DAILY 04/02 0900 AC 04/04 PO 0923 Sodium Chloride 2 SPRAY Q4P PRN 04/03 1030 AC MICHELLE Tiotropium Dow 1 PUF DAILY 03/27 2200 AC 04/04 INH 0925 Vitamin E 800 IU DAILY 04/04 1855 AC 04/04 PO 203 Laboratory Tests Laboratory Tests 04/05 09 Chemistry Sodium (137 - 145 mmol/L) 137 Potassium (3.5 - 5.1 mmol/L) 4.1 Chloride (98 - 107 mmol/L) 102 Carbon Dioxide (22 - 30 mmol/L) 25 Anion Gap (5 - 16) 10 BUN (9 - 20 mg/dL) 24 H Creatinine (0.7 - 1.2 mg/dL) 0.9 Estimated GFR (>60 ml/min) > 60 BUN/Creatinine Ratio (7 - 25 %) 26.7 H 04/04/18 0714: Cortisol AM Sample 3.4 L, CBC w Diff MAN DIFF ORDERED, RBC 4.43 L, MCV 87.5, MCH 30.0, MCHC 34.3, RDW 16.4 H, MPV 6.0 L, Gran % 68.0, Lymphocytes % 25.7, Monocytes % 4.9, Eosinophils % 1.3, Basophils % 0.1, Absolute Granulocytes 12.2 H, Segmented Neutrophils 69, Band Neutrophils 2, Absolute Lymphocytes 4.6 H, Lymphocytes 23, Monocytes 6, Absolute Monocytes 0.9 H, Absolute Eosinophils 0.2 , Absolute Basophils 0, Platelet Estimate ADEQUATE, Poikilocytosis 2+, Anisocytosis 2+ 04/03/18 1210: Anion Gap 10, Estimated GFR > 60, BUN/Creatinine Ratio 33.6 H Vital Signs Date Time Temp Pulse Resp B/P B/P Pulse O2 O2 Flow FiO2 Mean Ox Delivery Rate 04/05 0620 97.7 87 20 120/68 97 Room Air 04/05 0000 Room Air 04/04 2232 97.7 80 20 130/70 97 04/04 1348 98.0 79 20 100/70 98 Room Air 04/04 0922 132/70 04/04 0838 98 Room Air Room Air Intake & Output 04/05 1600 04/05 0800 04/05 0000 Intake Total 400 Output Total Balance 400 Intake, Oral 400 Number 0 Bowel Movements Total time spent in preparation for discharge plan, patient education, and CMR preparation was 35 minutes. Patient currently stable for discharge
--- NOTE | 2018-04-05 08:15 | PN- Housestaff ---
Subjective Follow-up For: #COPD exacerbation #orthostatic hypotension #CHF, stable w/ last known EF >55% #achalasia #uncontrolled diabetes #aflutter - patient had been rate controlled entire admission before episode of chest tightness on inspiration - resolved #PMH of RODRICK noncompliant with CPAP, hypertension, hyperlipidemia, degenerative disc disease Subjective: Patient continues to complain of gasping and chest tightness. Review of Systems Constitutional: Reports: no symptoms. Respiratory: Reports: short of breath. Objective Last 24 Hrs of Vital Signs/I&O Vital Signs Date Time Temp Pulse Resp B/P B/P Pulse O2 O2 Flow FiO2 Mean Ox Delivery Rate 04/05 0822 96 Room Air Room Air 04/05 0800 Room Air 04/05 0620 97.7 87 20 120/68 97 Room Air 04/05 0000 Room Air 04/04 2232 97.7 80 20 130/70 97 Intake & Output 04/05 1600 04/05 0800 04/05 0000 Intake Total 400 Output Total Balance 400 Intake, Oral 400 Number 0 Bowel Movements Physical Exam General Appearance: Alert, Oriented X3, Cooperative, No Acute Distress HEENT: Atraumatic, EOMI, Mucous Membr. moist/pink Cardiovascular: Regular Rate, Normal S1, Normal S2, No Murmurs Lungs: Clear to Auscultation, Normal Air Movement Assessment/Plan Assessment: 77yo M with PMH of COPD not on home oxygen but on 10 mg chronic prednisone, RODRICK noncompliant with CPAP, A. fib on Eliquis currently rate controlled, diabetes, hypertension, hyperlipidemia, degenerative disc disease presented to ER with SOB with nonproductive cough 3-4 days. He was last admitted to [facility] in 11/2017 with COPD exacerbation and was sent home on chronic prednisone and was managed by wellness clinic/Dr. Avila, last seen in Dr. Avila's office about 3 weeks ago, who adjusted his prednisone to 10mg daily, with zithromax prescribed. We are following the patient following problems: COPD exacerbation mostly resolved but patient has emphysema/small airway disease : -Patient was weaned off from oxygen right now he is on room air and maintaining saturation 95% however was found to desaturate to 89% on ambulation. Patient has been experiencing exertional dyspnea for most of his admission. Appreciate pulmonary recommendations. Patient may qualify for oxygen outpatient and we will assess. He is artery on CPAP which she admitted to not using reliably before admission. -Patient got echocardiogram to assess for pulmonary hypertension yesterday and results were negative, no abnormalities and an EF of 60%. Chronic venous thromboembolism is less likely as patient is on chronic anticoagulation. As per Praneeth Mehta MD patient would probably require VQ scan the future if this shortness of breath continues. Patient appears to be better this morning and is saturating 95% on room air -TRC nebulization as needed -We have stressed the importance of the patient uses CPAP at night. He states that his machine that he has at home is more comfortable and vows to use it more regularly. -He is off the steroids at this point. When patient was admitted he was on a tapered dose of 10 mg but as per pulmonary we will take him completely off steroids. -Continue long-term azithromycin 250 mg on Tuesday -We have dosed patient a small amount of Xanax 0.25 mg scheduled for anxiety component that may be contributing to his shortness of breath. -He has an appointment with Dr. Avila on April 11 already for follow-up Achalasia: Is most likely contributing to patient's chest tightness. Patient did have a procedure to open the esophageal lumen at one point but now states that he is having a feeling of food being caught at the gastroesophageal junction. -GI consult -Continue lansoprazole 30 mg twice a day. -Change patient's diet to chopped Dizziness and mild confusion as per : Patient states that sometimes he has this dizziness at home but this is the first time he has complained of a here. Overnight the patient had a low blood pressure down to 90/40. This morning his blood pressure has increased to 132/70. -Hold Lasix -We did orthostatics and patient was found to have blood pressure 122/60 with a heart rate of 75 on lying down, blood pressure 108/52 with a heart rate of 82 on sitting, blood pressure 82/50 and 76/48 on second reading with a heart rate of 92 on standing. -We did speak with Kyler Dunbar MD, asset protection greeter concerning this and he stated that he would defer any discontinuation of his Lasix to cardio/pulmonary consultants. We did put in at 6 AM cortisol level which was low at 3.4. However, the patient has been on long-term steroids. -Patient is on diet and we will encourage fluid intake. Uncontrolled diabetes: Overnight sugars unchanged. -Probably compounded by steroid use -Patient was changed to his oral antidiabetic medications. He will continue metformin and sitagliptin as per Kyler Dunbar MD, however with an increased dose of metformin from 500 twice a day to 850 twice a day. History of hypertension hyperlipidemia: -We have switched lisinopril to losartan as patient is having chronic cough and BEBA inhibitor could be the cause. Losartan dose was 25 mg but the patient experienced episode of hypotension last night down to 90/46 today we will stop his losartan. -Continue Lipitor History of A. fib: Patient is currently in sinus rhythm. He had a repeat EKG done last night with plans for cardioversion if he continued to be in A. fib. 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 -Continue Eliquis 5 mg -Continue diltiazem for rate control DVT prophylaxis: Mechanical and patient is already on Eliquis CODE STATUS: Full code Problem List: 1. CHF (congestive heart failure) 2. COPD exacerbation 3. Diabetes 4. Achalasia
--- NOTE | 2018-04-05 10:29 | PN- Diabetes ---
Assessment/Plan Diabetes Assessment: Patient has been feeling better. Prednisone was discontinued. He is on metformin 850 mg twice a day and Januvia 100 mg daily. His FSGs were 126, 230, 169, 140 and 178. Plan: continue the current DM medications. monitor FSGs. will follow. Subjective Subjective: He still feels SOB. Objective Last 24 Hrs of Vital Signs/I&O Vital Signs Date Time Temp Pulse Resp B/P B/P Pulse O2 O2 Flow FiO2 Mean Ox Delivery Rate 04/05 0822 96 Room Air Room Air 04/05 0620 97.7 87 20 120/68 97 Room Air 04/05 0000 Room Air 04/04 2232 97.7 80 20 130/70 97 04/04 1348 98.0 79 20 100/70 98 Room Air Intake & Output 04/05 1600 04/05 0800 04/05 0000 Intake Total 400 Output Total Balance 400 Intake, Oral 400 Number 0 Bowel Movements Findings Pertinent Lab/Mandeep Results: Laboratory Tests 04/05 0904 Chemistry Sodium (137 - 145 mmol/L) 137 Potassium (3.5 - 5.1 mmol/L) 4.1 Chloride (98 - 107 mmol/L) 102 Carbon Dioxide (22 - 30 mmol/L) 25 Anion Gap (5 - 16) 10 BUN (9 - 20 mg/dL) 24 H Creatinine (0.7 - 1.2 mg/dL) 0.9 Estimated GFR (>60 ml/min) > 60 BUN/Creatinine Ratio (7 - 25 %) 26.7 H
[2018-04-05] MEDS ORDERED: XANAX0.25 M1 PO ×2 (11:51→11:54)
== END 2018-04-05 12:29 | DRG 191 ==
LOC: ERH 10:51 → 2NA 19:30 → ERHI 19:30 → ENRESERV 20:24 → ENTRNSPT 20:39 → EDTRNSPTSTS 20:45 → EDTRNSPT 20:45 → 2NA 20:48 → EDTRNSPT 21:10 → CMPTRNSPT 21:11 → 2NA 03-28 07:33
PROVIDERS: Physician Assistant Medical; Student in an Organized Health Care Education/Training Program
DX: J44.1 Chronic obstructive pulmonary disease with (acute) exacerbation (principal); I50.32 Chronic diastolic (congestive) heart failure; I48.91 Unspecified atrial fibrillation; I11.0 Hypertensive heart disease with heart failure; K22.0 Achalasia of cardia; E87.1 Hypo-osmolality and hyponatremia; G45.9 Transient cerebral ischemic attack, unspecified; I48.92 Unspecified atrial flutter; Z79.01 Long term (current) use of anticoagulants; Z79.52 Long term (current) use of systemic steroids; E78.5 Hyperlipidemia, unspecified; Z79.51 Long term (current) use of inhaled steroids; Z90.49 Acquired absence of other specified parts of digestive tract; G47.33 Obstructive sleep apnea (adult) (pediatric); Z91.19 Patient's noncompliance with other medical treatment and regimen; Z88.1 Allergy status to other antibiotic agents; F41.9 Anxiety disorder, unspecified; F32.9 Major depressive disorder, single episode, unspecified; Z98.1 Arthrodesis status; E66.9 Obesity, unspecified; Z68.32 Body mass index [BMI] 32.0-32.9, adult; T38.0X5A Adverse effect of glucocorticoids and synthetic analogues, initial encounter; I25.10 Atherosclerotic heart disease of native coronary artery without angina pectoris
CPT/HCPCS: 2NAP; 36415; 36592; 71045; 71046; 74018; 82436; 87040; 93005; 93010; 93306; 96374; 96375; J0456; J1815; J2920; J2930; J3490; J7040; J7512